=== PATIENT | female | born 1940 | race Caucasian/White ===

== ENCOUNTER → 2018-11-18 10:03 | Outpatient (CLI) | payer OTHER, SELFPAY ==
--- NOTE | 2018-11-15 | LES_PTH ---
PATIENT: JALEESA ZAYAS LOC: [facility] U#:[id number] AGE/SX: 84/F ROOM: RE11/18/[address]: Dr. Luis Enrique Meeks MD : 1940 BED: DIS: SPEC #: [id number] RECD: 11/18/18 09:57 STATUS: ANN DEEPAK #: [id number] CHRISTINA: 11/15/18 00:[address]: Luis Enrique Meeks DEPT: SURGICAL PATHOLOGY RECD BY: Clement Mccoy ENTERED: 11/18/18 12:27 SP TYPE: Lesion OTHR DR: No Primary Care Phys Tissues: Skin of eyelid, NOS Procedures: Surgery Specimen Level IV HEADER OPERATION: RLL lesion PRE-OP DIAGNOSIS: Likely inclusion cyst TISSUE SUBMITTED: Right lower eyelid lesion MICROSCOPIC DIAGNOSIS Lesion of right lower eyelid, biopsy: Consistent with eccrine hidrocystoma. AM:sharon 11/19/18 MICROSCOPIC DESCRIPTION Slides are reviewed. GROSS DESCRIPTION Received in fixative is one container labeled with the patient's name and designated right lateral canthus. The specimen consists of a discoid fragment of light muniz soft tissue measuring 0.4 x 0.3 x 0.1 cm. The specimen is totally submitted in one cassette. / AM:sharon 11/18/18 TC:5 CPT: 98917
== END ==
PROVIDERS: Referring Provider Ophthalmology; Visit Provider Ophthalmology
DX: H02.9 Unspecified disorder of eyelid (principal)
CPT/HCPCS: 88305

== ENCOUNTER → 2023-10-02 | Outpatient (CLI) | payer MEDICARE, SELFPAY ==
--- NOTE | 2023-10-02 12:20 | CT_ITS ---
STUDY: CT LUMBAR SPINE WITH INTRATHECAL CONTRAST (LUMBAR CT MYELOGRAM) REASON FOR EXAM: Female, 83 years old. COMPRESSION FX RADIATION DOSAGE (If Supplied By Facility): CTDIvol = ( 41.29 ) mGy, DLP = ( 1282.85 ) mGycm TECHNIQUE: Transaxial images were obtained from the L1 vertebra through the S1 vertebral level, following intrathecal administration of 15 ml of Isovue 200 contrast material, performed by Dr. Hoffmann. Please refer to this physicians technical notes for procedural details. Coronal and sagittal reconstructions were obtained. Individualized dose optimization techniques were used for this CT. COMPARISON: Comparison is made with prior mammogram done earlier today. FINDINGS: Normal lumbar lordosis. There is no substantial scoliosis. Normal vertebrae of the lumbar spine. There is dependent layering of contrast material in the distal thecal sac. The conus medullaris terminates in a normal position at the L1-L2 level.. There is no demonstrated cauda equina nerve root abnormality or intraspinal mass. L1-2: Marked degree of disc space narrowing. Spondylosis. Degeneration of the disc space. L2-3: Marked degree of disc space narrowing degeneration. Facet joint osteoarthritis and hypertrophy. Severe degree of bilateral neural foraminal stenosis worse on the right side. L3-4: Marked degree of disc space narrowing and degeneration and spondylosis. There is a complete block to the flow of contrast due to combination of the diffuse posterior disc bulge as well as the hypertrophy of the facet joints and the ligamenta flava. L4-5: Marked degree of disc space narrowing. Facet joint osteoarthritis and hypertrophy. Minimal mild radiographic contrast is seen. L5-S1: Normal endplates. Normal disc height and morphology. Normal bilateral facet joints. Normal central canal and bilateral lateral recesses. Normal bilateral intervertebral neural foramina. There are degenerative changes of the bilateral sacroiliac joints. Atherosclerotic calcification of the abdominal aorta. CT/Spine Lumbar WITH Contrast IMPRESSION: Marked degree of spinal stenosis at the L3-L4 level with complete block due to combination of facet joint osteoarthritis and hypertrophy as well as hypertrophy of the ligamenta flava and diffuse posterior disc bulge. Electronically Signed: Rolf Hoffmann MD at 14:11 EDT ,
--- NOTE | 2023-10-02 12:20 | RAD_ITS ---
PROCEDURE: LUMBAR MYELOGRAM DATE OF EXAMINATION: October 02, 2023. INDICATION: Female, 83 years old. Low back pain. Spinal stenosis. PHYSICIAN: Rolf Hoffmann M.D. CONSENT: The patient''s history and physical findings were reviewed. The lumbar myelogram procedure was discussed with the patient prior to signing a consent. SEDATION: Local anesthesia with 3 mL of 1% lidocaine was used. FLUOROSCOPY TIME (if supplied): (6:24) minutes/seconds. 238 mGy. Injection Information: 15 cc of Isovue-M 200 Number of images obtained: TECHNIQUE: Digital fluoroscopy was used to identify a safe approach for the lumbar myelogram. The back was prepped and draped in usual fashion. Local anesthesia was utilized. Under fluoroscopic guidance a 22-gauge spinal needle was inserted into the spinal canal at the L2-L3 level. 15 mL of Isovue 200 M was injected into the spinal canal. There is evidence of a spinal stenosis at the L3-L4 level. Marked degree of disc space narrowing can spondylosis. A CT scan will follow. RAD/Lumbar Myelogram IMPRESSION: Marked degree of spinal stenosis at the L3-L4 level. CT will follow. Electronically Signed: Rolf Hoffmann MD at 14:04 EDT ,
[2023-10-02 12:36] VITALS: BP 186/82; PULSE 79; RESP 18; TEMP 36.7; O2SAT 94; BMI 33.3
[2023-10-02] MEDS: Lidocaine 2% (5ml sdv) 5 ML VIAL.MPF INFILT ×2 (13:08→13:20)
[2023-10-02 13:50] VITALS: BP 215/85; PULSE 83; RESP 20; O2SAT 94
[2023-10-02 14:21] VITALS: BP 189/70; PULSE 73; RESP 18; O2SAT 93
== END | disposition home or self-care (01) ==
PROVIDERS: PCP Internal Medicine; Referring Provider Orthopaedic Surgery; Visit Provider Orthopaedic Surgery
DX: S32.010A Wedge compression fracture of first lumbar vertebra, initial encounter for closed fracture (principal); M54.16 Radiculopathy, lumbar region
CPT/HCPCS: 62304; 72132

== ENCOUNTER 2024-01-03 07:29 | Observation (INO) | payer MEDICARE, SELFPAY ==
--- NOTE | 2023-12-17 08:05 | EKG12_ITS ---
Test Reason : PRE OP Blood Pressure : / mmHG Vent. Rate : 089 BPM Atrial Rate : 090 BPM P-R Int : 210 ms QRS Dur : 082 ms QT Int : 356 ms P-R-T Axes : 044 -17 024 degrees QTc Int : 433 ms Atrial-paced rhythm with prolonged AV conduction Low voltage QRS Septal infarct , age undetermined Abnormal ECG Confirmed by ANNAMARIE WOOD, SHERRIE ([id number]), marketing editor ARAMIS JURADO ([id number]) on 12/17/2023 12:49:06 PM Referred By: Michael Paiz Confirmed By:SHERRIE DE LUNA MD
--- NOTE | 2023-12-17 08:15 | RAD_ITS ---
EXAM: XR CHEST, 2 VIEWS CLINICAL INDICATION: PROEP TECHNIQUE: Frontal and lateral views of the chest. COMPARISON: No relevant prior studies available. FINDINGS: LUNGS AND PLEURAL SPACES: Hyperinflated lungs with interstitial prominence likely secondary to COPD. No focal pneumonia. No pneumothorax. No effusion. HEART: No significant abnormality. Cardiac silhouette not enlarged. MEDIASTINUM: Central airways and mediastinal contour are unremarkable. BONES/JOINTS: Postsurgical changes in the cervical spine and degenerative changes elsewhere in the spine and at the bilateral shoulders. No acute fracture. SOFT TISSUES: No significant abnormality. TUBES, LINES AND DEVICES: Left-sided cardiac pacer. RAD/Chest PA and Lateral IMPRESSION: Hyperinflated lungs with interstitial prominence likely secondary to COPD. No focal pneumonia. Electronically Signed: Geraldo Whitt DO at 23:55 EDT ,
[2023-12-17 09:58] LABS: Absolute Lymphocyte Count 2.78 X10^3/uL (0.83-4.51); Basophil# 0.03 X10^3/uL; Basophil% 0.2 % (0-1); Eosinophil# 0.08 X10^3/uL; Eosinophils% 0.5 % (0-5); Hematocrit 43.4 % (37-47); Hemoglobin 14.2 g/dL (12.0-15.0); Lymphocyte # 2.78 X10^3/ul (0.83-4.51); Lymphocyte % 19.1 % (19-41); Mean Corp Hgb Conc 32.7 g/dL (32-36); Mean Corpuscular Hgb 29.1 pg (27.0-32.0); Mean Corpuscular Volume 88.9 fL (81-99); Mean Platelet Vol. 11.1 fl (6.2-12.0); Monocyte# 1.37 X10^3/uL; Monocyte% 9.4 % (0-10); NRBC Flagged by Analyzer 0 % (0-5); Neutrophil # 10.03 X10^3/uL (2.7-7.7); Neutrophil % 68.8 % (47-70); Platelet Count 251 K/mm3 (150-450); RBC Distribution Width SD 42.4 fl (35.1-43.9); Red Blood Count 4.88 M/mm3 (4.2-5.4); White Blood Count 14.6 K/mm3 (4.4-11.0)
[2023-12-17 10:08] LABS: International Normalized Ratio 1.1; Partial Thromboplast Time 24.3 Seconds (24.1-36.2); Prothrombin Time (Protime)PT. 14.2 SECONDS (11.7-14.9)
[2023-12-17 10:43] LABS: Anion Gap 7 (5-15); BUN 34 mg/dL (7-18); Calcium,Total 8.9 mg/dL (8.5-10.1); Chloride 108 mmol/L (98-107); Creatinine, Serum 1.26 mg/dL (0.55-1.02); EST Glomerular Filtration Rate 43 mL/min (>60); Est Glom Filt Rate - Afr Amer 52 mL/min (>60); Glucose 111 mg/dL (74-106); Potassium 4.4 mmol/L (3.5-5.1); Sodium Level 140 mmol/L (136-145)
--- NOTE | 2023-12-31 06:02 | HP.PCM_ITS ---
History and Physical History and Physical Patient Name: Rosario Tran Marcia : 1940From:? OG FERNANDO PA-C DATE OF PRE-OPERATIVE EXAM: 12/28/2023 DATE OF SURGERY:? 01/03/2024 SCHEDULED PROCEDURE:? Lumbar 3, lumbar 4 laminectomy and decompression HISTORY OF PRESENT ILLNESS: Dictating on an 83-year-old female who has had ongoing pain in her lumbar spine for years.? She has had chronic low back pain which does radiate into the left lower extremity.? Her pain has been episodic.? It has become worse since approximately March when she did have some falls around that time.? She does get pain in the lumbosacral region extending into the gluteal region and left posterior thigh.? She denies past history of any lumbar surgeries or injection s.? She denies any loss of bowel or bladder control.? She has been treated with day care home mother as well as daily home exercises with no relief.? She has tried [id number] medications including Tylenol and aspirin with no relief.? Patient reports that her activities of daily living have been significantly affected.? Patient has had a previous lumbar CT myelogram.? Patient has obtained surgical clearance from her primary care provider Dr. Hopkins.? Patient is also obtain clearance from soap tender.? Patient has medical history pertinent for hypertension, chronic kidney disease stage III, bradycardia.? She also has pacemaker.? Patient denies any recent fevers, chills or recent infections.? No recent chest pain or shortness of breath.? She denies past history of DVT or pulmonary embolism.? It was found on lab work patient to have leukocytosis which was addressed by the primary care provider.? Primary care provider is okay to proceed with surgery.? Urinalysis was done by the primary care provider. ? REVIEW OF SYSTEMS: Review Of Systems: Constitutional: Denies change in appetite, fever and weight change. Cardiovasular: Reports irregular heartbeat, but denies chest pain and heart murmur. Respiratory: Denies cough, pneumonia, shortness of breath, tuberculosis and wheezing. Gastrointestinal: Denies constipation, diarrhea, heartburn, nausea, rectal itching, bloody stools and vomiting. Genitourinary: Denies incontinence. Musculoskeletal: Reports gait disturbance, leg swelling, pain, trouble walking and weakness. Skin: Denies Raynaud's, history of shingles and tattoo. Neurological: Denies ambulatory dysfunction, dizziness, numbness/tingling and tremor. Psychiatric: Reports stress, but denies anxiety and insomnia. Hematologic/Lymphatic: Denies anemia, bleeding/bruising tendency and past transfusion. Reviewed and updated. PAST MEDICAL HISTORY: Advance Care Plan: No Advance Directives Effective Date: 10/30/2019 Past Medical History: Medical Problems: High Blood Pressure, Bradycardia, Stage 3 Chronic Kidney Disease Accidents: Other - (12/06/2020) FALL MISSED STEP Surgical Hx: Pacemaker Knee Arthroscopy LT - (1989) Anesthesia Complications: None Assistive Devices: Cane, Glasses Reviewed and updated. 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 Personal Habits:? Cigarette Use: Never Smoked Cigarettes.Smokeless Tobacco: Never Used Smokeless Tobacco.E-Cigarette Use: Never used.Alcohol: Occasionally.Drug Use: Denies Use.Enjoy Exercising: Exercises 1-3 x/month. Reviewed, no changes. VITALS: Ht: 64 Wt: 206lb Wt k.442 BMI: 35.4 BP: 154/92 Pulse: 85 Resp: 17 T: 97.4 T: 36.3C Pain Level: 8 O2SatR: 97 ALLERGIES: Latex Codeine - Soreness Tape Bandages - Soreness Tetanus - Soreness Aspirin - Soreness MEDICATIONS: Furosemide 20 mg 1 by mouth every day, Lisinopril 20 mg 1 by mouth every day PRE-OP EXAM: General appearance:NORMAL? Other: Eyes: Conjunctivae and lids: NORMAL? Pupils: ERR Ears, Nose, Mouth, and Throat: NORMAL? Other: Inspection of lips, teeth and gums: NORMAL?? Other: Neck: Examination of neck: no masses noted. Respiratory: Assessment of respiratory effort: NORMAL?? Other: ? Auscultation of lungs: clear to auscultation no wheezes, rhonchi or rales. Cardiovascular:? Auscultation of heart: regular rate and rhythm, no murmurs, gallops or rubs. PHYSICAL EXAMINATION: Patient currently ambulates with cane for ambulatory assistance.? She has tenderness to palpation throughout the lumbar paraspinals.? She does have left gluteal pain on palpation.? She gets radicular symptoms to the left posterior thigh.? Patient has increased pain with forward flexion and extension in the lumbar spine.? Sensation is grossly intact to bilateral lower extremities.? Diminished patellar reflex bilaterally.? Decreased strength with left hip flexion and great toe extension. IMAGING STUDIES: Previous x-rays a lumbar spines shows scoliotic deformity of about 20 apex left at L3.? There is straightening of lumbar lordosis in the sagittal plane.? Degenerative changes at multiple levels with loss of disc height, disc osteophyte complex formation and facet arthrosis.? Degenerative changes of bilateral sacroiliac joint.? Mild age-indeterminate compression of the superior endplate of L1.? Decreased bone mineral density throughout the axial skeletal. CT myelogram of the lumbar spine shows mild scoliotic deformity with straightening of the lumbar lordosis in the sagittal plane.? Degenerative changes at multiple levels with loss of disc height, disc osteophyte complex and facet arthrosis most severe at L3-L4 where there is severe central canal stenosis. IMPRESSION: 1.? Lumbar degenerative disc disease most severe L3-L4 with spinal stenosis 2.? Hypertension 3.? Chronic kidney disease stage III 4.? History of bradycardia 5.? Obesity with BMI 35.4 PLAN: Dr. Michael Paiz did discuss and review with the patient all treatment options including surgical versus nonsurgical options.? Patient does wish to proceed with the above-stated procedure.? Potential risks, benefits, and complications of the procedure were discussed in detail including but not limited to , infection, nerve and blood vessel damage, persistent pain, numbness, tingling, paresthesias, blood clot, pulmonary embolism, and requirement for possible further surgery.? The patient expressed full understanding and has no further questions for the doctor.? Patient does agree to proceed with the above-stated procedure and has signed the surgery consent form. POST-OP MEDICATION PLAN: Pain Medications: Postoperative pain regimen will be initiated by Dr. Michael Paiz in the hospital. This dictation was created using voice recognition software. Phonetic and/or grammatical errors may exist. ___? I have re-examined the patient.? There are no clinical changes since date of exam. ___? See progress notes for changes. ___? Dictated on admission Date: ? Time: Signature:
[2024-01-03] VITALS (16 sets, daily range): BP systolic 103–177; BP diastolic 56–94; PULSE 69–86; RESP 16–18; TEMP 36.1–36.8; O2SAT 95–100; BMI 34.5
[2024-01-03] MEDS: Lactated Ringers 1,000 ML 15 ML IV (06:06)
--- NOTE | 2024-01-03 07:18 | OP.PCM_ITS ---
Report of Operation Date of Procedure: 01/03/24 Description of Surgical Findings:: PREOPERATIVE DIAGNOSES: 1. Lumbar stenosis, L3-4, L4-5 with spondylosis. 2. Lumbar degenerative disc disease, L3-4, L4-5 POSTOPERATIVE DIAGNOSES: 1. Lumbar stenosis, L3-4, L4-5 with spondylosis. 2. Lumbar degenerative disc disease, L3-4, L4-5 PROCEDURE PERFORMED: 1. L3 bilateral laminectomies, foraminotomies, decompression of bilateral nerve roots. 2. L4 bilateral laminectomies, foraminotomies, decompression of bilateral nerve roots. STATEMENT OF MEDICAL NECESSITY: The patient is an 83-year-old female with intractable back and leg pain. Image studies confirm above diagnosis. She has opted for operative intervention, understanding the risks to include, but not limited to infection, bleeding, damage to nerves, arteries, and veins, possibility of spinal fluid leak, continued pain, need for further surgery, deep vein thrombosis, pulmonary embolism, heart attack, risk of stroke, or . DESCRIPTION OF PROCEDURE: The patient was seen and examined preoperatively. Patient identity and surgery site were confirmed with the patient. She received preoperative IV antibiotics and was then transferred to the operative suite. After the appropriate amount of anesthesia, the patient was transferred to the [place] operating table in the prone position. All bony prominences were padded accordingly. The lumbar spine was prepped and draped in standard surgical fashion. Jayson huggers were not turned on until drapes were placed and sealed with Ioban. A Midline incision was made and taken down to the lumbodorsal fascia. the fascia was divided and subperiosteal dissection taken down to the level of bilateral L3-4 and L4-5 facet joints. Deep retractors were placed. A bone scalpel was used to make cuts in the lamina of L3 and L4, then a series of rongeurs and Kerrisons removing the spinous process and lamina at L3, and L4. Then, foraminotomies were performed at bilateral L3-4 and L4-5 decompressing the nerve roots. The incision was then thoroughly irrigated. Tissel was placed over the dura as a hemostatic agent. Fascia was closed with #1 Vicryl, subcutaneous with 2-0 Vicryl, and skin with 2-0 nylon. Sterile dressing was applied with 4 x 4, ABD, and tape. Sponge, instrument, and needle counts were correct at the end of the case. The patient was extubated, taken to PACU without incident. Surgeon: Michael Paiz Type of Anesthesia: General Estimated Blood Loss (mL): 50 cc Fluids Replaced: 1000 cc Complications None Admit VTE Documentation VTE Present on Admission: No
--- NOTE | 2024-01-03 07:20 | PRE.ANES_ITS ---
ASA Classification* ASA Classification ASA Classification: 3 Assessment & Plan Anesthesia* Anesthesia Assessment Anesthesia Assessment: Discussed sedation and/or anesthesia options, risks, benefits, and alternatives with patient/parents/legal guardian/POA. Questions invited. The patient/parents/legal guardian/POA seems to understand and agrees to proceed with anesthesia plan. Reviewed the physical assessment, medical history, allergy history and patient home medications list prior to surgery/procedure/anesthetic and documented any changes. Performed airway and anesthesia risk assessments. Anesthesia Type Anesthesia Type: General (see written pre anesthesia record for full assessment) Anesthesia Focused Assessment* Temperature: 97.0 F Pulse Rate: 86 Blood Pressure: 144/66 Respiratory Rate: 18 Pulse Ox: 98 Airway Assessment Mouth opens: >3 cm Mallampati Score: II Focused Labs Anesthesia Preop lab: CBC WBC 14.6 K/mm3 (4.4-11.0) H 12/17/23 08:41 RBC 4.88 M/mm3 (4.2-5.4) 12/17/23 08:41 Hgb 14.2 g/dL (12.0-15.0) 12/17/23 08:41 Hct 43.4 % (37-47) 12/17/23 08:41 Plt Count 251 K/mm3 (150-450) 12/17/23 08:41 CHEMISTRY Potassium 4.4 mmol/L (3.5-5.1) 12/17/23 08:41 Sodium 140 mmol/L (136-145) 12/17/23 08:41 BUN 34 mg/dL (7-18) H 12/17/23 08:41 Creatinine 1.26 mg/dL (0.55-1.02) H 12/17/23 08:41 Glucose 111 mg/dL (74-106) H 12/17/23 08:41 COAG PT 14.2 SECONDS (11.7-14.9) 12/17/23 08:41 Pre-Assessment Diagnosis/Proposed Procedure Planned Operative Procedure(s): Laminectomy, Lumbar 3, Lumbar 4 Decompression Anesthesia History 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 When Was Last Pacemaker Check QUESTION #4 FULL TEXT: You/Your Family Experience fever (hyperthermia) with Anesthesia Last Oral Intake Last Oral intake: Last Oral Intake NPO since 19:00 01/03/24 05:56 Meds taken in AM with sips of No 01/03/24 05:56 water? Meds patient instructed to take am of surgery PONV PONV - reactor fueling supervisor: PONV - reactor fueling supervisor Female Yes 12/13/23 09:50 HX of Motion Sickness No 12/13/23 09:50 HX of N/V After Surgery No 12/13/23 09:50 Non-Smoker Yes 12/13/23 09:50 Duration of Surgery greater Yes 12/13/23 09:50 than 60 minutes Number of Risk Factors 3 12/13/23 09:50 PONV Score Moderate Risk 12/13/23 09:50 Height & Weight Height & Weight: Anesthesia: Height & Weight Height 5 ft 5 in 01/03/24 05:56 Weight: 94.166 kg 01/03/24 05:56 Body Mass Index (BMI) 34.5 01/03/24 05:56 Respiratory Assessment Respiratory Assessment - reactor fueling supervisor: Respiratory Tract Infection Hx - reactor fueling supervisor Hx Respiratory Tract Infection No 12/13/23 09:50 STOP Sleep Apnea STOP Sleep Apnea - reactor fueling supervisor: STOP Sleep Apnea - reactor fueling supervisor Hx Hypertension Yes: CONTROLLED WITH MED 12/13/23 09:50 Hx Sleep Apnea No 12/13/23 09:50 CPAP BIPAP Do you snore loudly (louder No 12/13/23 09:50 than talking or can be heard Do you often feel tired/ No 12/13/23 09:50 fatigued/ sleepy during daytime? Has anyone observed you stop No 12/13/23 09:50 breathing during sleep? STOP Results Negative 12/13/23 09:50 QUESTION #5 FULL TEXT : Do you snore loudly (louder than talking or can be heard through closed doors)? 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 Specify any problems Hx of Preganancy in last 3 N/A 12/13/23 09:50 Months Nurse Filling Out Transfusion NBUCHER 12/13/23 09:50 & Questions: Date: 12/13/23 12/13/23 09:50 Time: 09:54 12/13/23 09:50 Patient unable to answer at this time (ie. confused, unrespo /Reproduction History /Reproductive History - reactor fueling supervisor: /Reproductive Hx- reactor fueling supervisor Hx Now No 12/13/23 09:50 Gestational Age (in weeks): EDC: Hx Hx Para Hx Section SAB No 12/13/23 09:50 Active Medications Active Medications: Current Medications Generic Name Dose Route Start Last Admin Trade Name Freq PRN Reason Stop Dose Admin Lactated Ringer's 1,000 mls @ 15 mls/hr 01/03/24 05:30 01/03/24 06:06 IV 15 mls/hr .Q48H UTE Administration PFSH Medical History Wears glasses High cholesterol Ambulates with cane History of edema Non-smoker History of echocardiogram History of stress test Hypertension Cardiology follow-up encounter History of pacemaker Home Medications ?Medication ?Instructions ?Recorded ?Last Taken ?Type atorvastatin 20 mg tablet 20 mg PO QHS 12/13/23 01/02/24 History ergocalciferol (vitamin D2) 1,250 1,250 mcg PO QWEEK 12/13/23 12/30/23 History mcg (50,000 unit) capsule hydrochlorothiazide 12.5 mg capsule 12.5 mg PO DAILY 12/13/23 01/02/24 History losartan 50 mg tablet 50 mg PO DAILY 12/13/23 01/02/24 History Allergy/AdvReac Type Severity Reaction Status Date / Time codeine Allergy Severe unresponsiv Verified 01/03/24 05:51 e Surgical History Hx of fusion of cervical spine History of arthroplasty of left knee Social History Smoking Status: Never smoker Review of Systems (Anesthesia) ROS Narrative System reviewed and no additional complaints, except as documented.
--- NOTE | 2024-01-03 07:21 | PCM.PN.ORT ---
Subjective Subjective Seen and examined postop. Resting comfortably. Pain controlled. No complaints Objective Data Objective Data Vital Signs: Vital Signs Temp Pulse Resp BP Pulse Ox O2 Del Method 97.0 F L 86 18 144/66 H 98 Room Air 01/03/24 07:20 01/03/24 07:20 01/03/24 07:20 01/03/24 07:20 01/03/24 07:20 01/03/24 05:56 Oxygen Delivery Method Room Air Weight: 207 lb 9.6 oz Body Mass Index (BMI) 34.5 Lab / Micro Data 12/17/23 08:41 12/17/23 08:41 Micro: Microbiology 12/17/23 08:41 Swab (Method) Nasal Screen MRSA/MSSA - Final Physical Exam Const alert, oriented x3 and no apparent distress General Appearance: cooperative, comfortable and well kempt HEENT normocephalic and head/scalp atraumatic Eyes EOMs intact bilaterally and conjunctivae normal Neck full ROM General: normal visual inspection Chest inspection of chest normal and palpation of chest normal Resp normal respiratory effort and normal air movement Cardio regular rate, regular rhythm and peripheral pulses 2+ throughout GI soft to palpation, non-tender and non-distended Back/Spine Back/Spine Narrative: Dressing clean dry and intact Cervical Spine: cervical ROM normal Thoracic Spine / Upper Back: normal to inspection Lumbar Spine / Lower Back: normal to inspection Extremity normal to inspection, full ROM, normal capillary refill, no clubbing, cyanosis or edema and no calf tenderness Skin no rashes or lesions noted General Skin Exam: no breakdown Neuro oriented x3, CN's II-XII intact bilaterally, moves all extremities, no focal motor deficits, no sensory deficits noted and deep tendon reflexes 2+ bilaterally Motor Exam: muscle tone normal throughout Assessment & Plan Assessment/Plan (1) Lumbar stenosis: PLAN: Okay to admit See orders Discharge planning, likely home tomorrow
--- NOTE | 2024-01-03 07:23 | DS.PCM_ITS ---
Providers Date of Admission: 01/03/24 Primary Care Physician: Dr. Leodan Hopkins MD Reason For Visit: Laminectomy, Lumbar 3, Lumbar 4 Dec Diagnosis Discharge Diagnosis (1) Lumbar stenosis: Status: Acute Code(s): M48.061 - Spinal stenosis, lumbar region without neurogenic claudication Plan: Okay to admit See orders Discharge planning, likely home tomorrow Medications at Discharge Home Medications atorvastatin 20 mg tablet 20 mg PO QHS 12/13/23 ergocalciferol (vitamin D2) 1,250 mcg (50,000 unit) capsule 1,250 mcg PO QWEEK 12/13/23 hydrochlorothiazide 12.5 mg capsule 12.5 mg PO DAILY 12/13/23 losartan 50 mg tablet 50 mg PO DAILY 12/13/23 hydrocodone-acetaminophen 5-325mg 5mg-325mg 1 tab PO Q6H 7 days #28 tabs 01/03/24 Hospital Course Operations - (L3 and L4 laminectomy decompression) Summary of Care Provided Minutes Spent on Discharge: 15 Hospital Course: The patient is an 83-year-old female who underwent L3 and L4 laminectomy decompression on 01/03/2024. She was subsequently admitted. The hospitalist was consulted for medical management. The patient progressed well. Her pain was controlled and she was mobilizing well. No significant medical issues were reported. The patient was subsequently discharged home on 01/04/2024 to follow- up with Dr. Paiz in 3 weeks Physical Exam Const alert, oriented x3 and no apparent distress General Appearance: cooperative, comfortable and well kempt Neck full ROM General: normal visual inspection Resp normal respiratory effort and normal air movement Effort and Inspection: able to speak in complete sentences Cardio regular rate and peripheral pulses 2+ throughout GI soft to palpation, non-tender and non-distended Back/Spine Back/Spine Narrative: Dressing clean dry and intact. Incision well-approximated with interrupted sutures in place Cervical Spine: cervical ROM normal Thoracic Spine / Upper Back: normal to inspection Lumbar Spine / Lower Back: normal to inspection Extremity normal to inspection, full ROM, normal capillary refill, no clubbing, cyanosis or edema and no calf tenderness Skin no rashes or lesions noted General Skin Exam: no breakdown Neuro oriented x3, CN's II-XII intact bilaterally, moves all extremities, no focal motor deficits, no sensory deficits noted and deep tendon reflexes 2+ bilaterally Motor Exam: strength 5/5 throughout and muscle tone normal throughout Weight / BMI Weight Weight: 207 lb 9.6 oz Body Mass Index (BMI) 34.5 ABG / Lab / Microbiology Data 12/17/23 08:41 12/17/23 08:41 Microbiology: Microbiology 12/17/23 08:41 Swab (Method) Nasal Screen MRSA/MSSA - Final D/C Instructions Discharge Diet: No restrictions Additional Activity Instructions: No repetitive bending twisting or lifting more than 5 pounds Call your doctor if your incision/area has: Continuous Slow Oozing, Sudden Increased Bleeding, Increased Pain/ Swelling, Increased Redness, Foul Smelling Discharge and Swelling at the incision site Call your doctor if you observe: Fever of 101 or Higher, Coldness, Increased Pain, Numbness or Tingling, Change in Color, Inability to urinate, Inability to have a bowel movement, Using more than 1 pad per hour, Shortness of breath, Dizziness, Fainting spells, Swelling in the ankles, Chest pain, Prolonged hiccupping, Increased palpitations (irregular heartbeat), Calf discomfort and Uncontrolled pain Additional Dressing/Incision Instructions: Change dressing with daily with gauze and tape Additional Instructions: 1. During your procedure, you received sedation through your IV. Please follow these instructions for the next 24 hours: Do not drive a motor vehicle, do not drink any alcoholic beverages, and do not sign any legal documents or make personal or business decisions. A responsible adult should stay with you at least 6 hours after the procedure. 2. Keep your surgical site/incision clean and the dressing dry and intact. Change dressing daily with gauze and tape you may use an ice pack at the surgical site to reduce any swelling or discomfort. 3. Monitor the incision site for any signs or symptoms of infection. Watch for redness, excessive swelling or drainage, or continued pain at the incision site after 3 days. Contact your physician immediately for a fever, chills or a temperature of 101.5? F or greater. 4. Take your medication exactly as prescribed by your physician. Do not attempt to wean yourself off any of your medications even though your pain is improving. This process needs to be carefully monitored by your doctor. Take any antibiotics prescribed exactly as directed and until they are gone. 5. Avoid stretching, bending, pulling, twisting or any sudden movements. Do not bend or twist at the waist. 6. No lifting greater than 5 pounds. 7. Do not operate a motor vehicle, equipment or a power tool while taking pain medication 8. Do not have any manipulation done by a chiropractor or any other physician without first consulting with the surgeon 9. Please call us if you have any questions, problems or concerns. Please Follow Up With: Michael Paiz DO When: 3 weeks Meaningful Use Info Meaningful Use Meaningful Use Diagnoses (Choose all that apply): None applicable Ischemic Stroke Statin Dosing Therapy Reference: STATIN DOSE THERAPY REFERENCE: * Patients > 75 years receive moderate or high dose statin therapy. * Patients 75 years or YOUNGER should receive HIGH intensity statin dose unless contraindicated. You will be required to document reason for non-treatment if statin daily dose does not meet guidelines. HIGH DOSE STATIN THERAPY DAILY Atorvastatin > than or = to 40 mg Rosuvastatin > than or = to 20 mg Amlodipine + Atorvastatin > than or = to 2.5/40 mg Ezetimibe + Simvastatin 10/80 mg Simvastatin 80mg Discharge Plan Admission Admit Date/Time: 01/03/24 07:29 Attending Provider: Michael Paiz Primary Care Provider: Leodan Hopkins Consulting Providers: Artie Hernandez; Millie Grant Discharge Orders/Prescriptions Prescriptions: New hydrocodone-acetaminophen 5-325 mg tablet 1 tab PO Q6H 7 Days Qty: 28 0RF Continued losartan 50 mg tablet 50 mg PO DAILY hydrochlorothiazide 12.5 mg capsule 12.5 mg PO DAILY atorvastatin 20 mg tablet 20 mg PO QHS ergocalciferol (vitamin D2) 1,250 mcg (50,000 unit) capsule 1,250 mcg PO QWEEK Other Ambulatory Orders: 12 Lead EKG (Routine) Timeframe: 20231217 Location: None Selected Ordered By: Dr. Michael Paiz Referrals / Follow Up: Michael Paiz DO [Med Staff - Active Staff] - Leodan Hopkins MD [Primary Care Provider] - Disposition Disposition (needs filled in before D/C Order can be placed): Home, Self Care
[2024-01-03] MEDS: Cefazolin 2 GM in 0.9% Normal Saline (100mL Bag) 100 ML IV (07:37)
--- NOTE | 2024-01-03 07:55 | RAD_ITS ---
PROCEDURE: Intraoperative fluoroscopic services for L3-L4 laminectomy. DATE OF EXAMINATION: January 03, 2024. INDICATION: Female, 83 years old. L3-L4 laminectomy. FLUOROSCOPY TIME (if supplied): (14 seconds) minutes/seconds. 10.81 mGy. RAD/Lumbar Spine 2 or 3 Views IMPRESSION: Intraoperative fluoroscopic services provided for L3-L4 laminectomy and decompression. Electronically Signed: Rolf Hoffmann MD at 11:16 EDT ,
[2024-01-03] MEDS: THROMBIN (RECOMBINANT) 20,000 UNIT VIAL 20000 UNIT TOPICAL (08:16)
[2024-01-03] MEDS: Bupivacaine 0.25% 30 ML Vial (09:23)
--- NOTE | 2024-01-03 09:58 | PCM.POST.ANE ---
Anesthesia: Postop Eval I Current Vital Signs Temperature: 97.3 F Pulse Rate: 72 Blood Pressure: 160/94 Respiratory Rate: 16 Pulse Ox: 100 Oxygen Delivery Method: Simple Mask Oxygen Flow Rate (L/min): 6 Assessment Airway patent: Yes Spontaneous unlabored respirations: Yes Mental status: Awake and Calm nausea: No Vomiting: No Anesthesia Complication: No Fluid Hydration Crystalloid volume administer (ml): 1,000 Total IV fluid infused: 1,000 Progress Note Anesthesia document: Postop Eval 1 completed: Yes
--- NOTE | 2024-01-03 10:40 | POSTOPAN2_ITS ---
Anesthesia Postop Eval I Sum Postop Eval Completion status Anesthesia document: Postop Eval 1 completed: Yes Anesthesia Postop Eval I Summary Anesthesia Postop Eval I Summary: Anesthesia Postop Eval I: Assessment Summary Airway patent Yes 01/03/24 09:59 WATER PUMP INSTALLER.SCAROBNunu Spontaneous unlabored Yes 01/03/24 09:59 WATER PUMP INSTALLER.GUI respirations Mental status Awake,Calm 01/03/24 09:59 WATER PUMP INSTALLER.GUI nausea No 01/03/24 09:59 WATER PUMP INSTALLER.GUI Vomiting No 01/03/24 09:59 WATER PUMP INSTALLER.GUI Anesthesia Postop Eval I: Fluid Summary Crystalloid volume administer 1,000 01/03/24 09:59 WATER PUMP INSTALLER.GUI (ml) Colloids volume administered ( ml) Blood Product volume administered (ml) Total IV fluid infused 1,000 01/03/24 09:59 WATER PUMP INSTALLER.GUI Anesthesia Postop Eval I: Summary Notes Anesthesia Complication No 01/03/24 09:59 WATER PUMP INSTALLEREDU Anesthesia Complication Comment: Post-operative progress note Anesthesia: Postop Eval II Evaluation Mental status: Awake and Calm Pain Level: 2 nausea: No Vomiting: No Progress Note Post-operative progress note: Given Breathing treatment Complications Anesthesia Complication: No
--- NOTE | 2024-01-03 10:40 | PCM.POSTANE2 ---
Anesthesia Postop Eval I Sum Postop Eval Completion status Anesthesia document: Postop Eval 1 completed: Yes Anesthesia Postop Eval I Summary Anesthesia Postop Eval I Summary: Anesthesia Postop Eval I: Assessment Summary Airway patent Yes 01/03/24 09:59 SENIOR TECHNICAL SUPPORT ANALYST.SCAROBNunu Spontaneous unlabored Yes 01/03/24 09:59 SENIOR TECHNICAL SUPPORT ANALYST.GUI respirations Mental status Awake,Calm 01/03/24 09:59 SENIOR TECHNICAL SUPPORT ANALYST.GUI nausea No 01/03/24 09:59 SENIOR TECHNICAL SUPPORT ANALYST.GUI Vomiting No 01/03/24 09:59 SENIOR TECHNICAL SUPPORT ANALYST.GUI Anesthesia Postop Eval I: Fluid Summary Crystalloid volume administer 1,000 01/03/24 09:59 SENIOR TECHNICAL SUPPORT ANALYST.GUI (ml) Colloids volume administered ( ml) Blood Product volume administered (ml) Total IV fluid infused 1,000 01/03/24 09:59 SENIOR TECHNICAL SUPPORT ANALYST.GUI Anesthesia Postop Eval I: Summary Notes Anesthesia Complication No 01/03/24 09:59 SENIOR TECHNICAL SUPPORT ANALYSTEDU Anesthesia Complication Comment: Post-operative progress note Anesthesia: Postop Eval II Evaluation Mental status: Awake and Calm Pain Level: 2 nausea: No Vomiting: No Progress Note Post-operative progress note: Given Breathing treatment Complications Anesthesia Complication: No
[2024-01-03] MEDS: Ensure Surgery 237 ML LIQUID PO ×2 (11:49→15:56)
[2024-01-03] MEDS: Lactated Ringers 1,000 ML 100 ML IV (11:49)
[2024-01-03] MEDS: Acetaminophen 500 MG Tablet 1000 MG PO ×2 (12:15→21:14)
[2024-01-03] MEDS: hydroCHLOROthiazide 12.5mg 12.5 MG PO (12:15)
[2024-01-03] MEDS: Losartan Potassium 50 MG Tablet PO (12:15)
[2024-01-03] MEDS: Cefazolin 1 GM/50 ML BAG IV ×2 (15:56→23:27)
--- NOTE | 2024-01-03 16:50 | PCM.PN.HOSP ---
Reason for Visit Reason for Visit: Low back pain Subjective Subjective Patient states overall she is feeling pretty well. Had a little twinge when she got up to move to the chair but felt better when she got ambulating. She is concerned about going home tomorrow as she has 8 steps. We did discuss that that would be evaluated tomorrow prior to discharge and they would not push her out the door until she was ready. Objective Data Objective Data Vital Signs: Vital Signs Temp Pulse Resp BP Pulse Ox O2 Del Method O2 Flow Rate 98 F 71 18 163/66 H 98 Room Air 2 01/03/24 15:10 01/03/24 15:10 01/03/24 15:10 01/03/24 15:10 01/03/24 15:10 01/03/24 15:10 01/03/24 10:50 Oxygen Flow Rate (L/min) 2 Oxygen Delivery Method Room Air Weight: 94.166 kg Body Mass Index (BMI) 34.5 Intake & Output: Intake and Output for Last 24 Hours 01/01/24 01/02/24 01/03/24 23:59 23:59 23:59 Intake Total 657.42 / 657.42 Balance 657.42 / 657.42 Lab / Micro Data 12/17/23 08:41 12/17/23 08:41 Micro: Microbiology 12/17/23 08:41 Swab (Method) Nasal Screen MRSA/MSSA - Final Radiography Diagnostic Testing: Radiology Impression Lumbar Spine X-Ray 01/03/24 07:55 IMPRESSION: Intraoperative fluoroscopic services provided for L3-L4 laminectomy and decompression. Electronically Signed: Rolf Hoffmann MD at 11:16 EDT , Physical Exam Const alert, oriented x3, no apparent distress, healthy appearing and well nourished; Negative for average body habitus Constitutional Narrative: Obese, elderly, sitting up in a chair eating dinner, family at bedside, patient appears comfortable, toxic HEENT head/scalp atraumatic and moist oral mucous membranes Head and Scalp: normocephalic Resp normal respiratory effort, no retractions, no use of accessory muscles and No clear to auscultation bilaterally Resp Narrative: Crackles that are inspiratory and left base Auscultation: crackles; Negative for rhonchi or wheezes Cardio regular rate, regular rhythm, S1 normal heart sound, S2 normal heart sound, no murmurs, no rub, no gallops and no clicks GI normal to inspection, nondistended, normoactive bowel sounds, soft to palpation and non-tender Extremity no clubbing, cyanosis or edema Extremity Narrative: Pulses are 2+ Neuro oriented x3, moves all extremities and no focal motor deficits Speech: speech normal Psych affect normal Psych Narrative: Very pleasant, interacts Assessment & Plan Assessment/Plan (1) Lumbar stenosis: PLAN: Plan Lumbar spinal stenosis -Postop day 0 L3 and L4 bilateral laminectomies, foraminotomies, decompression of bilateral nerve roots -Pain management per primary service -Would recommend regular bowel regimen -PT/OT Essential hypertension -Continue home hydrochlorothiazide -Continue home losartan Hyperlipidemia -Continue home atorvastatin Vitamin D deficiency -Restart home ergocalciferol on discharge CKD stage IIIb -Baseline serum creatinine is 1.2-1.3 -Lab pending for a.m. -Monitor postoperatively DVT prophylaxis -Per primary Charges/Coding Visit Charges Inpatient E&M: 67030 Subs Hosp L2
[2024-01-03] MEDS: Atorvastatin Calcium 20 MG Tablet PO (21:14)
[2024-01-04 00:25] VITALS: PULSE 73
[2024-01-04 03:18] VITALS: PULSE 88
[2024-01-04] MEDS: Acetaminophen 500 MG Tablet 1000 MG PO ×2 (05:31→15:49)
[2024-01-04 05:35] VITALS: BP 177/60; PULSE 59; RESP 16; TEMP 36.7; O2SAT 95
--- NOTE | 2024-01-04 07:39 | PCM.PN.ORT ---
Subjective Subjective seen and examined. resting comfortably. pain controlled. out of bed with PT and mobilizing well. no complaints Objective Data Objective Data Vital Signs: Vital Signs Temp Pulse Resp BP Pulse Ox O2 Del Method O2 Flow Rate 98.1 F 59 L 16 177/60 H 95 Room Air 2 01/04/24 05:35 01/04/24 05:35 01/04/24 05:35 01/04/24 05:35 01/04/24 05:35 01/04/24 05:35 01/03/24 10:50 Oxygen Flow Rate (L/min) 2 Oxygen Delivery Method Room Air Weight: 207 lb 9.6 oz Body Mass Index (BMI) 34.5 Intake & Output: Intake and Output for Last 24 Hours 01/02/24 01/03/24 01/04/24 23:59 23:59 23:59 Intake Total 657.42 / 657.42 600 / 600 Balance 657.42 / 657.42 600 / 600 Lab / Micro Data 12/17/23 08:41 12/17/23 08:41 Micro: Microbiology 12/17/23 08:41 Swab (Method) Nasal Screen MRSA/MSSA - Final Radiography Diagnostic Testing: Radiology Impression Lumbar Spine X-Ray 01/03/24 07:55 IMPRESSION: Intraoperative fluoroscopic services provided for L3-L4 laminectomy and decompression. Electronically Signed: Rolf Hoffmann MD at 11:16 EDT , Physical Exam Const alert, oriented x3 and no apparent distress General Appearance: cooperative, comfortable and well kempt Neck full ROM General: normal visual inspection Resp normal respiratory effort and normal air movement Effort and Inspection: able to speak in complete sentences Cardio regular rate and peripheral pulses 2+ throughout GI soft to palpation, non-tender and non-distended Back/Spine Back/Spine Narrative: dressing CDI Cervical Spine: cervical ROM normal Thoracic Spine / Upper Back: normal to inspection Lumbar Spine / Lower Back: normal to inspection Extremity normal to inspection, full ROM, normal capillary refill, no clubbing, cyanosis or edema and no calf tenderness Skin no rashes or lesions noted General Skin Exam: no breakdown Neuro oriented x3, CN's II-XII intact bilaterally, moves all extremities, no focal motor deficits, no sensory deficits noted and deep tendon reflexes 2+ bilaterally Motor Exam: strength 5/5 throughout and muscle tone normal throughout Assessment & Plan Assessment/Plan (1) Lumbar stenosis: PLAN: Doing well s/p laminectomy. continue pain control and mobilization with PT. Requesting to stay another day to work on steps with PT. OK to DC home when cleared by PT
[2024-01-04 11:11] VITALS: BP 141/46; PULSE 72; RESP 18; TEMP 36.8; O2SAT 95
--- NOTE | 2024-01-04 11:11 | CASEMGMT ---
Met with patient to complete ARNOLD form. ARNOLD form explained to patient who voiced understanding and signed form. Original form placed in pt?s chart and copy provided to patient. Jeanine Izaguirre, Discharge Planning Asst
--- NOTE | 2024-01-04 11:15 | CASEMGMT ---
AGUSTIN MADSEN Assessment Face to Face with patient for initial transition planning/care coordination assessment. AGUSTIN MADSEN introduced self and role at [facility], pt voices understanding. Pt is A&Ox4 and is resting comfortably in bed and is calm. Care providers, pharmacy, and demographics verified. Admitting dx: Laminectomy LACE Strata: 1 PCP: Leodan Hopkins Specialists: Izabel (Ortho). Pt states that she sees a cadd drafter in [place] but cannot recall the name Preferred Pharmacy: [facility] Insurance: [facility] Prescription Benefit: Yes LNOK: [employer] ([place]) Living Arrangements: Pt lives alone in a split level home with about 7-8 steps between levels with handrails. Pt states that there is a flat entrance to enter the home ADLs/IADLs: Reports ind at baseline Transportation: Self, daughter DME: FWW, Cane, Grab bars, Extended tub bench, raised TS, Medical alert system HHC/SNF: Denies history or needs Pt?s goal: Home Plan: Home. The pt states that she recently finished working with therapy and that It went great and I did good with the steps! Pt states that she does not feel like she needs or wants HHC or OP Tx. Pt states that her daughter plans to stay with her for some time after DC. Pt also states that she has 5-6 Accounting workers that come work in her home M- and that she has plenty of support at home if needs. Pt denies further needs at this time. Report given to MS3 AGUSTIN MADSEN. Cassidy Gallardo RN, CM
[2024-01-04] MEDS: Losartan Potassium 50 MG Tablet PO (11:22)
[2024-01-04] MEDS: hydroCHLOROthiazide 12.5mg 12.5 MG PO (11:22)
[2024-01-04] MEDS: Ensure Surgery 237 ML LIQUID PO (13:40)
[2024-01-04 15:53] VITALS: BP 160/51; PULSE 78; RESP 18; TEMP 36.4; O2SAT 95
== END 2024-01-04 17:09 | disposition home or self-care (01) ==
LOC: SDC 10:33 → MS3 10:33
PROVIDERS: Admitting Provider Orthopaedic Surgery; PCP Internal Medicine; Referring Provider Orthopaedic Surgery; Visit Provider Orthopaedic Surgery
PROC: (CPT 63030; principal; 2024-01-03 07:00)
DX: M48.061 Spinal stenosis, lumbar region without neurogenic claudication (principal); N18.32 Chronic kidney disease, stage 3b; I12.9 Hypertensive chronic kidney disease with stage 1 through stage 4 chronic kidney disease, or unspecified chronic kidney disease; M47.26 Other spondylosis with radiculopathy, lumbar region; Z95.0 Presence of cardiac pacemaker; M51.16 Intervertebral disc disorders with radiculopathy, lumbar region; E66.9 Obesity, unspecified; Z68.35 Body mass index [BMI] 35.0-35.9, adult; R00.1 Bradycardia, unspecified; Z79.899 Other long term (current) drug therapy; E55.9 Vitamin D deficiency, unspecified; R94.31 Abnormal electrocardiogram [ECG] [EKG]; M79.89 Other specified soft tissue disorders
CPT/HCPCS: 63047; 63048; 00630; 36415; 71046; 72100; 76000; 80048; 85025; 85610; 85730; 87081; 93005; 94640; 94668; 96361; 96365; 96366; 97116; 97162; 97530; 99221; J7120; G0378; J2405

== ENCOUNTER 2024-09-26 09:09 | Inpatient (IN) | payer MEDICARE, SELFPAY ==
[2024-09-26] VITALS (10 sets, daily range): BP systolic 136–194; BP diastolic 51–151; PULSE 72–94; RESP 16–34; TEMP 36.6–36.8; O2SAT 94–99; BMI 34.3; BMI 34.6
--- NOTE | 2024-09-26 09:21 | EDS_ITS ---
HPI History of Present Illness Chief Complaint: Lower Extremity Injury Narrative Narrative: 83-year-old female past medical history of remote lumbar back surgery by Dr. Paiz in December of last year, presents with right sciatic pain and right upper hip pain that she has had for about a week. She denies any recent falls. Her daughter states that she was doing physical therapy since last year and on the third time, she started to have increasing pain on the right side. Patient states that she has been having pain for about a week. It was worse on Sunday of last week so she made an appointment with [facility]. She had an appointment at 1 AM, but went in early because she states whenever she tries to move, she has excruciating pain. She took 2 Tylenol this morning. She presents from [facility] with inability to move her right hip or ambulate. [facility] Medical History Wears glasses High cholesterol Ambulates with cane History of edema Non-smoker History of echocardiogram History of stress test Hypertension Cardiology follow-up encounter History of pacemaker Home Medications ?Medication ?Instructions ?Recorded ?Last Taken ?Type atorvastatin 20 mg tablet 20 mg PO QHS 12/13/23 History ergocalciferol (vitamin D2) 1,250 1,250 mcg PO QWEEK 0 12/13/23 12/30/23 History mcg (50,000 unit) capsule hydrochlorothiazide 12.5 mg capsule 12.5 mg PO DAILY 0 12/13/23 01/02/24 History losartan 50 mg tablet 50 mg PO DAILY 12/13/2312/09 History hydrocodone-acetaminophen 5-325mg 1 tab PO Q6H 7 days #28 tabs 01/03/24 Unknown Rx 5mg-325mg Allergy/AdvReac Type Severity Reaction Status Date / Time codeine Allergy Severe unresponsiv Verified 01/03/24 05:51 e latex Allergy Intermediate Swelling Verified 01/03/24 07:36 aspirin Allergy Unknown NEEDS Verified 09/26/24 09:11 FOLLOW-UP Surgical History Hx of fusion of cervical spine History of arthroplasty of left knee Social History Smoking Status: Never smoker ROS ROS ED ROS Narrative Review of systems positive for right hip pain, right buttocks pain. No fevers or chills, no loss of bowel or bladder. Pain worse with movement. Positive inability to move or ambulate. More pain in back when he tries to pick right leg off bed. EXAM Physical Exam Narrative Exam Narrative: Afebrile. Vital signs noted. Nontoxic-appearing. Cardiovascular examination reveals regular rate and rhythm. Lungs are clear to auscultation bilaterally. Abdomen is soft and nontender. Pelvis stable. No pain with logrolling of the right femur. Neurovascular tact distally with palpable dorsalis pedis pulse. EHL intact. Const Vital Signs: 09/26/24 09:11 Temperature 98 F Temperature Source Oral Pulse Rate 94 Respiratory Rate 34 H Blood Pressure 194/151 H Blood Pressure Mean 165 Pulse Ox 98 MDM MDM MDM Narrative
--- NOTE | 2024-09-26 09:21 | EX.ED.DYSGE1 ---
HPI History of Present Illness Chief Complaint: Lower Extremity Injury Narrative Narrative: 83-year-old female past medical history of remote lumbar back surgery by Dr. Paiz in December of last year, presents with right sciatic pain and right upper hip pain that she has had for about a week. She denies any recent falls. Her daughter states that she was doing physical therapy since last year and on the third time, she started to have increasing pain on the right side. Patient states that she has been having pain for about a week. It was worse on Sunday of last week so she made an appointment with [facility]. She had an appointment at 1 AM, but went in early because she states whenever she tries to move, she has excruciating pain. She took 2 Tylenol this morning. She presents from [facility] with inability to move her right hip or ambulate. [facility] Medical History Wears glasses High cholesterol Ambulates with cane History of edema Non-smoker History of echocardiogram History of stress test Hypertension Cardiology follow-up encounter History of pacemaker Home Medications ?Medication ?Instructions ?Recorded ?Last Taken ?Type acetaminophen 325 mg tablet 650 mg PO DAILY PRN pain 09/26/24 09/25/24 History (Aminofen) 650 mg hydrochlorothiazide 12.5 mg capsule 12.5 mg PO DAILY blood pressure 09/26/24 09/25/24 History 12.5 mg Allergy/AdvReac Type Severity Reaction Status Date / Time codeine Allergy Severe unresponsiv Verified 01/03/24 05:51 e latex Allergy Intermediate Swelling Verified 01/03/24 07:36 aspirin Allergy Unknown NEEDS Verified 09/26/24 09:11 FOLLOW-UP Surgical History Hx of fusion of cervical spine History of arthroplasty of left knee Social History Smoking Status: Never smoker ROS ROS ED ROS Narrative Review of systems positive for right hip pain, right buttocks pain. No fevers or chills, no loss of bowel or bladder. Pain worse with movement. Positive inability to move or ambulate. More pain in back when he tries to pick right leg off bed. EXAM Physical Exam Narrative Exam Narrative: Afebrile. Vital signs noted. Nontoxic-appearing. Cardiovascular examination reveals regular rate and rhythm. Lungs are clear to auscultation bilaterally. Abdomen is soft and nontender. Pelvis stable. No pain with logrolling of the right femur. Neurovascular tact distally with palpable dorsalis pedis pulse. EHL intact. Const Vital Signs: 09/26/24 09:11 Temperature 98 F Temperature Source Oral Pulse Rate 94 Respiratory Rate 34 H Blood Pressure 194/151 H Blood Pressure Mean 165 Pulse Ox 98 MDM MDM MDM Narrative Medical decision making narrative: Concern is for sciatica versus lumbar radiculopathy versus hip fracture versus hip strain. I have low suspicion for fracture as she has not had any recent falls. However, she may be more osteopenic. She has more tenderness in the sciatic notch. I have a low concern for cauda equina syndrome as there are no red flag signs. I reviewed her prior chart and on her medication list she has taken hydrocodone acetaminophen previously. She was given a [place] here for pain and x-rays obtained of the lumbar spine as well as the right hip. I will get baseline laboratories in the event that she requires admission for inability to ambulate and perform ADLs. Upon repeat examination, she has not improved after hydrocodone. I reviewed her prior education list and she received fentanyl and Dilaudid after surgery. She was given a dose of 1 mg of Dilaudid intravenously. I reviewed her laboratory work and she has slight elevation of her white count at 11.6 which I think is nonspecific, normal hemoglobin 13.8, platelet count 238. Electrolyte panel is significant for BUN of 23 and a normal creatinine of 1.08, glucose slightly elevated at 112 but anion gap normal at 15. On my individual interpretation of the right hip x-rays as well as the lumbar spine x-rays, there is no acute compression fracture, no dislocation of the hip. There is severe DJD of the bilateral hips right greater than left and DJD of the spine. I reviewed the radiology reports which confirmed my independent interpretation and comment on previous fusion. Given her inability to ambulate and she lives alone, I discussed the patient with Dr. Ohara for admission who requested that I speak with [facility]. I discussed patient with Dr. Joyner who states that he could be consulted for recommendations given her intractable back pain. I rediscussed the patient with Dr. Ohara for admission to the general medical floor. Patient is in stable condition. History & Record Review Discussion w/independent historian: Patient and Family Additional record(s) reviewed:: Prior inpatient record and Prior ED visit Lab Data Attestation: I reviewed the patient's lab results. Labs: Laboratory Results - last 24 hr 09/26/24 09:45 WBC 11.6 H RBC 4.95 Hgb 13.8 Hct 41.2 MCV 83.2 MCH 27.9 MCHC 33.5 RDW Std Deviation 42.0 RDW Coeff of Yo 13.8 Plt Count 238 MPV 10.3 Immature Gran % (Auto) 0.700 Neut % (Auto) 72.4 H Lymph % (Auto) 17.6 L [place] % (Auto) 8.4 Eos % (Auto) 0.5 Baso % (Auto) 0.4 Absolute Neuts (auto) 8.4 H Absolute Lymphs (auto) 2.04 Nucleated RBC % 0 Sodium 139 Potassium 4.2 Chloride 103 Carbon Dioxide 21.4 Anion Gap 15 BUN 23 H Creatinine 1.08 Estim Creat Clear Calc 44.66 L Est GFR (MDRD) Non-Af 51 L BUN/Creatinine Ratio 21.7 H Glucose 112 H Calcium 9.7 Magnesium 2.3 H Radiography Diagnostic Testing: Clinical Impression(s) from Imaging Studies Hip/Pelvis X-Ray 09/26/24 09:50 IMPRESSION: Mild arthritis of both hips with attention to the right hip. Reading Location: [facility] Lumbar Spine X-Ray 09/26/24 09:50 IMPRESSION: ADVANCED DEGENERATIVE CHANGES OF THE LUMBAR SPINE. Reading Location: [facility] Management Discussion w/another healthcare provider: Hospitalist and Gift Manager Discharge Plan Dx/Rx/DC Orders Clinical Impression: Lumbar stenosis, Intractable low back pain, Hip pain, right, Inability to ambulate due to hip, Debility Disposition Disposition: Acute Care Hospital [facility] Discharge Date/Time: 09/26/24 11:30
[2024-09-26] MEDS: HYDROcodone Bitartrate/Apap 5/325 Tablet PO (09:43)
--- NOTE | 2024-09-26 09:50 | RAD_ITS ---
PROCEDURE: LUMBAR SPINE 2 OR 3 VIEWS 09/26/2024 REASON FOR EXAM: PAIN TECHNIQUE: LUMBAR SPINE 2 OR 3 VIEWS COMPARISON: Prior study dated October 02, 2023. FINDINGS: Vertebrae: Multilevel spondylosis. Discs: Multilevel disc space narrowing. Fusion at the L4-L5 and L5-S1 levels. Alignment: No evidence of listhesis. Other: Fecal material seen throughout the colon. Aortic calcification. RAD/Lumbar Spine 2 or 3 Views IMPRESSION: ADVANCED DEGENERATIVE CHANGES OF THE LUMBAR SPINE. Reading Location: [place] [id number]
--- NOTE | 2024-09-26 09:50 | RAD_ITS ---
PROCEDURE: HIP, UNI W/ PELVIS 2-3 VIEWS 09/26/2024 REASON FOR EXAM: PAIN TECHNIQUE: HIP, UNI W/ PELVIS 2-3 VIEWS COMPARISON: None. FINDINGS: The bony pelvis is intact. The SI joints are unremarkable. There is degenerative disc disease L4-5 and L5-S1. There is mild arthritis of the left hip. The soft tissues of the pelvis are unremarkable. Two views of the right hip demonstrate no evidence of fracture or dislocation. There is mild joint space narrowing with small marginal osteophytes. The periarticular soft tissues are normal. RAD/HIP, UNI W/ Pelvis 2-3 Views IMPRESSION: Mild arthritis of both hips with attention to the right hip. Reading Location: [id number]
[2024-09-26 09:55] LABS: Absolute Lymphocyte Count 2.04 X10^3/uL (0.83-4.51); Absolute Neutrophil Count 8.4 X10^3/uL (2.0-7.7); Basophil# 0.05 X10^3/uL; Basophil% 0.4 % (0-1); Eosinophil# 0.06 X10^3/uL; Eosinophils% 0.5 % (0-5); Hematocrit 41.2 % (37-47); Hemoglobin 13.8 g/dL (12.0-15.0); Lymphocyte # 2.04 X10^3/ul (0.83-4.51); Lymphocyte % 17.6 % (19-41); Mean Corp Hgb Conc 33.5 g/dL (32-36); Mean Corpuscular Hgb 27.9 pg (27.0-32.0); Mean Corpuscular Volume 83.2 fL (81-99); Mean Platelet Vol. 10.3 fl (6.2-12.0); Monocyte# 0.98 X10^3/uL; Monocyte% 8.4 % (0-10); NRBC Flagged by Analyzer 0 % (0-5); Neutrophil # 8.39 X10^3/uL (2.7-7.7); Neutrophil % 72.4 % (47-70); Platelet Count 238 K/mm3 (150-450); RBC Distribution Width CV 13.8 % (11.6-14.6); Red Blood Count 4.95 M/mm3 (4.2-5.4); White Blood Count 11.6 K/mm3 (4.4-11.0)
[2024-09-26 10:19] LABS: Anion Gap 15 (5-15); BUN 23 mg/dL (4-19); BUN/Creat Ratio 21.7 RATIO (10-20); Calcium,Total 9.7 mg/dL (7.6-11.0); Carbon Dioxide 21.4 mmol/L (21.0-32.0); Chloride 103 mmol/L (98-108); Creatinine, Serum 1.08 mg/dL (0.70-1.20); EST Glomerular Filtration Rate 51 (>60); Estimated Creatinine Clearance 44.66 ml/min (50-250); Glucose 112 mg/dL (70-99); Potassium 4.2 mmol/L (3.3-5.1); Sodium Level 139 mmol/L (133-145)
--- NOTE | 2024-09-26 10:37 | PCM.HP.STD ---
HPI - General General Date of Admission: 09/26/24 Date of Service: 09/26/24 Chief Complaint: Right-sided lower back pain/posterior hip, chronic got exacerbated for last 3 days. Could not stand/ambulate even on walker HPI Narrative JALEESA LUJAN, is a 83 F came to ED/actually sent by [facility] for severe right-sided lower back pain/hip pain. She states he had lower back surgery by Dr. Paiz in December 2023. She injured her back during physical therapy a month later and since then she has chronic back pain but she was able to walk with a cane and she works from home. Her pain got worse for last 1 week and about 2 days ago last Sunday, she had severe right lower back pain and called orthopedics and made appointment for today but her pain was so bad, 10/10, inability to ambulate or stand therefore was sent to ED. At rest her pain is about 6/10 intensity but on movement becomes excruciating 10/10. No fever. In ED, her BP was high 190/151 therefore admitted in PCU [facility] Medical History Wears glasses High cholesterol Ambulates with cane History of edema Non-smoker History of echocardiogram History of stress test Hypertension Cardiology follow-up encounter History of pacemaker Home Medications ?Medication ?Instructions ?Recorded ?Last Taken ?Type acetaminophen 325 mg tablet 650 mg PO DAILY PRN pain 09/26/24 09/25/24 History (Aminofen) 650 mg hydrochlorothiazide 12.5 mg capsule 12.5 mg PO DAILY blood pressure 09/26/24 09/25/24 History 12.5 mg Allergy/AdvReac Type Severity Reaction Status Date / Time codeine Allergy Severe unresponsiv Verified 01/03/24 05:51 e latex Allergy Intermediate Swelling Verified 01/03/24 07:36 aspirin Allergy Unknown NEEDS Verified 09/26/24 09:11 FOLLOW-UP Surgical History Hx of fusion of cervical spine History of arthroplasty of left knee Social History Smoking Status: Never smoker ROS ROS Narrative Constitutional: Reports mild chronic fatigue and weakness. No fever. HEENT: Reports systems reviewed and no addt'l complaints, except as documented Respiratory/Chest: No acute shortness of breath or respiratory distress or wheezing. No smoking history. CVS: No chest pain or shortness of breath. Has pacemaker. Gastrointestinal: Denies coffee ground emesis, hematemesis or vomiting. Move bowel yesterday. Genitourinary: Denies burning urination or new urinary tract symptoms Musculoskeletal: As described in HPI. No acute injury Neurologic: Denies seizure-like symptoms. skin: No ulcer. No rash Endocrinology: Reports systems reviewed and no addt'l complaints, except as documented Hematologic/Lymphatic: Reports systems reviewed and no addt'l complaints, except as documented Rest 14 ROS are negative except as mentioned in HPI Vital Signs Vital Signs Vital Signs: 09/26/24 09:11 Temperature 98 F Temperature Source Oral Pulse Rate 94 Respiratory Rate 34 H Blood Pressure 194/151 H Blood Pressure Mean 165 Pulse Ox 98 Weight Weight: 206 lb 9.17 oz Body Mass Index (BMI) 34.3 Physical Exam Narrative General: Alert, Oriented x3, Cooperative. BMI 34.7 kg/m?, obesity grade 1 HEENT: Atraumatic, PERRLA, EOMI, Normocephalic. Oral: Deep oropharyngeal could not be visualized. Neck: Supple, No JVD, Negative Carotid Bruits Chest wall/Lungs: Air entry equal in bilateral lung bases. No crepitation/rhonchi Cardiovascular: Regular rate and rhythm, Normal S1,S2, No M/G/R Abdomen: Bowel Sounds Present, Soft, Non Tender, Non-Distended : No dysuria. No renal angle tenderness. No suprapubic tenderness. Extremities: No edema, Capillary Refill Less than 3 Seconds Skin: No rashes, No breakdown Musculoskeletal: No acute tenderness in anterior bilateral groin or greater trochanter. ROM of right hip severely limited with pain and spasm Spine: Right-sided paraspinal muscle tenderness present. Could not sit or roll to examine adequately. RLE, straight leg raise test positive Neurological: Cranial nerves II-XII grossly intact, DTR 2+/4. No acute focal neurological deficit. Psych/Mental Status: Flat affect Results Lab / Micro Data 09/26/24 09:45 09/26/24 09:45 Labs: Laboratory Results - last 24 hr 09/26/24 09:45: WBC 11.6 H, RBC 4.95, Hgb 13.8, Hct 41.2, MCV 83.2, MCH 27.9, MCHC 33.5, RDW Std Deviation 42.0, RDW Coeff of Yo 13.8, Plt Count 238, MPV 10.3, Immature Gran % (Auto) 0.700, Neut % (Auto) 72.4 H, Lymph % (Auto) 17.6 L, [place] % (Auto) 8.4, Eos % (Auto) 0.5, Baso % (Auto) 0.4, Absolute Neuts (auto) 8.4 H, Absolute Lymphs (auto) 2.04, Nucleated RBC % 0, Sodium 139, Potassium 4.2, Chloride 103, Carbon Dioxide 21.4, Anion Gap 15, BUN 23 H, Creatinine 1.08, Estim Creat Clear Calc 44.66 L, Est GFR (MDRD) Non-Af 51 L, BUN/Creatinine Ratio 21.7 H, Glucose 112 H, Calcium 9.7 Imaging Radiology Impression Hip/Pelvis X-Ray 09/26/24 09:50 IMPRESSION: Mild arthritis of both hips with attention to the right hip. Reading Location: [facility] Lumbar Spine X-Ray 09/26/24 09:50 IMPRESSION: ADVANCED DEGENERATIVE CHANGES OF THE LUMBAR SPINE. Reading Location: [facility] Assessment & Plan Assessment/Plan (1) Debility: (2) Intractable low back pain: PLAN: Plan This 83-year-old female is being admitted for acute intractable right-sided lower back pain/posterior hip 1. Intractable right-sided/posterior hip lower back pain consistent with sciatica pain: Lumbar spine x-ray shows multilevel spondylosis, multilevel disc space narrowing fusion at L4-5 and L5-S1. No evidence of listhesis. Fecal material throughout the colon. Hips/pelvis x-ray shows mild arthritis of both hips with mild arthritis of left hip. Pain medication, muscle relaxant baclofen. Posterior orthopedic lean consultant to consider for local injection. PT and OT ordered 2. Chronic constipation: X-ray shows fecal material therefore aggressive treatment with senna S, MiraLAX, psyllium Dulcolax. 3. Chronic lumbar spinal stenosis: She had L3 and L4 bilateral laminectomy, foraminotomies and decompression of bilateral nerve root in December 2023. She was following Dr. Paiz. 4. Hypertensive urgency with essential hypertension: Patient blood pressure in systolic 194. IV hydralazine and IV labetalol as needed ordered. Continue home medication HCTZ and losartan first dose now. 5. Dyslipidemia: On atorvastatin continue 6. CKD stage IIIb: Estimated creatinine clearance 44.66, BUN/creatinine 23/1.08 on baseline 7. DVT prophylaxis, high risk: Lovenox 40 Mg subcu daily ordered. Living will/advanced directive/end of life care: Patient does have living will or advanced directive. After discussion of benefits/risks procedures involved with full code, DNR CC arrest and DNR CC, the patient opted for full code. Patient does want artificial life support including intubation, tube feed, ventilator and/chest compression, central venous catheter, vasopressor and DC shock if needed Total time spent in [id number] encounter in discussion of advanced directive 17 minutes. Laboratory Results 09/26/24 09:45: WBC 11.6 H, RBC 4.95, Hgb 13.8, Hct 41.2, MCV 83.2, MCH 27.9, MCHC 33.5, RDW Std Deviation 42.0, RDW Coeff of Yo 13.8, Plt Count 238, MPV 10.3, Immature Gran % (Auto) 0.700, Neut % (Auto) 72.4 H, Lymph % (Auto) 17.6 L, [place] % (Auto) 8.4, Eos % (Auto) 0.5, Baso % (Auto) 0.4, Absolute Neuts (auto) 8.4 H, Absolute Lymphs (auto) 2.04, Nucleated RBC % 0, Sodium 139, Potassium 4.2, Chloride 103, Carbon Dioxide 21.4, Anion Gap 15, BUN 23 H, Creatinine 1.08, Estim Creat Clear Calc 44.66 L, Est GFR (MDRD) Non-Af 51 L, BUN/Creatinine Ratio 21.7 H, Glucose 112 H, Calcium 9.7, Magnesium 2.3 H Charges/Coding Visit Charges Inpatient E&M: 94782 Init Hosp L3 Procedures Hospitalists Procedures: 02922 Advncd Care Plan 30 Min
[2024-09-26] MEDS: HYDROmorphone 1 MG/ML Syringe IV (11:00)
[2024-09-26 12:33] LABS: Magnesium 2.3 mg/dL (1.5-2.2)
[2024-09-26] MEDS: Lactated Ringers 1,000 ML 75 ML IV (12:36)
[2024-09-26] MEDS: 0.9% Saline Lock 10 ML Syringe IV ×4 (12:36→16:48)
[2024-09-26] MEDS: Losartan Potassium 50 MG Tablet PO (12:52)
[2024-09-26] MEDS: Senna/Docusate Sodium 1 Tablet 2 TABLET PO (12:52)
[2024-09-26] MEDS: hydroCHLOROthiazide 12.5mg 12.5 MG PO (12:52)
[2024-09-26] MEDS: hydrALAZINE 20 MG/ML Vial 10 MG IV (13:50)
--- NOTE | 2024-09-26 15:41 | CON.PCM.OR_ITS ---
HPI Consult Data Date of Consult: 09/26/24 HPI Narrative Reason for Consultation: Intractable low back pain HPI Narrative: JALEESA LUJAN, is a 83 F who presented this morning to [facility] earlier than the scheduled appointment due to intractable low back pain. She states she has had some pain in her right lower back and tailbone region for about a week and made an appointment to be evaluated. She states this morning she went to reach for the phone and noted severe acute onset worsening of pain. She states this pain is worse than anything she has experienced. She rates her pain a 10 out of 10 throughout the morning. She states her pain is slightly improved after being admitted and given some analgesics. She denies any leg pain, numbness or tingling, bowel or bladder incontinence, leg weakness. 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 She had a laminectomy performed by Dr. Michael Paiz last year and reported good improvement after her surgery. She denies feeling any significant pop or crunching sensation in her lower back or sacrum. Denies any groin pain. EMS was called from [facility] as the patient was in tears attempting to get x-rays. She was evaluated the emergency department and admitted under the service of the hospitalist. [facility] Medical History Wears glasses High cholesterol Ambulates with cane History of edema Non-smoker History of echocardiogram History of stress test Hypertension Cardiology follow-up encounter History of pacemaker Home Medications ?Medication ?Instructions ?Recorded ?Last Taken ?Type acetaminophen 325 mg tablet 650 mg PO DAILY PRN pain 0 09/26/24 09/25/24 History (Aminofen) 650 mg hydrochlorothiazide 12.5 mg capsule 12.5 mg PO DAILY b lood pressure 09/26/24 09/25/24 History 12.5 mg Allergy/AdvReac Type Severity Reaction Status Date / Time codeine Allergy Severe unresponsiv Verified 01/03/24 05:51 e latex Allergy Intermediate Swelling Verified 01/03/24 07:36 aspirin Allergy Unknown NEEDS Verified 09/26/24 09:11 FOLLOW-UP Surgical History Hx of fusion of cervical spine History of arthroplasty of left knee Social History Smoking Status: Never smoker ROS ROS Narrative 12 point review of systems obtained, negative as otherwise noted in HPI. Vital Signs Vital Signs Vital Signs: 09/26/24 09:11 09/26/24 11:09 09/26/24 11:24 Temperature 98 F 97.8 F Temperature Source Oral Pulse Rate 94 76 87 Respiratory Rate 34 H 16 16 Blood Pressure 194/151 H 185/73 H 163/98 H Blood Pressure Mean 165 110 119 Blood Pressure Source Blood Pressure Position Blood Pressure Location Pulse Ox 98 97 99 Oxygen Delivery Method Room Air 09/26/24 12:06 09/26/24 13:47 09/26/24 13:50 Temperature 98 F 97.9 F Temperature Source Oral Oral Pulse Rate 81 85 85 Respiratory Rate 20 H 20 H Blood Pressure 193/88 H 186/65 H 186/65 H Blood Pressure Mean 123 105 Blood Pressure Source Monitor Monitor Blood Pressure Position Semi-Fowlers Semi-Fowlers Blood Pressure Location Right Arm Right Arm Pulse Ox 99 94 Oxygen Delivery Method Room Air Room Air 09/26/24 14:21 Temperature Temperature Source Pulse Rate Respiratory Rate Blood Pressure 156/51 H Blood Pressure Mean 86 Blood Pressure Source Monitor Blood Pressure Position Semi-Fowlers Blood Pressure Location Right Arm Pulse Ox Oxygen Delivery Method Weight Weight: 214 lb 11.684 oz Body Mass Index (BMI) 34.6 Physical Exam Narrative General -A&Ox3, appears in significant pain and anxious, appears stated age. Hypertensive, afebrile. Respiratory -normal work of breathing, no intercostal retractions. CV -pulses regular, brisk capillary refill ?4 limbs. Abdomen-soft, nontender, nondistended. No guarding, rigidity, rebound tenderness. Musculoskeletal/neurologic -cranial nerves II through XII intact. Bilateral lower extremity DF, PF, EHL 5/5. Downgoing Babinski. DP 2+ was capillary fill in the toes. No saddle anesthesia. Sensation intact to light touch L3-S1 dermatomes bilaterally. She has focal tenderness in the upper sacrum region as well as the right quadratus lumborum. No palpable step-offs or deformities of the lumbar spine. Negative logroll right lower extremity. Lab / Micro Data 09/26/24 09:45 09/26/24 09:45 Labs: Laboratory Results - last 24 hr 09/26/24 09:45: WBC 11.6 H, RBC 4.95, Hgb 13.8, Hct 41.2, MCV 83.2, MCH 27.9, MCHC 33.5, RDW Std Deviation 42.0, RDW Coeff of Yo 13.8, Plt Count 238, MPV 10.3, Immature Gran % (Auto) 0.700, Neut % (Auto) 72.4 H, Lymph % (Auto) 17.6 L, [place] % (Auto) 8.4, Eos % (Auto) 0.5, Baso % (Auto) 0.4, Absolute Neuts (auto) 8.4 H, Absolute Lymphs (auto) 2.04, Nucleated RBC % 0, Sodium 139, Potassium 4.2, Chloride 103, Carbon Dioxide 21.4, Anion Gap 15, BUN 23 H, Creatinine 1.08, Estim Creat Clear Calc 44.66 L, Est GFR (MDRD) Non-Af 51 L, BUN/Creatinine Ratio 21.7 H, Glucose 112 H, Calcium 9.7, Magnesium 2.3 H Imaging Radiology Impression Hip/Pelvis X-Ray 09/26/24 09:50 IMPRESSION: Mild arthritis of both hips with attention to the right hip. Reading Location: [facility] Lumbar Spine X-Ray 09/26/24 09:50 IMPRESSION: ADVANCED DEGENERATIVE CHANGES OF THE LUMBAR SPINE. Reading Location: [facility] Assessment & Plan Assessment/Plan (1) Intractable low back pain: PLAN: Patient seen and examined. X-rays demonstrated multilevel degenerative changes. No acute fractures identified on x-rays. Concern for occult fracture. She also appears to have muscle spasm as well. She does have a pacemaker that she reports is incompatible for MRI. I recommended a CT scan of the lumbar spine for further evaluation. Multimodal pain management has been ordered by primary service agree with using muscle relaxants, opioids, Tylenol as ordered.
[2024-09-26] MEDS: Morphine 2 MG/ML Syringe IV (15:57)
--- NOTE | 2024-09-26 16:25 | CT_ITS ---
EXAM: CT Lumbar Spine With Intravenous Contrast CLINICAL INDICATION: INTRACTABLE LUMBOSACRAL PAIN TECHNIQUE: Axial computed tomography images of the lumbar spine with intravenous contrast. This CT exam was performed using one or more of the following dose reduction techniques: automated exposure control, adjustment of the mA and/or kV according to patient size, and/or use of iterative reconstruction technique. COMPARISON: No relevant prior studies available. FINDINGS: VERTEBRAE: Severe endplate degenerative changes and disc disease L1-S1 with fusion of L1-2 and L4-5. No acute fracture. DISCS/SPINAL CANAL/NEURAL FORAMINA: See above. SOFT TISSUES: Unremarkable. CT/Spine Lumbar WITH Contrast IMPRESSION: 1. No acute fracture. 2. Degenerative changes as above. 3. If symptoms persist, further evaluation with MRI is recommended. Reading Location: [facility]
[2024-09-26] MEDS: Polyethylene Glycol 3350 17 GM PACKET PO (16:47)
[2024-09-26] MEDS: Enoxaparin 40 MG/0.4 ML Syringe SC (16:48)
--- OUTSIDE RECORDS SUMMARY | 2024-09-26 18:20 | XMS RPT_ITS | CCD ---
Author Organization [facility] Care Team Providers Care Professor Of Early Childhood Education Name Role Phone Kelly Maradiaga Unavailable Unavailable No Family Physician given Unavailable Ce Hopkins MD, Leodan Meade Primary Care Provider [phone] Shaista Arango DO Unavailable Simi Pepe CMA Unavailable Unavailable Sandeep WOOD, Leodan Meade Primary Care Provider [phone] ARSLAN SIDDIQUI Referring Unavailable LEODAN HOPKINS Primary Care Unavailable Sandeep WOOD, Leodan Meade Primary Care Provider [phone] Leodan Hopkins MD Primary Care Provider [phone] MICHAEL RICHMOND DO Attending Unavailable Michael Richmond Admitting Unavailable Millie Grant Attending Unavailable Michael Richmond Referring Unavailable Hopkins, Leodan Primary Care Unavailable Artie Hernandez Consulting Unavailable Millie Grant Consulting Unavailable Michael Richmond Consulting Unavailable Michael Richmond Attending Unavailable Michael Richmond Referring Unavailable Hopkins, Leodan Primary Care Unavailable Michael Richmond Admitting Unavailable Artie Hernandez Consulting Unavailable Millie Grant Consulting Unavailable Michael Richmond Attending Unavailable Michael Richmond Referring Unavailable Hopkins, Leodan Primary Care Unavailable AMBER LUCAS Consulting Unavailable Sukh De La Vega Attending Unavailable Michael Richmond Referring Unavailable Sandeep, Leodan Primary Care Unavailable LEODAN HOPKINS Referring Unavailable SANDEEP, LEODAN Meade Primary Care Unavailable LEODAN HOPKINS Attending Unavailable LEODAN HOPKINS Primary Care Unavailable SELF Referring Unavailable LEODAN HOPKINS Attending Unavailable LEODAN HOPKINS Primary Care Unavailable LEODAN HOPKINS Primary Care Unavailable LEODAN HOPKINS Referring Unavailable LEODAN HOPKINS Attending Unavailable LEODAN HOPKINS Primary Care Unavailable LEODAN HOPKINS Primary Care Unavailable JOSSIE WILSON Attending Unavailable LEODAN HOPKINS Primary Care Unavailable LEODAN HOPKINS Primary Care Unavailable Akin JOSE ALBERTO.MECHANICAL ENGINEERING PROFESSOR, Jaimee M Unavailable PHYSICIAN, NOT RECORDED Primary Care Physician U navailable PHYSICIAN, NOT RECORDED Primary Care UnavailMICHAEL Marshall DO Attending Unavailable Sandeep WOOD, Dr. Alcocer Primary Care Provider Edwin Juan MD Emergency Provider Allergies Allergy Classification Reported Allergen(s) Allergy Type Date of Onset Reaction(s) Facility (20 sources) Adhesive Tape; Translations: [ADHESIVE TAPE (ROSINS)] Allergy to substance 2 Rash [facility] Work Phone: (20 sources) Codeine; Translations: [CODEINE] Drug Allergy 5 Mental Status Change [facility] Work Phone: (20 sources) Streptococcus pneumoniae type 1 capsular polysaccharide antigen / Streptococcus pneumoniae type 10A capsular polysaccharide antigen / Streptococcus pneumoniae type 11A capsular polysaccharide antigen / Streptococcus pneumoniae type 12F capsular polysaccharide antigen / Streptococcus pneumoniae type 14 capsular polysaccharide antigen / Streptococcus pneumoniae type 15B capsular polysaccharide antigen / Streptococcus pneumoniae type 17F capsular polysaccharide antigen / Streptococcus pneumoniae type 18C capsular polysaccharide antigen / Streptococcus pneumoniae type 19A capsular polysaccharide antigen / Streptococcus pneumoniae type 19F capsular polysaccharide antigen / Streptococcus pneumoniae type 2 capsular polysaccharide antigen / Streptococcus pneumoniae type 20 capsular polysaccharide antigen / Streptococcus pneumoniae type 22F capsular polysaccharide antigen / Streptococcus pneumoniae type 23F capsular polysaccharide antigen / Streptococcus pneumoniae type 3 capsular polysaccharide antigen / Streptococcus pneumoniae type 33F capsular polysaccharide antigen / Streptococcus pneumoniae type 4 capsular polysaccharide antigen / Streptococcus pneumoniae type 5 capsular polysaccharide antigen / Streptococcus pneumoniae type 6B capsular polysaccharide antigen / Streptococcus pneumoniae type 7F capsular polysaccharide antigen / Streptococcus pneumoniae type 8 capsular polysaccharide antigen / Streptococcus pneumoniae type 9N capsular polysaccharide antigen / Streptococcus pneumoniae type 9V capsular polysaccharide antigen; Translations: [PNEUMOCOCCAL 23-ALIDA PS VACCINE] Drug Allergy 6 Rash, Swelling [facility] Work Phone: (20 sources) Tetanus And Diphtheria Toxoids; Translations: [TETANUS AND DIPHTHERIA TOXOIDS] Drug Allergy 6 Rash, Swelling [facility] Work Phone: (20 sources) Aspirin; Translations: [ASPIRIN] Drug Allergy 3 Other: See Comments [facility] Comment on above: PCP states not to ta ke (1 source) Codeine Drug Allergy 4 [facility] Repository (2 sources) Latex; Translations: [LATEX] Drug allergy (disorder) 4 [facility] Repository (4 sources) Latex Drug Allergy 4 Swelling [facility] Medications Current Medications Medication Drug Class(es) Dates Sig (Normalized) Sig (Original) acetaminophen 325 mg oral tablet (20 sources) Start: 09-26-2024 Acetaminophen (Aminofen) 325 mg tablet Active 650 mg PO DAILY as needed for pain September 26, 2024 12:00am acetaminophen (T YLENOL) 325 mg tablet Take 2 tablets by mouth as needed. Active Comment on above: Take 2 tablets by [facility] as needed. hydroCHLOROthiazide 12.5 mg oral capsule (15 sources) Thiazide Diuretic Start: 2024 take 1 capsule by mouth once daily Hydrochlorothiazide 12.5 mg capsule Active 12.5 mg PO DAILY September 26, 2024 12:00am Start: 03-15-2023 End: 09-26-2024 take 1 capsule by mouth once daily hydroCHLOROthiazide 12.5 mg capsule Indications: Essential hypertension Take 1 capsule by mouth once daily. 90 capsule 3 03/19/2024 Active Comment on above: Take 1 capsule by [facility] once daily. losartan potassium 100 mg oral tablet (20 sources) Angiotensin 2 Receptor Eddie Start: take 1 tablet by mouth once daily losartan (COZAAR) 100 mg tablet Indications: Essential hypertension Take 1 tablet by mouth once daily. 90 tablet 3 03/19/2024 Active Start: 12-27-2023 take 1 tablet by [facility] once daily losartan (COZAAR) 100 mg tablet Indications: Essential hypertension Take 1 tablet by mouth once daily. 90 tablet 1 12/27/2023 Active Start: 03-15-2023 End: 09-26-2024 take 1 tablet by mouth once daily Losartan 50 mg tablet Discontinued 50 mg PO DAILY December 13, 2023 12:00am September 26, 2024 11:23am Start: 01-23-2023 take 2 tablets by mo [facility] once daily in the morning losartan (COZAAR) 25 mg tablet Indications: Essential hypertension Take 2 tablets by mouth every morning. 0 01/23/2023 Active Start: 03-23-2022 take 1 tablet by diana th once daily losartan (COZAAR) 25 mg tablet Take 1 tablet by mouth once daily. 90 tablet 3 03/23/2022 Active Comment on above: Take 1 tablet by diana th once daily. Take 2 tablets by mo [facility] every morning. Take 1 tablet by diana every morning. ofloxacin 3 mg/ml ophthalmic solution (11 sources) Quinolone Antimicrobial Start: 01-25-2023 ofloxacin (OCUFLOX) 0.3 % ophthalmic solution 01/25/2023 Active Completed/Discontinued Medications Medication Drug Class(es) Dates Sig (Normalized) Sig (Original) acetaminophen 325 mg / HYDROcodone bitartrate 5 mg oral tablet (4 sources) Opioid Agonist Start: 01-03-2024 End: 09-26-2024 Hydrocodone-Acetami nophen 5-325 mg tablet Discontinued 1 {tbl} PO EVERY 6 HOURS 28 7 January 03, 2024 September 26, 2024 11:23am [id number] 200 actuat albuterol 0.09 mg/actuat metered dose inhaler (15 sources) beta2-Adrenergic Agonist Start: 01-12-2015 End: 01-23-2023 albuterol HFA (PROVENTIL HFA, VENTOLIN HFA) 90 mcg/actuation inhaler ProAir HFA 90 mcg/actuation HFA aerosol inhaler 01/12/2015 01/23/2023 Discontinued Start: 01-12-2015 albuterol HFA (PROVENTIL HFA, VENTOLIN HFA) 90 mcg/actuation inhaler ProAir HFA 90 mcg/actuation HFA aerosol inhaler 0 01/12/2015 Active albuterol HFA 90 mcg/actuation HFA Inhale as instructed. 0 Active Comment on above: ProAir HFA 90 mcg/ac tuation HFA aerosol inhaler Inhale as instructed . atorvastatin 20 mg oral tablet (20 sources) HMG-CoA Reductase Inhibitor Start: 03-23-20 End: 09-27-19 take 1 tablet by mouth at bedtime Atorvastatin 20 mg tablet Discontinued 20 mg PO AT BEDTIME December 13, 2023 12:00am September 26, 2024 11:23am Comment on above: Take 1 tablet by diana th daily at bedtime. betamethasone 3 mg/ml / betamethasone acetate 3 mg/ml injectable suspension (1 source) Corticosteroid Start: 04-17-19 End: 04-17-19 betamethasone acetate-betamethason e sodium phosphate 6 mg injection (CELESTONE) Start: 04-17-2022 End: 04-17-2022 betamethasone acetate-betame thasone sodium phosphate 6 mg injection (CELESTONE) calcium carbonate 1500 mg / cholecalciferol 200 unt oral tablet (1 source) Vitamin D Start: 10-23-2016 End: 12-22-2020 take 1 tablet by mouth twice daily calcium carbonate 600 mg-cholecalciferol 200 units (CALCIUM 600 + D,3,) 600 mg(1,500mg) -200 unit tab Indications: Osteopenia, senile Take 1 tablet by mouth twice daily. 0 10/23/2016 12/22/2020 Discontinued (Discontinued by Patient) cholecalciferol 0.025 mg oral capsule (1 source) Vitamin D Start: 10-23-2016 End: 12-22-2020 take 1 capsule by mouth once daily Cholecalciferol, Vitamin D3, 1,000 unit cap Indications: Vitamin D deficiency Take 1 capsule by mouth once daily. 0 10/23/2016 12/22/2020 Discontinued (Discontinued by Patient) Compression Knee Highs (9 sources) Start: 10-23-2016 End: 02-22-2022 Compression Knee Highs Indications: Edema of both legs KNEE HIGH COMPRESSION STOCKINGS 20-30 MM HG. DX: EDEMA 1 Each 3 10/23/2016 02/22/2022 Discontinued Start: 10-23-2016 Compression Kn ee Highs Indications: Edema of both legs KNEE HIGH COMPRESSION STOCKINGS 20-30 MM HG. DX: EDEMA 1 Each 3 10/23/2016 Active Comment on above: KNEE HIGH COMPRESSIO N STOCKINGS 20-30 MM HG. DX: EDEMA ergocalciferol 1.25 mg oral capsule (20 sources) Provitamin D2 Compound Start: 02-01-2023 End: 09-26-2024 Ergocalciferol (Vitamin D2) 1,250 mcg (50,000 unit) capsule Discontinued 1250 ug PO EVERY WEEK December 13, 2023 12:00am September 26, 2024 11:23am Start: 08-14-2022 take 1 capsule by [facility] two times weekly ergocalciferol 50,000 unit capsule (VITAMIN D2, DRISDOL) Take 1 capsule by mouth two times a week. 24 capsule 0 08/14/2022 Active Start: 12-22-2020 End: 08-14-2022 take 1 capsule by mouth every week ergocalciferol 50,000 unit capsule (VITAMIN D2, DRISDOL) Take 1 capsule by mouth one time a week. 12 capsule 12/22/2020 08/14/2022 Discontinued (Duplicate Entry) Comment on above: Take 1 capsule by [facility] one time a week. Take 1 capsule by [facility] two times a week. furosemide 20 mg oral tablet (20 sources) Loop Diuretic Start: 03-19-2024 End: 09-19-2025 take 1 tablet by mouth once daily Furosemide 20 mg tablet Discontinued 20 mg PO DAILY September 26, 2024 12:00am September 26, 2024 11:29am Start: 10-02-2023 End: 12-13-2023 take 1 tablet by mouth once daily Furosemide 20 mg tablet Discontinued 20 mg PO DAILY October 02, 2023 12:00am December 13, 2023 9:49am Start: 12-22-2020 End: 03-23-2022 take 1 tablet by mouth once daily furosemide (LASIX) 20 mg tablet Indications: Edema of both legs Take 1 tablet by mouth once daily. 90 tablet 1 10/19/2021 03/23/2022 Discontinued Start: 11-10-2019 End: 06-08-2020 take 1 tablet by mouth once daily furosemide (LASIX) 20 mg tablet Indications: Edema of both legs Take 1 tablet by mouth once daily. 90 tablet 1 11/10/2019 06/08/2020 Discontinued Comment on above: Take 1 tablet by [facility] once daily. 10 ml lidocaine hydrochloride 10 mg/ml injection (1 source) Antiarrhythmic, Amide Local Anesthetic Start: 04-17-2022 End: 04-17-2022 lidocaine (PF) 10 mg/mL (1 %) 4 mL injection (XYLOCAINE) Start: 04-17-2022 End: 04-17-2022 lidocaine (PF) 10 mg/mL (1 % ) 4 mL injection (XYLOCAINE) lisinopril 20 mg oral tablet (16 sources) Angiotensin Converting Enzyme Inhibitor Start: 10-02-2023 End: 12-13-2023 take 1 tablet by mouth once daily Lisinopril 20 mg tablet Discontinued 20 mg PO DAILY October 02, 2023 12:00am December 13, 2023 9:49am Start: 11-10-2019 End: 03-23-2022 take 1 tablet by mouth once daily lisinopril (ZESTRIL, PRINIVIL) 20 mg tablet Indications: Essential hypertension Take 1 tablet by mouth once daily. 90 tablet 3 07/18/2021 03/23/2022 Discontinued Comment on above: Take 1 tablet by diana th once daily. mometasone furoate 1 mg/ml topical cream (20 sources) Corticosteroid Start: 09-17-2017 End: 01-23-2023 mometasone (ELOCON) 0.1 % cream Indications: Chronic eczematous otitis externa, unspecified laterality Apply 1 application to affected area once daily as needed (left ear canal dermatitis). 15 g 09/17/2017 01/23/2023 Discontinued mometasone (ELOC ON) 0.1 % ointment Apply to affected area once daily. Active Comment on above: Apply 1 application to affected area once daily as needed (left ear canal dermatitis). Apply to affected ar ea once daily. naproxen 500 mg oral tablet (16 sources) Nonsteroidal Anti-inflammatory Drug Start: 2 End: 3 take 1 tablet by mouth twice daily at mealtime naproxen (NAPROSYN) 500 mg tablet Indications: DDD (degenerative disc disease), lumbar Take 1 tablet by mouth twice daily with meals. Take with food. 10 tablet 10/19/2021 01/23/2023 Discontinued Comment on above: Take 1 tablet by diana th twice daily with meals. Take with food. Take 500 mg by mouth two times a day with meals. predniSONE 20 mg oral tablet (1 source) Start: 0 End: 0 take 2 tablets by mouth once daily predniSONE (DELTASONE) 20 mg tablet Take 2 tablets by mouth once daily for 5 days. 10 tablet 03/03/2020 03/08/2020 Problems Active Problems Problem Classification Problem Date Documented Date Episodic/Chronic Cardiac dysrhythmias (18 sources) Sick sinus syndrome; Translations: [Sick sinus syndrome] Onset: 03-13-2023 Chronic Chronic kidney disease (20 sources) Chronic kidney disease stage 3; Translations: [Chronic renal impairment, stage 3 (moderate)] Onset: 04-13-2017 04-13-2017 Chronic Conduction disorders (20 sources) Cardiac pacemaker in situ; Translations: [Presence of cardiac pacemaker] Onset: 03-14-2016 04-05-2021 Chronic Congestive heart failure; nonhypertensive (2 sources) Unspecified diastolic (congestive) heart failure; Translations: [Heart failure with normal ejection fraction] Onset: 03-19-2024 09-19-2024 Chronic Coronary atherosclerosis and other heart disease (13 sources) Coronary atherosclerosis; Translations: [Atherosclerotic heart disease of [place] coronary artery without angina pectoris] Onset: 03-13-2023 03-13-2023 Chronic Diseases of white blood cells (1 source) Leukocytosis; Translations: [Elevated white blood cell count, unspecified] 12-27-2023 Chronic Disorders of lipid metabolism (20 sources) Hyperlipidemia; Translations: [Hyperlipidemia, unspecified] Onset: 01-23-2023 01-23-2023 Chronic Essential hypertension (20 sources) Essential hypertension; Translations: [Essential (primary) hypertension] Onset: 03-14-2016 Chronic Malaise and fatigue (1 source) Asthenia; Translations: [Other malaise] 09-26-2024 Episodic Nutritional deficiencies (20 sources) Vitamin D deficiency; Translations: [Vitamin D deficiency, unspecified] Onset: 03-14-2016 03-14-2016 Chronic Osteoarthritis (20 sources) Osteoarthritis of left knee joint; Translations: [Unilateral primary osteoarthritis, left knee] Onset: 10-30-2019 11-10-2019 Chronic Other connective tissue disease (2 sources) History of cervical spine fusion; Translations: [Arthrodesis status] Episodic Other connective tissue disease (1 source) Arthrodesis status; Translations: [History of fusion of cervical spine] Onset: 02-22-2022 Episodic Other connective tissue disease (2 sources) Impingement syndrome of right shoulder region; Translations: [Impingement syndrome of right shoulder] Episodic Other connective tissue disease (1 source) Musculoskeletal test abnormal; Translations: [Other symptoms and signs involving the musculoskeletal system] Episodic Other ear and sense organ disorders (20 sources) Chronic otitis externa; Translations: [Other otitis externa, unspecified ear] Onset: 09-17-2017 Resolved: 01-23-2023 09-17-2017 Chronic Other nervous system disorders (1 source) Other chronic pain; Translations: [Chronic low back pain with left-sided sciatica, unspecified back pain laterality] Onset: 02-22-2022 Chronic Other nervous system disorders (1 source) Walking disability; Translations: [Difficulty in walking, not elsewhere classified] Chronic Other nervous system disorders (1 source) Unable to walk; Translations: [Difficulty in walking, not elsewhere classified] 09-26-2024 Chronic Other nervous system disorders (1 source) Abnormal gait; Translations: [Other abnormalities of gait and mobility] Episodic Other non-traumatic joint disorders (5 sources) Pain in unspecified knee; Translations: [Knee pain] 09-01-2021 Episodic Other non-traumatic joint disorders (2 sources) Shoulder pain; Translations: [Pain in right shoulder] Episodic Other non-traumatic joint disorders (1 source) Pain in right shoulder; Translations: [Pain in joint, shoulder region] 02-01-2022 Episodic Other non-traumatic joint disorders (1 source) Pain of left shoulder joint; Translations: [Pain in left shoulder] Episodic Other non-traumatic joint disorders (1 source) Hip pain; Translations: [Pain in right hip] 09-26-2024 Episodic Other nutritional; endocrine; and metabolic disorders (20 sources) Obese class II; Translations: [Obesity, unspecified] Onset: 02-01-2019 Resolved: 08-05-2020 01-23-2023 Chronic Spondylosis; intervertebral disc disorders; other back problems (20 sources) Degeneration of cervical intervertebral disc; Translations: [Other cervical disc degeneration, unspecified cervical region] Onset: 01-18-2015 Resolved: 03-13-2023 01-18-2015 Chronic Spondylosis; intervertebral disc disorders; other back problems (13 sources) Chronic low back pain; Translations: [Lumbago with sciatica, left side] Onset: 02-22-2022 Episodic Unclassified (1 source) Unknown / UNK(Unknown) Onset: 01-03-2017 Past or Other Problems Problem Classification Problem Date Documented Da te Episodic/Chronic Diabetes mellitus without complication (18 sources) Impaired fasting glycemia; Translations: [Impaired fasting glucose] Onset: 01-23-2023 01-23-2023 Episodic Other bone disease and musculoskeletal deformities (20 sources) Senile osteopenia; Translations: [Other specified disorders of bone density and structure, unspecified site] Onset: 03-14-2016 10-23-2016 Episodic Other bone disease and musculoskeletal deformities (1 source) Other specified disorders of bone density and structure, unspecified site; Translations: [Osteopenia, senile] Onset: 10-23-2016 Episodic Other circulatory disease (13 sources) History of sick sinus syndrome; Translations: [Personal history of other diseases of the circulatory system] Onset: 03-13-2023 03-13-2023 Episodic Other fractures (1 source) Wedge compression fracture of first lumbar vertebra, initial encounter for closed fracture; Translations: [Wedge compression fracture of first lumbar vertebra, initial encounter for closed fracture] Onset: 10-08-2023 Episodic Other nutritional; endocrine; and metabolic disorders (20 sources) Obese class I; Translations: [Obesity, unspecified] Onset: 08-05-2020 Resolved: 01-23-2023 08-05-2020 Chronic Residual codes; unclassified (20 sources) Bilateral lower limb edema; Translations: [Localized edema] Onset: 03-14-2016 03-14-2016 Episodic Unclassified (1 source) ELECTIVE REPLACEMENT INTERVAL Onset: 01-03-2017 Results Test Name Value Interpretation Reference Range Facility Absolute lymphocyte countOrd ered By: Edwin Juan on 09-26-2024 Lymphocytes Auto (Unsp spec) [#/Vol] 2.04 10*3/uL 0.83-4.51 [facility] Absolute neutrophil countOrd ered By: Edwin Juan on 09-26-2024 Neutrophils (Bld) [#/Vol] 8.4 10*3/uL High 2.0-7.7 [facility] Anion gap in Serum or Plasma Ordered By: Edwin Juan on 09-26-2024 Anion gap [Moles/Vol] 15 mmol/L 5-15 [facility] Automated lymphocyte count a s percentage of total leukocytesOrdered By: Edwin Juan on 09-26-2024 Lymphocytes/100 WBC Auto (Unsp spec) 17.6 % Low 19-41 [facility] BUN/creatinine ratioOrdered By: Edwin Juan on 09-26-2024 Urea nitrogen/Creatinine [Mass ratio] 21.7 mg/mg High 10-20 [facility] Basophil percentageOrdered B y: Edwin Juan on 09-26-2024 Basophils/100 WBC (Bld) 0.4 % 0-1 [facility] Carbon dioxide, total [Moles /volume] in Central venous bloodOrdered By: Edwin Juan on 09-26-2024 CO2 [Moles/Vol] 21.4 mmol/L 21.0-32.0 [facility] Chloride assayOrdered By: Chad Juan on 09-26-2024 Chloride [Moles/Vol] 103 mmol/L 98-108 [facility] Eosinophil percentageOrdered By: Edwin Juan on 09-26-2024 Eosinophils/100 WBC (Bld) 0.5 % 0-5 [facility] Erythrocyte distribution wid th ratioOrdered By: Edwin Juan on 09-26-2024 Erythrocyte distribution width (RBC) [Ratio] 13.8 % 11.6-14.6 [facility] Erythrocyte distribution wid th standard deviationOrdered By: Edwin Juan on 09-26-2024 Erythrocyte distribution width (RBC) [Ratio] 42.0 fl 35.1-43.9 [facility] Glomerular filtration rate ( GFR) estimation/1.73 sq m using serum, plasma, or whole bOrdered By: Edwin Juan on 09-26-2024 GFR/1.73 sq M.predicted among non-blacks MDRD (S/P/Bld) [Vol rate/Area] 51 mL/min/{1.73_m2} Low >60 [facility] Comment on above: mL/min/1.73m2 CKD-EP I Creatinine Equation (2020) Hematocrit Auto (Bld) [Volum e fraction]Ordered By: Edwin Juan on 09-26-2024 Hematocrit (Bld) [Volume fraction] 41.2 % 37-47 [facility] Hemoglobin measurementOrdere d By: Edwin Juan on 09-26-2024 Hemoglobin (Bld) [Mass/Vol] 13.8 g/dL 12.0-15.0 [facility] Immature granulocytes/100 WB C Auto (Bld)Ordered By: Edwin Juan on 09-26-2024 Immature granulocytes/100 WBC (Bld) 0.700 % 0.0-0.9 [facility] Comment on above: IG% - Immature Granu locytes (promyelocytes, myelocytes and metamyelocytes) > 1% indicates that a LEFT SHIFT is Present. MCV (mean corpuscular volume ) determinationOrdered By: Edwin Juan on 09-26-2024 MCV (RBC) [Entitic vol] 83.2 fL 81-99 [facility] Mean corpuscular hemoglobin (MCH) determinationOrdered By: Edwin Juan on 09-26-2024 MCH (RBC) [Entitic mass] 27.9 pg 27.0-32.0 [facility] Mean corpuscular hemoglobin concentration (MCHC) determinationOrdered By: Edwin Juan on 09-26-2024 MCHC (RBC) [Mass/Vol] 33.5 g/dL 32-36 [facility] Mean platelet volume determi nationOrdered By: Edwin Juan on 09-26-2024 Platelet mean volume (Bld) [Entitic vol] 10.3 fL 6.2-12.0 [facility] Monocyte percentageOrdered B y: Edwin Juan on 09-26-2024 Monocytes/100 WBC (Bld) 8.4 % 0-10 [facility] Neutrophil percentageOrdered By: Edwin Juan on 09-26-2024 Neutrophils/100 WBC (Bld) 72.4 % High 47-70 [facility] Nucleated red blood cell per centageOrdered By: Edwin Juan on 09-26-2024 Nucleated RBC/100 WBC (Bld) [Ratio] 0 % 0-5 [facility] Platelet countOrdered By: Chad Juan on 09-26-2024 Platelets (Bld) [#/Vol] 238 10*3/uL 150-450 [facility] Potassium measurement (mass/ volume)Ordered By: Edwin Juan on 09-26-2024 Potassium (Unsp spec) [Mass/Vol] 4.2 mmol/L 3.3-5.1 [facility] Comment on above: Hemolysis present, R esults could be affected. RBC Auto (Bld) [#/Vol]Ordere d By: Edwin Juan on 09-26-2024 RBC (Bld) [#/Vol] 4.95 10*6/uL 4.2-5.4 [facility] Serum creatinine measurement (mass/volume)Ordered By: Edwin Juan on 09-26-2024 Creatinine [Mass/Vol] 1.08 mg/dL 0.70-1.20 [facility] Serum glucose measurement (m ass/volume)Ordered By: Edwin Juan on 09-26-2024 Glucose [Mass/Vol] 112 mg/dL High 70-99 [facility] Serum or plasma calcium orly urement (mass/volume)Ordered By: Edwin Juan on 09-26-2024 Calcium [Mass/Vol] 9.7 mg/dL 7.6-11.0 [facility] Serum or plasma urea nitroge n measurement (mass/volume)Ordered By: Edwin Juan on 09-26-2024 Urea nitrogen [Mass/Vol] 23 mg/dL High 4-19 [facility] Sodium levelOrdered By: Edwin Juan on 09-26-2024 Sodium [Moles/Vol] 139 mmol/L 133-145 [facility] White blood cell (WBC) count Ordered By: Edwin Juan on 09-26-2024 WBC (Bld) [#/Vol] 11.6 10*3/uL High 4.4-11.0 [facility] CNOVon 03-19-2024 CNOV Office Visit (CARMOB ) ----- ROSARIO BLANCO ([id number]) 1940 F Date Time Provider Department 03/19/24 9:00 AM [facility] During your visit today, we recorded the following information about you: Allergies As of Date: 03/19/2024 Noted Allergy Reaction CODEINE 01/13/2015 1 - Mental Status Change Comments: Pass out, comma x 3 days. LATEX 01/03/2024 7 - Swelling PNEUMOCOCCAL 23-ALIDA PS VACCINE 03/20/2016 2 - Rash 7 - Swelling TETANUS AND DIPHTHERIA TOXOIDS 03/14/2016 2 - Rash 7 - Swelling ADHESIVE TAPE (ROSINS) 02/07/2012 2 - Rash Comments: Skin irritation ASPIRIN 11/04/2012 14 - Other: See Comments Date Reviewed: 03/19/2024 Reviewed by: Jerrica Salomon OCCA - Fully Assessed Reason for Visit: Follow Up [171] Primary Visit Diagnosis:SSS (sick sinus syndrome) (HCC) [I49.5] Prescriptions as of 03/19/2024 - furosemide (LASIX) 20 mg tablet Take 1 tablet by mouth once daily as needed (If ankle swelling or new shortness of breath). - hydroCHLOROthiazide 12.5 mg capsule Take 1 capsule by mouth once daily. - losartan (COZAAR) 100 mg tablet Take 1 tablet by mouth once daily. - HYDROcodone-acetaminophen (NORCO) 5-325 mg per tablet take 1 tablet by mouth every 6 hours for 7 days - ergocalciferol 50,000 unit capsule (VITAMIN D2, DRISDOL) Take 1 capsule by mouth one time a week. - acetaminophen (TYLENOL) 325 mg tablet Take 2 tablets by mouth as needed. Problem List As Of Date 03/19/2024 Noted Resolved Disc disease, degenerative, cervical [M50.30] 01/18/2015 03/13/2023 Presence of cardiac pacemaker [Z95.0] 03/14/2016 Essential hypertension [I10] 03/14/2016 Edema of both legs [R60.0] 03/14/2016 Osteopenia, senile [M85.80] 03/14/2016 Vitamin D deficiency [E55.9] 03/14/2016 Chronic renal impairment, stage 3 (moderate) [N*04/13/2017 Chronic eczematous otitis externa [H60.8X9] 09/17/2017 01/23/2023 Obesity, Class II, BMI 35-39.9 [E66.812] 02/01/2019 08/05/2020 Primary osteoarthritis of left knee [M17.12] 11/10/2019 DDD (degenerative disc disease), lumbar [M51.36*03/12/2020 Obesity, Class I, BMI 30-34.9 [E66.811] 08/05/2020 01/23/2023 Hyperlipidemia [E78.5] 01/23/2023 Impaired fasting blood sugar [R73.01] 01/23/2023 Obesity, Class II, BMI 35-39.9 [E66.812] 01/23/2023 Atherosclerosis of coronary artery [I25.10] 03/13/2023 Diagnosed: 03/13/2023 Osteoarthritis [M19.90] 03/13/2023 Diagnosed: 03/13/2023 Sinus node dysfunction (HCC) [I49.5] 03/13/2023 History of sick sinus syndrome [Z86.79] 03/13/2023 Localized, primary osteoarthritis [M19.91] 10/30/2019 Lumbar stenosis [M48.061] 02/04/2024 Encounter Status:Closed by SHASHA JUAREZ on 03/19/24 [facility] CN Office Visit (CARMOB ) ----- ROSARIO BLANCO ([id number]) 1940 F Date Time Provider Department 03/19/24 9:00 AM JOSSIE WILSON During your visit today, we recorded the following information about you: Pulse Blood pressure Weight Height 73/minute 126/59 96.2 kg 1.676 m Jossie Wilson MD 03/19/2024 5:48 PM Signed [facility] [place] Nick Dietrich Department of Cardiovascular Medicine [facility] SECTION OF INTERVENTIONAL CARDIOLOGY OUTPATIENT VISIT DATE March 19, 2024 OUTPATIENT VISIT TYPE Established PRIMARY CARE PHYSICIAN: Leodan Hopkins MD [id number] [facility] [id number] CHIEF COMPLAINT: Yearly Exam (With DEVICE CHECK: Medtronic DC PPM) HISTORY OF PRESENT ILLNESS: Ms. Peggy Lujan is a 82 year old woman non-smoker with hypertension, sinus node dysfunction with dual-chamber pacemaker 03/28/1999 and generator change 01/03/2017, mild coronary disease by catheterization in 2012, 2014. Previously seen about a year ago by cardiology. As for interval medical updates, she received laminectomy for spinal stenosis in December 2023. Since then, she has persistent back discomfort. The sciatica in her legs have resolved. Despite physical therapy, she is still having difficulties with ambulation and is dependent on cane. From cardiovascular perspective, she does not report chest pain, dyspnea, palpitations, lightheadedness, or syncope. 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 Pacemaker interrogation today shows normally functioning Medtronic dual-chamber pacemaker, DDDR 70-130, battery life 7.5 years, atrially paced 93%, RV pacing 0.6%, no atrial fibrillation. PAST MEDICAL HISTORY Diagnosis Date Atherosclerosis of coronary artery 03/13/2023 Chronic renal impairment, stage 3 (moderate) (HCC) 04/13/2017 DDD (degenerative disc disease), lumbar 03/12/2020 spinal stenosis Edema of both legs 03/14/2016 Essential hypertension 03/14/2016 History of sick sinus syndrome Hyperlipidemia 01/23/2023 Osteoarthritis 03/13/2023 Osteopenia, senile 03/14/2016 Presence of cardiac pacemaker 03/14/2016 Medtronic DC PPM - Diagnosis: SSS - Implant Date: 03/21/1999 Primary osteoarthritis of left knee 11/10/2019 [facility]. Sinus node dysfunction (HCC) PAST SURGICAL HISTORY Procedure Laterality Date (NEW IMPLANT DUAL CHAMBER PPM) INSERTION OF A NEW PERMANENT PACEMAKER W/ INSERTION OF NEW TRANSVENOUS ELECTRODE(S) ATRIAL AND VENTRICULAR 2000 Medtronic DC PPM with Diagnosis of SSS ARTHROSCOPY KNEE DIAGNOSTIC W/WO SYNOVIAL BX SPX Left 2011 Arthroscopy, knee BREAST BIOPSY NEEDLE LEFT Bilateral ENDOMETRIAL BX W/WO ENDOCERVIX BX W/O DILAT SPX 2000 EYE SURGERY HX Bilateral 11/13/2018 [facility] LAMINECTOMY,LUMBAR 01/03/2024 L3, L4 LEFT HEART CATH,PERCUTANEOUS 2014 NECK SURGERY HX PAST SURGICAL HISTORY OF 01/2014 cervical laminectomy PAST SURGICAL HISTORY OF Left 1963 left breast, axillary reconstruction, trauma PAST SURGICAL HISTORY OF 01/03/2017 Replaced pacemaker SOCIAL HISTORY Social History Tobacco Use Smoking status: Never Smokeless tobacco: Never Vaping Use Vaping status: Never Used Substance Use Topics Alcohol use: Not Currently Comment: social, 1 per month Drug use: No FAMILY HISTORY Problem Relation Age of Onset Cancer Mother lung Cancer Father metastatic,intrabdominal other (Other) Sister MVA Hypertension Brother Coronary Artery Disease Brother Diabetes Brother Hypertension Brother Diabetes Brother None Sister None Sister ALLERGIES: ALLERGIES Allergen Reactions Codeine Mental Status Change Pass out, comma x 3 days. Latex Swelling Pneumococcal 23-Alida* Rash, Swelling Tetanus And Diphthe* Rash, Swelling Adhesive Tape (Jane* Rash Skin irritation Aspirin Other: See Comments MEDICATIONS: HYDROcodone-acetaminophen (NORCO) 5-325 mg per tablet take 1 tablet by mouth every 6 hours for 7 days ergocalciferol 50,000 unit capsule (VITAMIN D2, DRISDOL) Take 1 capsule by mouth one time a week. hydroCHLOROthiazide 12.5 mg capsule Take 1 capsule by mouth once daily. losartan (COZAAR) 100 mg tablet Take 1 tablet by mouth once daily. acetaminophen (TYLENOL) 325 mg tablet Take 2 tablets by mouth as needed. furosemide (LASIX) 20 mg tablet Take 1 tablet by mouth once daily as needed (If ankle swelling or new shortness of breath). PHYSICAL EXAMINATION: 03/19/24 0902 BP: 126/59 BP Site: Left Arm BP Position: Sitting BP Cuff Size: Large Adult Pulse: 73 SpO2: 93% Weight: 96.2 kg (212 lb 1.9 oz) Height: 167.6 cm (5' 6) General: Alert, oriented, no distress. Neurologic: Oriented to time, place and person, Mood AND Affect: appropriate Head/Eyes: EOM's intact, conjunctivae , and sclera clear Neck: no JVD, no carotid bruits, supple (more content not included)... [facility] Office [facility] (INTMWS ) ----- ROSARIO BLANCO ([id number]) 1940 F Date Time Provider Department 01/29/24 8:00 AM LEODAN HOPKINS INTMWS During your visit today, we recorded the following information about you: Temperature Pulse Respiration Blood pressure 97.5 degrees 71/minute 16/minute 148/74 Weight Height 95.3 kg 1.613 m Leodan Hopkins MD 01/29/2024 8:44 AM Signed Rosario Lujan is a 83 year old female here for a Medicare wellness visit. Medicare Health Risk Assessment General Health Good Exercise: Minutes/Day 0 min Exercise: Days/Week 0 days Alcohol: Daily Use Never Alcohol: Drinks/Day Patient does not drink Alcohol: 6 or more drinks Never Feel off balance No Concerns: Teeth/Dentures No Concerns: Sexual function No Troubled by feelings None of the above Frequency: Eating healthy diet Nearly every day ADLs requiring help Grocery shopping Safety precautions in home/vehicle Yes Smoke, vape, chews tobacco No Difficulty hearing No Difficulty seeing No Current Providers Specialists: I have reviewed specialist-related care of the patient in the medical record. Current care team: Patient Care Team: Leodan Hopkins MD as PCP - General (Internal Medicine) Outside specialists seen: Dr. Meeks, ophthalmology. Dr. Dalila Fox, [facility] Cardiology. Dr. Naga Richmond, Orthopedics/Spine. Medical/Family history review Reviewed and updated problem list, medical/surgical/family/s ocial history, medications, and allergies. Opioid use review Opioid Medications (last 90 days) No data to display Anxiety/Depression screening Recommendation: no further intervention at this time Cognitive screening Mini Cog Score: 4 Cognitive screening reviewed and No further action needed (score 3-5). Functional Observation Was the patient's Timed Up AND Go test unsteady or >= 12 seconds? No Advance Care Planning Patient did not wish or was not able to name a surrogate decision maker or provide an advance care plan Measurements BP 148/74 Pulse 71 Temp 36.4 ?C (97.5 ?F) Resp 16 Ht 161.3 cm (5' 3.5) Wt 95.3 kg (210 lb 1.6 oz) BMI 36.63 kg/m? Vision Screening: Follows with optometry/ophthalmology Right: 20/40 Left: 20/ 50 Both: 20/40 Assessment/Plan Medicare annual wellness visit, subsequent (Z00.00) - Counseled on healthy diet and regular exercise - Fall avoidance information provided - Personalized prevention plan provided - Discussed need for and benefit of weight loss. BMI 36.63 kg/(m2) - Vaccine recommendations reviewed. Leodan Hopkins MD 01/29/2024 8:35 AM Addendum VACCINES AT YOUR PHARMACY Shingrix Vaccine(2 of 3) due on 09/24/2006 RSV Vaccine(1 - 1-dose 75+ series) Never done DTaP,Tdap,Td Vaccine(2 - Td or Tdap) due on 02/03/2021 Advance Directive Forms Advanced Directives Forms (Mosotho) FORMS: https://author.portals.[facility].org/Portals/138/[facility]-power-of-attorn ey.p- df INFORMATIONAL BROCHURE: https://my.[facility].org/-/scassets/files/or g/patients-visitors/infor rosa- on/advance-directives.any x?la=en Advance Directives (non-Mosotho) FORMS: https://my.[facility].org/patients/informatio n/zvjxlen-zfeejdjqa-khcxg /adv- ance-directives#forms-tab Please bring completed forms to your next appointment or email them to [email or web address] . Patient Resources How to Get Started Talking with Loved Ones about your Wishes at the End of Life https://theconversationpr oject.org/wp-content/uplo ads//ConversationP milly- nk-KquztLvruapuNkz-Gkkvrp h.pdf How to Navigate Conversations with your Care Team around your Preferences [email or web address] e.org/welcome Screening schedule The following prevention plan is recommended: Shingrix Vaccine(2 of 3) due on 09/24/2006 RSV Vaccine(1 - 1-dose 75+ series) Never done DTaP,Tdap,Td Vaccine(2 - Td or Tdap) due on 02/03/2021 WHAT YOU CAN DO TO PREVENT FALLS Many falls can be prevented. By making some changes, you can lower your chances of falling. Four things YOU can do to prevent falls for you* and your caregiver 1. Begin a regular exercise program Exercise is one of the most important ways to lower your chances of falling. It makes you stronger and helps you feel better. Exercises that improve balance and coordination (like Isaias Chi) are the most helpful. Lack of exercise leads to weakness and increases your chances of falling. Ask your doctor or health care provider about the best type of exercise program for you. 2. Have your health care provider review your medicines Have your doctor or pharmacist review all the medicines you take, even qvtp-zkz-diowmto medicines. As you get older, the way medicines work in your body can change. Some medicines, or combinations of medicines, can make you sleepy or dizzy and can cause you to fall. 3. Have your vision checked (more content not included)... Normal [facility] Lumbar Spine 2 or 3 Viewson 01-03-2024 Lumbar Spine 2 or 3 Views [facility] Imaging Services [address] [place] [address] Lumbar Spine 2 or 3 Views MR#: [id number] Acct: [id number] Name: ROSARIO BLANCO Rep #: [id number] : 1940 F 83 From: Rolf mercedes MD PCP: Dr. Leodan Hopkins MD Status: ADM WILMAN Study: Lumbar Spine 2 or 3 Views Date of Exam: Exam# [id number] Ordering Dr: Michael Richmond DO [id number] PROCEDURE: Intraoperative fluoroscopic services for L3-L4 laminectomy. DATE OF EXAMINATION: January 03, 2024. INDICATION: Female, 83 years old. L3-L4 laminectomy. FLUOROSCOPY TIME (if supplied): (14 seconds) minutes/seconds. 10.81 mGy. RAD/Lumbar Spine 2 or 3 Views IMPRESSION: Intraoperative fluoroscopic services provided for L3-L4 laminectomy and decompression. Electronically Signed: Rolf Hoffmann MD at 11:16 EDT , CC: Dr. Michael Richmond DO; Dr. Leodan Hopkins MD Fuselage Framer: Signed Normal [facility] MR/POSTOP.ANEon 01-03-2024 MR/POSTOP.[facility] Medical Records Department [address] [place] [address] Anesthesia Postop Eval I 01/03/24 0958 MR#: [id number] Acct: [id number] Name: ROSARIO BLANCO Rep #: [id number] : 1940 83 From: Gemma Cormier CRNA PCP: Dr. Leodan Hopkins MD Status:REG SDC Y Race: C Location: [place] [address] Anesthesia: Postop Eval I Current Vital Signs Temperature: 97.3 F Pulse Rate: 72 Blood Pressure: 160/94 Respiratory Rate: 16 Pulse Ox: 100 Oxygen Delivery Method: Simple Mask Oxygen Flow Rate (L/min): 6 Assessment Airway patent: Yes Spontaneous unlabored respirations: Yes Mental status: Awake and Calm nausea: No Vomiting: No Anesthesia Complication: No Fluid Hydration Crystalloid volume administer (ml): 1,000 Total IV fluid infused: 1,000 Progress Note Anesthesia document: Postop Eval 1 completed: Yes 01/03/24 0959 Date Gemma Cormier CRNA Cosigner Signature: Date CC: Signed Normal [facility] [id number] 01-03-2024 MR/POSTOPAN2 [facility] Medical Records Department [address] [place] [address] Anesthesia Postop Eval II 01/03/24 1040 MR#: [id number] Acct: [id number] Name: ROSARIO BLANCO Rep #: [id number] : 1940 83 From: Jordan Amaya MD PCP: Dr. Leodan Hopkins MD Status:ADM WILMAN Y Race: C Location: [facility] [id number] Anesthesia Postop Eval I Sum Postop Eval Completion status Anesthesia document: Postop Eval 1 completed: Yes Anesthesia Postop Eval I Summary Anesthesia Postop Eval I Summary: Anesthesia Postop Eval I: Assessment Summary Airway patent Yes 01/03/24 09:59 REPORTING PROCESS CONSULTANT.SKOBY Spontaneous unlabored Yes 01/03/24 09:59 REPORTING PROCESS CONSULTANT.SKOBY respirations Mental status Awake,Calm 01/03/24 09:59 REPORTING PROCESS CONSULTANT.SKOBY nausea No 01/03/24 09:59 REPORTING PROCESS CONSULTANT.SKOBY Vomiting No 01/03/24 09:59 REPORTING PROCESS CONSULTANT.SKOBY Anesthesia Postop Eval I: Fluid Summary Crystalloid volume administer 1,000 01/03/24 09:59 REPORTING PROCESS CONSULTANT.SKOBY (ml) Colloids volume administered ( ml) Blood Product volume administered (ml) Total IV fluid infused 1,000 01/03/24 09:59 REPORTING PROCESS CONSULTANT.SCAROBNunu Anesthesia Postop Eval I: Summary Notes Anesthesia Complication No 01/03/24 09:59 REPORTING PROCESS CONSULTANT.SCAROBNunu Anesthesia Complication Comment: Post-operative progress note Anesthesia: Postop Eval II Evaluation Mental status: Awake and Calm Pain Level: 2 nausea: No Vomiting: No Progress Note Post-operative progress note: Given Breathing treatment Complications Anesthesia Complication: No 01/03/24 1041 Date Jordan Amaya MD Cosigner Signature: Date CC: Signed Normal [facility] Operative Reporton 4 Operative Report [facility] Medical Records Department [address] [place] [address] Operative Report 01/03/24717 MR#: [id number] Acct: [id number] Name: ROSARIO BLANCO Rep #: [id number] : 1940 83 From: Michael Richmond DO PCP: Dr. Leodan Hopkins MD Status:REG [facility] Location: [place] [address]- Report of Operation Date of Procedure: 01/03/24 Description of Surgical Findings:: PREOPERATIVE DIAGNOSES: 1. Lumbar stenosis, L3-4, L4-5 with spondylosis. 2. Lumbar degenerative disc disease, L3-4, L4-5 POSTOPERATIVE DIAGNOSES: 1. Lumbar stenosis, L3-4, L4-5 with spondylosis. 2. Lumbar degenerative disc disease, L3-4, L4-5 PROCEDURE PERFORMED: 1. L3 bilateral laminectomies, foraminotomies, decompression of bilateral nerve roots. 2. L4 bilateral laminectomies, foraminotomies, decompression of bilateral nerve roots. STATEMENT OF MEDICAL NECESSITY: The patient is an 83-year-old female with intractable back and leg pain. Image studies confirm above diagnosis. She has opted for operative intervention, understanding the risks to include, but not limited to infection, bleeding, damage to nerves, arteries, and veins, possibility of spinal fluid leak, continued pain, need for further surgery, deep vein thrombosis, pulmonary embolism, heart attack, risk of stroke, or . DESCRIPTION OF PROCEDURE: The patient was seen and examined preoperatively. Patient identity and surgery site were confirmed with the patient. She received preoperative IV antibiotics and was then transferred to the operative suite. After the appropriate amount of anesthesia, the patient was transferred to the [place] operating table in the prone position. All bony prominences were padded accordingly. The lumbar spine was prepped and draped in standard surgical fashion. Jayson huggers were not turned on until drapes were placed and sealed with Ioban. A Midline incision was made and taken down to the lumbodorsal fascia. the fascia was divided and subperiosteal dissection taken down to the level of bilateral L3-4 and L4-5 facet joints. Deep retractors were placed. A bone scalpel was used to make cuts in the lamina of L3 and L4, then a series of rongeurs and Kerrisons removing the spinous process and lamina at L3, and L4. Then, foraminotomies were performed at bilateral L3-4 and L4-5 decompressing the nerve roots. The incision was then thoroughly irrigated. Tissel was placed over the dura as a hemostatic agent. Fascia was closed with #1 Vicryl, subcutaneous with 2-0 Vicryl, and skin with 2-0 nylon. Sterile dressing was applied with 4 x 4, ABD, and tape. Sponge, instrument, and needle counts were correct at the end of the case. The patient was extubated, taken to PACU without incident. Surgeon: Michael Richmond Type of Anesthesia: General Estimated Blood Loss (mL): 50 cc Fluids Replaced: 1000 cc Complications None Admit VTE Documentation VTE Present on Admission: No 01/03/24 1009 Cosigner Signature (if applicable): CC: Dr. Michael Richmond DO; Dr. Leodan Hopkins MD Signed Normal [facility] CNOVon 12-27-2023 CNOV Office Visit (INTMWS ) ----- ROSARIO BLANCO ([id number]) 1940 F Date Time Provider Department 12/27/23 6:40 PM LEODAN HOPKINS INTMWS During your visit today, we recorded the following information about you: Temperature Pulse Respiration Blood pressure 97.9 degrees 83/minute 16/minute 187/82 Weight Height 93.9 kg 1.581 m Leodan Hopkins MD 12/27/2023 11:45 PM Signed This note was created using LawPalriter. Subjective Patient presents with: Pre-Op Exam: 01/03/24 Dr. Michael Richmond- Lumbar 3, Lumbar 4 Laminectomy Consultation requested by Dr. Richmond for an opinion regarding preoperative risk. My final recommendations will be communicated back to the requesting physician by way of shared Medical record. . Rosario Lujan is a 83 year old female here for preoperative evaluation. She had no history of.myocardial infarction, congestive heart failure, DVT, PE, CVA or coagulopathy. She had sinus node dysfunction with pacemaker in place. Cardiology has cleared her. Her hypertension had not been at goal but unusually high today on repeated measurements.. She was taking all her medications regularly. She had preoperative labs and EKG done 12/17/23 at [facility]. Review of Systems Constitutional: Negative for appetite change, chills, diaphoresis, fever and unexpected weight change. HENT: Negative for congestion, rhinorrhea and sore throat. Eyes: Negative for visual disturbance. Respiratory: Negative for cough, shortness of breath and wheezing. Cardiovascular: Negative for chest pain, palpitations and leg swelling. Gastrointestinal: Negative for abdominal pain, diarrhea, nausea and vomiting. Genitourinary: Negative for difficulty urinating and dysuria. Skin: Negative for rash and wound. Neurological: Negative for dizziness, numbness and headaches. Hematological: Does not bruise/bleed easily. ACTIVE PROBLEM LIST Presence of Cardiac Pacemaker Essential Hypertension Edema of Both Legs Osteopenia, Senile Vitamin D Deficiency Chronic Renal Impairment, Stage 3 (Moderate) ([facility]) Primary Osteoarthritis of Left Knee Ddd (Degenerative Disc Disease), Lumbar Hyperlipidemia Impaired Fasting Blood Sugar Obesity, Class II, Bmi 35-39.9 Atherosclerosis of Coronary Artery Osteoarthritis Sinus Node Dysfunction (Hcc) History of Sick Sinus Syndrome PAST SURGICAL HISTORY Procedure Laterality Date (NEW IMPLANT DUAL CHAMBER PPM) INSERTION OF A NEW PERMANENT PACEMAKER W/ INSERTION OF NEW TRANSVENOUS ELECTRODE(S) ATRIAL AND VENTRICULAR 2000 Medtronic DC PPM with Diagnosis of SSS ARTHROSCOPY KNEE DIAGNOSTIC W/WO SYNOVIAL BX SPX Left 2012 Arthroscopy, knee BREAST BIOPSY NEEDLE LEFT Bilateral ENDOMETRIAL BX W/WO ENDOCERVIX BX W/O DILAT SPX 2000 EYE SURGERY HX Bilateral 11/13/2018 [facility] LEFT HEART CATH,PERCUTANEOUS 2014 NECK SURGERY HX PAST SURGICAL HISTORY OF 01/2014 cervical laminectomy PAST SURGICAL HISTORY OF Left 1963 left breast, axillary reconstruction, trauma PAST SURGICAL HISTORY OF 01/03/2017 Replaced pacemaker Social History Tobacco Use Smoking status: Never Smokeless tobacco: Never Vaping Use Vaping status: Never Used Substance Use Topics Alcohol use: Yes Comment: social, 1 per month Drug use: No ALLERGIES Allergen Reactions Codeine Mental Status Change Pass out, comma x 3 days. Pneumococcal 23-Alida* Rash, Swelling Tetanus And Diphthe* Rash, Swelling Adhesive Tape (Jane* Rash Skin irritation Aspirin Other: See Comments Current Outpatient Medications Medication Sig hydroCHLOROthiazide 12.5 mg capsule Take 1 capsule by mouth once daily. ofloxacin (OCUFLOX) 0.3 % ophthalmic solution mometasone (ELOCON) 0.1 % ointment Apply to affected area once daily. ergocalciferol 50,000 unit capsule (VITAMIN D2, DRISDOL) Take 1 capsule by mouth one time a week. atorvastatin (LIPITOR) 20 mg tablet Take 1 tablet by mouth daily at bedtime. acetaminophen (TYLENOL) 325 mg tablet Take 2 tablets by mouth as needed. losartan (COZAAR) 100 mg tablet Take 1 tablet by mouth once daily. No current facility-administered medications for this visit. Objective BP 187/82 Pulse 83 Resp 16 Wt 93.9 kg (207 lb 0.2 oz) SpO2 97% BMI 37.86 kg/m? Physical Exam Constitutional: Appearance: She is diaphoretic. She is not ill-appearing. HENT: Head: Normocephalic. Nose: No rhinorrhea. Mouth/Throat: Mouth: Mucous membranes are moist. Pharynx: Oropharynx is clear. Eyes: Extraocular Movements: Extraocular movements intact. Conjunctiva/sclera: Conjunctivae normal. Cardiovascular: Rate and Rhythm: Normal rate and regular rhythm. Pulses: Normal pulses. Heart sounds: No murmur heard. No gallop. Pulmonary: Effort: No respiratory distress. Breath sounds: No wheezing or rales. Abdominal: Palpations: Abdomen is soft. Tenderness: There is no (more content not included)... Normal [facility] UA DIP, URINE (POC)on 2023 BILIRUBIN UA (POCT) Negative Negative [facility] CLARITY UA (POCT) Clear [facility] COLOR UA (POCT) Yellow [facility] GLUCOSE UA (POCT) Negative Negative mg/dL [facility] Hemoglobin Ql (U) Negative Negative [facility] Interpretation and review of laboratory results Abnormal [facility] KETONE UA (POCT) Negative Negative mg/dL [facility] LEUKOCYTES UA (POCT) Small Abnormal Negative [facility] NITRITE UA (POCT) Negative Negative [facility] PH UA (POCT) 6.5 4.5 - 8.0 [facility] Protein Ql (U) Negative Negative mg/dL [facility] SPECIFIC GRAVITY UA (POCT) 1.015 1.005 - 1.030 [facility] UROBILINOGEN UA (POCT) 0.2 Normal E.U./dL [facility] Location:[facility], [address] [place] [address], [place], [address] [facility] POINT OF CARE [facility] CNPN Telephone (INTMWS) ----- PEGGY ROSARIO LUJAN ([id number]) 1940 F Date Time Provider Department 12/24/23 LEODAN OHPKINS During your visit today, we recorded the following information about you: Danyell Pablo, AGUSTIN 12/24/2023 9:23 AM Signed Pt called in and reports she is having surgery on 01/03/24, lumbar [address] Richmond. She had a pre-op clearance appointment in 12/17/23 with Jaimee Gerardo PROJECT DEVELOPMENT DIRECTOR that she no showed. Pt states she had all her appointments at the hospital that day and couldn't be here. Jaimee is out this week and Dr Pérez is out until Sunday. Dr Hopkins has a 620 or 640 slot on 09/26/23 that could be opened if the provider approves it. Will ask Socorro Ferraro RN nurse forest logistics manager if this would be ok. Please call Pt back. Veronica Rocha LPN 12/24/2023 11:28 AM Signed pt has been scheduled with pcp 12/27/23 at 640 pm. She has been notified. Laxmi Estrada MA 12/28/2023 8:27 AM Signed Completed forms and paperwork have been faxed to [employer] at [phone]. Laxmi Estarda MA Allergies As of Date: 12/24/2023 Noted Allergy Reaction CODEINE 01/13/2015 1 - Mental Status Change Comments: Pass out, comma x 3 days. PNEUMOCOCCAL 23-ALIDA PS VACCINE 03/20/2016 2 - Rash 7 - Swelling TETANUS AND DIPHTHERIA TOXOIDS 03/14/2016 2 - Rash 7 - Swelling ADHESIVE TAPE (ROSINS) 02/07/2012 2 - Rash Comments: Skin irritation ASPIRIN 11/04/2012 14 - Other: See Comments Date Reviewed: 07/25/2023 Reviewed by: Jerrica Disla LPN - Fully Assessed Reason for Visit: Pre-Op Exam [87] Prescriptions as of 12/28/2023 - losartan (COZAAR) 100 mg tablet Take 1 tablet by mouth once daily. - hydroCHLOROthiazide 12.5 mg capsule Take 1 capsule by mouth once daily. - ofloxacin (OCUFLOX) 0.3 % ophthalmic solution - mometasone (ELOCON) 0.1 % ointment Apply to affected area once daily. - ergocalciferol 50,000 unit capsule (VITAMIN D2, DRISDOL) Take 1 capsule by mouth one time a week. - atorvastatin (LIPITOR) 20 mg tablet Take 1 tablet by mouth daily at bedtime. - acetaminophen (TYLENOL) 325 mg tablet Take 2 tablets by mouth as needed. Problem List As Of Date 12/24/2023 Noted Resolved Disc disease, degenerative, cervical [M50.30] 01/18/2015 03/13/2023 Presence of cardiac pacemaker [Z95.0] 03/14/2016 Essential hypertension [I10] 03/14/2016 Edema of both legs [R60.0] 03/14/2016 Osteopenia, senile [M85.80] 03/14/2016 Vitamin D deficiency [E55.9] 03/14/2016 Chronic renal impairment, stage 3 (moderate) [N*04/13/2017 Chronic eczematous otitis externa [H60.8X9] 09/17/2017 01/23/2023 Obesity, Class II, BMI 35-39.9 [E66.9] 02/01/2019 08/05/2020 Primary osteoarthritis of left knee [M17.12] 11/10/2019 DDD (degenerative disc disease), lumbar [M51.36]03/12/2020 Obesity, Class I, BMI 30-34.9 [E66.9] 08/05/2020 01/23/2023 Hyperlipidemia [E78.5] 01/23/2023 Impaired fasting blood sugar [R73.01] 01/23/2023 Obesity, Class II, BMI 35-39.9 [E66.9] 01/23/2023 Atherosclerosis of coronary artery [I25.10] 03/13/2023 Diagnosed: 03/13/2023 Osteoarthritis [M19.90] 03/13/2023 Diagnosed: 03/13/2023 Sinus node dysfunction (HCC) [I49.5] 03/13/2023 History of sick sinus syndrome [Z86.79] 03/13/2023 Encounter Status:Closed by NEDADAVINVERONICA on 12/24/23 Normal [facility] MRSA/SAID NASAL SCREENon MRSA+SAID SCRN Reason for Exam: PRE OP MRSA MRSA Negative S. AUREUS S. aureus Negative Normal [facility] Comment on above: Performed By: #### M 100.651, L100.0100, L300.4310, L500.2500, L300.3900 ####[facility] [address] [place], [address] 12 Lead EKGon 12-17-2023 12 Lead EKG [facility] Cardiovascular Services [address] [place] [address] 12 Lead EKG 12/17/23 0808 MR#: [id number] Acct: [id number] Name: ROSARIO BLANCO Rep #: [id number] : 1940 83 From: Sukh De La Vega MD Attending Dr: Dr. Michael Richmond DO Status: PRE SDC Ordering Dr: Michael Richmond DO Date: 12/17/23 Location: [facility] Sex: F C Admitted: Test Reason : PRE OP Blood Pressure : / mmHG Vent. Rate : 089 BPM Atrial Rate : 090 BPM P-R Int : 210 ms QRS Dur : 082 ms QT Int : 356 ms P-R-T Axes : 044 -17 024 degrees QTc Int : 433 ms Atrial-paced rhythm with prolonged AV conduction Low voltage QRS Septal infarct , age undetermined Abnormal ECG Confirmed by SUKH DE LA VEGA MD ([id number]), design editor ARAMIS JURADO ([id number]) on 12/17/2023 12:49:06 PM Referred By: Michael Richmond Confirmed By:SUKH DE LA VEGA MD 12/17/23 1249 Date Sukh De La Vega MD CC: Dr. Michael Richmond DO; Dr. Leodan Hopkins MD Signed Normal [facility] Basic Metabolic Profile (BMP )on 12-17-2023 BUN/CRE 27.0 RATIO High 10-20 [facility] Comment on above: Performed By: #### M 100.651, L100.0100, L300.4310, L500.2500, L300.3900 ####[facility] [address] [place], [address] CA,Total 8.9 mg/dL Normal 8.5-10.1 [facility] Comment on above: Performed By: #### M 100.651, L100.0100, L300.4310, L500.2500, L300.3900 ####[facility] [address] [place], [address] Chloride [Moles/Vol] 108 mmol/L High 98-107 [facility] Comment on above: Performed By: #### M 100.651, L100.0100, L300.4310, L500.2500, L300.3900 ####[facility] [address] [place], [address] CO2 [Moles/Vol] 25.0 mmol/L Normal 21.0-32.0 [facility] Comment on above: Performed By: #### M 100.651, L100.0100, L300.4310, L500.2500, L300.3900 ####[facility] [address] [place], [address] Creatinine [Mass/Vol] 1.26 mg/dL High 0.55-1.02 [facility] Comment on above: Result Comment: The validity of the calculated GFR GFRAA in patients over 70 years has not been determined. Clinical correlation is essential. Performed By: #### M 100.651, L100.0100, L300.4310, L500.2500, L300.3900 ####[facility] [address] [place], [address] EST GFR - AA 52 mL/min Low >60 [facility] Comment on above: Result Comment: Afri can Citizen [place] GFR Calc Performed By: #### M 100.651, L100.0100, L300.4310, L500.2500, L300.3900 ####[facility] [address] [place], [address] GAP 7 Normal 5-15 [facility] Comment on above: Performed By: #### M 100.651, L100.0100, L300.4310, L500.2500, L300.3900 ####[facility] [address] [place], [address] GFR/1.73 sq M.predicted among non-blacks MDRD (S/P/Bld) [Vol rate/Area] 43 mL/min/{1.73_m2} Low >60 [facility] Comment on above: Result Comment: Non- GFR Calc Performed By: #### M 100.651, L100.0100, L300.4310, L500.2500, L300.3900 ####[facility] [address] [place], [address] Glucose [Mass/Vol] 111 mg/dL High 74-106 [facility] Comment on above: Result Comment: Fast ing Glucose result from 100 to 125 mg/dL suggests IMPAIRED HOMEOSTASIS per A.D.A. criteria. Performed By: #### M 100.651, L100.0100, L300.4310, L500.2500, L300.3900 ####[facility] [address] [place], [address] Potassium [Moles/Vol] 4.4 mmol/L Normal 3.5-5.1 [facility] Comment on above: Performed By: #### M 100.651, L100.0100, L300.4310, L500.2500, L300.3900 ####[facility] [address] [place], [address] Sodium [Moles/Vol] 140 mmol/L Normal 136-145 [facility] Comment on above: Performed By: #### M 100.651, L100.0100, L300.4310, L500.2500, L300.3900 ####[facility] [address] [place], [address] Urea nitrogen [Mass/Vol] 34 mg/dL High 7-18 [facility] Comment on above: Performed By: #### M 100.651, L100.0100, L300.4310, L500.2500, L300.3900 ####[facility] [address] [place], [address] CBC W/Diff, Automatedon 09-0 9-2023 Absolute Lymph 2.78 X10 3/uL Normal 0.83-4.51 [facility] Comment on above: Performed By: #### M 100.651, L100.0100, L300.4310, L500.2500, L300.3900 #### [facility] Laboratory [address] [place], [address] Absolute Neut 10.0 X10 3/uL High 2.0-7.7 [facility] Comment on above: Performed By: #### M 100.651, L100.0100, L300.4310, L500.2500, L300.3900 #### [facility] [address] [place], [address] Basophils/100 WBC (Bld) 0.2 % Normal 0-1 [facility] Comment on above: Performed By: #### M 100.651, L100.0100, L300.4310, L500.2500, L300.3900 #### [facility] [address] [place], [address] Eosinophils/100 WBC (Bld) 0.5 % Normal 0-5 [facility] Comment on above: Performed By: #### M 100.651, L100.0100, L300.4310, L500.2500, L300.3900 #### [facility] [address] [place], [address] Erythrocyte distribution width (RBC) [Ratio] 13.0 % Normal 11.6-14.6 [facility] Comment on above: Performed By: #### M 100.651, L100.0100, L300.4310, L500.2500, L300.3900 #### [facility] [address] [place], [address] Hematocrit (Bld) [Volume fraction] 43.4 % Normal 37-47 [facility] Comment on above: Performed By: #### M 100.651, L100.0100, L300.4310, L500.2500, L300.3900 #### [facility] [address] [place], [address] Hemoglobin (Bld) [Mass/Vol] 14.2 g/dL Normal 12.0-15.0 [facility] Comment on above: Performed By: #### M 100.651, L100.0100, L300.4310, L500.2500, L300.3900 #### [facility] [address] [place], [address] IG% 2.000 High 0.0-0.9 [facility] Comment on above: Result Comment: IG% - Immature Granulocytes (promyelocytes, myelocytes and metamyelocytes) > 1% indicates that a LEFT SHIFT is Present. Performed By: #### M 100.651, L100.0100, L300.4310, L500.2500, L300.3900 #### [facility] [address] [place], [address] Lymphocytes/100 WBC (Bld) 19.1 % Normal 19-41 [facility] Comment on above: Performed By: #### M 100.651, L100.0100, L300.4310, L500.2500, L300.3900 #### [facility] [address] [place], [address] MCH (RBC) [Entitic mass] 29.1 pg Normal 27.0-32.0 [facility] Comment on above: Performed By: #### M 100.651, L100.0100, L300.4310, L500.2500, L300.3900 #### [facility] [address] [place], [address] MCHC (RBC) [Mass/Vol] 32.7 g/dL Normal 32-36 [facility] Comment on above: Performed By: #### M 100.651, L100.0100, L300.4310, L500.2500, L300.3900 #### [facility] [address] [place], [address] MCV (RBC) [Entitic vol] 88.9 fL Normal 81-99 [facility] Comment on above: Performed By: #### M 100.651, L100.0100, L300.4310, L500.2500, L300.3900 #### [facility] [address] [place], [address] Monocytes/100 WBC (Bld) 9.4 % Normal 0-10 [facility] Comment on above: Performed By: #### M 100.651, L100.0100, L300.4310, L500.2500, L300.3900 #### [facility] [address] [place], [address] Neutrophils/100 WBC (Bld) 68.8 % Normal 47-70 [facility] Comment on above: Performed By: #### M 100.651, L100.0100, L300.4310, L500.2500, L300.3900 #### [facility] [address] [place], [address] Nucleated RBC (Bld) [#/Vol] 0 10*3/uL Normal 0-5 [facility] Comment on above: Performed By: #### M 100.651, L100.0100, L300.4310, L500.2500, L300.3900 #### [facility] [address] [place], [address] Platelet mean volume (Bld) [Entitic vol] 11.1 fL Normal 6.2-12.0 [facility] Comment on above: Performed By: #### M 100.651, L100.0100, L300.4310, L500.2500, L300.3900 #### [facility] [address] [place], [address] Platelets (Bld) [#/Vol] 251 10*3/uL Normal 150-450 [facility] Comment on above: Performed By: #### M 100.651, L100.0100, L300.4310, L500.2500, L300.3900 #### [facility] [address] [place], [address] RBC (Bld) [#/Vol] 4.88 10*6/uL Normal 4.2-5.4 [facility] Comment on above: Performed By: #### M 100.651, L100.0100, L300.4310, L500.2500, L300.3900 #### [facility] [address] [place], [address] RDW SD 42.4 fl Normal 35.1-43.9 [facility] Comment on above: Performed By: #### M 100.651, L100.0100, L300.4310, L500.2500, L300.3900 #### [facility] [address] [place], [address] WBC (Bld) [#/Vol] 14.6 10*3/uL High 4.4-11.0 [facility] Comment on above: Performed By: #### M 100.651, L100.0100, L300.4310, L500.2500, L300.3900 #### [facility] [address] [place], [address] Chest PA and Lateralon 12-16 Chest PA and Lateral [facility] Imaging Services [address] [place] [address] Chest PA and Lateral MR#: [id number] Acct: [id number] Name: ROSARIO BLANCO Rep #: [id number] : 1940 F 83 From: Geraldo marei DO PCP: Dr. Leodan Hopkins MD Status: PRE [facility] Study: Chest PA and Lateral Date of Exam: 12/17/23 Exam# [id number] Ordering Dr: Michael Richmond DO [id number] EXAM: XR CHEST, 2 VIEWS CLINICAL INDICATION: PROEP TECHNIQUE: Frontal and lateral views of the chest. COMPARISON: No relevant prior studies available. FINDINGS: LUNGS AND PLEURAL SPACES: Hyperinflated lungs with interstitial prominence likely secondary to COPD. No focal pneumonia. No pneumothorax. No effusion. HEART: No significant abnormality. Cardiac silhouette not enlarged. MEDIASTINUM: Central airways and mediastinal contour are unremarkable. BONES/JOINTS: Postsurgical changes in the cervical spine and degenerative changes elsewhere in the spine and at the bilateral shoulders. No acute fracture. SOFT TISSUES: No significant abnormality. TUBES, LINES AND DEVICES: Left-sided cardiac pacer. RAD/Chest PA and Lateral IMPRESSION: Hyperinflated lungs with interstitial prominence likely secondary to COPD. No focal pneumonia. Electronically Signed: Geraldo Whitt DO at 23:55 EDT , CC: Dr. Michael Richmond DO; Dr. Leodan Hopkins MD Fuselage Framer: Signed Normal [facility] Partial Thromboplast Timeon 12-17-2023 aPTT Coag (Bld) [Time] 24.3 s Normal 24.1-36.2 [facility] Comment on above: Performed By: #### M 100.651, L100.0100, L300.4310, L500.2500, L300.3900 #### [facility] [address] [place], [place], [address] Prothrombin Time w/INRon INR Coag (PPP) [Relative time] 1.1 {INR} Normal [facility] Comment on above: Performed By: #### M 100.651, L100.0100, L300.4310, L500.2500, L300.3900 #### [facility] [address] [place], [place], [address] PT Coag (PPP) [Time] 14.2 s Normal 11.7-14.9 [facility] Comment on above: Performed By: #### M 100.651, L100.0100, L300.4310, L500.2500, L300.3900 #### [facility] [address] [place], [place], [address] [facility] 11-27-2023 JOHN Telephone (TRACEE) ----- ROSARIO BLANCO ([id number]) 1940 F Date Time Provider Department 11/27/23 SHEN FOX During your visit today, we recorded the following information about you: Yumiko Reynoso 11/27/2023 4:06 PM Signed Received a clearance form from [facility]. Patient is scheduled for surgery on 01/03/[address] Richmond. Will scan clearance into chart and place in bin. aNdege Engle LPN 11/30/2023 10:54 AM Signed Placed clearance on Dr Leung desk to review and sign. Manju Joshi 12/13/2023 10:12 AM Signed Noel GAMEZ is calling asking most recent ECHO,EKG,Stress test and office note fax [phone] Yumiko Reynoso 12/13/2023 3:43 PM Signed Faxed records to [facility] at [phone]. Manju Joshi 12/14/2023 3:25 PM Signed Maribel anderson is calling pt pre op apt is 12/24 they need clearance form back before this apt Nadege Engle LPN 12/24/2023 9:50 AM Signed Faxed signed clearance by Dr Gudino in Dr Fox's absence and received confirmation. Brianda Alva 12/24/2023 12:54 PM Signed Received and scanned signed clearance into chart. Allergies As of Date: 11/27/2023 Noted Allergy Reaction CODEINE 01/13/2015 1 - Mental Status Change Comments: Pass out, comma x 3 days. PNEUMOCOCCAL 23-ALIDA PS VACCINE 03/20/2016 2 - Rash 7 - Swelling TETANUS AND DIPHTHERIA TOXOIDS 03/14/2016 2 - Rash 7 - Swelling ADHESIVE TAPE (ROSINS) 02/07/2012 2 - Rash Comments: Skin irritation ASPIRIN 11/04/2012 14 - Other: See Comments Date Reviewed: 07/25/2023 Reviewed by: Jerrica Disla LPN - Fully Assessed Reason for Visit: Cardiac Clearance [4105] Prescriptions as of 12/24/2023 - losartan (COZAAR) 50 mg tablet Take 1 tablet by mouth every morning. - hydroCHLOROthiazide 12.5 mg capsule Take 1 capsule by mouth once daily. - ofloxacin (OCUFLOX) 0.3 % ophthalmic solution - mometasone (ELOCON) 0.1 % ointment Apply to affected area once daily. - ergocalciferol 50,000 unit capsule (VITAMIN D2, RHETTOL) Take 1 capsule by mouth one time a week. - atorvastatin (LIPITOR) 20 mg tablet Take 1 tablet by mouth daily at bedtime. - acetaminophen (TYLENOL) 325 mg tablet Take 2 tablets by mouth as needed. Problem List As Of Date 11/27/2023 Noted Resolved Disc disease, degenerative, cervical [M50.30] 01/18/2015 03/13/2023 Presence of cardiac pacemaker [Z95.0] 03/14/2016 Essential hypertension [I10] 03/14/2016 Edema of both legs [R60.0] 03/14/2016 Osteopenia, senile [M85.80] 03/14/2016 Vitamin D deficiency [E55.9] 03/14/2016 Chronic renal impairment, stage 3 (moderate) [N*04/13/2017 Chronic eczematous otitis externa [H60.8X9] 09/17/2017 01/23/2023 Obesity, Class II, BMI 35-39.9 [E66.9] 02/01/2019 08/05/2020 Primary osteoarthritis of left knee [M17.12] 11/10/2019 DDD (degenerative disc disease), lumbar [M51.36]03/12/2020 Obesity, Class I, BMI 30-34.9 [E66.9] 08/05/2020 01/23/2023 Hyperlipidemia [E78.5] 01/23/2023 Impaired fasting blood sugar [R73.01] 01/23/2023 Obesity, Class II, BMI 35-39.9 [E66.9] 01/23/2023 Atherosclerosis of coronary artery [I25.10] 03/13/2023 Diagnosed: 03/13/2023 Osteoarthritis [M19.90] 03/13/2023 Diagnosed: 03/13/2023 Sinus node dysfunction (HCC) [I49.5] 03/13/2023 History of sick sinus syndrome [Z86.79] 03/13/2023 Encounter Status:Closed by NADEGE ENGLE on 11/30/23 [facility] Lumbar Myelogramon Lumbar Myelogram [facility] Imaging Services [address] [place], [place] [address], [place] [address] Lumbar Myelogram MR#: [id number] Acct: [id number] Name: ROSARIO BLANCO Rep #: [id number] : 1940 F 83 From: Rolf mercedes MD PCP: Dr. Leodan Hopkins MD Status: REG [facility] Study: Lumbar Myelogram Date of Exam: 10/02/23 Exam# [id number] Ordering Dr: Michael Richmond DO [id number] PROCEDURE: LUMBAR MYELOGRAM DATE OF EXAMINATION: October 02, 2023. INDICATION: Female, 83 years old. Low back pain. Spinal stenosis. PHYSICIAN: Rolf Hoffmann M.D. CONSENT: The patient''s history and physical findings were reviewed. The lumbar myelogram procedure was discussed with the patient prior to signing a consent. SEDATION: Local anesthesia with 3 mL of 1% lidocaine was used. FLUOROSCOPY TIME (if supplied): (6:24) minutes/seconds. 238 mGy. Injection Information: 15 cc of Isovue-M 200 Number of images obtained: TECHNIQUE: Digital fluoroscopy was used to identify a safe approach for the lumbar myelogram. The back was prepped and draped in usual fashion. Local anesthesia was utilized. Under fluoroscopic guidance a 22-gauge spinal needle was inserted into the spinal canal at the L2-L3 level. 15 mL of Isovue 200 M was injected into the spinal canal. There is evidence of a spinal stenosis at the L3-L4 level. Marked degree of disc space narrowing can spondylosis. A CT scan will follow. RAD/Lumbar Myelogram IMPRESSION: Marked degree of spinal stenosis at the L3-L4 level. CT will follow. Electronically Signed: Rolf Hoffmann MD at 14:04 EDT , CC: Dr. Michael Richmond DO; Dr. Leodan Hopkins MD Fuselage Framer: Signed Normal [facility] Spine Lumbar WITH Contraston 10-02-2023 Spine Lumbar WITH Contrast [facility] Imaging Services [address] [place] [address] Spine Lumbar WITH Contrast MR#: [id number] Acct: [id number] Name: ROSARIO BLANCO Rep #: [id number] : 1940 F 83 From: Rlof mercedes MD PCP: Dr. Leodan Hopkins MD Status: REG CLI Study: Spine Lumbar WITH Contrast Date of Exam: 10/01 Exam# [id number] Ordering Dr: Michael Richmond DO [id number] STUDY: CT LUMBAR SPINE WITH INTRATHECAL CONTRAST (LUMBAR CT MYELOGRAM) REASON FOR EXAM: Female, 83 years old. COMPRESSION FX RADIATION DOSAGE (If Supplied By Facility): CTDIvol = ( 41.29 ) mGy, DLP = ( 1282.85 ) mGycm TECHNIQUE: Transaxial images were obtained from the L1 vertebra through the S1 vertebral level, following intrathecal administration of 15 ml of Isovue 200 contrast material, performed by Dr. Hoffmann. Please refer to this physicians technical notes for procedural details. Coronal and sagittal reconstructions were obtained. Individualized dose optimization techniques were used for this CT. COMPARISON: Comparison is made with prior mammogram done earlier today. FINDINGS: Normal lumbar lordosis. There is no substantial scoliosis. Normal vertebrae of the lumbar spine. There is dependent layering of contrast material in the distal thecal sac. The conus medullaris terminates in a normal position at the L1-L2 level.. There is no demonstrated cauda equina nerve root abnormality or intraspinal mass. L1-2: Marked degree of disc space narrowing. Spondylosis. Degeneration of the disc space. L2-3: Marked degree of disc space narrowing degeneration. Facet joint osteoarthritis and hypertrophy. Severe degree of bilateral neural foraminal stenosis worse on the right side. L3-4: Marked degree of disc space narrowing and degeneration and spondylosis. There is a complete block to the flow of contrast due to combination of the diffuse posterior disc bulge as well as the hypertrophy of the facet joints and the ligamenta flava. L4-5: Marked degree of disc space narrowing. Facet joint osteoarthritis and hypertrophy. Minimal mild radiographic contrast is seen. L5-S1: Normal endplates. Normal disc height and morphology. Normal bilateral facet joints. Normal central canal and bilateral lateral recesses. Normal bilateral intervertebral neural foramina. There are degenerative changes of the bilateral sacroiliac joints. Atherosclerotic calcification of the abdominal aorta. CT/Spine Lumbar WITH Contrast IMPRESSION: Marked degree of spinal stenosis at the L3-L4 level with complete block due to combination of facet joint osteoarthritis and hypertrophy as well as hypertrophy of the ligamenta flava and diffuse posterior disc bulge. Electronically Signed: Rolf Hoffmann MD at 14:11 EDT , CC: Dr. Michael Richmond DO; Dr. Leodan Hopkins MD Fuselage Framer: Signed [facility] 09-18-2023 [facility] Office Visit (CARMOB ) ----- ROSARIO BLANCO ([id number]) 1940 F Date Time Provider Department 09/18/23 9:00 AM [facility] [place] During your visit today, we recorded the following information about you: Allergies As of Date: 09/18/2023 Noted Allergy Reaction CODEINE 01/13/2015 1 - Mental Status Change Comments: Pass out, comma x 3 days. PNEUMOCOCCAL 23-ALIDA PS VACCINE 03/20/2016 2 - Rash 7 - Swelling TETANUS AND DIPHTHERIA TOXOIDS 03/14/2016 2 - Rash 7 - Swelling ADHESIVE TAPE (ROSINS) 02/07/2012 2 - Rash Comments: Skin irritation ASPIRIN 11/04/2012 14 - Other: See Comments Date Reviewed: 07/25/2023 Reviewed by: Jerrica Disla LPN - Fully Assessed Reason for Visit: Follow Up [171] Primary Visit Diagnosis:SSS (sick sinus syndrome) ([facility]) [I49.5] Prescriptions as of 09/18/2023 - losartan (COZAAR) 50 mg tablet Take 1 tablet by mouth every morning. - hydroCHLOROthiazide 12.5 mg capsule Take 1 capsule by mouth once daily. - ofloxacin (OCUFLOX) 0.3 % ophthalmic solution - mometasone (ELOCON) 0.1 % ointment Apply to affected area once daily. - ergocalciferol 50,000 unit capsule (VITAMIN D2, DRISDOL) Take 1 capsule by mouth one time a week. - atorvastatin (LIPITOR) 20 mg tablet Take 1 tablet by mouth daily at bedtime. - acetaminophen (TYLENOL) 325 mg tablet Take 2 tablets by mouth as needed. Problem List As Of Date 09/18/2023 Noted Resolved Disc disease, degenerative, cervical [M50.30] 01/18/2015 03/13/2023 Presence of cardiac pacemaker [Z95.0] 03/14/2016 Essential hypertension [I10] 03/14/2016 Edema of both legs [R60.0] 03/14/2016 Osteopenia, senile [M85.80] 03/14/2016 Vitamin D deficiency [E55.9] 03/14/2016 Chronic renal impairment, stage 3 (moderate) [N*04/13/2017 Chronic eczematous otitis externa [H60.8X9] 09/17/2017 01/23/2023 Obesity, Class II, BMI 35-39.9 [E66.9] 02/01/2019 08/05/2020 Primary osteoarthritis of left knee [M17.12] 11/10/2019 DDD (degenerative disc disease), lumbar [M51.36]03/12/2020 Obesity, Class I, BMI 30-34.9 [E66.9] 08/05/2020 01/23/2023 Hyperlipidemia [E78.5] 01/23/2023 Impaired fasting blood sugar [R73.01] 01/23/2023 Obesity, Class II, BMI 35-39.9 [E66.9] 01/23/2023 Atherosclerosis of coronary artery [I25.10] 03/13/2023 Osteoarthritis [M19.90] 03/13/2023 Sinus node dysfunction (HCC) [I49.5] 03/13/2023 History of sick sinus syndrome [Z86.79] 03/13/2023 Encounter Status:Closed by KATIA RIVAS on 09/18/23 [facility] Kalyani 09-18-2023 CNPN Telephone (CARMOB) ----- ROSARIO BLANCO ([id number]) 1940 F Date Time Provider Department 09/18/23 SHEN FOX During your visit today, we recorded the following information about you: Shasha Juarez 09/18/2023 9:18 AM Signed Patient was here for a device check and complained of being tired for the last couple of months. Device check today showed 1 HVR episode, lasting 4 seconds on 05/06/2023. Please advise. She can be reached at [phone]. Nadege Engle LPN 09/24/2023 4:[address] Fox-no additional recommendations at this time, follow up as planned Notified pt of above. Allergies As of Date: 09/18/2023 Noted Allergy Reaction CODEINE 01/13/2015 1 - Mental Status Change Comments: Pass out, comma x 3 days. PNEUMOCOCCAL 23-ALIDA PS VACCINE 03/20/2016 2 - Rash 7 - Swelling TETANUS AND DIPHTHERIA TOXOIDS 03/14/2016 2 - Rash 7 - Swelling ADHESIVE TAPE (ROSINS) 02/07/2012 2 - Rash Comments: Skin irritation ASPIRIN 11/04/2012 14 - Other: See Comments Date Reviewed: 07/25/2023 Reviewed by: Jerrica Disla LPN - Fully Assessed Prescriptions as of 09/24/2023 - losartan (COZAAR) 50 mg tablet Take 1 tablet by mouth every morning. - hydroCHLOROthiazide 12.5 mg capsule Take 1 capsule by mouth once daily. - ofloxacin (OCUFLOX) 0.3 % ophthalmic solution - mometasone (ELOCON) 0.1 % ointment Apply to affected area once daily. - ergocalciferol 50,000 unit capsule (VITAMIN D2, DRISDOL) Take 1 capsule by mouth one time a week. - atorvastatin (LIPITOR) 20 mg tablet Take 1 tablet by mouth daily at bedtime. - acetaminophen (TYLENOL) 325 mg tablet Take 2 tablets by mouth as needed. Problem List As Of Date 09/18/2023 Noted Resolved Disc disease, degenerative, cervical [M50.30] 01/18/2015 03/13/2023 Presence of cardiac pacemaker [Z95.0] 03/14/2016 Essential hypertension [I10] 03/14/2016 Edema of both legs [R60.0] 03/14/2016 Osteopenia, senile [M85.80] 03/14/2016 Vitamin D deficiency [E55.9] 03/14/2016 Chronic renal impairment, stage 3 (moderate) [N*04/13/2017 Chronic eczematous otitis externa [H60.8X9] 09/17/2017 01/23/2023 Obesity, Class II, BMI 35-39.9 [E66.9] 02/01/2019 08/05/2020 Primary osteoarthritis of left knee [M17.12] 11/10/2019 DDD (degenerative disc disease), lumbar [M51.36]03/12/2020 Obesity, Class I, BMI 30-34.9 [E66.9] 08/05/2020 01/23/2023 Hyperlipidemia [E78.5] 01/23/2023 Impaired fasting blood sugar [R73.01] 01/23/2023 Obesity, Class II, BMI 35-39.9 [E66.9] 01/23/2023 Atherosclerosis of coronary artery [I25.10] 03/13/2023 Osteoarthritis [M19.90] 03/13/2023 Sinus node dysfunction (HCC) [I49.5] 03/13/2023 History of sick sinus syndrome [Z86.79] 03/13/2023 Encounter Status:Closed by NADEGE ENGLE on 09/24/23 [facility] CNOVon 07-25-2023 CNOV Office Visit (INTMWS ) ----- ROSARIO BLANCO ([id number]) 1940 F Date Time Provider Department 07/25/23 9:20 AM LEODAN HOPKINS INTMWS During your visit today, we recorded the following information about you: Temperature Pulse Blood pressure Weight 98.5 degrees 73/minute 135/76 91.6 kg Leodan Hopkins MD 07/25/2023 9:53 AM Signed This note was created using Wizdee. Subjective Rosario Lujan is a 82 year old female. She was using a cane to prevent falling, due to degenerative joint disease of her left knee. She was seeing orthopedics ([facility]), and there was discussion about knee replacement. Her hypertension was improving. Labs needed updating. We reviewed her health maintenance and gave her VIS for RSV, shingles vaccine. Review of Systems Constitutional: Negative for fatigue and unexpected weight change. Respiratory: Negative for cough and shortness of breath. Cardiovascular: Negative for chest pain, palpitations and leg swelling. Musculoskeletal: Positive for arthralgias and gait problem. ACTIVE PROBLEM LIST Presence of Cardiac Pacemaker Essential Hypertension Edema of Both Legs Osteopenia, Senile Vitamin D Deficiency Chronic Renal Impairment, Stage 3 (Moderate) (Hcc) Primary Osteoarthritis of Left Knee Ddd (Degenerative Disc Disease), Lumbar Hyperlipidemia Impaired Fasting Blood Sugar Obesity, Class II, Bmi 35-39.9 Atherosclerosis of Coronary Artery Osteoarthritis Sinus Node Dysfunction (Hcc) History of Sick Sinus Syndrome Social History Tobacco Use Smoking status: Never Smokeless tobacco: Never Vaping Use Vaping Use: Never used Substance Use Topics Alcohol use: Yes Comment: social, 1 per month Drug use: No Current Outpatient Medications Medication Sig losartan (COZAAR) 50 mg tablet Take 1 tablet by mouth every morning. hydroCHLOROthiazide 12.5 mg capsule Take 1 capsule by mouth once daily. ofloxacin (OCUFLOX) 0.3 % ophthalmic solution mometasone (ELOCON) 0.1 % ointment Apply to affected area once daily. ergocalciferol 50,000 unit capsule (VITAMIN D2, DRISDOL) Take 1 capsule by mouth one time a week. atorvastatin (LIPITOR) 20 mg tablet Take 1 tablet by mouth daily at bedtime. acetaminophen (TYLENOL) 325 mg tablet Take 2 tablets by mouth as needed. No current facility-administered medications for this visit. Objective Blood Pressure 135/76 (BP Site: Left Arm, BP Position: Sitting, BP Cuff Size: Large Adult) Pulse 73 Temperature 36.9 ?C (98.5 ?F) (Temporal) Weight 91.6 kg (202 lb) Body Mass Index 36.95 kg/m? Physical Exam Constitutional: General: She is not in acute distress. Cardiovascular: Rate and Rhythm: Normal rate and regular rhythm. Heart sounds: No murmur heard. No gallop. Pulmonary: Effort: No respiratory distress. Breath sounds: No wheezing or rales. Musculoskeletal: Right lower leg: No edema. Left lower leg: No edema. Neurological: Mental Status: She is alert. Gait: Gait abnormal. Comments: Using a cane. Assessment and Plan 1. Chronic renal impairment, stage 3a (HCC) - ICD9: 585.3, ICD10: N18.31 (primary diagnosis) Recheck. 2. Sinus node dysfunction (HCC) - ICD9: 427.81, ICD10: I49.5 Stable, asymptomatic. 3. Primary osteoarthritis of left knee - ICD9: 715.16, ICD10: M17.12 See orthopedics. She will likely be sent back here for preoperative physical. 4. Essential hypertension - ICD9: 401.9, ICD10: I10 - Improving control - Continue current medications 5. Hyperlipidemia, unspecified hyperlipidemia type - ICD9: 272.4, ICD10: E78.5 - Control undetermined, due for labs - Hold off on medication refill, pending labs. 6. Impaired fasting blood sugar - ICD9: 790.21, ICD10: R73.01 - Recheck. Continue diet. MD Sandeep Flores Victor H, MD 07/25/2023 9:42 AM Signed FASTING BLOOD WORK TODAY. Referring Provider: SELF [200] Allergies As of Date: 07/25/2023 Noted Allergy Reaction CODEINE 01/13/2015 1 - Mental Status Change Comments: Pass out, comma x 3 days. PNEUMOCOCCAL 23-ALIDA PS VACCINE 03/20/2016 2 - Rash 7 - Swelling TETANUS AND DIPHTHERIA TOXOIDS 03/14/2016 2 - Rash 7 - Swelling ADHESIVE TAPE (ROSINS) 02/07/2012 2 - Rash Comments: Skin irritation ASPIRIN 11/04/2012 14 - Other: See Comments Date Reviewed: 07/25/2023 Reviewed by: Jerrica Disla LPN - Fully Assessed Reason for Visit: F/U 6 months [1177] Primary Visit Diagnosis:Chronic renal impairment, stage 3a (HCC) [N18.31] Other Visit Diagnoses:Sinus node dysfunction (HCC) [I49.5] Primary osteoarthritis of left knee [M17.12] Essential hypertension [I10] Hyperlipidemia, unspecified hyperlipidemia type [E78.5] Impaired fasting blood sugar [R73.01] Order(s):BEHAVIORAL HEALTH SCREENING [[id number]] Order #: [id number]: 1 Prescriptions as of 07/25/2023 - losartan (COZAAR) 50 mg tablet (more content not included)... Normal [facility] Comprehensive metabolic 2000 panelon 07-25-2023 Albumin [Mass/Vol] 4.4 g/dL Normal 3.9-4.9 [facility] Comment on above: Order Comment: Shanda salazar Type: BLOOD SPECIMEN Ordering Facility: [facility] Address: [address] [place] [address] Performed By: #### 2 4331-1, 06068-5 #### [facility] CLIA [id number] [address] [place] [address] [place] [address] [place] ALP [Catalytic activity/Vol] 87 U/L Normal 34-[address] [facility] Comment on above: Order Comment: Speci men Type: BLOOD SPECIMEN Ordering Facility: [facility] Address: [address] [id number] Performed By: #### 2 4331-1, 78494-1 #### [facility] CLIA [id number] [address] [place] [address] [place] ALT [Catalytic activity/Vol] 19 U/L Normal 7-[address] [facility] Comment on above: Order Comment: Speci men Type: BLOOD SPECIMEN Ordering Facility: [facility] Address: [address] [place] [address] Performed By: #### 2 4331-1, 38844-1 #### [facility] CLIA [id number] [address] [place] [address] [place] Anion gap [Moles/Vol] 13 mmol/L Normal 9-18 [facility] Comment on above: Order Comment: Speci men Type: BLOOD SPECIMEN Ordering Facility: [facility] Address: [address] [place] [address] Performed By: #### 2 4331-1, 95111-0 #### [facility] CLIA [id number] [address] [place] [address] [place] AST [Catalytic activity/Vol] 23 U/L Normal 13-[address] [facility] Comment on above: Order Comment: Speci men Type: BLOOD SPECIMEN Ordering Facility: [facility] Address: [address] [place], [place] [address] Performed By: #### 2 4331-1, 29534-0 #### [facility] CLIA [id number] [address] [place] [address] [place] Bilirubin [Mass/Vol] 0.4 mg/dL Normal 0.2-1.3 [facility] Comment on above: Order Comment: Speci men Type: BLOOD SPECIMEN Ordering Facility: [facility] Address: [address] [place], [place] [address] Performed By: #### 2 4331-1, 19961-0 #### [facility] CLIA [id number] [address] [place] [address] [place] Calcium [Mass/Vol] 10.0 mg/dL Normal 8.5-10.2 [facility] Comment on above: Order Comment: Speci men Type: BLOOD SPECIMEN Ordering Facility: [facility] Address: [address] [place] [address] Performed By: #### 2 4331-1, #### [facility] CLIA [id number] [address] [place], [place] [address] [place] Chloride [Moles/Vol] 105 mmol/L Normal 97-105 [facility] Comment on above: Order Comment: Speci men Type: BLOOD SPECIMEN Ordering Facility: [facility] Address: [address] [place] [address] Performed By: #### 2 4331-, #### [facility] CLIA [id number] [address] [place] [address] [place] CO2 [Moles/Vol] 23 mmol/L Normal 22-[address] [facility] Comment on above: Order Comment: Speci men Type: BLOOD SPECIMEN Ordering Facility: [facility] Address: [address] [place] [address] Performed By: #### 2 4331-1, #### [facility] CLIA [id number] [address] [place], [place] [address] [place] Creatinine [Mass/Vol] 1.30 mg/dL High 0.58-0.96 [facility] Comment on above: Order Comment: Speci men Type: BLOOD SPECIMEN Ordering Facility: [facility] Address: [address] [place] [address] Performed By: #### 2 4331-1, 42406-7 #### [facility] CLIA [id number] [address] [place], [place] [address] [place] Creatinine and Glomerular filtration rate.predicted panel (S/P/Bld) 41 mL/min/1.73m??? Low >=[address] [facility] Comment on above: Order Comment: Shanda salazar Type: BLOOD SPECIMEN Ordering Facility: [facility] Address: [address] [place] [address] Result Comment: Jessie mated Glomerular Filtration Rate (eGFR) is calculated using the 2020 CKD-EPI creatinine equation. This equation utilizes serum creatinine, sex, and age as parameters. The creatinine assay has traceable calibration to isotope dilution-mass spectrometry. Refer to KDIGO guidelines for clinical interpretation. In patients with unstable renal function, e.g. those with acute kidney injury, the eGFR may not accurately reflect actual GFR. Performed By: #### 2 4331-1, 84071-2 #### [facility] CLIA [id number] [address] [place] [address] [place] Glucose [Mass/Vol] 90 mg/dL Normal 74-99 [facility] Comment on above: Order Comment: Shanda salazar Type: BLOOD SPECIMEN Ordering Facility: [facility] Address: [address] [place] [address] Result Comment: The [place] Diabetes Association (ADA) provides guidance for cutoff values for fasting glucose and random glucose. The ADA defines fasting as no caloric intake for at least 8 hours. Fasting plasma glucose results between 100 to 125 mg/dL indicate increased risk for diabetes (prediabetes). Fasting plasma glucose results greater than or equal to 126 mg/dL meet the criteria for diagnosis of diabetes. In the absence of unequivocal hyperglycemia, results should be confirmed by repeat testing. In a patient with classic symptoms of hyperglycemia or hyperglycemic crisis, random plasma glucose results greater than or equal to 200 mg/dL meet the criteria for diagnosis of diabetes. Reference: Standards of Medical Care in Diabetes 2016, [place] Diabetes Association. Diabetes Care. 2016.39(Suppl 1). Performed By: #### 2 4331-1, 60549-1 #### [facility] CLIA [id number] [address] [place] [address] [place] Potassium [Moles/Vol] 4.5 mmol/L Normal 3.7-5.1 [facility] Comment on above: Order Comment: Speci men Type: BLOOD SPECIMEN Ordering Facility: [facility] Address: [address] [place] [address] Performed By: #### 2 4331-1, #### [facility] CLIA [id number] [address] [place] [address] [place] Protein [Mass/Vol] 7.0 g/dL Normal 6.3-8.0 [facility] Comment on above: Order Comment: Speci men Type: BLOOD SPECIMEN Ordering Facility: [facility] Address: [address] [place] [address] Performed By: #### 2 4331-1, 64455-6 #### [facility] CLIA [id number] [address] [place] [address] [place] Sodium [Moles/Vol] 141 mmol/L Normal 136-144 [facility] Comment on above: Order Comment: Speci men Type: BLOOD SPECIMEN Ordering Facility: [facility] Address: [address] [place] [address] Performed By: #### 2 4331-1, 30888-3 #### [facility] CLIA [id number] [address] [place] [address] [place] Urea nitrogen [Mass/Vol] 34 mg/dL High 7-[address] [facility] Comment on above: Order Comment: Speci men Type: BLOOD SPECIMEN Ordering Facility: [facility] Address: [address] [place] [address] Performed By: #### 2 4331-1, 28161-7 #### [facility] CLIA [id number] [address] [place] [address] [place] Lipid 1996 panelon 4 Cholesterol [Mass/Vol] 157 mg/dL Normal <[address] [facility] Comment on above: Order Comment: Speci men Type: BLOOD SPECIMEN Ordering Facility: [facility] Address: [address] [place] [address] Result Comment: <200 mg/dL, Desirable 200-239 mg/dL, Borderline high >239 mg/dL, High Performed By: #### 2 4331-1, 14905-0 #### [facility] CLIA [id number] [address] [place] [address] [place] Cholesterol in HDL [Mass/Vol] 42 mg/dL Normal >[address] [facility] Comment on above: Order Comment: Shanda men Type: BLOOD SPECIMEN Ordering Facility: [facility] Address: [address] [place] [address] Result Comment: 40-5 9 mg/dL, Acceptable >59 mg/dL, High: Negative risk factor for coronary heart disease <40 mg/dL, Low: Positive risk factor for coronary heart disease Performed By: #### 2 4331-1, 55101-3 #### [facility] CLIA [id number] [address] [place] [address] [place] Cholesterol in LDL [Mass/Vol] 73 mg/dL Normal <[address] [facility] Comment on above: Order Comment: Shanda salazar Type: BLOOD SPECIMEN Ordering Facility: [facility] Address: [address] [place] [address] Result Comment: <100 mg/dL, Optimal 100-129 mg/dL, Near optimal/above optimal 130-159 mg/dL, Borderline high 160-189 mg/dL, High >189 mg/dL, Very high Secondary prevention optimal LDL Cholesterol levels are recommended to be < 70 mg/dL Performed By: #### 2 4331-1, 98128-9 #### [facility] CLIA [id number] [address] [place] [address] [place] Cholesterol in LDL/Cholesterol in HDL [Mass ratio] 1.74 {ratio} Normal <2.[address] [facility] Comment on above: Order Comment: Shanda salazar Type: BLOOD SPECIMEN Ordering Facility: [facility] Address: [address] [place] [address] Result Comment: Refwin kwong: 1. National Cholesterol Education Program ATP III Guideline At-A-Glance Quick Desk Reference: National Heart, Lung, and Blood [place]. National Institutes of Health. 2001: NIH Publication No. 01-3305. 2. An International Atherosclerosis Society position paper: global recommendations for the management of dyslipidemia: executive summary, Atherosclerosis. 2014: 232(2):410-413. Performed By: #### 2 4331-1, #### [facility] CLIA [id number] [address] [place], [place] [address] [address] [place] Cholesterol in VLDL [Mass/Vol] 42 mg/dL High <[address] [facility] Comment on above: Order Comment: Shanda salazar Type: BLOOD SPECIMEN Ordering Facility: [facility] Address: [address] [place] [address] Performed By: #### 2 433-, #### [facility] CLIA [id number] [address] [place] [address] [place] Cholesterol non HDL [Mass/Vol] 115 mg/dL Normal <[address] [facility] Comment on above: Order Comment: Shanda salazar Type: BLOOD SPECIMEN Ordering Facility: [facility] Address: [address] [place] [address] Result Comment: <130 mg/dL, Optimal 130-159 mg/dL, Near optimal/above optimal 160-189 mg/dL, Borderline high 190-219 mg/dL, High >219 mg/dL, Very high Secondary prevention optimal non HDL Cholesterol levels are recommended to be <100 mg/dL Performed By: #### 2 433-, #### [facility] CLIA [id number] [address] [place] [address] [place] Cholesterol.total/Cho lesterol in HDL [Mass ratio] 3.74 {ratio} Normal <5.[address] [facility] Comment on above: Order Comment: Shanda salazar Type: BLOOD SPECIMEN Ordering Facility: [facility] Address: [address] [place] [address] Performed By: #### 2 433-, #### [facility] CLIA [id number] [address] [place] [address] [place] FASTING TIME [address] [facility] Comment on above: Order Comment: Shanda men Type: BLOOD SPECIMEN Ordering Facility: [facility] Address: [address] [place] [address] Performed By: #### 2 4331-1, 97679-5 #### [facility] CLIA [id number] [address] [place] [address] [place] Triglyceride [Mass/Vol] 208 mg/dL High <[address] [facility] Comment on above: Order Comment: Leigh Anni men Type: BLOOD SPECIMEN Ordering Facility: [facility] Address: [address] [place] [address] Result Comment: <150 mg/dL, Normal 150-199 mg/dL, Borderline high 200-499 mg/dL, High >499 mg/dL, Very high Performed By: #### 2 4331-1, 06096-7 #### [facility] CLIA [id number] [address] [place] [address] [place] Kalyani [facility] ----- ROSARIO BLANCO ([id number]) 1940 F Date Time Provider Department 02/01/23 LEODAN HOPKINS INTWS During your visit today, we recorded the following information about you: Reina Irving RN 02/01/2023 4:12 PM Signed Pt asking PCP to advise on 01/30/23 DXA Bone Density result when able. Thank you. Leodan Hopkins MD 02/01/2023 5:51 PM Signed Osteopenia femoral necks. Overall stable values. Plan: If she has no recent history of fracture, continue Calcium 600 mg BID. Continue vitamin D prescription. Light weight bearing exercises to strengthen bone. Recheck in 2-3 years. Manju Angel MA 02/01/2023 6:43 PM Addendum Patient notified of results, verbalizes understanding of instructions. Patient states at her office visit on 01/23 she updated PCP on a fall she had had 2 months prior. At the time of OV her lower back wasn't giving her much trouble/causing pain however since office visit her lower back is now starting to increase with pain. Patient requesting an XR to r/o any fracture AND is willing to come in for an office visit if necessary but since she was just seen wanted to double check before scheduling. Please advise. FER Coleman Victor H, MD 02/02/2023 12:08 PM Signed Bone density x rays include her lumbar spine. Continue self management. Appointment if worse. Any Maciel OCCA 02/02/2023 12:39 PM Signed TC to patient with no answer. Left VM to return call to office. DUSTIN Trejo Beth LPN 02/02/2023 1:08 PM Signed Patient returned call and went over notes below from Dr Hopkins with understanding. Allergies As of Date: 02/01/2023 Noted Allergy Reaction CODEINE 01/13/2015 1 - Mental Status Change Comments: Pass out, comma x 3 days. TETANUS AND DIPHTHERIA TOXOIDS 03/14/2016 2 - Rash 7 - Swelling ADHESIVE TAPE (ROSINS) 02/07/2012 2 - Rash Comments: Skin irritation ASPIRIN 11/04/2012 14 - Other: See Comments PNEUMOCOCCAL 23-ALIDA PS VACCINE 03/20/2016 2 - Rash Date Reviewed: 01/23/2023 Reviewed by: Any Maciel OCCA - Fully Assessed Reason for Visit: Results [95] Prescriptions as of 02/02/2023 - ergocalciferol 50,000 unit capsule (VITAMIN D2, DRISDOL) Take 1 capsule by mouth one time a week. - losartan (COZAAR) 25 mg tablet Take 2 tablets by mouth every morning. - atorvastatin (LIPITOR) 20 mg tablet Take 1 tablet by mouth daily at bedtime. - acetaminophen (TYLENOL) 325 mg tablet Take 2 tablets by mouth as needed. Problem List As Of Date 02/01/2023 Noted Resolved Disc disease, degenerative, cervical [M50.30] 01/18/2015 Presence of cardiac pacemaker [Z95.0] 03/14/2016 Essential hypertension [I10] 03/14/2016 Edema of both legs [R60.0] 03/14/2016 Osteopenia, senile [M85.80] 03/14/2016 Vitamin D deficiency [E55.9] 03/14/2016 Chronic renal impairment, stage 3 (moderate) [N*04/13/2017 Chronic eczematous otitis externa [H60.8X9] 09/17/2017 01/23/2023 Obesity, Class II, BMI 35-39.9 [E66.9] 02/01/2019 08/05/2020 Primary osteoarthritis of left knee [M17.12] 11/10/2019 DDD (degenerative disc disease), lumbar [M51.36]03/12/2020 Obesity, Class I, BMI 30-34.9 [E66.9] 08/05/2020 01/23/2023 Hyperlipidemia [E78.5] 01/23/2023 Impaired fasting blood sugar [R73.01] 01/23/2023 Obesity, Class II, BMI 35-39.9 [E66.9] 01/23/2023 Encounter Status:Closed by CARROL GOODWIN LPN on 02/02/[address] [facility] Telephone (INTMWS) ----- ROSARIO BLANCO ([id number]) 1940 F Date Time Provider Department 02/01/23 LEODAN HOPKINS INTKarlaWS During your visit today, we recorded the following information about you: Jerrica Disla LPN 02/01/2023 2:57 PM Signed ----- Message from Leodan Hopkins MD sent at 02/01/2023 2:28 PM EDT ----- Test results are okay in general. 1) BUN elevated so stress adequate hydration. 2) Glucose elevation mild. Reduce carbohydrates in diet by 1/2 daily. 3) Vitamin d better but still low. Restart vitamin D2, 50,000 international unit(s) once a week. Jerrica Disla LPN 02/01/2023 2:59 PM Signed Left message to call AND speak to nurse re: results. Reina Domingo LPN, RN 02/01/2023 3:08 PM Signed Patient returned call and given provider's message below and patient verbalized understanding. Caleb Irving RN Allergies As of Date: 02/01/2023 Noted Allergy Reaction CODEINE 01/13/2015 1 - Mental Status Change Comments: Pass out, comma x 3 days. TETANUS AND DIPHTHERIA TOXOIDS 03/14/2016 2 - Rash 7 - Swelling ADHESIVE TAPE (ROSINS) 02/07/2012 2 - Rash Comments: Skin irritation ASPIRIN 11/04/2012 14 - Other: See Comments PNEUMOCOCCAL 23-ALIDA PS VACCINE 03/20/2016 2 - Rash Date Reviewed: 01/23/2023 Reviewed by: Any Maciel OCCA - Fully Assessed Reason for Visit: Results [95] Prescriptions as of 02/01/2023 - ergocalciferol 50,000 unit capsule (VITAMIN D2, DRISDOL) Take 1 capsule by mouth one time a week. - losartan (COZAAR) 25 mg tablet Take 2 tablets by mouth every morning. - atorvastatin (LIPITOR) 20 mg tablet Take 1 tablet by mouth daily at bedtime. - acetaminophen (TYLENOL) 325 mg tablet Take 2 tablets by mouth as needed. Problem List As Of Date 02/01/2023 Noted Resolved Disc disease, degenerative, cervical [M50.30] 01/18/2015 Presence of cardiac pacemaker [Z95.0] 03/14/2016 Essential hypertension [I10] 03/14/2016 Edema of both legs [R60.0] 03/14/2016 Osteopenia, senile [M85.80] 03/14/2016 Vitamin D deficiency [E55.9] 03/14/2016 Chronic renal impairment, stage 3 (moderate) [N*04/13/2017 Chronic eczematous otitis externa [H60.8X9] 09/17/2017 01/23/2023 Obesity, Class II, BMI 35-39.9 [E66.9] 02/01/2019 08/05/2020 Primary osteoarthritis of left knee [M17.12] 11/10/2019 DDD (degenerative disc disease), lumbar [M51.36]03/12/2020 Obesity, Class I, BMI 30-34.9 [E66.9] 08/05/2020 01/23/2023 Hyperlipidemia [E78.5] 01/23/2023 Impaired fasting blood sugar [R73.01] 01/23/2023 Obesity, Class II, BMI 35-39.9 [E66.9] 01/23/2023 Encounter Status:Closed by REINA IRVING on 02/01/23 [facility] BD DXA - AXIAL SKELETONon BD DXA - AXIAL SKELETON * * *Final Report* * * DATE OF EXAM: Jan 30 2023 10:27AM [facility] 0804 - BD DXA - AXIAL SKELETON / PROCEDURE REASON: Osteopenia, senile * * * * Physician Interpretation * * * * PROCEDURE: BD DXA - AXIAL SKELETON INDICATION: Osteopenia, senile TECHNIQUE: Low dose AP spine and hip images COMPARISON: 03/27/2016 LUMBAR SPINE: The bone mineral density from L1 through L4 is 1.437 grams per square centimeter which yields a T-score of 3.5. There has been a 23.9% statistically significant interval increase in bone mineral density. LEFT HIP: The bone mineral density of the total region of the hip is 0.856 grams per square centimeter which yields a T-score of -0.7. There has been an 8.1% statistically significant interval decrease in bone mineral density. LEFT FEMORAL NECK: The bone mineral density of the femoral neck is 0.687 grams per square centimeter which yields a T-score of -1.5. There has been a 0.2% interval decrease in bone mineral density. RIGHT HIP: The bone mineral density of the total region of the hip is 0.887 grams per square centimeter which yields a T-score of -0.4. There has been a 2.3% interval decrease in bone mineral density. RIGHT FEMORAL NECK: The bone mineral density of the femoral neck is 0.697 grams per square centimeter which yields a T-score of -1.4. There has been a 5.1% statistically significant interval increase in bone mineral density. 10-year Fracture Risk (FRAX): Major osteoporotic fracture risk is 12% Hip fracture risk is 2.8% IMPRESSION: Osteopenia in the bilateral femoral necks. [facility]. CLASSIFICATION OF BONE MASS CLASSIFICATION T-SCORE Normal Greater than -1 Low Bone Mass Between -1 and -2.5 (Osteopenia) Osteoporosis Less than or equal to -2.5 Fuselage Framer: ISMAEL Transcribe Date/Time: Jan 30 2023 12:35P Dictated by : GWENDOLYN RAYMOND MD This examination was interpreted and the report reviewed and electronically signed by: GWENDOLYN RAYMOND MD on Jan 30 2023 12:37PM EST [id number] Normal [facility] DXA-AXIAL SKELETONon 023 [facility] CBC panel Auto (Bld)on 08-09 Erythrocyte distribution width (RBC) [Ratio] 12.8 % 11.5 - 15.0 % [facility] Hematocrit (Bld) [Volume fraction] 43.5 % 36.0 - 46.0 % [facility] Hemoglobin (Bld) [Mass/Vol] 14.2 g/dL 11.5 - 15.5 g/dL [facility] MCH (RBC) [Entitic mass] 29.5 pg 26.0 - 34.0 pg [facility] MCHC (RBC) [Mass/Vol] 32.6 g/dL 30.5 - 36.0 g/dL [facility] MCV (RBC) [Entitic vol] 90.4 fL 80.0 - 100.0 fL [facility] Nucleated RBC (Bld) [#/Vol] <0.01 k/uL [facility] Platelet mean volume (Bld) [Entitic vol] 11.4 fL 9.0 - 12.7 fL [facility] Platelets (Bld) [#/Vol] 245 10*3/uL 150 - 400 k/uL [facility] RBC (Bld) [#/Vol] 4.81 10*6/uL 3.90 - 5.20 m/uL [facility] WBC (Bld) [#/Vol] 8.62 10*3/uL 3.70 - 11.00 k/uL [facility] No Panel Informationon 02-22 Radiology Study observation (narrative) [facility] XR CERVICAL 2V AP/LATon 11- XR CERVICAL 2V AP/LAT * * *Final Report* * * DATE OF EXAM: Feb 22 2022 9:53AM [facility] 5308 - XR CERVICAL 2V AP/LAT / PROCEDURE REASON: Z98.1-History of fusion of cervical spine * * * * Physician Interpretation * * * * Cervical spine: HISTORY: Indication: History of fusion of cervical spine NECK PAIN-HISTORY OF CERVICAL SPINE FUSION NECK PAIN-HISTORY OF CERVICAL SPINE FUSION TECHNIQUE: Views obtained: XR CERVICAL 2V AP/LAT Comparison: Cervical spine 01/18/2015. RESULT: Findings: Anterior fusion with metallic plates and screws C5-C7 levels. Disc spacer C5-6 level noted also probably C6-7 but not as well-visualized. Extensive degenerative changes in the facet joints throughout the spine Disk spaces: FINDINGS: Marked disc space narrowing at C7-T1. Spine alignment: The vertebra are in good alignment. No fractures or dislocations are seen. IMPRESSION: Postsurgical and degenerative changes as discussed Fuselage Framer: ISMAEL Transcribe Date/Time: Feb 22 2022 10:28A Dictated by : AMARI FAM DO This examination was interpreted and the report reviewed and electronically signed by: AMARI FAM DO on Feb 22 2022 10:30AM EST [id number] [facility] XR Cervical spine AP and Lat eralon 02-22-2022 IMPRESSION: Postsurgical and degenerative changes as discussed Fuselage Framer: ISMAEL Transcribe Date/Time: Feb 22 2022 10:28A Dictated by : AMARI FAM DO This examination was interpreted and the report reviewed and electronically signed by: AMARI FAM DO on Feb 22 2022 10:30AM EST [facility] * * *Final Report* * * DATE OF EXAM: Feb 22 2022 9:53AM [facility] 5308 - XR CERVICAL 2V AP/LAT / PROCEDURE REASON: Z98.1-History of fusion of cervical spine * * * * Physician Interpretation * * * * Cervical spine: HISTORY: Indication: History of fusion of cervical spine NECK PAIN-HISTORY OF CERVICAL SPINE FUSION NECK PAIN-HISTORY OF CERVICAL SPINE FUSION TECHNIQUE: Views obtained: XR CERVICAL 2V AP/LAT Comparison: Cervical spine 01/18/2015. RESULT: Findings: Anterior fusion with metallic plates and screws C5-C7 levels. Disc spacer C5-6 level noted also probably C6-7 but not as well-visualized. Extensive degenerative changes in the facet joints throughout the spine Disk spaces: FINDINGS: Marked disc space narrowing at C7-T1. Spine alignment: The vertebra are in good alignment. No fractures or dislocations are seen. [facility] Provider, Brian [facility] - 02/22/2022 * * *Final Report* * * DATE OF EXAM: Feb 22 2022 9:53AM [facility] 5308 - XR CERVICAL 2V AP/LAT / PROCEDURE REASON: Z98.1-History of fusion of cervical spine * * * * Physician Interpretation * * * * Cervical spine: HISTORY: Indication: History of fusion of cervical spine NECK PAIN-HISTORY OF CERVICAL SPINE FUSION NECK PAIN-HISTORY OF CERVICAL SPINE FUSION TECHNIQUE: Views obtained: XR CERVICAL 2V AP/LAT Comparison: Cervical spine 01/18/2015. RESULT: Findings: Anterior fusion with metallic plates and screws C5-C7 levels. Disc spacer C5-6 level noted also probably C6-7 but not as well-visualized. Extensive degenerative changes in the facet joints throughout the spine Disk spaces: FINDINGS: Marked disc space narrowing at C7-T1. Spine alignment: The vertebra are in good alignment. No fractures or dislocations are seen. IMPRESSION IMPRESSION: Postsurgical and degenerative changes as discussed Fuselage Framer: ISMAEL Transcribe Date/Time: Feb 22 2022 10:28A Dictated by : AMARI FAM DO This examination was interpreted and the report reviewed and electronically signed by: AMARI FAM DO on Feb 22 2022 10:30AM EST [facility] XR Cervical spine AP and Lat eralOrdered By: [facility] Provider on 02-22-2022 [facility] XR LUMBAR 3V AP/LAT/L5-S1on 02-22-2022 XR LUMBAR 3V AP/LAT/L5-S1 * * *Final Report* * * DATE OF EXAM: Feb 22 2022 9:53AM [facility] 5228 - XR LUMBAR 3V AP/LAT/L5-S1 / PROCEDURE REASON: multiple diagnoses * * * * Physician Interpretation * * * * LUMBAR SPINE: EXAM DATE/TIME: 02/22/2022 9:53 AM HISTORY: 81 years old Indication: Chronic low back pain with left-sided sciatica, unspecified back pain laterality Chronic low back pain with left-sided sciatica, unspecified back pain laterality LOW BACK PAIN TECHNIQUE: Views obtained: XR LUMBAR 3V AP/LAT/L5-S1 Comparison: Lumbosacral spine 11/03/2013. RESULT: Findings: Severe disc space narrowing L3-4 L4-5 and L5-S1 levels. Also severe narrowing at the L1-2 level which is a new finding. Moderate degenerative changes in the posterior elements throughout the lumbar spine The vertebra are in good alignment. No fractures or dislocations are seen. IMPRESSION: Extensive degenerative changes. New disc space narrowing noted at the L1-2 level. See discussion Fuselage Framer: ISMAEL Transcribe Date/Time: Feb 22 2022 10:31A Dictated by : AMARI FAM DO This examination was interpreted and the report reviewed and electronically signed by: AMARI FAM DO on Feb 22 2022 10:32AM EST [id number] [facility] XR Lumbar spine 3 Viewson IMPRESSION: Extensive degenerative changes. New disc space narrowing noted at the L1-2 level. See discussion Fuselage Framer: ISMAEL Transcribe Date/Time: Feb 22 2022 10:31A Dictated by : AMARI FAM DO This examination was interpreted and the report reviewed and electronically signed by: AMARI FAM DO on Feb 22 2022 10:32AM EST [facility] * * *Final Report* * * DATE OF EXAM: Feb 22 2022 9:53AM [facility] 5228 - XR LUMBAR 3V AP/LAT/L5-S1 / PROCEDURE REASON: multiple diagnoses * * * * Physician Interpretation * * * * LUMBAR SPINE: EXAM DATE/TIME: 02/22/2022 9:53 AM HISTORY: 81 years old Indication: Chronic low back pain with left-sided sciatica, unspecified back pain laterality Chronic low back pain with left-sided sciatica, unspecified back pain laterality LOW BACK PAIN TECHNIQUE: Views obtained: XR LUMBAR 3V AP/LAT/L5-S1 Comparison: Lumbosacral spine 11/03/2013. RESULT: Findings: Severe disc space narrowing L3-4 L4-5 and L5-S1 levels. Also severe narrowing at the L1-2 level which is a new finding. Moderate degenerative changes in the posterior elements throughout the lumbar spine The vertebra are in good alignment. No fractures or dislocations are seen. [facility] Provider, Brian [facility] - 02/22/2022 * * *Final Report* * * DATE OF EXAM: Feb 22 2022 9:53AM [facility] 5228 - XR LUMBAR 3V AP/LAT/L5-S1 / PROCEDURE REASON: multiple diagnoses * * * * Physician Interpretation * * * * LUMBAR SPINE: EXAM DATE/TIME: 02/22/2022 9:53 AM HISTORY: 81 years old Indication: Chronic low back pain with left-sided sciatica, unspecified back pain laterality Chronic low back pain with left-sided sciatica, unspecified back pain laterality LOW BACK PAIN TECHNIQUE: Views obtained: XR LUMBAR 3V AP/LAT/L5-S1 Comparison: Lumbosacral spine 11/03/2013. RESULT: Findings: Severe disc space narrowing L3-4 L4-5 and L5-S1 levels. Also severe narrowing at the L1-2 level which is a new finding. Moderate degenerative changes in the posterior elements throughout the lumbar spine The vertebra are in good alignment. No fractures or dislocations are seen. IMPRESSION IMPRESSION: Extensive degenerative changes. New disc space narrowing noted at the L1-2 level. See discussion Fuselage Framer: ISMAEL Transcribe Date/Time: Feb 22 2022 10:31A Dictated by : AMARI FAM DO This examination was interpreted and the report reviewed and electronically signed by: AMARI FAM DO on Feb 22 2022 10:32AM EST [facility] XR SHOULDER GENERAL 3V OR MO RE AP/TRUE AP/OTHER RIGHTon 02-01-2022 [facility] XR Shoulder - right 3 Viewso n 02-01-2022 IMPRESSION: No acute abnormality Fuselage Framer: ISMAEL Transcribe Date/Time: Feb 01 2022 6:53P Dictated by : FLEX CARLTON MD This examination was interpreted and the report reviewed and electronically signed by: FLEX CARLTON MD on Feb 01 2022 6:54PM [facility] * * *Final Report* * * DATE OF EXAM: Feb 01 2022 6:48PM [facility] 5253 - XR SHLDR >/=3V AP/MAYTE AP/OTHR RT / PROCEDURE REASON: Acute pain of right shoulder * * * * Physician Interpretation * * * * PROCEDURE: Right shoulder INDICATION: Acute pain of right shoulder .right shoulder pain TECHNIQUE: XR SHLDR >/=3V AP/MAYTE AP/OTHR RT COMPARISON: None FINDINGS: Mild glenohumeral and acromioclavicular joint osteoarthrosis. Acromiohumeral interval is within normal limits. No acute fracture or dislocation. Postoperative change in the cervical spine. [facility] Provider, [facility] - 02/01/2022 * * *Final Report* * * DATE OF EXAM: Feb 01 2022 6:48PM [facility] 5253 - XR SHLDR >/=3V AP/MAYTE AP/OTHR RT / PROCEDURE REASON: Acute pain of right shoulder * * * * Physician Interpretation * * * * PROCEDURE: Right shoulder INDICATION: Acute pain of right shoulder .right shoulder pain TECHNIQUE: XR SHLDR >/=3V AP/MAYTE AP/OTHR RT COMPARISON: None FINDINGS: Mild glenohumeral and acromioclavicular joint osteoarthrosis. Acromiohumeral interval is within normal limits. No acute fracture or dislocation. Postoperative change in the cervical spine. IMPRESSION IMPRESSION: No acute abnormality Fuselage Framer: PSCB Transcribe Date/Time: Feb 01 2022 6:53P Dictated by : FLEX CARLTON MD This examination was interpreted and the report reviewed and electronically signed by: FLEX CARLTON MD on Feb 01 2022 6:54PM EST [facility] Radiology Study observation (narrative) [facility] XR Shoulder - right 3 ViewsO rdered By: [facility] Provider on 02-01-2022 [facility] CBC, PLATELETS & AUT DIFF ([id number])Ordered By: Veneer Jointer Operator on 09-02-2021 Basophils (Bld) [#/Vol] 0.1 10*3/uL Normal 0.0-0.2 [facility]; [facility] Work Phone: Comment on above: PATIENT NOT FASTINGP ERFORMED BY: ROGELIO [facility] [id number] RoadDublin [place] [id number] Basophils/100 WBC (Bld) 1 % Normal [facility]; [facility] Work Phone: Comment on above: PATIENT NOT FASTINGP ERFORMED BY: CB [facility] [id number] RoadDublin [place] [id number] Eosinophils (Bld) [#/Vol] 0.1 10*3/uL Normal 0.0-0.4 [facility]; [facility] Work Phone: Comment on above: PATIENT NOT FASTINGP ERFORMED BY: ROGELIO [facility] [id number] [address] RoadDublin [place] [id number] Eosinophils/100 WBC (Bld) 1 % Normal [facility]; [facility] Work Phone: Comment on above: PATIENT NOT FASTINGP ERFORMED BY: ROGELIO [facility] [id number] RoadDublin [place] [id number] Erythrocyte distribution width (RBC) [Ratio] 13.3 % Normal 11.7-15.4 [facility]; [facility] Work Phone: Comment on above: PATIENT NOT FASTINGP ERFORMED BY: ROGELIO [facility] [id number] RoadDublin [place] [id number] Hematocrit (Bld) [Volume fraction] 41.5 % Normal 34.0-46.6 [facility]; [facility] Work Phone: Comment on above: PATIENT NOT FASTINGP ERFORMED BY: CB [facility] [id number] RoadDublin [place] [id number] Hemoglobin (Bld) [Mass/Vol] 13.9 g/dL Normal 11.1-15.9 [facility]; [facility] Work Phone: Comment on above: PATIENT NOT FASTINGP ERFORMED BY: CB [facility] [id number] RoadDublin [place] [id number] Immature granulocytes (Bld) [#/Vol] 0.0 10*3/uL Normal 0.0-0.1 [facility]; [facility] Work Phone: Comment on above: PATIENT NOT FASTINGP ERFORMED BY: ROGELIO [facility] [id number] RoadD[address] [place] [id number] Immature granulocytes/100 WBC (Bld) 0 % Normal [facility]; [facility] Work Phone: Comment on above: PATIENT NOT FASTINGP ERFORMED BY: CB [facility] [id number] RoadAffinity Health Partnersin [place] [id number] Lymphocytes (Bld) [#/Vol] 2.8 10*3/uL Normal 0.7-3.1 [facility]; [facility] Work Phone: Comment on above: PATIENT NOT FASTINGP ERFORMED BY: ROGELIO [facility] [id number] RoadUNC Health Johnston [id number] Lymphocytes/100 WBC (Bld) 31 % Normal [facility]; [facility] Work Phone: Comment on above: PATIENT NOT FASTINGP ERFORMED BY: ROGELIO [facility] DamonDidedk[address] [facility] [id number] MCH (RBC) [Entitic mass] 28.9 pg Normal 26.6-33.0 [facility]; [facility] Work Phone: Comment on above: PATIENT NOT FASTINGP ERFORMED BY: ROGELIO [facility] [id number] [facility] [id number] MCHC (RBC) [Mass/Vol] 33.5 g/dL Normal 31.5-35.7 [facility] prehensive Internal Medicine; [facility] Work Phone: Comment on above: PATIENT NOT FASTINGP ERFORMED BY: CB [facility] [id number] [facility] [place] [id number] MCV (RBC) [Entitic vol] 86 fL Normal 79-97 [facility]; [facility] Work Phone: Comment on above: PATIENT NOT FASTINGP ERFORMED BY: CB [facility] [id number] [facility] [place] [id number] Monocytes (Bld) [#/Vol] 0.7 10*3/uL Normal 0.1-0.9 [facility]; [facility] Work Phone: Comment on above: PATIENT NOT FASTINGP ERFORMED BY: ROGELIO Mclain[address] RoadDublin [place] [id number] Monocytes/100 WBC (Bld) 7 % Normal [facility]; [facility] Work Phone: Comment on above: PATIENT NOT FASTINGP ERFORMED BY: CB [facility] [id number] RoadDublin [place] [id number] Neutrophils (Bld) [#/Vol] 5.5 10*3/uL Normal 1.4-7.0 [facility]; [facility] Work Phone: Comment on above: PATIENT NOT FASTINGP ERFORMED BY: ROGELIO [facility] MclainSxdusg8[address] RoadDublin [place] [id number] Neutrophils/100 WBC (Bld) 60 % Normal [facility]; [facility] Work Phone: Comment on above: PATIENT NOT FASTINGP ERFORMED BY: CB [facility] [id number]Dublin [place] [id number] Platelets (Bld) [#/Vol] 248 10*3/uL Normal 150-450 [facility]; [facility] Work Phone: Comment on above: PATIENT NOT FASTINGP ERFORMED BY: CB [facility] Roinsx[address] RoadD[address] [place] [id number] RBC (Bld) [#/Vol] 4.81 10*6/uL Normal 3.77-5.28 Compr e[facility]; [facility] Work Phone: Comment on above: PATIENT NOT FASTINGP ERFORMED BY: CB [facility] [id number] RoadD[address] [place] [id number] WBC (Bld) [#/Vol] 9.1 10*3/uL Normal 3.4-10.8 Compre hensive [facility]; [facility] Work Phone: Comment on above: PATIENT NOT FASTINGP ERFORMED BY: CB [facility] [id number] [facility] [id number] No Panel Informationon 03-03 Radiology Study observation (narrative) [facility] XR Lumbar spine 3 Viewson IMPRESSION: Advanced lumbar spine degenerative changes with multilevel disc space narrowing. Fuselage Framer: [email or web address] Transcribe Date/Time: Mar 03 2020 11:29A Dictated by : CASTILLO FAUSTIN MD This examination was interpreted and the report reviewed and electronically signed by: CASTILLO FAUSTIN MD on Mar 03 2020 11:31AM [facility] * * *Final Report* * * DATE OF EXAM: Mar 03 2020 11:27AM [facility] 5228 - XR LUMBAR 3V AP/LAT/L5-S1 / PROCEDURE REASON: Sciatica, right side * * * * Physician Interpretation * * * * EXAM TITLE: XR LUMBAR 3V AP/LAT/L5-S1 EXAM DATE/TIME: 03/03/2020 11:27 AM COMPARISON: None. CLINICAL INDICATION/HISTORY: Sciatica. TECHNIQUE: AP, lateral and cone down lateral views of the lumbar spine are presented. FINDINGS: There are five epi-uus-hpbkpsq lumbar vertebrae. No acute fracture or subluxations are noted. There appears to be mild left-sided curvature. Disc space narrowing involving all levels. There is significant osteophyte formation, with facet arthrosis in the lower lumbar spine. Kissing spine visualized. Others: There are vascular calcifications. DIVISION OF RADIOLOGY Provider, [facility] 03/03/2020 * * *Final Report* * * DATE OF EXAM: Mar 03 2020 11:27AM [facility]OX 5228 - XR LUMBAR 3V AP/LAT/L5-S1 / PROCEDURE REASON: Sciatica, right side * * * * Physician Interpretation * * * * EXAM TITLE: XR LUMBAR 3V AP/LAT/L5-S1 EXAM DATE/TIME: 03/03/2020 11:27 AM COMPARISON: None. CLINICAL INDICATION/HISTORY: Sciatica. TECHNIQUE: AP, lateral and cone down lateral views of the lumbar spine are presented. FINDINGS: There are five lhd-vhh-jdlkfut lumbar vertebrae. No acute fracture or subluxations are noted. There appears to be mild left-sided curvature. Disc space narrowing involving all levels. There is significant osteophyte formation, with facet arthrosis in the lower lumbar spine. Kissing spine visualized. Others: There are vascular calcifications. IMPRESSION IMPRESSION: Advanced lumbar spine degenerative changes with multilevel disc space narrowing. Fuselage Framer: PSCB Transcribe Date/Time: Mar 03 2020 11:29A Dictated by : CASTILLO FAUSTIN MD This examination was interpreted and the report reviewed and electronically signed by: CASTILLO FAUSTIN MD on Mar 03 2020 11:31AM EST [facility] XR Lumbar spine 3 ViewsOrder ed By: Ccf Provider on 03-03-2020 [facility] XR Pelvis and Hip - right AP and Lateral frogon 03-03-2020 IMPRESSION: Mild arthrosis, both hips. Lumbar spondylosis. Fuselage Framer: PSCB Transcribe Date/Time: Mar 03 2020 11:31A Dictated by : Cecille HYATT MD This examination was interpreted and the report reviewed and electronically signed by: Cecille HYATT MD on Mar 03 2020 11:34AM EST DIVISION OF RADIOLOGY * * *Final Report* * * DATE OF EXAM: Mar 03 2020 11:27AM WOX 5352 - XR HIP 3V PELV+ AP/LAT RT / PROCEDURE REASON: Sciatica, right side * * * * Physician Interpretation * * * * EXAM: XR HIP 3V PELV+ AP/LAT RT HISTORY: Sciatica, right side. VIEWS: AP and lateral right hip with AP pelvis. COMPARISON: No relevant comparison. FINDINGS: No dislocation or acute fracture. Mild joint space narrowing with subtle marginal spurring at both hips. Lumbar spondylosis with multilevel interspace narrowing. General bone demineralization. DIVISION OF RADIOLOGY Provider, [facility] - 03/03/2020 * * *Final Report* * * DATE OF EXAM: Mar 03 2020 11:27AM WOX 5352 - XR HIP 3V PELV+ AP/LAT RT / PROCEDURE REASON: Sciatica, right side * * * * Physician Interpretation * * * * EXAM: XR HIP 3V PELV+ AP/LAT RT HISTORY: Sciatica, right side. VIEWS: AP and lateral right hip with AP pelvis. COMPARISON: No relevant comparison. FINDINGS: No dislocation or acute fracture. Mild joint space narrowing with subtle marginal spurring at both hips. Lumbar spondylosis with multilevel interspace narrowing. General bone demineralization. IMPRESSION IMPRESSION: Mild arthrosis, both hips. Lumbar spondylosis. Fuselage Framer: PSCCassidy Transcribe Date/Time: Mar 03 2020 11:31A Dictated by : Cecille HYATT MD This examination was interpreted and the report reviewed and electronically signed by: Cecille HYATT MD on Mar 03 2020 11:34AM EST [facility] BMPon 01-03-2017 Anion gap 10 mmol/L Normal 5-16 [facility] [place] Comment on above: Order Comment: Campu s: M Performed By: #### L 500.46158, L500.35937 ####[facility] [id number] [place], [place] [address]Yh# [phone] BUN/Creatinine Ratio 22 mg/mg Normal 15-24 [facility] Comment on above: Order Comment: Campu s: M Performed By: #### L 500.35065, L500.10781 ####[facility] [id number] [place], [place] [address]Ez# [phone] Calcium 8.8 mg/dL Normal 8.5-10.1 [facility] [place] Comment on above: Order Comment: Campu s: M Performed By: #### L 500.62698, L500.32064 ####[facility] [id number] [place], [place] [address]Mx# [phone] Chloride 111 mmol/L High 98-107 [facility] [place] Comment on above: Order Comment: Campu s: M Performed By: #### L 500.27267, L500.57336 ####[facility] QNMGUDNUAN4884 [place], [place] [address]Oj# [phone] CO2 23 mmol/L Normal 21-32 [facility] [place] Comment on above: Order Comment: Campu s: M Performed By: #### L 500.24109, L500.23105 ####[facility] [id number] [place], [place] [address]Er# [phone] Creatinine 1.250 mg/dL High 0.510-0.95 0 [facility] Comment on above: Order Comment: Campu s: M Result Comment: Mila ents receiving either N-Acetylcysteine (NAC) orMetamizole prior to venipuncture, may have falsely depressedresults. Performed By: #### L 500.61439, L500.23800 ####[facility] [id number] [place], [place] [address]Yc# [phone] Glucose mass conc 114 mg/dL High 70-100 [facility] [place] Comment on above: Order Comment: Campu s: M Result Comment: 70-1 00-Normal Fasting; 347-126-Eocthjgt Fasting; greaterthan 126 on more than one result-Diabetes. ADA guidelines Performed By: #### L 500.70733, L500.03186 ####[facility] [id number] [place], [place] [address]Bc# [phone] Potassium molar conc 4.4 mmol/L Normal 3.5-5.1 [facility] [place] Comment on above: Order Comment: Campu s: M Performed By: #### L 500.42753, L500.07317 ####[facility] [id number] [place], [place] [address]Nr# [phone] Sodium 144 mmol/L Normal 136-145 [facility] [place] Comment on above: Order Comment: Campu s: M Performed By: #### L 500.18405, L500.01667 ####[facility] HTHMNKTCRZ[address] [place], [place] [address]Ky# [phone] Urea nitrogen 27 mg/dL High 7-26 [facility] [place] Comment on above: Order Comment: Campu s: M Performed By: #### L 500.97252, L500.09112 ####[facility] [id number] [place], [place] [address]Gt# [phone] CBCon 01-03-2017 Erythrocyte distribution width Auto Ratio (RBC) 13.7 % Normal 11-14.5 [facility] [place] Comment on above: Order Comment: Campu s: M Performed By: #### L 200.87726 ####[facility] YDBWYQEQOE6577 [place], [place] [address]Gx# [phone] Erythrocytes (RBC) 0.0 % Normal Less than 1 [facility] Comment on above: Order Comment: Campu s: M Performed By: #### L 200.56294 ####[facility] [id number] [place], [place] [address]Cq# [phone] Erythrocytes (RBC) 4.91 M/CU MM Normal 3.90-5.30 [facility] Comment on above: Order Comment: Campu s: M Performed By: #### L 200.27521 ####[address] [address]Oj# [phone] Hematocrit (HCT) 41.9 % Normal 35.0-47.0 [facility] Comment on above: Order Comment: Campu s: M Performed By: #### L 200.07048 ####[address] [address]Hw# [phone] Hemoglobin mass conc (Bld) 13.8 g/dL Normal 11.5-15.5 [facility] Comment on above: Order Comment: Campu s: M Performed By: #### L 200.22742 ####[facility] [id number] [place] [address]Uk# [phone] MCHC mass conc (RBC) 32.9 g/dL Normal 32.0-36.0 [facility] Comment on above: Order Comment: Campu s: M Performed By: #### L 200.21457 ####[facility] [id number] [place] [address]Er# [phone] MCV 85.3 fL Normal 80.0-99.0 [facility] Comment on above: Order Comment: Campu s: M Performed By: #### L 200.37293 ####[facility] [id number] [place] [address]Oe# [phone] Platelet mean volume (PMV) 11.9 fL Normal 9.4-12.4 [facility] Comment on above: Order Comment: Campu s: M Performed By: #### L 200.69393 ####[facility] [id number] [place], [place] [address]Ei# [phone] Platelets 216 K/CU MM Normal 150-450 [facility] Comment on above: Order Comment: Campu s: M Result Comment: Conf irmed by slide estimate. Performed By: #### L 200.20966 ####[facility] [id number] [place], [place] [address]Ci# [phone] WBC (Leukocytes) 9.7 K/CU MM Normal 4.5-11.0 [facility] Comment on above: Order Comment: Campu s: M Performed By: #### L 200.75533 ####[address] [address]Dy# [phone] GFR ESTon 01-03-2017 IF AMER 50 ML/MIN Normal [facility] Comment on above: Order Comment: Campu s: M Performed By: #### L 500.47691, L500.49840 ####[facility] [id number] [place] [address]Bp# [phone] IF non-AFR AMER 42 ML/MIN Normal [facility] Comment on above: Order Comment: Campu s: M Performed By: #### L 500.64829, L500.87537 ####[facility] [id number] [place] [address]Vg# [phone] HP.IMS.ADMon 01-03-2017 Admission-H&P Normal [facility] HP.IMS.ADM [facility] Patient Name: ROSARIO BASHIR [id number] [facility] [place] Date of : [address] [address] Unit Number: [id number] Number: [id number] Patient Status: REG SDCAttending Doctor: Kelly Maradiagaervjuan j Date: 01/03/17 0702History of Present IllnessChief Complaint/Present Illness:Needs pacemaker generator change.History of Present Yleavdy37 yo female with PMH of chronic DHF, Mild CAD, sinus node dysfunction s/p PPM,HTN, DUB presents today for a generator change. Pt has been experiencing SOB and BLEedema x 2 weeks. Pt denies CP, palpitations, dizziness, lightheadedness, or epigastricpain.Past Medical/Surgical HxPast Medical Historychronic DHF, Mild CAD, sinus node dysfunction s/p PPM, HTN, DUBPast Surgical HistoryRight knee surgerycervical fusionFamily/Social HistorySubstancesDenies use of: Alcohol, Tobacco, Recreational Drugs.Allergies/Home MedicationsAllergiesCoded Allergies:CODEINE (SEMICOMA 01/03/17)TETANUS VACCINES AND TOXOID (TETANUS) (01/03/17)Home MedicationsFurosemide* (Lasix 20MG Tab*) 20 MG TABLET 20 MG PO QDAY, Ref 0 (Reported)Entered as Reported by ELISA CIFUENTES on 12/07/14 1205Last Action: Reviewed on 01/03/17712 by RENITA ARANGOisinopril* (Prinivil 10MG Tab*) 10 MG TABLET 10 MG PO QDAY, Ref 0 (Reported)Entered as Reported by ELISA CIFUENTES on 12/07/14 1204Last Action: Reviewed on 01/03/17712 by RENITA ARANGOetoprolol SUCCINATE* (Toprol XL 50MG Tab SA*) 50 MG TAB.ER.24H 50 MG PO QDAY, Ref 0 (Reported)Entered as Reported by ELISA CIFUENTES on 12/07/14 1205Last Taken: 50MG on 01/02/17 0700 Last Action: Reviewed on 01/03/17712 byRENITA ARANGO of SystemsROS: OtherAs stated in HPI, otherwise negative.Physical ExamPhysical Exam SummaryGen: Obese, NADHEENT: Neck supple. OP moist. No JVDCV: Regular rate. No murmurPulm: Normal effort. CTABAbd: soft, nontenderVasc: Normal carotid and radial pulses. No carotid bruitNeuro: Alert. Appropriate. Face symmetric. Moves extremities symmetrically. 1+ bicepsreflexMSK: BLE +1 edema. No joint swellingSkin: Warm. No concerning lesionsPysch: Calm. Normal AffectConclusion / PlanConclusion1. Sinus node dysfunctionPlanPlan for generator change today. Risks, benefits and alernatives to procedure discussedwith pt. Pt has opted to proceed with procedure.DisclaimerThis dictation was created using voice recognition software.Phonetic and/or minor grammatical errors may exist.eSign Date and TimeJogregoryjuan danielDanyell Karla MECHANICAL ENGINEERING PROFESSOR Verified/Reviewed by 01/18/17 Gucci9Kelly Maradiaga MD [facility] 01-03-2017 OPERATIVE REPORT This is a preliminar y report only, as the practitioner review and authentication has not occurred. [facility] OR DATE OF SERVICE: 01/03/2017PREOPERATIVE DIAGNOSIS: Patient with previously implanted dual-chamber pacemakerthat had reached elective replacement index.POSTOPERATIVE DIAGNOSIS: Patient with previously implanted dual-chamber pacemakerthat had reached elective replacement index.OPERATION: Dual-chamber pacemaker generator change.SURGEON: Kelly Maradiaga MDESTIMATED BLOOD LOSS: Less than 30 mL.COMPLICATIONS: None.PROCEDURE DETAILS: The patient presented to the EP Lab in a fasting state. Aftershe was prepped and draped in a standard sterile fashion, local anesthetic wasadministered to the prepectoral region. After this was done, an incision yieldedaccess to the previously implanted device. Device was removed from the pocket andplaced and inspected closely. The leads were inspected. There were no breaches ininsulation. They were removed and tested extensively and found to be within normallimits. Leads were then plugged into a new device. The tightened. Devicewas placed in the pocket, secured in place with a stitch. The wound was then closedwith 3 layers of absorbable suture, covered with a Steri-Strips and antibioticdressing. The patient tolerated procedure well. No complications were experienced.SUMMARY: Successful [employer] pacemaker generator change. Kelly Maradigaa MDJC/[id number]: 01/03/2017 11:27DT: 01/03/2017 11:52SSI File#: [id number] #: [id number] [facility] PATIENT NAME: ROSARIO BASHIR [id number] [facility] [address] [place] MEDICAL REC #: [id number] [address] DATE:DISCHARGE DATE:OPERATIVE REPORT ATTENDING PHY: Kelly Maradiaga MD [facility] [place] Large Joint Arthro/Inj: R dumont bacromial bursa [facility] Vital Signs Date Time Vital Sign Value Performing Clinician Facility 09-26-2024 11:24-0400 Body temperature 97.8 [degF] Dr. Leodan Hopkins MD Work Phone: 3(051)763-858698 [place] [address] 09-26-2024 11:24-0400 Diastolic blood pressure 98 mm[Hg] Dr. Leodan Hopkins MD Work Phone: 9(650)835-995398 [place] [address] 09-26-2024 11:24-0400 Heart rate 87 /min Dr. Leodan Hopkins MD Work Phone: 1(179)455-337198 [place] [address] 09-26-2024 11:24-0400 Respiratory rate 16 /min Dr. Leodan Hopkins MD Work Phone: 2(432)804-486698 [place] [address] 09-26-2024 11:24-0400 SaO2% (BldA) [Mass fraction] 99 % Dr. Leodan Hopkins MD Work Phone: 6(968)415-991298 [place] [address] 09-26-2024 11:24-0400 Systolic blood pressure 163 mm[Hg] Dr. Leodan Hopkins MD Work Phone: 0(952)105-918398 [place] [address] 09-26-2024 09:11-0400 Body height 165.[address] Leodan Hopkins MD Work Phone: 4(707)389-658098 [place] [address] 09-26-2024 09:11-0400 Body mass index (BMI) [Ratio] 34.3 kg/m2 Dr. Leodan Hopkins MD Work Phone: [facility] 09-26-2024 09:11-0400 Body weight 93.[address] Leodan Hopkins MD Work Phone: [facility] 01-29-2024 07:53-0400 Diastolic blood pressure 74 mm[Hg] Leodan Hopkins MD Work Phone: [facility] 01-29-2024 07:53-0400 Heart rate 71 /min Leodan Hopkins MD Work Phone: [facility] 01-29-2024 07:53-0400 Systolic blood pressure 148 mm[Hg] Leodan Hopkins MD Work Phone: [facility] 01-29-2024 07:51-0400 Body height 161.3 cm Leodan Hopkins MD Work Phone: [facility] 01-29-2024 07:51-0400 Body mass index (BMI) [Ratio] 36.63 kg/m2 Leodan Hopkins MD Work Phone: [facility] 01-29-2024 07:51-0400 Body temperature 97.5 [degF] Leodan Hopkins MD Work Phone: [facility] 01-29-2024 07:51-0400 Body weight 95.3 kg Leodan Hopkins MD Work Phone: [facility] 01-29-2024 07:51-0400 Respiratory rate 16 /min Leodan Hopkins MD Work Phone: [facility] 12-27-2023 18:57-0400 Body height 158.1 cm Leodan Hopkins MD Work Phone: [facility] 12-27-2023 18:57-0400 Body mass index (BMI) [Ratio] 37.56 kg/m2 Leodan Hopkins MD Work Phone: [facility] 12-27-2023 18:57-0400 Body temperature 97.9 [degF] Leodan Hopkins MD Work Phone: [facility] 12-27-2023 18:57-0400 Body weight 93.9 kg Leodan Hopkins MD Work Phone: [facility] 12-27-2023 18:57-0400 Diastolic blood pressure 82 mm[Hg] Leodan Hopkins MD Work Phone: [facility] 12-27-2023 18:57-0400 Heart rate 83 /min Leodan Hopkins MD Work Phone: [facility] 12-27-2023 18:57-0400 Respiratory rate 16 /min Leodan Hopkins MD Work Phone: [facility] 12-27-2023 18:57-0400 SaO2% (BldA) [Mass fraction] 97 % Leodan Hopkins MD Work Phone: [facility] 12-27-2023 18:57-0400 Systolic blood pressure 187 mm[Hg] Leodan Hopkins MD Work Phone: [facility] 07-25-2023 09:22-0400 Diastolic blood pressure 76 mm[Hg] Leodan Hopkins MD Work Phone: [facility] 07-25-2023 09:22-0400 Heart rate 73 /min Leodan Hopkins MD Work Phone: [facility] 07-25-2023 09:22-0400 Systolic blood pressure 135 mm[Hg] Leodan Hopkins MD Work Phone: [facility] 07-25-2023 09:14-0400 Body temperature 98.49 [degF] Leodan Hopkins MD Work Phone: [facility] 07-25-2023 09:14-0400 Body weight 91.63 kg Leodan Hopkins MD Work Phone: [facility] 08-09-2022 08:36-0400 Diastolic blood pressure 82 mm[Hg] Jaimee Harmon APRN.MECHANICAL ENGINEERING PROFESSOR Work Phone: [facility] 08-09-2022 08:36-0400 Systolic blood pressure 140 mm[Hg] Jaimee Older NEWS VIDEOTAPE EDITOR.MECHANICAL ENGINEERING PROFESSOR Work Phone: [facility] 08-09-2022 08:07-0400 Body weight 90.27 kg Jaimee Older NEWS VIDEOTAPE EDITOR.MECHANICAL ENGINEERING PROFESSOR Work Phone: [facility] 08-09-2022 08:07-0400 Heart rate 91 /min Jaimee Older NEWS VIDEOTAPE EDITOR.MECHANICAL ENGINEERING PROFESSOR Work Phone: [facility] 08-09-2022 08:07-0400 Respiratory rate 16 /min Jaimee Older NEWS VIDEOTAPE EDITOR.MECHANICAL ENGINEERING PROFESSOR Work Phone: [facility] 03-23-2022 13:30-0500 Body height 165.1 cm Tarik Kwan MD Work Phone: [facility] 03-23-2022 13:30-0500 Body weight 85.28 kg Tarik Kwan MD Work Phone: [facility] 03-23-2022 13:30-0500 Diastolic blood pressure 64 mm[Hg] Tarik Kwan MD Work Phone: [facility] 03-23-2022 13:30-0500 Systolic blood pressure 155 mm[Hg] Tarik Kwan MD Work Phone: [facility] 02-22-2022 08:27-0500 Body height 165.1 cm Arslan Siddiqui MD Work Phone: [facility] 02-22-2022 08:27-0500 Body weight 92.9 kg Arslan Siddiqui MD Work Phone: [facility] 02-22-2022 08:27-0500 Heart rate 68 /min Arslan Siddiqui MD Work Phone: [facility] 02-22-2022 08:27-0500 SaO2% (BldA) [Mass fraction] 95 % Arslan Siddiqui MD Work Phone: [facility] 02-01-2022 18:15-0400 Diastolic blood pressure 80 mm[Hg] Jaimee Older NEWS VIDEOTAPE EDITOR.MECHANICAL ENGINEERING PROFESSOR Work Phone: [facility] 02-01-2022 18:15-0400 Systolic blood pressure 142 mm[Hg] Jaimee Older NEWS VIDEOTAPE EDITOR.MECHANICAL ENGINEERING PROFESSOR Work Phone: [facility] 02-01-2022 17:54-0400 Body height 161 cm Jaimee Older NEWS VIDEOTAPE EDITOR.MECHANICAL ENGINEERING PROFESSOR Work Phone: [facility] 02-01-2022 17:54-0400 Body weight 90.72 kg Jaimee Older NEWS VIDEOTAPE EDITOR.MECHANICAL ENGINEERING PROFESSOR Work Phone: [facility] 02-01-2022 17:54-0400 Heart rate 92 /min Jaimee Older NEWS VIDEOTAPE EDITOR.MECHANICAL ENGINEERING PROFESSOR Work Phone: [facility] 02-01-2022 17:54-0400 Respiratory rate 16 /min Jaimee Older NEWS VIDEOTAPE EDITOR.MECHANICAL ENGINEERING PROFESSOR Work Phone: [facility] 10-19-2021 16:22-0400 Diastolic blood pressure 74 mm[Hg] Leodan Hopkins MD Work Phone: [facility] 10-19-2021 16:22-0400 Heart rate 77 /min Leodan Hopkins MD Work Phone: [facility] 10-19-2021 16:22-0400 Systolic blood pressure 139 mm[Hg] Leodan Hopkins MD Work Phone: [facility] 10-19-2021 16:11-0400 Body temperature 97.5 [degF] Leodan Hopkins MD Work Phone: [facility] 10-19-2021 16:11-0400 Body weight 88.36 kg Leodan Hopkins MD Work Phone: [facility] 10-19-2021 16:11-0400 Respiratory rate 16 /min Leodan Hopkins MD Work Phone: [facility] 03-24-2021 01:43-0500 Body height 167.6 cm Tarik Kwan MD Work Phone: [facility] 03-24-2021 01:43-0500 Body weight 94.35 kg Tarik Kwan MD Work Phone: [facility] 03-24-2021 01:43-0500 Diastolic blood pressure 74 mm[Hg] Tarik Kwan MD Work Phone: [facility] 03-24-2021 01:43-0500 Heart rate 92 /min Tarik Kwan MD Work Phone: [facility] 03-24-2021 01:43-0500 SaO2% (BldA) [Mass fraction] 96 % Tarik Kwan MD Work Phone: [facility] 03-24-2021 01:43-0500 Systolic blood pressure 172 mm[Hg] Tarik Kwan MD Work Phone: [facility] Encounters Encounter Date Encounter Type Care Provider Facility Start: 09-26-2024 End: 09-26-2024 Emergency department patient visit Dr. Leodan Hopkins MD Work Phone: -Emergency Department Work Phone: Start: 09-19-2024 End: 09-19-2024 Refill Jossie Wilson MD Work Phone: [facility] Comment on above: Refill Request Start: 03-19-2024 End: 03-19-2024 Patient encounter procedure Device [facility] Main Work Phone: [facility] Comment on above: SSS (sick sinus synd bertha) (HCC) (Primary Dx) Start: 03-19-2024 End: 03-19-2024 ambulatory JOSSIE WILSON Facility:[id number] Start: 02-18-2024 End: 03-26-2024 ambulatory NOT RECORDED PHYSICIAN Facility:[facility] Start: 02-18-2024 End: 03-26-2024 Physical therapy management MICHAEL RICHMOND DO [facility] Start: 02-04-2024 End: 02-04-2024 Chart abstracting Jerrica CHAN [facility] Start: 01-29-2024 End: 01-29-2024 ambulatory LEODAN HOPKINS Facility:[facility] Start: 01-29-2024 End: 01-29-2024 Patient encounter procedure Leodan Hopkins MD Work Phone: [facility] [place] Comment on above: Medicare annual well ness visit, subsequent (Primary Dx); Essential hypertension; Degeneration of intervertebral disc of lumbar region, unspecified whether pain present; Chronic renal impairment, stage 3a (HCC); Hyperlipidemia, unspecified hyperlipidemia type Start: 01-04-2024 Encounter for other preprocedural examination Millie Grant [facility] Start: 01-03-2024 End: 01-04-2024 ambulatory Michael Richmond Facility:[facility] Start: 01-01-2024 End: 01-01-2024 Refill Leodan Hopkins MD Work Phone: [facility] Comment on above: Refill Request Start: 12-27-2023 End: 12-27-2023 ambulatory LEODAN HOPKINS Facility:[facility] Start: 12-27-2023 End: 12-27-2023 Office outpatient visit 25 minutes Leodan Hopkins MD Work Phone: [facility] Comment on above: Preoperative examina tion (Primary Dx); Leukocytosis, unspecified type; Essential hypertension; Chronic renal impairment, stage 3a (HCC) Start: 12-27-2023 End: 12-27-2023 Preprocedural examination done Leodan Hopkins MD Work Phone: [facility] Work Phone: Start: 12-24-2023 End: 12-24-2023 Telephone encounter Leodan Hopkins MD Work Phone: [facility] [place] Comment on above: Pre-Op Exam Start: 12-17-2023 End: 12-17-2023 ambulatory Artemus Ceferino Facility:[facility] Start: 11-27-2023 End: 11-30-2023 Telephone encounter Shen Fox MD Work Phone: [facility] Comment on above: Cardiac Clearance Start: 10-01-2023 End: 10-02-2023 ambulatory MICHAEL RICHMOND DO Facility:A Start: 09-18-2023 Telephone encounter Shen Fox MD Work Phone: [facility] Start: 09-18-2023 End: 09-18-2023 Patient encounter procedure Device Clinic [facility] Main Work Phone: [facility] Comment on above: SSS (sick sinus synd bertha) (HCC) (Primary Dx) Start: 09-18-2023 End: 09-18-2023 ambulatory LEODAN HOPKINS Facility:[id number] Start: 07-28-2023 Orders Only Leodan addison MD Work Phone: [facility] Comment on above: Chronic renal impair ment, stage 3a (HCC) (Primary Dx) Start: 07-25-2023 End: 07-25-2023 ambulatory LEODAN HOPKINS Facility:[facility] Start: 07-25-2023 End: 07-25-2023 Patient encounter procedure Leodan Hopkins MD Work Phone: [facility] [place] Comment on above: Chronic renal impair ment, stage 3a (HCC) (Primary Dx); Sinus node dysfunction (HCC); Primary osteoarthritis of left knee; Essential hypertension; Hyperlipidemia, unspecified hyperlipidemia type; Impaired fasting blood sugar Start: 03-13-2023 Chart abstracting Grace Monzon MA [facility] Comment on above: Abstract Start: 02-01-2023 Orders Only Leodan addison MD Work Phone: [facility] [place] Comment on above: Vitamin D deficiency (Primary Dx); Osteopenia, senile Results Start: 01-30-2023 End: 01-30-2023 ambulatory LEODAN HOPKINS Facility:[facility] Start: 01-30-2023 End: 01-30-2023 Subsequent hospital visit by physician Bone Density [facility] Work Phone: Radiology Comment on above: Osteopenia, senile [ M85.80] Start: 08-14-2022 Telephone encounter Jaimee Harmon APRN.MECHANICAL ENGINEERING PROFESSOR Work Phone: [facility] [place] Comment on above: Results Start: 08-09-2022 End: 08-09-2022 Patient encounter procedure Jaimee Older NEWS VIDEOTAPE EDITOR.MECHANICAL ENGINEERING PROFESSOR Work Phone: [facility] [place] Comment on above: Essential hypertensi on (Primary Dx); Vitamin D deficiency; Obesity, Class I, BMI 30-34.9; Chronic renal impairment, stage 3a (HCC) Start: 05-18-2022 Telephone encounter Tarik Kwan MD Work Phone: [facility] Comment on above: Patient Question (De vice) Start: 04-17-2022 End: 04-17-2022 Patient encounter procedure Kenneth Owens MD Work Phone: Orthopaedics Comment on above: Impingement syndrome of right shoulder (Primary Dx) Start: 03-23-2022 End: 03-23-2022 Office outpatient visit 15 minutes Tarik Kwan MD Work Phone: [facility] Comment on above: Pacemaker (Primary D x); Hypertension, essential Start: 03-23-2022 End: 03-23-2022 Patient encounter procedure [facility] Main Work Phone: [facility] Comment on above: SSS (sick sinus synd bertha) ([facility]) (Primary Dx) Start: 03-22-2022 Telephone encounter Tarik Kwan MD Work Phone: [facility] Comment on above: Results Start: 02-23-2022 Telephone encounter Arslan mayo MD Work Phone: Pain Management Comment on above: Results Start: 02-22-2022 ambulatory ARSLAN SIDDIQUI [facility] Start: 02-22-2022 End: 02-22-2022 Patient encounter procedure Arslan Siddiqui MD Work Phone: Pain Management Comment on above: History of fusion of cervical spine (Primary Dx); Acute pain of right shoulder; Chronic low back pain with left-sided sciatica, unspecified back pain laterality Start: 02-22-2022 End: 02-22-2022 Subsequent hospital visit by physician Radio General Marilynn Clarke Work Phone: Radiology Comment on above: History of fusion of cervical spine [Z98.1] Start: 02-21-2022 Telephone encounter Arslan mayo MD Work Phone: Pain Management Comment on above: Future Appointment Start: 02-01-2022 End: 02-01-2022 Subsequent hospital visit by physician Kody [facility] [place] Work Phone: Radiology Comment on above: Acute pain of right shoulder [M25.511] Start: 02-01-2022 End: 02-01-2022 Patient encounter procedure Jaimee Harmon APRN.MECHANICAL ENGINEERING PROFESSOR Work Phone: [facility] [place] Comment on above: Medicare annual well ness visit, subsequent (Primary Dx); Acute pain of right shoulder; Essential hypertension; Obesity, Class I, BMI 30-34.9; Osteopenia, senile; Vitamin D deficiency; Edema of both legs Start: 10-27-2021 End: 10-27-2021 Patient encounter procedure Device [facility] Main Work Phone: [facility] Comment on above: SSS (sick sinus synd bertha) ([facility]) Start: 10-26-2021 Chart abstracting Tarik Kwan MD Work Phone: [facility] Start: 10-19-2021 End: 10-19-2021 Patient encounter procedure Leodan Hopkins MD Work Phone: [facility] [place] Comment on above: DDD (degenerative di sc disease), lumbar (Primary Dx); Edema of both legs; Essential hypertension; Chronic renal impairment, stage 3a ([facility]) Start: 09-30-2021 Telephone encounter Kelly Maradiaga MD Work Phone: [facility] Comment on above: Appointment Start: 09-13-2021 End: 09-13-2021 Office outpatient visit 5 minutes Shaista Arango DO Work Phone: [facility] Start: 09-01-2021 End: 09-01-2021 Phone Encounter Shaista Arango DO Work Phone: [facility] Start: 07-18-2021 Telephone encounter Leodan bernal MD Work Phone: [facility] [place] Comment on above: Prescription Refills ; Appointment Start: 03-03-2020 End: 03-03-2020 Subsequent hospital visit by physician Kody [facility] [place] Work Phone: Radiology Comment on above: Sciatica, right side [M54.31] Start: 01-03-2017 Evaluation and manag ement of inpatient Kelly Maradiaga Facility:[facility] Procedures Date Procedure Procedure Detail Performing Clinician Start: 09-26-2024 Plain x-ray of pelvi s and lower extremity Dr. Leodan Hopkins MD Work Phone: Start: 09-26-2024 X-ray of lumbar spin e, two or three views Dr. Leodan Hopkins MD Work Phone: Start: 09-26-[address] Leodan Hopkins MD Work Phone: Start: 12-27-2023 Urnls dip stick/tabl et rgnt auto w/o microscopy Leodan Hopkins MD Work Phone: Start: 07-25-2023 Adult depression scr eening assessment Shen Fox MD Work Phone: Start: 01-30-2023 Dxa bone density vu dy 1/> sites axial skel Leodan Hopkins MD Work Phone: Start: 04-17-2022 Arthrocentesis aspir &/inj major jt/bursa w/o us Kenneth Owens MD Work Phone: Start: 02-22-2022 Radex spine cervical 2 or 3 views Arslan Siddiqui MD Work Phone: Start: 02-01-2022 Radex shoulder compl ete minimum 2 views Jaimee Gerardo APRN.CNP Work Phone: Start: 08-05-2020 Adult depression scr eening assessment Leodan Hopkins MD Work Phone: Start: 03-03-2020 Radex hip unilateral with pelvis 2-3 views Deena Schmitz PA-C Work Phone: Plan of Treatment Date Care Activity Detail Author Start: 07-24-2026 Diabetes Screening Diabetes Screenin g [facility] Start: 01-23-2026 Diabetes Screening Diabetes Screenin g [facility] Start: 08-09-2025 DIABETES SCREEN DIABETES SCREEN [facility] Start: 03-25-2025 End: 03-25-2025 Patient encounter procedure [facility] Comment on above: 1 Yr F/u and Device Start: 11-05-2024 End: 11-05-2024 Patient encounter procedure [facility] Comment on above: 6 month with device Start: 09-26-2024 Admission procedure [facility] Start: 09-26-2024 Hospital admission, emergency, from emergency room, medical nature [facility] Start: 09-26-2024 Consultation [facility] Start: 07-24-2024 Anxiety Screening Anxiety Screening [facility] Start: 07-24-2024 Depression Screening Depression Scre ening [facility] Start: 07-24-2024 Hepatitis B surface antibody level LDL Cholesterol [facility] Start: 04-30-2024 End: 07-30-2024 Comprehensive metabolic 2000 panel - Serum or Plasma COMPREHENSIVE METABOLIC PANEL Lab Routine Chronic renal impairment, stage 3a (HCC) Expected: 04/30/2024, Expires: 07/30/2024 [facility] Work Phone: Comment on above: Expected: 04/30/2024 , Expires: 07/30/2024 Start: 04-30-2024 End: 07-30-2024 Lipid 1996 panel - Serum or Plasma LIPID PANEL BASIC Lab Routine Hyperlipidemia, unspecified hyperlipidemia type Expected: 04/30/2024, Expires: 07/30/2024 [facility] Comment on above: Expected: 04/30/2024 , Expires: 07/30/2024 Start: 04-11-2024 End: 04-11-2024 Patient encounter procedure 04/11/2024 8:40 AM EST Office Visit [facility] [address] [place] [address] Leodan Hopkins MD [address] [place] [address] 2 month f/u [facility] Comment on above: 2 month f/u Start: 04-09-2024 Advance Directive Discussion Advance Directive Discussion [facility] Start: 04-09-2024 Medicare Advantage Annual Wellness Visit Medicare Advantage Annual Wellness Visit [facility] Start: 03-19-2024 End: 03-19-2024 Patient encounter procedure [facility] Comment on above: 1 year follow up wit h device Start: 01-29-2024 End: 01-29-2024 Patient encounter procedure 01/29/2024 8:00 AM EDT Office Visit [facility] [address] [place] [address] Leodan Hopkins MD [address] [facility] [place] [address] Medicare Wellness - 6 month follow up [facility] Comment on above: Medicare Wellness - 6 month follow up Start: 01-24-2024 Covid-19 Vaccine () Covid-19 Vaccine () [facility] Comment on above: Postponed from 12/08 (Declined at this time) Start: 12-27-2023 End: 12-27-2023 Patient encounter procedure [facility] Comment on above: 3mon remote medtroni c surgery clearance, l umbar [address] Richmond Start: 12-17-2023 End: 12-17-2023 Patient encounter procedure 12/17/2023 8:00 AM EDT Office Visit [facility] [place] [address] [place] [address] Jaimee Gerardo, NEWS VIDEOTAPE EDITOR.MECHANICAL ENGINEERING PROFESSOR [address] [place] [address] surgery clearance, lumbar 3 and [address] [place] [facility] Comment on above: surgery clearance, l umbar [address] [place] Start: 12-16-2023 DIABETES SCREEN DIABETES SCREEN [facility] Start: 12-09-2023 Covid-19 Vaccine () Covid-19 Vaccine () [facility] Start: 12-09-2023 Covid-19 Vaccine () Covid-19 Vaccine () [facility] Start: 08-18-2023 End: 11-17-2023 Basic metabolic 2000 panel - Serum or Plasma BASIC METABOLIC PANEL Lab Routine Chronic renal impairment, stage 3a (HCC) Expected: 08/18/2023, Expires: 11/17/2023 [facility] Work Phone: Comment on above: Expected: 08/18/2023 , Expires: 11/17/2023 Start: 08-10-2023 Hepatitis B surface antibody level LDL Cholesterol [facility] Start: 04-09-2023 Advance Directive Discussion Advance Directive Discussion [facility] Start: 02-03-2023 Pneumococcal Vaccine : 65+ (3 - PPSV23 or PCV20) Pneumococcal Vaccine: 65+ (3 - PPSV23 or PCV20) [facility] Comment on above: Postponed from 03/14 (Declined at this time) Start: 02-03-2023 PNEUMOCOCCAL: 65+ (#3) PNEUMOCOCCAL: 65+ (#3) [facility] Comment on above: Postponed from 03/14 (Declined at this time) Start: 02-01-2023 COVID-19 VACCINE (3 - Booster for Pfizer series) COVID-19 VACCINE (3 - Booster for Pfizer series) [facility] Comment on above: Postponed from 10/26 (Declined at this time) Start: 02-01-2023 SHINGRIX VACCINE (2 of 3) SHINGRIX VACCINE (2 of 3) [facility] Comment on above: Postponed from 09/24 (Declined at this time) Start: 02-01-2023 Urine microalbumin profile [facility] Comment on above: Postponed from 02/03 (Declined at this time) Start: 12-08-2022 Influenza vaccination INFLUENZ A (Season Ended) [facility] Start: 11-14-2022 End: 01-14-2023 25-hydroxyvitamin D3 [Mass/volume] in Serum or Plasma VITAMIN D 25 HYDROXY Lab Routine Vitamin D deficiency Expected: 11/14/2022 (Approximate), Expires: 01/14/2023 [facility] Work Phone: Comment on above: Expected: 11/14/2022 (Approximate), Expires: 01/14/2023 Start: 10-06-2022 Influenza vaccination INFLUENZA (#1) [facility] Comment on above: Postponed from 12/08 (Declined at this time) Start: 08-09-2022 End: 10-09-2022 25-hydroxyvitamin D3 [Mass/volume] in Serum or Plasma [facility] Work Phone: Comment on above: Expected: 08/09/2022 , Expires: 10/09/2022 Start: 08-09-2022 End: 10-09-2022 Comprehensive metabolic 2000 panel - Serum or Plasma [facility] Work Phone: Comment on above: Expected: 08/09/2022 , Expires: 10/09/2022 Start: 08-09-2022 End: 10-09-2022 Lipid 1996 panel - Serum or Plasma [facility] Work Phone: Comment on above: Expected: 08/09/2022 , Expires: 10/09/2022 Start: 04-09-2022 ADVANCE DIRECTIVE DISCUSSION ADVANCE DIRECTIVE DISCUSSION [facility] Start: 04-09-2022 DEPRESSION ASSESSMENT DEPRESSION ASS ESSMENT [facility] Start: 03-23-2022 End: 05-23-2022 CBC panel - Blood by Automated count CBC Lab Routine Hypertension, essential Expected: 03/23/2022, Expires: 05/23/2022 [facility] Work Phone: Comment on above: Expected: 03/23/2022 , Expires: 05/23/2022 Start: 03-23-2022 End: 05-23-2022 Comprehensive metabolic 2000 panel - Serum or Plasma COMP METABOLIC PANEL Lab Routine Hypertension, essential Expected: 03/23/2022, Expires: 05/23/2022 [facility] Work Phone: Comment on above: Expected: 03/23/2022 , Expires: 05/23/2022 Start: 03-23-2022 End: 05-23-2022 Magnesium [Mass/volume] in Serum or Plasma MAGNESIUM BLD Lab Routine Hypertension, essential Expected: 03/23/2022, Expires: 05/23/2022 [facility] Work Phone: Comment on above: Expected: 03/23/2022 , Expires: 05/23/2022 Start: 03-23-2022 End: 05-23-2022 Thyrotropin [Units/volume] in Serum or Plasma TSH BLD Lab Routine Hypertension, essential Expected: 03/23/2022, Expires: 05/23/2022 [facility] Work Phone: Comment on above: Expected: 03/23/2022 , Expires: 05/23/2022 Start: 12-22-2021 ANNUAL PCP TEAM LIGHT BULB TESTER JESÚS DISEASE VISIT ANNUAL PCP TEAM CHRONIC DISEASE VISIT [facility] Start: 12-20-2021 End: 02-19-2022 25-hydroxyvitamin D3 [Mass/volume] in Serum or Plasma VITAMIN D 25 HYDROXY Lab Routine Chronic renal impairment, stage 3a (HCC) Expected: 12/20/2021, Expires: 02/19/2022 [facility] Work Phone: Comment on above: Expected: 12/20/2021 , Expires: 02/19/2022 Start: 12-20-2021 End: 02-19-2022 Basic metabolic 2000 panel - Serum or Plasma BASIC METABOLIC PNL Lab Routine Chronic renal impairment, stage 3a (HCC) Expected: 12/20/2021, Expires: 02/19/2022 [facility] Work Phone: Comment on above: Expected: 12/20/2021 , Expires: 02/19/2022 Start: 12-20-2021 End: 02-19-2022 CBC panel - Blood by Automated count CBC Lab Routine Chronic renal impairment, stage 3a (HCC) Expected: 12/20/2021, Expires: 02/19/2022 [facility] Work Phone: Comment on above: Expected: 12/20/2021 , Expires: 02/19/2022 Start: 12-15-2021 SERUM CREATININE SERUM CREATININE Cl [facility] Start: 12-08-2021 Influenza vaccination C [facility] Start: 09-01-2021 Blood count complete auto&auto difrntl wbc CBC, PLATELETS & AUT DIFF (11041) [facility]; [facility] Work Phone: Start: 08-05-2021 Adult depression screening assessment DEPRESSION SCREENING [facility] Start: 04-09-2021 ADVANCE DIRECTIVE DISCUSSION ADVANCE DIRECTIVE DISCUSSION [facility] Start: 03-14-2021 Pneumococcal Vaccine : 65+ (3 - PPSV23 or PCV20) Pneumococcal Vaccine: 65+ (3 - PPSV23 or PCV20) [facility] Start: 02-03-2021 Urine microalbumin profile [facility] Start: 01-31-2021 COVID-19 VACCINE (3 - Booster for Pfizer series) COVID-19 VACCINE (3 - Booster for Pfizer series) [facility] Start: 12-21-2020 BP CONTROLLED (<130/80) BP CONTROLLE D (<130/80) [facility] Start: 11-12-2020 HEMOGLOBIN/HEMATOCRIT HEMOGLOBIN/HEM ATOCRIT [facility] Start: 03-14-2017 PNEUMOCOCCAL: 65+ (2 - PPSV23 or PCV20) PNEUMOCOCCAL: 65+ (2 - PPSV23 or PCV20) [facility] Start: 09-28-2015 RSV Vaccine (1 - 1-d ose 75+ series) RSV Vaccine (1 - 1-dose 75+ series) [facility] Start: 09-24-2006 SHINGRIX VACCINE (2 of 3) SHINGRIX VACCINE (2 of 3) [facility] Start: 2000 RSV Vaccine (1 - 1-d ose 60+ series) RSV Vaccine (1 - 1-dose 60+ series) [facility] Magnesium measurement [facility] Patient referral [facility] Work Phone: [facility]; [facility] Work Phone: [facility] Immunizations Immunization Date Immunization Notes Care Provider Deejay christopher 03-14-2016 pneumococcal conjuga te vaccine, 13 valent Leodan Hopkins MD Work Phone: [facility] 02-03-2011 tetanus toxoid, redu azael diphtheria toxoid, and acellular pertussis vaccine, adsorbed Leodan Hopkins MD Work Phone: [facility] 07-30-2006 zoster vaccine, live Leodan Hopkins MD Work Phone: [facility] 01-20-2005 influenza, seasonal, injectable Leodan Hopkins MD Work Phone: [facility] Work Phone: 08-31-2003 TD(adult) unspecifie d formulation Leodan Hopkins MD Work Phone: [facility] Work Phone: 02-02-2003 influenza, seasonal, injectable Leodan Hopkins MD Work Phone: [facility] Work Phone: 02-02-2003 pneumococcal polysaccharide vaccine, 23 valent Leodan Hopkins MD Work Phone: [facility] 01-10-1999 influenza, seasonal, injectable Leodan Hopkins MD Work Phone: [facility] Work Phone: 02-18-1997 influenza, seasonal, injectable Leodan Hopkins MD Work Phone: [facility] Work Phone: 02-07-1995 influenza, seasonal, injectable Leodan Hopkins MD Work Phone: [facility] Work Phone: Payers Date Payer Category Payer Unknown 2023 Self-pay 2015 Medicare MMO MEDICARE MMO MEDADVANTAGE O [id number] 2015-Present [phone] [address] [place] [address] [facility] [employer] [id number] 2015 Medicare MMO MEDICARE MMO MEDADVANTAGE O [id number] 2015-Present [phone] [address] [place] [address] [facility] [id number] 2015 Medicare (Managed Care) MMO JANI DVANTAGE HMO [id number] 2015 Unknown [id number] 1940 Unknown [id number] Unknown [id number] Unknown [id number] Unknown [id number] Unknown [id number] Social History Date Type Detail Facility Start: 01-18-2015 End: 09-26-2024 Tobacco smoking status LAIS Never smoked tobacco [facility] Start: 01-18-2015 End: 02-01-2022 Tobacco use and exposure Smokeless tobacco non-user [facility] Start: 03-03-2020 End: 12-22-2020 Alcohol intake Current drinker of alcohol (finding) [facility] Start: 03-11-2020 History SDOH Alcohol Frequency 2 [facility] Start: 03-11-2020 History SDOH Alcohol Std Drinks 1 [facility] Start: 03-14-2016 History SDOH Alcohol Comment social, 1 per month [facility] Start: 1940 Sex Assigned At Not on file [facility] Start: 09-23-2021 End: 10-03-2021 Exposure to SARS-CoV-2 (event) Unable to assess [facility] Start: 02-02-2020 End: 02-22-2022 Exposure to SARS-CoV-2 (event) Not sure [facility] Work Phone: Start: 03-10-2020 End: 08-09-2022 [facility] Start: 03-10-2020 End: 08-09-2022 Alcohol Use Disorder Identification Test - Consumption [AUDIT-C] [facility] How often to you hav e a drink containing alcohol? Monthly or less [facility] How many standard dr inks containing alcohol do you have on a typical day? 1 or 2 [facility] How often do you hav e 6 or more drinks on 1 occasion? Never [facility] Adult Depression Scr eening Assessment 0 [facility] Work Phone: Start: 01-29-2024 End: 03-19-2024 Alcoholic beverage intake [facility] ([facility] Start: 1940 Sex Assigned At Female [facility] Medical Equipment Procedure Code Equipment Code Equipment Origin al Text Equipment Identifier Dates Surgical procedure on lumbar spine including any or all of laminectomy, discectomy, a [id number] FDA Start: 01-03-2024 Surgical procedure on lumbar spine including any or all of laminectomy, discectomy, a Plant polysaccharide haemostatic agent, bioabsorbable [id number] FDA Start: 01-03-2024 Surgical procedure on lumbar spine including any or all of laminectomy, discectomy, a Gelatin haemostatic agent [id number] FDA Start: 01-03-2024 Goals Date Patient Goal Desired Activity /State Personal health goal Clinical Notes 02-01-2019 to 09-26-2024 Telephone Encounter - Maribel Reyes MA - 09/19/2024 3:46 PM EDTTelephone Encounter - Maribel Reyes MA - 09/19/2024 3:46 PM Ledoan Baig MD - 01/29/2024 8:24 AM EDTRadiology Note Date & Type Note Facility 09-26-2024 Radiology Diagnostic study note [facility] Imaging Services [address] [place], [place] [id number] Lumbar Spine 2 or 3 Views MR#: [id number] Acct: [id number] Name: ROSARIO BLANCO Rep #: [id number] : 1940 F 83 From: Dustin Hoffmann MD PCP: Dr. Leodan Hopkins MD Status: R EG ER Study:Lumbar Spine 2 or 3 Views Date of Exam: 09/26/24 Exam# [id number] Ordering Dr: Edwin Juan MD PROCEDURE: LUMBAR SPINE 2 OR 3 VIEWS 09/26/2024 REASON FOR EXAM: PAIN TECHNIQUE: LUMBAR SPINE 2 OR 3 VIEWS COMPARISON: Prior study dated October 02, 2023. FINDINGS: Vertebrae: Multilevel spondylosis. Discs: Multilevel disc space narrowing. Fusion at the L4-L5 and L5-S1 levels. Alignment: No evidence of listhesis. Other: Fecal material seen throughout the colon. Aortic calcification. RAD/Lumbar Spine 2 or 3 Views IMPRESSION: ADVANCED DEGENERATIVE CHANGES OF THE LUMBAR SPINE. Reading Location: [facility]- CC: Dr. Edwin Juan MD; Dr. Leodan Hopkins MD ~ Fuselage Framer: Signed [facility] 09-26-2024 Radiology Diagnostic study note [facility] Imaging Services [address] [place], [place] [id number] HIP, UNI W/ Pelvis 2-3 Views MR#: [id number] Acct: [id number] Name: ROSARIO BLANCO Rep #: [id number] : 1940 F 83 From: Antonio Tanner MD PCP: Dr. Leodan Hopkins MD Status: R EG ER Study:HIP, UNI W/ Pelvis 2-3 Views Date of Ex am: 09/26/24 Exam# [id number] Ordering Dr: Edwin Juan MD PROCEDURE: HIP, UNI W/ PELVIS 2-3 VIEWS 09/26/2024 REASON FOR EXAM: PAIN TECHNIQUE: HIP, UNI W/ PELVIS 2-3 VIEWS COMPARISON: None. FINDINGS: The bony pelvis is intact. The SI joints are unremarkable. There is degenerative disc disease L4-5 and L5-S1. There is mild arthritis of the left hip. The soft tissues of the pelvis are unremarkable. Two views of the right hip demonstrate no evidence of fracture or dislocation. There is mild joint space narrowing with small marginal osteophytes. The periarticular soft tissues are normal. RAD/HIP, UNI W/ Pelvis 2-3 Views IMPRESSION: Mild arthritis of both hips with attention to the right hip. Reading Location: [id number] CC: Dr. Edwin Juan MD; Dr. Leodan Hopkins MD ~ Fuselage Framer: Signed [facility] Work Phone: 09-19-2024 Telephone encounter Note Summary: Furosemide Refill Request Received request for refill of the following medications: Requested Prescriptions Pending Prescriptions Disp Refills furosemide (LASIX) 20 mg tablet [Pharmacy Med Name: FUROSEMIDE 20 MG TABLET] 90 tablet 3 Sig: Take 1 tablet by mouth once daily. Patient requested a 90 day refill. Pharmacy verified and updated accordingly. Patient was last seen in cardiology office: 03/19/2024. Upcoming appointment scheduled: 03/25/2025. Labs: Hemoglobin (g/dL) Date Value 08/09/2022 14.2 11/13/2019 14.5 Hematocrit (%) Date Value 08/09/2022 43.5 11/13/2019 45.7 WBC (k/uL) Date Value 08/09/2022 8.62 11/13/2019 9.62 Platelet Count (k/uL) Date Value 08/09/2022 245 11/13/2019 223 Creatinine Date Value Ref Range Status 07/25/2023 1.30 (H) 0.58 - 0.96 mg/dL Final 01/23/2023 0.91 0.58 - 0.96 mg/dL Final [facility] 09-19-2024 Miscellaneous Notes Summary: Furosemide Refill Request Received request for refill of the following medications: Requested Prescriptions Pending Prescriptions Disp Refills furosemide (LASIX) 20 mg tablet [Pharmacy Med Name: FUROSEMIDE 20 MG TABLET] 90 tablet 3 Sig: Take 1 tablet by mouth once daily. Patient requested a 90 day refill. Pharmacy verified and updated accordingly. Patient was last seen in cardiology office: 03/19/2024. Upcoming appointment scheduled: 03/25/2025. Labs: Hemoglobin (g/dL) Date Value 08/09/2022 14.2 11/13/2019 14.5 Hematocrit (%) Date Value 08/09/2022 43.5 11/13/2019 45.7 WBC (k/uL) Date Value 08/09/2022 8.62 11/13/2019 9.62 Platelet Count (k/uL) Date Value 08/09/2022 245 11/13/2019 223 Creatinine Date Value Ref Range Status 07/25/2023 1.30 (H) 0.58 - 0.96 mg/dL Final 01/23/2023 0.91 0.58 - 0.96 mg/dL Final documented in this encounter [facility] 03-19-2024 Note HNO ID: [id number] Author: JOSSIE WILSON MD Service: ? Author Type: Physician Type: Progress Notes Filed: 03/19/2024 17:48 Note Text: Heart, Vascular and Thoracic [place] Nick Dietrich Department of Cardiovascular Medicine [facility] SECTION OF INTERVENTIONAL CARDIOLOGY OUTPATIENT VISIT DATE March 19, 2024 OUTPATIENT VISIT TYPE Established PRIMARY CARE PHYSICIAN: Leodan Hopkins MD [address] [facility] [address] CHIEF COMPLAINT: Yearly Exam (With DEVICE CHECK: Medtronic DC PPM) HISTORY OF PRESENT ILLNESS: Ms. Peggy Lujan is a 82 year old woman non-smoker with hypertension, sinus node dysfunction with dual-chamber pacemaker 03/28/1999 and generator change 01/03/2017, mild coronary disease by catheterization in 2012, 2014. Previously seen about a year ago by cardiology. As for interval medical updates, she received laminectomy for spinal stenosis in December 2023. Since then, she has persistent back discomfort. The sciatica in her legs have resolved. Despite physical therapy, she is still having difficulties with ambulation and is dependent on cane. From cardiovascular perspective, she does not report chest pain, dyspnea, palpitations, lightheadedness, or syncope. 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 Pacemaker interrogation today shows normally functioning Medtronic dual-chamber pacemaker, DDDR 70-130, battery life 7.5 years, atrially paced 93%, RV pacing 0.6%, no atrial fibrillation. PAST MEDICAL HISTORY Diagnosis Date Atherosclerosis of coronary artery 03/13/2023 Chronic renal impairment, stage 3 (moderate) (HCC) 04/13/2017 DDD (degenerative disc disease), lumbar 03/12/2020 spinal stenosis Edema of both legs 03/14/2016 Essential hypertension 03/14/2016 History of sick sinus syndrome Hyperlipidemia 01/23/2023 Osteoarthritis 03/13/2023 Osteopenia, senile 03/14/2016 Presence of cardiac pacemaker 03/14/2016 Medtronic DC PPM - Diagnosis: SSS - Implant Date: 03/21/1999 Primary osteoarthritis of left knee 11/10/2019 [facility]. Sinus node dysfunction (HCC) PAST SURGICAL HISTORY Procedure Laterality Date (NEW IMPLANT DUAL CHAMBER PPM) INSERTION OF A NEW PERMANENT PACEMAKER W/ INSERTION OF NEW TRANSVENOUS ELECTRODE(S) ATRIAL AND VENTRICULAR 2000 Medtronic DC PPM with Diagnosis of SSS ARTHROSCOPY KNEE DIAGNOSTIC W/WO SYNOVIAL BX SPX Left 2012 Arthroscopy, knee BREAST BIOPSY NEEDLE LEFT Bilateral ENDOMETRIAL BX W/WO ENDOCERVIX BX W/O DILAT SPX 2000 EYE SURGERY HX Bilateral 11/13/2018 [facility] LAMINECTOMY,LUMBAR 01/03/2024 L3, L4 LEFT HEART CATH,PERCUTANEOUS 2014 NECK SURGERY HX PAST SURGICAL HISTORY OF 01/2014 cervical laminectomy PAST SURGICAL HISTORY OF Left 1963 left breast, axillary reconstruction, trauma PAST SURGICAL HISTORY OF 01/03/2017 Replaced pacemaker SOCIAL HISTORY Social History Tobacco Use Smoking status: Never Smokeless tobacco: Never Vaping Use Vaping status: Never Used Substance Use Topics Alcohol use: Not Currently Comment: social, 1 per month Drug use: No FAMILY HISTORY Problem Relation Age of Onset Cancer Mother lung Cancer Father metastatic,intrabdominal other (Other) Sister MVA Hypertension Brother Coronary Artery Disease Brother Diabetes Brother Hypertension Brother Diabetes Brother None Sister None Sister ALLERGIES: ALLERGIES Allergen Reactions Codeine Mental Status Change Pass out, comma x 3 days. Latex Swelling Pneumococcal 23-Alida* Rash, Swelling Tetanus And Diphthe* Rash, Swelling Adhesive Tape (Jane* Rash Skin irritation Aspirin Other: See Comments MEDICATIONS: HYDROcodone-acetaminophen (NORCO) 5-325 mg per tablet take 1 tablet by mouth every 6 hours for 7 days ergocalciferol 50,000 unit capsule (VITAMIN D2, DRISDOL) Take 1 capsule by mouth one time a week. hydroCHLOROthiazide 12.5 mg capsule Take 1 capsule by mouth once daily. losartan (COZAAR) 100 mg tablet Take 1 tablet by mouth once daily. acetaminophen (TYLENOL) 325 mg tablet Take 2 tablets by mouth as needed. furosemide (LASIX) 20 mg tablet Take 1 tablet by mouth once daily as needed (If ankle swelling or new shortness of breath). PHYSICAL EXAMINATION: 03/19/24 0902 BP: 126/59 BP Site: Left Arm BP Position: Sitting BP Cuff Size: Large Adult Pulse: 73 SpO2: 93% Weight: 96.2 kg (212 lb 1.9 oz) Height: 167.6 cm (5' 6) General: Alert, oriented, no distress. Neurologic: Oriented to time, place and person, Mood AND Affect: appropriate Head/Eyes: EOM's intact, conjunctivae , and sclera clear Neck: no JVD, no carotid bruits, supple Heart:regular rhythm, S1, S2 normal, no S3, no S4, and no murmur. Lungs: clear to auscultation Abdomen:soft, nondistended, non-tender Extremities: no edema INVESTIGATIONS: LHC - 12/22: EF 50%, EDP 14, mild CAD - 12/20: EF 50%, EDP 16, plaque CAD Ech (more content not included)... [facility] 01-29-2024 Note HNO ID: [id number] Author: LEODAN HOPKINS MD Service: ? Author Type: Physician Type: Progress Notes Filed: 01/29/2024 08:44 Note Text: This note was created using LawPalriter. Jennifer Lujan is a 83 year old female. Her hypertension was improving. She was sedentary s/p lumbar laminectomy 01/03/24 but will start rehab shortly. Low back pain was much better. She requested handicap parking. Review of Systems Constitutional: Negative for fatigue and fever. Respiratory: Negative for apnea and cough. Cardiovascular: Negative for chest pain, palpitations and leg swelling. Gastrointestinal: Negative. Musculoskeletal: Positive for gait problem. ACTIVE PROBLEM LIST Presence of Cardiac Pacemaker Essential Hypertension Edema of Both Legs Osteopenia, Senile Vitamin D Deficiency Chronic Renal Impairment, Stage 3 (Moderate) (Hcc) Primary Osteoarthritis of Left Knee Ddd (Degenerative Disc Disease), Lumbar Hyperlipidemia Impaired Fasting Blood Sugar Obesity, Class II, Bmi 35-39.9 Atherosclerosis of Coronary Artery Osteoarthritis Sinus Node Dysfunction (Hcc) History of Sick Sinus Syndrome Social History Tobacco Use Smoking status: Never Smokeless tobacco: Never Vaping Use Vaping status: Never Used Substance Use Topics Alcohol use: Not Currently Comment: social, 1 per month Drug use: No Current Outpatient Medications Medication Sig ergocalciferol 50,000 unit capsule (VITAMIN D2, DRISDOL) Take 1 capsule by mouth one time a week. hydroCHLOROthiazide 12.5 mg capsule Take 1 capsule by mouth once daily. losartan (COZAAR) 100 mg tablet Take 1 tablet by mouth once daily. ofloxacin (OCUFLOX) 0.3 % ophthalmic solution mometasone (ELOCON) 0.1 % ointment Apply to affected area once daily. atorvastatin (LIPITOR) 20 mg tablet Take 1 tablet by mouth daily at bedtime. acetaminophen (TYLENOL) 325 mg tablet Take 2 tablets by mouth as needed. No current facility-administered medications for this visit. Objective BP 148/74 Pulse 71 Temp 36.4 ?C (97.5 ?F) Resp 16 Ht 161.3 cm (5' 3.5) Wt 95.3 kg (210 lb 1.6 oz) BMI 36.63 kg/m? Physical Exam Constitutional: General: She is not in acute distress. Appearance: She is not ill-appearing. Cardiovascular: Rate and Rhythm: Normal rate and regular rhythm. Heart sounds: No murmur heard. No gallop. Pulmonary: Breath sounds: Normal breath sounds. Musculoskeletal: Right lower leg: No edema. Left lower leg: No edema. Comments: Healed lumbar laminectomy site. Neurological: General: No focal deficit present. Mental Status: She is alert. Comments: Using a cane. Assessment and Plan 1. Medicare annual wellness visit, subsequent - ICD9: V70.0, ICD10: Z00.00 (primary diagnosis) - See wellness note. 2. Essential hypertension - ICD9: 401.9, ICD10: I10 - Improving control - Continue current medications - Encouraged sodium restriction, DASH or Mediterranean diet - Recommend regular aerobic exercise - Discussed need for and benefit of weight loss. BMI 36.63 kg/(m2) 3. Degeneration of intervertebral disc of lumbar region, unspecified whether pain present - ICD9: 722.52, ICD10: M51.369 - Doing well s/p laminectomy. 4. Chronic renal impairment, stage 3a (HCC) - ICD9: 585.3, ICD10: N18.31 - eGFR: 41 Stable - Counseled on avoiding NSAIDs, adequate hydration - COMPREHENSIVE METABOLIC PANEL 5. Hyperlipidemia, unspecified hyperlipidemia type - ICD9: 272.4, ICD10: E78.5 - Controlled - Continue current medications - Counseled on healthy diet and regular exercise - LIPID PANEL BASIC Leodan Hopkins MD [facility] 01-29-2024 History of Present illness Narrative This note was created using LawPalriter. Subjective Rosario Lujan is a 83 year old female. Her hypertension was improving. She was sedentary s/p lumbar laminectomy 01/03/24 but will start rehab shortly. Low back pain was much better. She requested handicap parking. Review of Systems Constitutional: Negative for fatigue and fever. Respiratory: Negative for apnea and cough. Cardiovascular: Negative for chest pain, palpitations and leg swelling. Gastrointestinal: Negative. Musculoskeletal: Positive for gait problem. ACTIVE PROBLEM LIST Presence of Cardiac Pacemaker Essential Hypertension Edema of Both Legs Osteopenia, Senile Vitamin D Deficiency Chronic Renal Impairment, Stage 3 (Moderate) (Hcc) Primary Osteoarthritis of Left Knee Ddd (Degenerative Disc Disease), Lumbar Hyperlipidemia Impaired Fasting Blood Sugar Obesity, Class II, Bmi 35-39.9 Atherosclerosis of Coronary Artery Osteoarthritis Sinus Node Dysfunction (Hcc) History of Sick Sinus Syndrome Social History Tobacco Use Smoking status: Never Smokeless tobacco: Never Vaping Use Vaping status: Never Used Substance Use Topics Alcohol use: Not Currently Comment: social, 1 per month Drug use: No Current Outpatient Medications Medication Sig ergocalciferol 50,000 unit capsule (VITAMIN D2, DRISDOL) Take 1 capsule by mouth one time a week. hydroCHLOROthiazide 12.5 mg capsule Take 1 capsule by mouth once daily. losartan (COZAAR) 100 mg tablet Take 1 tablet by mouth once daily. ofloxacin (OCUFLOX) 0.3 % ophthalmic solution [facility] (ELOCON) 0.1 % ointment Apply to affected area once daily. atorvastatin (LIPITOR) 20 mg tablet Take 1 tablet by mouth daily at bedtime. acetaminophen (TYLENOL) 325 mg tablet Take 2 tablets by mouth as needed. No current facility-administered medications for this visit. Objective BP 148/74 Pulse 71 Temp 36.4 C (97.5 F) Resp 16 Ht 161.3 cm (5' 3.5) Wt 95.3 kg (210 lb 1.6 oz) BMI 36.63 kg/m Physical Exam Constitutional: General: She is not in acute distress. Appearance: She is not ill-appearing. Cardiovascular: Rate and Rhythm: Normal rate and regular rhythm. Heart sounds: No murmur heard. No gallop. Pulmonary: Breath sounds: Normal breath sounds. Musculoskeletal: Right lower leg: No edema. Left lower leg: No edema. Comments: Healed lumbar laminectomy site. Neurological: General: No focal deficit present. Mental Status: She is alert. Comments: Using a cane. Assessment and Plan 1. Medicare annual wellness visit, subsequent - ICD9: V70.0, ICD10: Z00.00 (primary diagnosis) - See wellness note. 2. Essential hypertension - ICD9: 401.9, ICD10: I10 - Improving control - Continue current medications - Encouraged sodium restriction, DASH or Mediterranean diet - Recommend regular aerobic exercise - Discussed need for and benefit of weight loss. BMI 36.63 kg/(m^2) 3. Degeneration of intervertebral disc of lumbar region, unspecified whether pain present - ICD9: 722.52, ICD10: M51.369 - Doing well s/p laminectomy. 4. Chronic renal impairment, stage 3a (HCC) - ICD9: 585.3, ICD10: N18.31 - eGFR: 41 Stable - Counseled on avoiding NSAIDs, adequate hydration - COMPREHENSIVE METABOLIC PANEL 5. Hyperlipidemia, unspecified hyperlipidemia type - ICD9: 272.4, ICD10: E78.5 - Controlled - Continue current medications - Counseled on healthy diet and regular exercise - LIPID PANEL BASIC Leodan Hopkins MD Images from the original note were not included. Rosario Lujan is a 83 year old female here for a Medicare wellness visit. Medicare Health Risk Assessment General Health Good Exercise: Minutes/Day 0 min Exercise: Days/Week 0 days Alcohol: Daily Use Never Alcohol: Drinks/Day Patient does not drink Alcohol: 6 or more drinks Never Feel off balance No Concerns: Teeth/Dentures No Concerns: Sexual function No Troubled by feelings None of the above Frequency: Eating healthy diet Nearly every day ADLs requiring help Grocery shopping Safety precautions in home/vehicle Yes Smoke, vape, chews tobacco No Difficulty hearing No Difficulty seeing No Current Providers Specialists: I have reviewed specialist-related care of the patient in the medical record. Current care team: Patient Care Team: Leodan Hopkins MD as PCP - General (Internal Medicine) Outside specialists seen: Dr. Meeks, ophthalmology. Dr. Dalila Fox, [facility] Cardiology. Dr. Naga Richmond, Orthopedics/Spine. Medical/Family history review Reviewed and updated problem list, medical/surgical/family/social history, medications, and allergies. Opioid use review Opioid Medications (last 90 days) No data to display Anxiety/Depression screening Recommendation: no further intervention at this time Cognitive screening Mini Cog Score: 4 Cognitive screening reviewed and No further action needed (score 3-5). Functional Observation Was the patient's Timed Up & Go test unsteady or >= 12 seconds? No Advance Care Planning Patient did not wish or was not able to name a surrogate decision maker or provide an advance care plan Measurements BP 148/74 Pulse 71 Temp 36.4 C (97.5 F) Resp 16 Ht 161.3 cm (5' 3.5) Wt 95.3 kg (210 lb 1.6 oz) BMI 36.63 kg/m Vision Screening: Follows with optometry/ophthalmology Right: 20/40 Left: 20/ 50 Both: 20/40 Assessment/Plan Medicare annual wellness visit, subsequent (Z00.00) - Counseled on healthy diet and regular exercise - Fall avoidance information provided - Personalized prevention plan provided - Discussed need for and benefit of weight loss. BMI 36.63 kg/(m^2) - Vaccine recommendations reviewed. documented in this encounter [facility] 01-29-2024 Instructions Leodan Hopkins MD - 01/29/2024 8:21 AM EDT VACCINES AT YOUR PHARMACY Shingrix Vaccine(2 of 3) due on 09/24/2006 RSV Vaccine(1 - 1-dose 75+ series) Never done DTaP,Tdap,Td Vaccine(2 - Td or Tdap) due on 02/03/2021 Advance Directive Forms Advanced Directives Forms (Mosotho) FORMS: https://author.[email or web address]/Por tals/138/faux-uxtifh-ukae-power-of -prosecuting attorney.pdf INFORMATIONAL BROCHURE: https://my.[facility].org/-/s cassets/files/org/patients-visitor s/information/advance-directives.a shx?la=en Advance Directives (non-Mosotho) FORMS: https://my.[facility].org/pat ients/information/medical-decision s-guide/advance-directives#forms-t ab Please bring completed forms to your next appointment or email them to [email or web address]. Patient Resources How to Get Started Talking with Loved Ones about your Wishes at the End of Life https://theconversationproject.org /wp-content/uploads//Conver wkqtfmUlhtrqo-ObkpiCtofaibXen-Tjht chaitanya.pdf How to Navigate Conversations with your Care Team around your Preferences [email or web address] come Screening schedule The following prevention plan is recommended: Shingrix Vaccine(2 of 3) due on 09/24/2006 RSV Vaccine(1 - 1-dose 75+ series) Never done DTaP,Tdap,Td Vaccine(2 - Td or Tdap) due on 02/03/2021 WHAT YOU CAN DO TO PREVENT FALLS Many falls can be prevented. By making some changes, you can lower your chances of falling. Four things YOU can do to prevent falls for you* and your caregiver 1. Begin a regular exercise program Exercise is one of the most important ways to lower your chances of falling. It makes you stronger and helps you feel better. Exercises that improve balance and coordination (like Isaias Chi) are the most helpful. Lack of exercise leads to weakness and increases your chances of falling. Ask your doctor or health care provider about the best type of exercise program for you. 2. Have your health care provider review your medicines Have your doctor or pharmacist review all the medicines you take, even pquv-ivb-[id number] medicines. As you get older, the way medicines work in your body can change. Some medicines, or combinations of medicines, can make you sleepy or dizzy and can cause you to fall. 3. Have your vision checked Have your eyes checked by an eye doctor at least once a year. You may be wearing the wrong glasses or have a condition like glaucoma or cataracts that limits your vision. Poor vision can increase your chances of falling. 4. Make your home safer About half of all falls happen at home. To make your home safer: Remove things you can trip over (like papers, books, clothes, and shoes) from stairs and places where you walk. Remove small throw rugs or use double-sided tape to keep the rugs from slipping. Keep items you use often in cabinets you can reach easily without using a step stool. Have grab bars put in next to your toilet and in the tub or shower. Use non-slip mats in the bathtub and on shower floors. Improve the lighting in your home. As you get older, you need brighter lights to see well. Hang light-weight curtains or shades to reduce glare. Have handrails and lights put in on all staircases. Wear shoes both inside and outside the house. Avoid going barefoot or wearing slippers. For more information, contact: Centers for Disease Control and Prevention www.cdc.gov/injury * This information may not apply if you have certain medical conditions. documented in this encounter [facility] 01-29-2024 Note HNO ID: [id number] Author: LEODAN HOPKINS MD Service: ? Author Type: Physician Type: Progress Notes Filed: 01/29/2024 08:44 Note Text: Rosario Lujan is a 83 year old female here for a Medicare wellness visit. Medicare Health Risk Assessment General Health Good Exercise: Minutes/Day 0 min Exercise: Days/Week 0 days Alcohol: Daily Use Never Alcohol: Drinks/Day Patient does not drink Alcohol: 6 or more drinks Never Feel off balance No Concerns: Teeth/Dentures No Concerns: Sexual function No Troubled by feelings None of the above Frequency: Eating healthy diet Nearly every day ADLs requiring help Grocery shopping Safety precautions in home/vehicle Yes Smoke, vape, chews tobacco No Difficulty hearing No Difficulty seeing No Current Providers Specialists: I have reviewed specialist-related care of the patient in the medical record. Current care team: Patient Care Team: Leodan Hopkins MD as PCP - General (Internal Medicine) Outside specialists seen: Dr. Meeks, ophthalmology. Dr. Dalila Fox, [facility] Cardiology. Dr. Naga Richmond, Orthopedics/Spine. Medical/Family history review Reviewed and updated problem list, medical/surgical/family/social history, medications, and allergies. Opioid use review Opioid Medications (last 90 days) No data to display Anxiety/Depression screening Recommendation: no further intervention at this time Cognitive screening Mini Cog Score: 4 Cognitive screening reviewed and No further action needed (score 3-5). Functional Observation Was the patient's Timed Up AND Go test unsteady or >= 12 seconds? No Advance Care Planning Patient did not wish or was not able to name a surrogate decision maker or provide an advance care plan Measurements BP 148/74 Pulse 71 Temp 36.4 ?C (97.5 ?F) Resp 16 Ht 161.3 cm (5' 3.5) Wt 95.3 kg (210 lb 1.6 oz) BMI 36.63 kg/m? Vision Screening: Follows with optometry/ophthalmology Right: 20/40 Left: 20/ 50 Both: 20/40 Assessment/Plan Medicare annual wellness visit, subsequent (Z00.00) - Counseled on healthy diet and regular exercise - Fall avoidance information provided - Personalized prevention plan provided - Discussed need for and benefit of weight loss. BMI 36.63 kg/(m2) - Vaccine recommendations reviewed. [facility] 01-03-2024 Note [facility] Medical Records Department [address] [place] [address] Discharge Summary 01/03/24 0723 MR#: [id number] Acct: [id number] Name: ROSARIO BLANCO Rep #: [id number] : 1940 83 From: Michael Richmond DO PCP: Dr. Leodan Hopkins MD Status:DIS WILMAN Location: MS3 [id number] Providers Date of Admission: 01/03/24 Primary Care Physician: Dr. Leodan Hopkins MD Reason For Visit: Laminectomy, Lumbar 3, Lumbar 4 Dec Diagnosis Discharge Diagnosis (1) Lumbar stenosis: Status: Acute Code(s): M48.061 - Spinal stenosis, lumbar region without neurogenic claudication Plan: Okay to admit See orders Discharge planning, likely home tomorrow Medications at Discharge Home Medications atorvastatin 20 mg tablet 20 mg PO QHS 12/13/23 ergocalciferol (vitamin D2) 1,250 mcg (50,000 unit) capsule 1,250 mcg PO QWEEK 12/13/23 hydrochlorothiazide 12.5 mg capsule 12.5 mg PO DAILY 12/13/23 losartan 50 mg tablet 50 mg PO DAILY 12/13/23 hydrocodone-acetaminophen 5-325mg 5mg-325mg 1 tab PO Q6H 7 days #28 tabs 01/03/24 Hospital Course Operations - (L3 and L4 laminectomy decompression) Summary of Care Provided Minutes Spent on Discharge: 15 Hospital Course: The patient is an 83-year-old female who underwent L3 and L4 laminectomy decompression on 01/03/2024. She was subsequently admitted. The hospitalist was consulted for medical management. The patient progressed well. Her pain was controlled and she was mobilizing well. No significant medical issues were reported. The patient was subsequently discharged home on 01/04/2024 to follow-up with Dr. Richmond in 3 weeks Physical Exam Const alert, oriented x3 and no apparent distress General Appearance: cooperative, comfortable and well kempt Neck full ROM General: normal visual inspection Resp normal respiratory effort and normal air movement Effort and Inspection: able to speak in complete sentences Cardio regular rate and peripheral pulses 2+ throughout GI soft to palpation, non-tender and non-distended Back/Spine Back/Spine Narrative: Dressing clean dry and intact. Incision well-approximated with interrupted sutures in place Cervical Spine: cervical ROM normal Thoracic Spine / Upper Back: normal to inspection Lumbar Spine / Lower Back: normal to inspection Extremity normal to inspection, full ROM, normal capillary refill, no clubbing, cyanosis or edema and no calf tenderness Skin no rashes or lesions noted General Skin Exam: no breakdown Neuro oriented x3, CN's II-XII intact bilaterally, moves all extremities, no focal motor deficits, no sensory deficits noted and deep tendon reflexes 2+ bilaterally Motor Exam: strength 5/5 throughout and muscle tone normal throughout Weight / BMI Weight Weight: 207 lb 9.6 oz Body Mass Index (BMI) 34.5 ABG / Lab / Microbiology Data 12/17/23 08:41 12/17/23 08:41 Microbiology: Microbiology 12/17/23 08:41 Swab (Method) Nasal Screen MRSA/MSSA - Final D/C Instructions Discharge Diet: No restrictions Additional Activity Instructions: No repetitive bending twisting or lifting more than 5 pounds Call your doctor if your incision/area has: Continuous Slow Oozing, Sudden Increased Bleeding, Increased Pain/ Swelling, Increased Redness, Foul Smelling Discharge and Swelling at the incision site Call your doctor if you observe: Fever of 101 or Higher, Coldness, Increased Pain, Numbness or Tingling, Change in Color, Inability to urinate, Inability to have a bowel movement, Using more than 1 pad per hour, Shortness of breath, Dizziness, Fainting spells, Swelling in the ankles, Chest pain, Prolonged hiccupping, Increased palpitations (irregular heartbeat), Calf discomfort and Uncontrolled pain Additional Dressing/Incision Instructions: Change dressing with daily with gauze and tape Additional Instructions: 1. During your procedure, you received sedation through your IV. Please follow these instructions for the next 24 hours: Do not drive a motor vehicle, do not drink any alcoholic beverages, and do not sign any legal documents or make personal or business decisions. A responsible adult should stay with you at least 6 hours after the procedure. 2. Keep your surgical site/incision clean and the dressing dry and intact. Change dressing daily with gauze and tape you may use an ice pack at the surgical site to reduce any swelling or discomfort. 3. Monitor the incision site for any signs or symptoms of infection. Watch for redness, excessive swelling or drainage, or continued pain at the incision site after 3 days. Contact your physician immediately for a fever, chills or a temperature of 101.5??? F or greater. 4. Take your medication exactly as prescribed by your physician. Do not attempt to wean yourself off any of your medications even though your pain is imp (more content not included)... [facility] 01-01-2024 Telephone encounter Note Prescription Refill Information The patient has been identified by name and date of : Yes Caregiver verified no other encounters exist for this prescription request: Yes Caregiver confirmed with patient/requestor that no other refills are due, in the near future, with this provider at this time: Yes The last office visit in the department: 12/27/2023 Does the patient have a future office visit with this provider/department: Yes Requested Prescriptions Pending Prescriptions Disp Refills ergocalciferol 50,000 unit capsule (VITAMIN D2, DRISDOL) 12 capsule 3 Sig: Take 1 capsule by mouth one time a week. hydroCHLOROthiazide 12.5 mg capsule 90 capsule 3 Sig: Take 1 capsule by mouth once daily. Jamila Bishop January 01, 2024 11:41 AM [facility] 01-01-2024 Miscellaneous Notes Prescription Refill Information The patient has been identified by name and date of : Yes Caregiver verified no other encounters exist for this prescription request: Yes Caregiver confirmed with patient/requestor that no other refills are due, in the near future, with this provider at this time: Yes The last office visit in the department: 12/27/2023 Does the patient have a future office visit with this provider/department: Yes Requested Prescriptions Pending Prescriptions Disp Refills ergocalciferol 50,000 unit capsule (VITAMIN D2, DRISDOL) 12 capsule 3 Sig: Take 1 capsule by mouth one time a week. hydroCHLOROthiazide 12.5 mg capsule 90 capsule 3 Sig: Take 1 capsule by mouth once daily. Jamila Bishop January 01, 2024 11:41 AM documented in this encounter [facility] 12-31-2023 Note [facility] Medical Records Department [address] [place] [address] History Physical Exam 12/31/23 0602 MR#: [id number] Acct: [id number] Name: ROSARIO BLANCO Rep #: [id number] : 1940 83 From: Luis Fernando GARCIA PA-C PCP: Dr. Leodan Hopkins MD Status:PRE [facility] [place] Location: [facility] [place] History and Physical History and Physical Patient Name: Rosario Lujan : 1940From:??? LUIS FERNANDO FERNANDO PA-C DATE OF PRE-OPERATIVE EXAM: 12/28/2023 DATE OF SURGERY:??? 01/03/2024 SCHEDULED PROCEDURE:??? Lumbar 3, lumbar 4 laminectomy and decompression HISTORY OF PRESENT ILLNESS: Dictating on an 83-year-old female who has had ongoing pain in her lumbar spine for years.??? She has had chronic low back pain which does radiate into the left lower extremity.??? Her pain has been episodic.??? It has become worse since approximately March when she did have some falls around that time.??? She does get pain in the lumbosacral region extending into the gluteal region and left posterior thigh.??? She denies past history of any lumbar surgeries or injections.??? She denies any loss of bowel or bladder control.??? She has been treated with healthcare administrative assistant as well as daily home exercises with no relief.??? She has tried [id number] medications including Tylenol and aspirin with no relief.??? Patient reports that her activities of daily living have been significantly affected.??? Patient has had a previous lumbar CT myelogram.??? Patient has obtained surgical clearance from her primary care provider Dr. Hopkins.??? Patient is also obtain clearance from para educator.??? Patient has medical history pertinent for hypertension, chronic kidney disease stage III, bradycardia.??? She also has pacemaker.??? Patient denies any recent fevers, chills or recent infections.??? No recent chest pain or shortness of breath.??? She denies past history of DVT or pulmonary embolism.??? It was found on lab work patient to have leukocytosis which was addressed by the primary care provider.??? Primary care provider is okay to proceed with surgery.??? Urinalysis was done by the primary care provider. ??? REVIEW OF SYSTEMS: Review Of Systems: Constitutional: Denies change in appetite, fever and weight change. Cardiovasular: Reports irregular heartbeat, but denies chest pain and heart murmur. Respiratory: Denies cough, pneumonia, shortness of breath, tuberculosis and wheezing. Gastrointestinal: Denies constipation, diarrhea, heartburn, nausea, rectal itching, bloody stools and vomiting. Genitourinary: Denies incontinence. Musculoskeletal: Reports gait disturbance, leg swelling, pain, trouble walking and weakness. Skin: Denies Raynaud's, history of shingles and tattoo. Neurological: Denies ambulatory dysfunction, dizziness, numbness/tingling and tremor. Psychiatric: Reports stress, but denies anxiety and insomnia. Hematologic/Lymphatic: Denies anemia, bleeding/bruising tendency and past transfusion. Reviewed and updated. PAST MEDICAL HISTORY: Advance Care Plan: No Advance Directives Effective Date: 10/30/2019 Past Medical History: Medical Problems: High Blood Pressure, Bradycardia, Stage 3 Chronic Kidney Disease Accidents: Other - (12/06/2020) FALL MISSED STEP Surgical Hx: Pacemaker Knee Arthroscopy LT - (1989) Anesthesia Complications: None Assistive Devices: Cane, Glasses Reviewed and updated. 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 Personal Habits:??? Cigarette Use: Never Smoked Cigarettes.Smokeless Tobacco: Never Used Smokeless Tobacco.E-Cigarette Use: Never used.Alcohol: Occasionally.Drug Use: Denies Use.Enjoy Exercising: Exercises 1-3 x/month. Reviewed, no changes. VITALS: Ht: 64 Wt: 206lb Wt k.442 BMI: 35.4 BP: 154/92 Pulse: 85 Resp: 17 T: 97.4 T: 36.3C Pain Level: 8 O2SatR: 97 ALLERGIES: Latex Codeine - Soreness Tape Bandages - Soreness Tetanus - Soreness Aspirin - Soreness MEDICATIONS: Furosemide 20 mg 1 by mouth every day, Lisinopril 20 mg 1 by mouth every day PRE-OP EXAM: General appearance:NORMAL? Other: Eyes: Conjunctivae and lids: NORMAL??? Pupils: ERR Ears, Nose, Mouth, and Throat: NORMAL??? Other: Inspection of lips, teeth and gums: NORMAL? Other: Neck: Examination of neck: no masses noted. Respiratory: Assessment of respiratory effort: NORMAL? Other: ? Auscultation of lungs: clear to auscultation no wheezes, rhonchi or rales. Cardiovascular:??? Auscultation of heart: regular rate and rhythm, no murmurs, gallops or rubs. PHYSICAL EXAMINATION: Patient currently ambulates with cane for ambulatory assistance.??? She has tenderness to palpation throughout the lumbar paraspinals.??? (more content not included)... [facility] 12-27-2023 Instructions Leodan Hopkins MD - 12/27/2023 7:46 PM EDT On the morning or surgery, take only LOSARTAN 100 mg daily for blood pressure. Do not take hydrochlorothiazide on the day of surgery. documented in this encounter [facility] 12-27-2023 Note HNO ID: [id number] Author: LEODAN HOPKINS MD Service: ? Author Type: Physician Type: Progress Notes Filed: 12/27/2023 23:45 Note Text: This note was created using LawPalriter. Subjective Patient presents with: Pre-Op Exam: 01/03/24 Dr. Michael Richmond- Lumbar 3, Lumbar 4 Laminectomy Consultation requested by Dr. Richmond for an opinion regarding preoperative risk. My final recommendations will be communicated back to the requesting physician by way of shared Medical record. . Rosario Lujan is a 83 year old female here for preoperative evaluation. She had no history of.myocardial infarction, congestive heart failure, DVT, PE, CVA or coagulopathy. She had sinus node dysfunction with pacemaker in place. Cardiology has cleared her. Her hypertension had not been at goal but unusually high today on repeated measurements.. She was taking all her medications regularly. She had preoperative labs and EKG done 12/17/23 at [facility]. Review of Systems Constitutional: Negative for appetite change, chills, diaphoresis, fever and unexpected weight change. HENT: Negative for congestion, rhinorrhea and sore throat. Eyes: Negative for visual disturbance. Respiratory: Negative for cough, shortness of breath and wheezing. Cardiovascular: Negative for chest pain, palpitations and leg swelling. Gastrointestinal: Negative for abdominal pain, diarrhea, nausea and vomiting. Genitourinary: Negative for difficulty urinating and dysuria. Skin: Negative for rash and wound. Neurological: Negative for dizziness, numbness and headaches. Hematological: Does not bruise/bleed easily. ACTIVE PROBLEM LIST Presence of Cardiac Pacemaker Essential Hypertension Edema of Both Legs Osteopenia, Senile Vitamin D Deficiency Chronic Renal Impairment, Stage 3 (Moderate) ([facility]) Primary Osteoarthritis of Left Knee Ddd (Degenerative Disc Disease), Lumbar Hyperlipidemia Impaired Fasting Blood Sugar Obesity, Class II, Bmi 35-39.9 Atherosclerosis of Coronary Artery Osteoarthritis Sinus Node Dysfunction (Hcc) History of Sick Sinus Syndrome PAST SURGICAL HISTORY Procedure Laterality Date (NEW IMPLANT DUAL CHAMBER PPM) INSERTION OF A NEW PERMANENT PACEMAKER W/ INSERTION OF NEW TRANSVENOUS ELECTRODE(S) ATRIAL AND VENTRICULAR 2000 Medtronic DC PPM with Diagnosis of SSS ARTHROSCOPY KNEE DIAGNOSTIC W/WO SYNOVIAL BX SPX Left 2011 Arthroscopy, knee BREAST BIOPSY NEEDLE LEFT Bilateral ENDOMETRIAL BX W/WO ENDOCERVIX BX W/O DILAT SPX 2000 EYE SURGERY HX Bilateral 11/13/2018 [facility] LEFT HEART CATH,PERCUTANEOUS 2014 NECK SURGERY HX PAST SURGICAL HISTORY OF 01/2014 cervical laminectomy PAST SURGICAL HISTORY OF Left 1963 left breast, axillary reconstruction, trauma PAST SURGICAL HISTORY OF 01/03/2017 Replaced pacemaker Social History Tobacco Use Smoking status: Never Smokeless tobacco: Never Vaping Use Vaping status: Never Used Substance Use Topics Alcohol use: Yes Comment: social, 1 per month Drug use: No ALLERGIES Allergen Reactions Codeine Mental Status Change Pass out, comma x 3 days. Pneumococcal 23-Alida* Rash, Swelling Tetanus And Diphthe* Rash, Swelling Adhesive Tape (Jane* Rash Skin irritation Aspirin Other: See Comments Current Outpatient Medications Medication Sig hydroCHLOROthiazide 12.5 mg capsule Take 1 capsule by mouth once daily. ofloxacin (OCUFLOX) 0.3 % ophthalmic solution mometasone (ELOCON) 0.1 % ointment Apply to affected area once daily. ergocalciferol 50,000 unit capsule (VITAMIN D2, DRISDOL) Take 1 capsule by mouth one time a week. atorvastatin (LIPITOR) 20 mg tablet Take 1 tablet by mouth daily at bedtime. acetaminophen (TYLENOL) 325 mg tablet Take 2 tablets by mouth as needed. losartan (COZAAR) 100 mg tablet Take 1 tablet by mouth once daily. No current facility-administered medications for this visit. Objective BP 187/82 Pulse 83 Resp 16 Wt 93.9 kg (207 lb 0.2 oz) SpO2 97% BMI 37.86 kg/m? Physical Exam Constitutional: Appearance: She is diaphoretic. She is not ill-appearing. HENT: Head: Normocephalic. Nose: No rhinorrhea. Mouth/Throat: Mouth: Mucous membranes are moist. Pharynx: Oropharynx is clear. Eyes: Extraocular Movements: Extraocular movements intact. Conjunctiva/sclera: Conjunctivae normal. Cardiovascular: Rate and Rhythm: Normal rate and regular rhythm. Pulses: Normal pulses. Heart sounds: No murmur heard. No gallop. Pulmonary: Effort: No respiratory distress. Breath sounds: No wheezing or rales. Abdominal: Palpations: Abdomen is soft. Tenderness: There is no abdominal tenderness. There is no right CVA tenderness or left CVA tenderness. Musculoskeletal: Right lower leg: No edema. Left lower leg: No edema. Lymphadenopathy: Cervical: No cervical adenopathy. Neurological: General: No focal deficit present. Mental Status: She is alert and oriented to person, place, an (more content not included)... [facility] 12-27-2023 History of Present illness Narrative This note was created using LawPalriter. Subjective Patient presents with: Pre-Op Exam: 01/03/24 Dr. Michael Richmond- Lumbar 3, Lumbar 4 Laminectomy Consultation requested by Dr. Richmond for an opinion regarding preoperative risk. My final recommendations will be communicated back to the requesting physician by way of shared Medical record. . Rosario Lujan is a 83 year old female here for preoperative evaluation. She had no history of.myocardial infarction, congestive heart failure, DVT, PE, CVA or coagulopathy. She had sinus node dysfunction with pacemaker in place. Cardiology has cleared her. Her hypertension had not been at goal but unusually high today on repeated measurements.. She was taking all her medications regularly. She had preoperative labs and EKG done 12/17/23 at [facility]. Review of Systems Constitutional: Negative for appetite change, chills, diaphoresis, fever and unexpected weight change. HENT: Negative for congestion, rhinorrhea and sore throat. Eyes: Negative for visual disturbance. Respiratory: Negative for cough, shortness of breath and wheezing. Cardiovascular: Negative for chest pain, palpitations and leg swelling. Gastrointestinal: Negative for abdominal pain, diarrhea, nausea and vomiting. Genitourinary: Negative for difficulty urinating and dysuria. Skin: Negative for rash and wound. Neurological: Negative for dizziness, numbness and headaches. Hematological: Does not bruise/bleed easily. ACTIVE PROBLEM LIST Presence of Cardiac Pacemaker Essential Hypertension Edema of Both Legs Osteopenia, Senile Vitamin D Deficiency Chronic Renal Impairment, Stage 3 (Moderate) ([facility]) Primary Osteoarthritis of Left Knee Ddd (Degenerative Disc Disease), Lumbar Hyperlipidemia Impaired Fasting Blood Sugar Obesity, Class II, Bmi 35-39.9 Atherosclerosis of Coronary Artery Osteoarthritis Sinus Node Dysfunction (Hcc) History of Sick Sinus Syndrome PAST SURGICAL HISTORY Procedure Laterality Date (NEW IMPLANT DUAL CHAMBER PPM) INSERTION OF A NEW PERMANENT PACEMAKER W/ INSERTION OF NEW TRANSVENOUS ELECTRODE(S) ATRIAL & VENTRICULAR 2000 Medtronic DC PPM with Diagnosis of SSS ARTHROSCOPY KNEE DIAGNOSTIC W/WO SYNOVIAL BX SPX Left 2011 Arthroscopy, knee BREAST BIOPSY NEEDLE LEFT Bilateral ENDOMETRIAL BX W/WO ENDOCERVIX BX W/O DILAT SPX 2000 EYE SURGERY HX Bilateral 11/13/2018 [facility] LEFT HEART CATH,PERCUTANEOUS 2014 NECK SURGERY HX PAST SURGICAL HISTORY OF 01/2014 cervical laminectomy PAST SURGICAL HISTORY OF Left 1963 left breast, axillary reconstruction, trauma PAST SURGICAL HISTORY OF 01/03/2017 Replaced pacemaker Social History Tobacco Use Smoking status: Never Smokeless tobacco: Never Vaping Use Vaping status: Never Used Substance Use Topics Alcohol use: Yes Comment: social, 1 per month Drug use: No ALLERGIES Allergen Reactions Codeine Mental Status Change Pass out, comma x 3 days. Pneumococcal 23-Alida* Rash, Swelling Tetanus And Diphthe* Rash, Swelling Adhesive Tape (Jane* Rash Skin irritation Aspirin Other: See Comments Current Outpatient Medications Medication Sig hydroCHLOROthiazide 12.5 mg capsule Take 1 capsule by mouth once daily. ofloxacin (OCUFLOX) 0.3 % ophthalmic solution mometasone (ELOCON) 0.1 % ointment Apply to affected area once daily. ergocalciferol 50,000 unit capsule (VITAMIN D2, DRISDOL) Take 1 capsule by mouth one time a week. atorvastatin (LIPITOR) 20 mg tablet Take 1 tablet by mouth daily at bedtime. acetaminophen (TYLENOL) 325 mg tablet Take 2 tablets by mouth as needed. losartan (COZAAR) 100 mg tablet Take 1 tablet by mouth once daily. No current facility-administered medications for this visit. Objective BP 187/82 Pulse 83 Resp 16 Wt 93.9 kg (207 lb 0.2 oz) SpO2 97% BMI 37.86 kg/m Physical Exam Constitutional: Appearance: She is diaphoretic. She is not ill-appearing. HENT: Head: Normocephalic. Nose: No rhinorrhea. Mouth/Throat: Mouth: Mucous membranes are moist. Pharynx: Oropharynx is clear. Eyes: Extraocular Movements: Extraocular movements intact. Conjunctiva/sclera: Conjunctivae normal. Cardiovascular: Rate and Rhythm: Normal rate and regular rhythm. Pulses: Normal pulses. Heart sounds: No murmur heard. No gallop. Pulmonary: Effort: No respiratory distress. Breath sounds: No wheezing or rales. Abdominal: Palpations: Abdomen is soft. Tenderness: There is no abdominal tenderness. There is no right CVA tenderness or left CVA tenderness. Musculoskeletal: Right lower leg: No edema. Left lower leg: No edema. Lymphadenopathy: Cervical: No cervical adenopathy. Neurological: General: No focal deficit present. Mental Status: She is alert and oriented to person, place, and time. Sensory: No sensory deficit. Motor: No weakness. Comments: Using a cane. Latest Ref Rng 12/27/2023 GLUCOSE UA (POCT) Negative mg/dL Negative BILIRUBIN UA (POCT) Negative Negative KETONE UA (POCT) Negative mg/dL Negative SPECIFIC GRAVITY UA (POCT) 1.005 - 1.030 1.015 HEMOGLOBIN/BLOOD UA (POCT) Negative Negative PH UA (POCT) 4.5 - 8.0 6.5 PROTEIN UA (POCT) Negative mg/dL Negative UROBILINOGEN UA (POCT) Normal E.U./dL 0.2 NITRITE UA (POCT) Negative Negative LEUKOCYTES UA (POCT) Negative Small ! COLOR UA (POCT) Yellow CLARITY UA (POCT) Clear Legend: ! Abnormal 12/17/23 chest X-ray with no acute disease; EKG placed rhythm, septal infarct pattern, similar to prior EKG; WBC 14.6; BUN 34, Crea 1.25, eGFR 43. Assessment and Plan 1. Preoperative examination - ICD9: V72.84, ICD10: Z01.818 (primary diagnosis) - Devries Activity Status Index 18.95. - RCRI Class 1 0.4% risk of MACE. - ACS NSQIP surgical risk calculator: above average risk for all outcomes, especially discharge to nursing or rehab facility, serious or any complication, pneumonia, readmission. - Proceed with surgery. Patient is optimized. 2. Leukocytosis, unspecified type - ICD9: 288.60, ICD10: D72.829 - No s/s of infection. - UA DIP, URINE (POC) 3. Essential hypertension - ICD9: 401.9, ICD10: I10 - Uncontrolled - Encouraged sodium restriction, DASH or Mediterranean diet - Reviewed risks of hypertension and principles of treatment - LOSARTAN 100 MG TABLET. Increase dose. - Hold hydrochlorothiazide for surgery. 4. Chronic renal impairment, stage 3a (HCC) - ICD9: 585.3, ICD10: N18.31 - eGFR: 41 Stable - avoid hypotension, dehydration, NSAIDs. Patient indicated understanding and willingness to follow recommendations. Leodan Hopkins MD documented in this encounter [facility] 12-24-2023 Telephone encounter Note pt has been scheduled with pcp 12/27/23 at 640 pm. She has been notified. [facility] 12-24-2023 Miscellaneous Notes pt has been scheduled with pcp 12/27/23 at 640 pm. She has been notified. Pt called in and reports she is having surgery on 01/03/24, lumbar [address] Richmond. She had a pre-op clearance appointment in 12/17/23 with Jaimee Gerardo PROJECT DEVELOPMENT DIRECTOR that she no showed. Pt states she had all her appointments at the hospital that day and couldn't be here. Jaimee is out this week and Dr Pérez is out until Sunday. Dr Hopkins has a 620 or 640 slot on 09/26/23 that could be opened if the provider approves it. Will ask Socorro Ferraro RN nurse forest logistics manager if this would be ok. Please call Pt back. documented in this encounter [facility] 12-24-2023 Telephone encounter Note Pt called in and reports she is having surgery on 01/03/24, lumbar [address] Richmond. She had a pre-op clearance appointment in 12/17/23 with Jaimee Gerardo PROJECT DEVELOPMENT DIRECTOR that she no showed. Pt states she had all her appointments at the hospital that day and couldn't be here. Jaimee is out this week and Dr Pérez is out until Sunday. Dr Hopkins has a 620 or 640 slot on 09/26/23 that could be opened if the provider approves it. Will ask Socorro Ferraro RN nurse forest logistics manager if this would be ok. Please call Pt back. [facility] 11-30-2023 Telephone encounter Note Placed clearance on Dr Madhu caro to review and sign. [facility] 11-30-2023 Miscellaneous Notes Placed clearance on Dr Madhu caro to review and sign. Received a clearance form from [facility]. Patient is scheduled for surgery on 01/03/[address] Richmond. Will scan clearance into chart and place in bin. documented in this encounter [facility] 11-27-2023 Telephone encounter Note Received a clearance form from [facility]. Patient is scheduled for surgery on 01/03/[address] Richmond. Will scan clearance into chart and place in bin. [facility] 10-02-2023 Evaluation + Plan note Future Scheduled TestsMRI Spine Lumbar w/o Contrast 10/02/23 [facility] 09-24-2023 Telephone encounter Note Per Dr Fox-no additional recommendations at this time, follow up as planned Notified pt of above. [facility] 09-24-[address] Fox-no additional recommendations at this time, follow up as planned Notified pt of above. Summary: Tired Patient was here for a device check and complained of being tired for the last couple of months. Device check today showed 1 HVR episode, lasting 4 seconds on 05/06/2023. Please advise. She can be reached at [phone]. documented in this encounter [facility] 09-18-2023 Telephone encounter Note Summary: Tired Patient was here for a device check and complained of being tired for the last couple of months. Device check today showed 1 HVR episode, lasting 4 seconds on 05/06/2023. Please advise. She can be reached at [phone]. [facility] 07-25-2023 Instructions Leodan Hopkins MD - 07/25/2023 9:42 AM EDT FASTING BLOOD WORK TODAY. documented in this encounter [facility] 07-25-2023 Note HNO ID: [id number] Author: LEODAN HOPKINS MD Service: ? Author Type: Physician Type: Progress Notes Filed: 07/25/2023 09:53 Note Text: This note was created using Wizdee. Jennifer Lujan is a 82 year old female. She was using a cane to prevent falling, due to degenerative joint disease of her left knee. She was seeing orthopedics ([facility]), and there was discussion about knee replacement. Her hypertension was improving. Labs needed updating. We reviewed her health maintenance and gave her VIS for RSV, shingles vaccine. Review of Systems Constitutional: Negative for fatigue and unexpected weight change. Respiratory: Negative for cough and shortness of breath. Cardiovascular: Negative for chest pain, palpitations and leg swelling. Musculoskeletal: Positive for arthralgias and gait problem. ACTIVE PROBLEM LIST Presence of Cardiac Pacemaker Essential Hypertension Edema of Both Legs Osteopenia, Senile Vitamin D Deficiency Chronic Renal Impairment, Stage 3 (Moderate) (Hcc) Primary Osteoarthritis of Left Knee Ddd (Degenerative Disc Disease), Lumbar Hyperlipidemia Impaired Fasting Blood Sugar Obesity, Class II, Bmi 35-39.9 Atherosclerosis of Coronary Artery Osteoarthritis Sinus Node Dysfunction (Hcc) History of Sick Sinus Syndrome Social History Tobacco Use Smoking status: Never Smokeless tobacco: Never Vaping Use Vaping Use: Never used Substance Use Topics Alcohol use: Yes Comment: social, 1 per month Drug use: No Current Outpatient Medications Medication Sig losartan (COZAAR) 50 mg tablet Take 1 tablet by mouth every morning. hydroCHLOROthiazide 12.5 mg capsule Take 1 capsule by mouth once daily. ofloxacin (OCUFLOX) 0.3 % ophthalmic solution mometasone (ELOCON) 0.1 % ointment Apply to affected area once daily. ergocalciferol 50,000 unit capsule (VITAMIN D2, DRISDOL) Take 1 capsule by mouth one time a week. atorvastatin (LIPITOR) 20 mg tablet Take 1 tablet by mouth daily at bedtime. acetaminophen (TYLENOL) 325 mg tablet Take 2 tablets by mouth as needed. No current facility-administered medications for this visit. Objective Blood Pressure 135/76 (BP Site: Left Arm, BP Position: Sitting, BP Cuff Size: Large Adult) Pulse 73 Temperature 36.9 ?C (98.5 ?F) (Temporal) Weight 91.6 kg (202 lb) Body Mass Index 36.95 kg/m? Physical Exam Constitutional: General: She is not in acute distress. Cardiovascular: Rate and Rhythm: Normal rate and regular rhythm. Heart sounds: No murmur heard. No gallop. Pulmonary: Effort: No respiratory distress. Breath sounds: No wheezing or rales. Musculoskeletal: Right lower leg: No edema. Left lower leg: No edema. Neurological: Mental Status: She is alert. Gait: Gait abnormal. Comments: Using a cane. Assessment and Plan 1. Chronic renal impairment, stage 3a (HCC) - ICD9: 585.3, ICD10: N18.31 (primary diagnosis) Recheck. 2. Sinus node dysfunction (HCC) - ICD9: 427.81, ICD10: I49.5 Stable, asymptomatic. 3. Primary osteoarthritis of left knee - ICD9: 715.16, ICD10: M17.12 See orthopedics. She will likely be sent back here for preoperative physical. 4. Essential hypertension - ICD9: 401.9, ICD10: I10 - Improving control - Continue current medications 5. Hyperlipidemia, unspecified hyperlipidemia type - ICD9: 272.4, ICD10: E78.5 - Control undetermined, due for labs - Hold off on medication refill, pending labs. 6. Impaired fasting blood sugar - ICD9: 790.21, ICD10: R73.01 - Recheck. Continue diet. Leodan Hopkins MD [facility] 07-25-2023 History of Present illness Narrative This note was created using NoteWriter. Jennifer Lujan is a 82 year old female. She was using a cane to prevent falling, due to degenerative joint disease of her left knee. She was seeing orthopedics ([facility]), and there was discussion about knee replacement. Her hypertension was improving. Labs needed updating. We reviewed her health maintenance and gave her VIS for RSV, shingles vaccine. Review of Systems Constitutional: Negative for fatigue and unexpected weight change. Respiratory: Negative for cough and shortness of breath. Cardiovascular: Negative for chest pain, palpitations and leg swelling. Musculoskeletal: Positive for arthralgias and gait problem. ACTIVE PROBLEM LIST Presence of Cardiac Pacemaker Essential Hypertension Edema of Both Legs Osteopenia, Senile Vitamin D Deficiency Chronic Renal Impairment, Stage 3 (Moderate) ([facility]) Primary Osteoarthritis of Left Knee Ddd (Degenerative Disc Disease), Lumbar Hyperlipidemia Impaired Fasting Blood Sugar Obesity, Class II, Bmi 35-39.9 Atherosclerosis of Coronary Artery Osteoarthritis Sinus Node Dysfunction (Hcc) History of Sick Sinus Syndrome Social History Tobacco Use Smoking status: Never Smokeless tobacco: Never Vaping Use Vaping Use: Never used Substance Use Topics Alcohol use: Yes Comment: social, 1 per month Drug use: No Current Outpatient Medications Medication Sig losartan (COZAAR) 50 mg tablet Take 1 tablet by mouth every morning. hydroCHLOROthiazide 12.5 mg capsule Take 1 capsule by mouth once daily. ofloxacin (OCUFLOX) 0.3 % ophthalmic solution mometasone (ELOCON) 0.1 % ointment Apply to affected area once daily. ergocalciferol 50,000 unit capsule (VITAMIN D2, DRISDOL) Take 1 capsule by mouth one time a week. atorvastatin (LIPITOR) 20 mg tablet Take 1 tablet by mouth daily at bedtime. acetaminophen (TYLENOL) 325 mg tablet Take 2 tablets by mouth as needed. No current facility-administered medications for this visit. Objective Blood Pressure 135/76 (BP Site: Left Arm, BP Position: Sitting, BP Cuff Size: Large Adult) Pulse 73 Temperature 36.9 C (98.5 F) (Temporal) Weight 91.6 kg (202 lb) Body Mass Index 36.95 kg/m Physical Exam Constitutional: General: She is not in acute distress. Cardiovascular: Rate and Rhythm: Normal rate and regular rhythm. Heart sounds: No murmur heard. No gallop. Pulmonary: Effort: No respiratory distress. Breath sounds: No wheezing or rales. Musculoskeletal: Right lower leg: No edema. Left lower leg: No edema. Neurological: Mental Status: She is alert. Gait: Gait abnormal. Comments: Using a cane. Assessment and Plan 1. Chronic renal impairment, stage 3a (HCC) - ICD9: 585.3, ICD10: N18.31 (primary diagnosis) Recheck. 2. Sinus node dysfunction (HCC) - ICD9: 427.81, ICD10: I49.5 Stable, asymptomatic. 3. Primary osteoarthritis of left knee - ICD9: 715.16, ICD10: M17.12 See orthopedics. She will likely be sent back here for preoperative physical. 4. Essential hypertension - ICD9: 401.9, ICD10: I10 - Improving control - Continue current medications 5. Hyperlipidemia, unspecified hyperlipidemia type - ICD9: 272.4, ICD10: E78.5 - Control undetermined, due for labs - Hold off on medication refill, pending labs. 6. Impaired fasting blood sugar - ICD9: 790.21, ICD10: R73.01 - Recheck. Continue diet. Leodan Hopkins MD documented in this encounter [facility] 07-25-2023 Evaluation note Diagnosis Chronic renal impairment, stage 3a (HCC)- Primary Sinus node dysfunction (HCC) Sinoatrial node dysfunction Primary osteoarthritis of left knee Primary localized osteoarthrosis, lower leg Essential hypertension Unspecified essential hypertension Hyperlipidemia, unspecified hyperlipidemia type Impaired fasting blood sugar Impaired fasting glucose documented in this encounter [facility]10-27-2023 Miscellaneous Notes* Telephone Encounter - Carrol Goodwin LPN - 02/02/2023 1:08 PM EDT Patient returned call and went over notes below from Dr Hopkins with understanding. * Telephone Encounter - Any Maciel OCCA - 02/02/2023 12:38 PM EDT TC to patient with no answer. Left VM to return call to office. DUSTIN Trejo * Telephone Encounter - Leodan Hopkins MD - 02/02/2023 12:07 PM EDT Bone density x rays include her lumbar spine. Continue self management. Appointment if worse. * Telephone Encounter - Manju Angel MA - 02/01/2023 6:39 PM EDT Patient notified of results, verbalizes understanding of instructions. Patient states at her office visit on 01/23 she updated PCP on a fall she had had 2 months prior. At the time of OV her lower back wasn't giving her much trouble/causing pain however since office visit her lower back is now starting to increase with pain. Patient requesting an XR to r/o any fracture & is willing to come in for an office visit if necessary but since she was just seen wanted todouble check before scheduling. Please advise. Manju Angel MA * Telephone Encounter - Loedan Hopkins MD - 02/01/2023 5:48 PM EDT Osteopenia femoral necks. Overall stable values. Plan: If she has no recent history of fracture, continue Calcium 600 mg BID. Continue vitamin D prescription. Light weight bearing exercises to strengthen bone. Recheck in 2-3 years. * Telephone Encounter - Reina Irving RN - 02/01/2023 3:09 PM EDT Pt asking PCP to advise on 01/30/23 DXA Bone Density result when able. Thank you. [facility] Miscellaneous Notes* Telephone Encounter - Reina Irving RN - 02/01/2023 3:08 PM EDT Patient returned call and given provider's message below and patient verbalized understanding. Caleb Irving RN * Telephone Encounter - Jerrica Disla LPN - 02/01/2023 2:58 PM EDT Left message to call & speak to nurse re: results. Jerrica Disla LPN * Telephone Encounter - Jerrica Disla LPN - 02/01/2023 2:57 PM EDT ----- Message from Leodan Hopkins MD sent at 02/01/2023 2:28 PM EDT ----- Test results are okay in general. 1) BUN elevated so stress adequate hydration. 2) Glucose elevation mild. Reduce carbohydrates in diet by 1/2 daily. 3) Vitamin d better but still low. Restart vitamin D2, 50,000 international unit(s) once a week. [facility] History of Present illness Narrative* Guerrero Mead RT(R) - 01/30/2023 10:00 AM EDT Radiology Service Progress Note PATIENT NAME: Rosario Lujan DATE OF SERVICE: January 30, 2023 TIME: 10:04 AM PATIENT IDENTITY VERIFICATION COMPLETED USING TWO (2) IDENTIFIERS: Name and Date of confirmedby patient verbally. FALL SCREENING: Has the patient had 2 falls in the last year or 1 fall with injury or currently using an Ambulatory Assistive Device (Walker, Cane, Wheelchair, Crutches, etc.)? No PATIENT GENDER DATA: Female. status: : No status: NO. PATIENT RELEVANT IMPLANT DATA REVIEWED: Not Applicable RADIOLOGY DEPARTMENT: Bone Density PERIPHERAL IV DATA: Not applicable SIGNED BY: RT Ita(R) January 30, 2023 10:04 AM documented in [facility]10-[facility]23 NoteHNO ID: [id number] Author: Guerrero Mead RT(R) Service: ? Author Type: Technologist Type: Progress Notes Filed: 01/30/2023 10:15 AM Note Text: Radiology Service Progress Note PATIENT NAME: Rosario Lujan DATE OF SERVICE: January 30, 2023 TIME: 10:04 AM PATIENT IDENTITY VERIFICATION COMPLETED USING TWO (2) IDENTIFIERS: Name and Date of confirmed by patient verbally. FALL SCREENING: Has the patient had 2 falls in the last year or 1 fall with injury or currently using an Ambulatory Assistive Device (Walker, Cane, Wheelchair, Crutches, etc.)? No PATIENT GENDER DATA: Female. status: : No status: NO. PATIENT RELEVANT IMPLANT DATA REVIEWED: Not Applicable RADIOLOGY DEPARTMENT: Bone Density PERIPHERAL IV DATA: Not applicable SIGNED BY: RT Ita(R) January 30, 2023 10:04 [facility]05-08-2023 Miscellaneous Notes* Telephone Encounter - Albino Rothman Ma - 08/14/2022 8:58 AM EDT Patient notified, verbalized understanding. * Telephone Encounter - Jaimee Harmon APRN.CNP - 08/14/2022 8:01 AM EDT Please let the patient know her labs were normal except Vitamin D was extremely low. Start treatment with Vitamin D 50,000 units twice a week for 3 months and then recheck. Jaimee Harmon APRN.CNP documented in [facility]05-[facility]23 Instructions* Patient Instructions* Jaimee Harmon APRN.CNP - 08/09/2022 8:34 AM EDT Start blood pressure medication prescribed by cardiology: Losartan documented in [facility] encounter[facility]05-[facility] History of Present illness Narrative* Jaimee Harmon APRN.CNP - 08/09/2022 8:24 AM EDT CC: Patient presents with: 9 month follow up HPI Rosario Lujan is a 81 year old female who presents today for above. She slipped in her bathtub a couple weeks ago, striking her left shoulder and head on the side of the tub. Left shoulder still bruised and a little sore but improving. She had a small knot on the left side of her head that has resolved. Denies LOC, headaches, dizziness, lightheadedness, visual disturbance, or problems with balance since falling. Her BP is elevated today. She does not check at home. She saw cardiology last month, Lasix was discontinued and she was started on Lipitor and Losartan. Patient has only been taking Lipitor, did not realize she was supposed to take Losartan as well. REVIEW OF SYSTEMS GENERAL: Negative for malaise, significant weight loss and fever RESPIRATORY: Negative for cough, wheezing and shortness of breath CARDIOVASCULAR: Negative for chest pain, leg swelling and palpitations PAST MEDICAL HISTORY Diagnosis Date Cyst of breast Disc disease, degenerative, cervical 01/18/2015 spinal stenosis DUB (dysfunctional uterine bleeding) 1999 Edema of both legs 03/14/2016 Essential hypertension 03/14/2016 Osteopenia, senile 03/14/2016 Presence of cardiac pacemaker 03/14/[address] Yumiko Kwan. [facility] Primary osteoarthritis of left knee 11/10/2019 [facility]. Sinus node dysfunction (HCC) PAST SURGICAL HISTORY Procedure Laterality Date ANES PERMANENT TRANSVENOUS PACEMAKER INSERTION 2000 Permanent Pacemaker ARTHROSCOPY KNEE DIAGNOSTIC W/WO SYNOVIAL BX SPX Left 2011 Arthroscopy, knee BREAST BIOPSY NEEDLE LEFT Bilateral ENDOMETRIAL BX W/WO ENDOCERVIX BX W/O DILAT SPX 2000 EYE SURGERY HX Bilateral 11/13/2018 [facility] NECK SURGERY HX PAST SURGICAL HISTORY OF cervical laminectomy PAST SURGICAL HISTORY OF Left 1963 left breast, axillary reconstruction, trauma PAST SURGICAL HISTORY OF 01/03/2017 Replaced pacemaker ALLERGIES Codeine, Tetanus And Diphtheria Toxoids, Adhesive Tape (Rosins), Aspirin, and Pneumococcal 23-Alida Ps Vaccine MEDICATIONS atorvastatin (LIPITOR) 20 mg tablet Take 1 tablet by mouth daily at bedtime. losartan (COZAAR) 25 mg tablet Take 1 tablet by mouth once daily. acetaminophen (TYLENOL) 325 mg tablet Take 2 tablets by mouth as needed. albuterol HFA (PROVENTIL HFA, VENTOLIN HFA) 90 mcg/actuation inhaler ProAir HFA 90 mcg/actuation HFA aerosol inhaler naproxen (NAPROSYN) 500 mg tablet Take 1 tablet by mouth twice daily with meals. Take with food. ergocalciferol 50,000 unit capsule (VITAMIN D2, DRISDOL) Take 1 capsule by mouth one time a week. mometasone (ELOCON) 0.1 % cream Apply 1 application to affected area once daily as needed (left earcanal dermatitis). FAMILY HISTORY Problem Relation Age of Onset Cancer Mother lung Cancer Father metastatic,intrabdominal other (Other) Sister MVA Hypertension Brother Coronary Artery Disease Brother Diabetes Brother Hypertension Brother Diabetes Brother None Sister None Sister Social History Tobacco Use Smoking status: Never Smokeless tobacco: Never Vaping Use Vaping Use: Never used Substance Use Topics Alcohol use: Yes Comment: social, 1 per month Drug use: No PHYSICAL EXAM BP 140/82 Pulse 91 Resp 16 Wt 90.3 kg (199 lb) BMI 33.12 kg/m General Appearance: well appearing, in no acute distress, alert Lungs: Lungs clear to auscultation. No wheezing, rhonchi, rales. Heart: RRR without murmur, gallop, or rubs. No ectopy Health maintenance reviewed with patient: ADVANCE DIRECTIVE DISCUSSION due on 04/09/2022 DEPRESSION ASSESSMENT due on 04/09/2022 DTAP,TDAP,TD(2 - Td or Tdap) due on 02/01/2023 SHINGRIX VACCINE(2 of 3) due on 02/01/2023 COVID-19 VACCINE(3 - Booster for Pfizer series) due on 02/01/2023 PNEUMOCOCCAL: 65+(3) due on 02/03/2023 INFLUENZA(Season Ended) due on 12/08/2022 DIABETES SCREEN due on 12/16/2023 BONE DENSITY Completed DATA REVIEWED: Most recent labs ASSESSMENT/PLAN: 1. Essential hypertension - ICD9: 401.9, ICD10: I10 (primary diagnosis) - suboptimal control - Begin losartan as prescribed by cardiology - Recommended regular aerobic exercise. - Recommend home blood pressure monitoring, to bring results in on next visit - Goal of BP <130/80 - LIPID PANEL BASIC - COMP METABOLIC PANEL - CBC 2. Vitamin D deficiency - ICD9: 268.9, ICD10: E55.9 Recheck - VITAMIN D 25 HYDROXY 3. Obesity, Class I, BMI 30-34.9 - ICD9: 278.00, ICD10: E66.9 Stable 4. Chronic renal impairment, stage 3a (HCC) - ICD9: 585.3, ICD10: N18.31 Recheck Prescription instructions reviewed with patient as applicable. Potential red flag symptoms discussed with the patient. Reviewed appropriate action plan to take if red flag symptoms occur. Patient agreeable to treatment plan. Jaimee Harmon APRN.CNP documented in this encounterOhio [facility]02-13-2023 Miscellaneous Notes* Telephone Encounter - Tenisha York - 05/22/2022 2:03 PM EST Patient informed per Dr Aquiles York * Telephone Encounter - Stuart Albarado - 05/19/2022 11:26 AM EST Spoke to patient and informed her I spoke to [employer]. She is to unplug remote box, wait 20 minutes and plug back in. If she continues to get the error code she is to call the company and they will ship her a new box out. FYI-Patient states that she is shaky when she stands up--weak at the knees. I instructed her to contact her PCP. * Telephone Encounter - Galina Beaver - 05/18/2022 3:08 PM EST Patient called in stating that she hasn't been feeling very well the past couple days. She feels dizzy and faintish. She is showing an Error Code on her monitor - 2300 Error. Please call patient [phone]. documented in this encounter[facility]01-09-2023 History of Present illness Narrative* Kenneth Owens MD - 04/17/2022 7:53 AM ESTAssociated Order(s): Large Joint Arthro/Inj: R subacromial bursa Post-Procedure Diagnose(s): Impingement syndrome of right shoulder Kenneth Owens MD Department of Orthopaedics [facility] [address] [address] Dept: [phone] Dept April 17, 2022 CHIEF COMPLAINT: Follow Up of the Right Shoulder and 4 weeks post visit impingement syndrome right shoulder (with injection given) HPI Patient states injection helped her pain. She still has some pain but feels it is better. On Sunday she picked up something heavy and aggravated her shoulder. 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 ASSESSMENT: M75.41 Impingement syndrome of right shoulder (primary encounter diagnosis) PLAN: Repeat cortisone injection. OBJECTIVE: Ms. Rosario Lujan is a pleasant 81 year old in no apparent distress. Gen:There were no vitals taken for this visit. nl development, non obese, no deformities ENT: Normocephalic, normal hearing, moist mucosa CV: Pulses:Radial= 2+ and symmetric, capillary refill < 2 secs, no peripheral edema/varicosities Skin: no rash, bruising or lesions. Good turgor. Psych: cooperative and appropriate, alert and oriented x 3, good mood and affect. Musculoskeletal: Stable exam. Large Joint Arthro/Inj: R subacromial bursa Informed Consent Consent Obtained: Verbal [place] Protocol A moment to CARE was completed. SIGN IN Sign in communication not applicable due to emergent procedure. Personnel directly involved with the procedure wore the appropriate PPE. Special Equipment: N/A Patient/Surrogate Stated/Verified: Patient name, Date of , Relevant allergies and Intended procedure TIME OUT Intended patient and procedure match the source document(s). Consent documented and matches the intended procedure. Relevant labs, photos, and/or imaging studies have been reviewed. Correct side/site marked and visible. Medications required for procedure verified. No fire risk assessment and interventions applicable. No implant(s) inserted. 04/17/2022 8:30 AM The procedure site was prepped in the usual sterile fashion. Site: R subacromial bursa Medications: 6 mg betamethasone acetate-betamethasone sodium phosphate 6 mg/mL Anesthetics: 4 mL lidocaine (PF) 10 mg/mL (1 %) Outcome: Tolerated well, no immediate complications Post-injection instructions were reviewed with the patient and the patient voiced understanding of these instructions. SIGN OUT No specimen collected. All instruments, equipment, possible retained foreign bodies accounted for. Post-procedure follow-up management communicated and Plan of Care Visit completed when applicable Supporting Subjective Information Below: Past Surgical History: PAST SURGICAL HISTORY Procedure Laterality Date ANES PERMANENT TRANSVENOUS PACEMAKER INSERTION 2000 Permanent Pacemaker ARTHROSCOPY KNEE DIAGNOSTIC W/WO SYNOVIAL BX SPX Left 2011 Arthroscopy, knee BREAST BIOPSY NEEDLE LEFT Bilateral ENDOMETRIAL BX W/WO ENDOCERVIX BX W/O DILAT SPX 2000 EYE SURGERY HX Bilateral 11/13/2018 [facility] NECK SURGERY HX PAST SURGICAL HISTORY OF cervical laminectomy PAST SURGICAL HISTORY OF Left 1963 left breast, axillary reconstruction, trauma PAST SURGICAL HISTORY OF 01/03/2017 Replaced pacemaker Medications: Current Outpatient Medications Medication Sig atorvastatin (LIPITOR) 20 mg tablet Take 1 tablet by mouth daily at bedtime. losartan (COZAAR) 25 mg tablet Take 1 tablet by mouth once daily. acetaminophen (TYLENOL) 325 mg tablet Take 2 tablets by mouth as needed. albuterol HFA (PROVENTIL HFA, VENTOLIN HFA) 90 mcg/actuation inhaler ProAir HFA 90 mcg/actuation HFA aerosol inhaler naproxen (NAPROSYN) 500 mg tablet Take 1 tablet by mouth twice daily with meals. Take with food. ergocalciferol 50,000 unit capsule (VITAMIN D2, DRISDOL) Take 1 capsule by mouth one time a week. mometasone (ELOCON) 0.1 % cream Apply 1 application to affected area once daily as needed (left earcanal dermatitis). No current facility-administered medications for this visit. Allergies: Codeine, Tetanus And Diphtheria Toxoids, Adhesive Tape (Rosins), Aspirin, and Pneumococcal 23-Alida Ps Vaccine ROS: General (negative for fatigue, malaise, weight loss/gain) HEENT (negative for headache, earache, recent vision changes, sinus pain, sore throat) Respiratory (no recent shortness of breath, hemoptysis) CV (negative for chest tightness, palpitations) Musculoskeletal (see HPI) Psych (no depression, anxiety) Kenneth Owens MD documented in this encounter[facility]12-15-2022 Instructions* Patient Instructions* Tarik Kwan MD - 03/23/2022 1:44 PM EST Stop furosemide Start losartan 25 mg daily Labs 3 weeks documented in this encounterOhio [facility]12-15-2022 History of Present illness Narrative* Tarik Kwan MD - 03/23/2022 1:40 PM EST Images from the original note were not included. [facility] [place] OUTPATIENT VISIT DATE March 23, 2022 CHIEF COMPLAINT: (Z95.0) Pacemaker (primary encounter diagnosis) HISTORY OF PRESENT ILLNESS: Ms. Peggy Lujan is a 81 year old female who presents today for No changes last visit No CP. Unchanged SOB; SOB better with albuterol.Rest after walk 2 block or ascend 2 flights due to SOB. Uses albuterol 2/mo ROS (-) heart racing, dizzy, BRBPR, melena ROS (+) fall c/b R rotator cuff tear better with injection Past Medical History: Sinus node dysfunction s/p PM HTN LHC - 12/22: EF 50%, EDP 14, mild CAD - 12/20: EF 50%, EDP 16, plaque CAD Echo - 12/20: Global HK.EF 40%,( e' 3.6, E/e 13.3, KURTIS 17), RVSP 30 - 10/15: Mild LVH. EF 55%. RVSP 28 Stress: - Ex/[place] 11/21: 3.6 mets, 75% MPHR, EF 70%, EDV 73 ml, normal perfusion, [address] depression - Ex ECG 01/19: 7 mets, peak HR 114 - Stephanie 01/18: EF 71%, breast, diaphragm, and gut artifact - Stephanie 10/15: EF 70%. Normal perfusion Past Surgical History: Knee Neck 01/20 SOCIAL HISTORY: Social History Tobacco Use Smoking status: Never Smokeless tobacco: Never Vaping Use Vaping Use: Never used Substance Use Topics Alcohol use: Yes Comment: social, 1 per month Drug use: No FAMILY HISTORY Problem Relation Age of Onset Cancer Mother lung Cancer Father metastatic,intrabdominal other (Other) Sister MVA Hypertension Brother Coronary Artery Disease Brother Diabetes Brother Hypertension Brother Diabetes Brother None Sister None Sister ALLERGIES Allergen Reactions Codeine Mental Status Change Pass out, comma x 3 days. Tetanus And Diphthe* Rash, Swelling Adhesive Tape (Jane* Rash Skin irritation Aspirin Other: See Comments Pneumococcal 23-Alida* Rash MEDICATIONS: acetaminophen (TYLENOL) 325 mg tablet Take 2 tablets by mouth as needed. albuterol HFA (PROVENTIL HFA, VENTOLIN HFA) 90 mcg/actuation inhaler ProAir HFA 90 mcg/actuation HFA aerosol inhaler furosemide (LASIX) 20 mg tablet Take 1 tablet by mouth once daily. lisinopril (ZESTRIL, PRINIVIL) 20 mg tablet Take 1 tablet by mouth once daily. ergocalciferol 50,000 unit capsule (VITAMIN D2, DRISDOL) Take 1 capsule by mouth one time a week. mometasone (ELOCON) 0.1 % cream Apply 1 application to affected area once daily as needed (left earcanal dermatitis). naproxen (NAPROSYN) 500 mg tablet Take 1 tablet by mouth twice daily with meals. Take with food. (Patient not taking: Reported on 03/23/2022) PHYSICAL EXAMINATION: Patient Vitals for the past 24 hrs: BP Height Weight 03/23/22 1330 155/64 165.1 cm (5' 5) 85.3 kg (188 lb) Body mass index is 31.28 kg/m . Gen: Apppears well. NAD CV: Regular rate. No murmur or carotid bruit. Pulm: Normal resp effort. CTAB Abd: Soft nontender Ext: No leg edema Skin: Warm. No rash. Neuro: Alert. Appropriate. No focal deficit. Pysch: Calm. Normal affect Recent Labs 12/15/20 0728 11/13/19 0841 08/16/18 1610 04/12/17 1433 10/19/16 0820 NA 142 138 142 142 143 K 4.4 4.6 4.4 4.2 4.4 BUN 28* 27* 18 22* 21 CREAT 1.03* 0.95 0.91 1.01* 1.07* CO2 23 23 27 23 23 CA 9.1 9.4 9.2 9.5 9.3 No results for input(s): MG in the last 83639 hours. Recent Labs 11/13/19 0841 04/12/17 1433 02/06/14 0045 HB 14.5 14.5 12.8 PLT 223 241 213 Recent Labs 02/05/141999 PBNP 158 No results for input(s): PBNPT in the last 86680 hours. Recent Labs 12/15/20 0728 11/13/19 0841 ALT 14 14 TBILI 0.5 0.4 No results for input(s): TSH in the last 61562 hours. Recent Labs 12/15/20 0728 11/13/19 0841 10/19/16 0820 03/05/15 1546 LDL 84 96 97 99 HDL 43 54 44* 39 TG 152* 91 131 -- No results for input(s): HBA1C in the last 69855 hours. No results for input(s): B12 in the last 10887 hours. No results for input(s): DIGOXI in the last 22066 hours. No results for input(s): ANAPC3 in the last 04002 hours. ECG 03/23/22 atrial paced, poor R, qtc 421 IMPRESSION 81 year old female SSS s/p PM, 1) SSS s/p PM: 91 (90-98%) AP 10/22 -03/28 2) HTN: stop lasix. Start ARB. Labs 3 weeks 3) NSVT: rare and brief 4) CV risk: start statin f/u one year Tarik Kwan documented in this encounterOhio [facility] Hospital12-14-2022 Miscellaneous Notes* Telephone Encounter - Tenisha York - 03/22/2022 3:03 PM EST Please obtain labs from PCP if not in Epic. Tenisha York documented in this encounterOhio Valley Hospital11-22-2022 Miscellaneous Notes* Telephone Encounter - Hien Muniz RN - 02/28/2022 2:20 PM EST Patient contacted at this time Patient made aware of Dr. Siddiqui's review and recommendations Patient made aware ortho consult Patient would like [facility] since it is closer to home Patient verbalizes understanding No additional questions or concerns Patient transferred to [facility] line at this time * Telephone Encounter - Hien Muniz RN - 02/23/2022 10:[address] Siddiqui reviewed patient's XR Cervical and XR Lumbar Spine XR Cervical Post surgical changes noted Facet joint degenerative changes throughout spine Marked disc space narrowing at C7-T1 Nothing acute XR Lumbar Extensive degenerative changes Disc space narrowing at multiple levels Nothing acute Dr. Siddiqui states both X-Rays show chronic degenerative changes Dr. Siddiqui would recommend patient to proceed with ortho evaluation as discussed during office visit for shoulder pain documented in this encounterOhio Valley Hospital11-16-2022 NoteHNO ID: [id number] Author: BRUCE Tyson Service: Radiology Author Type: Technologist Type: Progress Notes Filed: 02/22/2022 9:54 AM Note Text: Radiology Service Progress Note PATIENT NAME: Rosario Lujan DATE OF SERVICE: February 22, 2022 TIME: 9:54 AM PATIENT IDENTITY VERIFICATION COMPLETED USING TWO (2) IDENTIFIERS: Name and Date of confirmed by patient verbally. FALL SCREENING: Has the patient had 2 falls in the last year or 1 fall with injury or currently using an Ambulatory Assistive Device (Walker, Cane, Wheelchair, Crutches, etc.)? Yes, Patient High Risk for Falls What interventions were put in place to prevent falls during this visit? Offered Assistance with Transfers/Clothing and Increased Observations by Caregivers PATIENT GENDER DATA: Female. status: : No status: NO. PATIENT RELEVANT IMPLANT DATA REVIEWED: Not Applicable RADIOLOGY DEPARTMENT: General X-ray: Exam(s) Completed: Spine X-Ray(s): Cervical AP / LAT and Lumbar AP / LAT / L5-S1 PERIPHERAL IV DATA: Not applicable SIGNED BY: BRUCE Tyson February 22, 2022 9:54 [id number] History of Present illness Narrative* Roselia Bain CT - 02/22/2022 8:20 AM EST Radiology Service Progress Note PATIENT NAME: Rosario Lujan DATE OF SERVICE: February 22, 2022 TIME: 9:54 AM PATIENT IDENTITY VERIFICATION COMPLETED USING TWO (2) IDENTIFIERS: Name and Date of confirmedby patient verbally. FALL SCREENING: Has the patient had 2 falls in the last year or 1 fall with injury or currently using an Ambulatory Assistive Device (Walker, Cane, Wheelchair, Crutches, etc.)? Yes, Patient High Riskfor Falls What interventions were put in place to prevent falls during this visit? Offered Assistance with Transfers/Clothing and Increased Observations by Caregivers PATIENT GENDER DATA: Female. status: : No status: NO. PATIENT RELEVANT IMPLANT DATA REVIEWED: Not Applicable RADIOLOGY DEPARTMENT: General X-ray: Exam(s) Completed: Spine X-Ray(s): Cervical AP / LAT and Lumbar AP / LAT / L5-S1 PERIPHERAL IV DATA: Not applicable SIGNED BY: BRUCE Tyson February 22, 2022 9:54 AM documented in this encounterOhio Valley Hospital11-16-2022 History of Present illness Narrative* Arslan Siddiqui MD - 02/22/2022 8:06 AM EST [facility] Date: February 22, 2022 - 8:07 AM Rosario Lujan is seen in consultation requested by Jaimee Harmon for an opinion regarding rightshoulder pain. My final recommendations will be communicated back to the requesting physician by way of shared medical record or via US mail. Chief Complaint: right shoulder pain SUBJECTIVE: Rosario Lujan, is a 81 year old female who presents with right shoulder pain. The pain started 2 months ago, after she reached out to stop her brother from falling down. Ultimately, both fellto the floor separately and she landed on her right side. The pain onset was sudden. The patient states that the current pain is persistent and worsening. Her pain is located in the right shoulder and does not radiate.. // The pain is described as sharp. The pain intensity is rated 8. The pain is exacerbated by twisting,reaching, lifting, picking up something, and reaching in any direction and relieved by ice and biofreeze. Currently, the symptoms do not interfere with activities of daily living (ADLs). 0% pain in spine vs 100% (radiating) pain in the extremity. Litigation: No. Worker's Compensation: No. Prior pain treatment has included no specific interventions. ALLERGIES Allergen Reactions Codeine Mental Status Change Pass out, comma x 3 days. Tetanus And Diphthe* Rash, Swelling Adhesive Tape (Jane* Rash Skin irritation Aspirin Other: See Comments Pneumococcal 23-Alida* Rash Current Medications: Pain medications reviewed and reconciled in the medication list: Yes. Current Outpatient Medications Medication Sig acetaminophen (TYLENOL) 325 mg tablet Take 2 tablets by mouth as needed. albuterol HFA (PROVENTIL HFA, VENTOLIN HFA) 90 mcg/actuation inhaler ProAir HFA 90 mcg/actuation HFA aerosol inhaler furosemide (LASIX) 20 mg tablet Take 1 tablet by mouth once daily. naproxen (NAPROSYN) 500 mg tablet Take 1 tablet by mouth twice daily with meals. Take with food. lisinopril (ZESTRIL, PRINIVIL) 20 mg tablet Take 1 tablet by mouth once daily. ergocalciferol 50,000 unit capsule (VITAMIN D2, DRISDOL) Take 1 capsule by mouth one time a week. mometasone (ELOCON) 0.1 % cream Apply 1 application to affected area once daily as needed (left earcanal dermatitis). No current facility-administered medications for this visit. PAST MEDICAL HISTORY Diagnosis Date Cyst of breast Disc disease, degenerative, cervical 01/18/2015 spinal stenosis DUB (dysfunctional uterine bleeding) 1999 Edema of both legs 03/14/2016 Essential hypertension 03/14/2016 Osteopenia, senile 03/14/2016 Presence of cardiac pacemaker 03/14/[address] Yumiko Kwan. [facility] Primary osteoarthritis of left knee 11/10/2019 [facility]. Sinus node dysfunction (HCC) PAST SURGICAL HISTORY Procedure Laterality Date ANES PERMANENT TRANSVENOUS PACEMAKER INSERTION 2000 Permanent Pacemaker ARTHROSCOPY KNEE DIAGNOSTIC W/WO SYNOVIAL BX SPX Left 2012 Arthroscopy, knee BREAST BIOPSY NEEDLE LEFT Bilateral ENDOMETRIAL BX W/WO ENDOCERVIX BX W/O DILAT SPX 2000 EYE SURGERY HX Bilateral 11/13/2018 [facility] NECK SURGERY HX PAST SURGICAL HISTORY OF cervical laminectomy PAST SURGICAL HISTORY OF Left 1963 left breast, axillary reconstruction, trauma PAST SURGICAL HISTORY OF 01/03/2017 Replaced pacemaker FAMILY HISTORY Problem Relation Age of Onset Cancer Mother lung Cancer Father metastatic,intrabdominal other (Other) Sister MVA Hypertension Brother Coronary Artery Disease Brother Diabetes Brother Hypertension Brother Diabetes Brother None Sister None Sister Social History: Alcohol Use: Yes (social, 1 per month) Tobacco Use: Never Drug Use: No 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) Years Of Education Completed: Not specified Marital Status: with 2 children REVIEW OF SYSTEMS: Constitutional: (-) Fever (-) Night Sweats (-) Weight Gain (-) Weight Loss (-) Fatigue Cardiovascular: (-) Chest Pain (-) Palpitations (-) Lightheadedness (-) Swelling of Ankles (-) Hx Heart Surgery (+) Pacemaker Respiratory: (-) Shortness of Breath (-) Cough (-) Wheezing (-) Snoring Gastrointestinal: (-) Incontinence (-) Abdominal Pain (-) Diarrhea (-) Constipation (-) Nausea/Vomiting (-) Heart Burn Endocrine: (-) Thyroid Disorder (-) Diabetes Hematologic: (-) Prolonged Bleeding (-) Easy Bruising Genitourinary: (-) Incontinence (-) Frequency (-) Urinary Urgency Skin: (-) Rashes (-) Itching (-) Other Lesions Neurologic: (-) Headache (-) Double Vision (-) Confusion (-) Paralysis (-) Vertigo (-) Syncope Psychiatric: (-) Depression (-) Anxiety (-) Delusions (-) Hallucinations (-) Suicidal Thoughts OARRS Report reviewed: Yes Narcotic Agreement reviewed and signed?: N/A Baseline Urine Toxicology obtained: N/A Urine Panel: No results found for: UQCANN, UQBNZL, FDR4TMJ, UQAMPH, UQMAMP, UQBUPRE, UQNORBUP, UQMTHD, UQEDDP, UQTRAM, UQDTRM, UQFNTL, UQNFTL, UQCODE, UQMORP, UQDCDN, UQHCOD, UQOXYC, UQHMOR, UQOXYM, UQCREA, UQPH,UQSPGR, UQOXID, UQSPQ The pain panel was N/A OBJECTIVE: Performed in conjunction with observation. The patient was alert and oriented x3. The patient was in no acute distress. Lungs: Clear, negative for dyspnea or distress. CVR: Negative for SOB or peripheral edema. Neck: Supple. The range of motion was intact. Negative tenderness on the cervical area. Cervical facet loading: negative Spurling's: negative Back: Range of motion of the trunk was limited. Diffuse lumbosacral tenderness. SLR: Negative Facet Loading: Equivocal with axial loading and extension. Extremities: no reported edema or erythema. ROM of right shoulder decreased. Positive tenderness with reproduction of concordant pain with palpation in the posterior right shoulder in the area of glenohumeral joint. Tenderness over the right AC joint. Motor: negative focal deficits. Sensory: Intact to light touch and sharp throughout the upper extremities bilaterally. Gait: Slow to stand with slight flexed posture. Ambulates with a cane. Medical record and diagnostic tests reviewed for today's visit: The [facility] EMR was reviewed during thevisit IMAGING STUDIES: No new imaging studies were reviewed during this office visit. ASSESSMENT: (Z98.1) History of fusion of cervical spine (primary encounter diagnosis) (M25.511) Acute pain of right shoulder (M54.42, G89.29) Chronic low back pain with left-sided sciatica, unspecified back pain laterality PLAN: 1. X-ray of the cervical spine and lumbar spine. 2. No interventional procedures indicated. Based on clinical examination, her right shoulder pain does not appear to be related to the cervical spine issues. We will obtain the x-ray of the cervical spine since patient had prior history of cervical fusion at multiple levels. Recommend orthopedic referral. 3. No new medication was prescribed. 4. Counseled patient regarding the importance of activity modification and exercise. 5. Follow up: We will contact with results of imaging studies and will provide further recommendation at that time. The above plan and management options were discussed with patient. The patient is in agreement withthe above and verbalized understanding. I have discussed and confirmed the above treatment plan with the patient and I have reviewed the nurses notes and I am aware of the family/social history. I have confirmed ROS findings. Arslan Siddiqui MD February 22, 2022 cc: Jaimee [facility] [address] [facility] [id number] Results of consultation to be transmitted via electronic medical record for those providers who practice within [facility] or with access to [employer] via MD Connect, or via letter. documented in this encounterOhio Valley Hospital11-15-2022 Miscellaneous Notes* Telephone Encounter - Cheryl Leon Ma - 02/21/2022 3:25 PM EST Attempted to contact patient via telephone regarding upcoming NEW patient appointment with Dr. Bartholomew 02/22/22. [facility] relaying the message below: This is the [facility] calling regarding your upcoming appointment with Dr. Siddiqui. Have you been evaluated and treated by a [facility] provider within the past 3 years? - In order to have an appointment with Dr. Siddiqui, a release of care from your previous pain management is required. - Please contact your previous pain management office to have this noted into your chart or the office may fax a letter stating the release of your care . - You will not be able to proceed with an appointment with Dr. Siddiqui if you are currently being treated by a [facility] provider and have not been released from their care. To avoid a delay in your care, please bring any imaging (such as MRI, CT, XR, etc.) that have been done outside of the [facility] on a disk to be viewed at your appointment. Please be advised that this appointment is a consult only and narcotics will NOT be prescribed. is primarily an interventional pain management provider. He treats with physical therapy, injections of the spine or joints, and non- narcotic medications. Dr. Siddiqui will not take over and manage any medications that are already being prescribed by another provider. If you have any questions or need to cancel or reschedule your appointment, please contact the [facility] at [phone]. documented in this encounterOhio Valley Hospital10-26-2022 History of Present illness Narrative* Jaimee Older, NEWS VIDEOTAPE EDITOR.MECHANICAL ENGINEERING PROFESSOR - 02/01/2022 6:06 PM EDT Medicare Yearly Visit Medical B eligibilty date 2005 Date of last exam 12/22/20 PAST MEDICAL HISTORY Diagnosis Date Cyst of breast Disc disease, degenerative, cervical 01/18/2015 spinal stenosis DUB (dysfunctional uterine bleeding) 1999 Edema of both legs 03/14/2016 Essential hypertension 03/14/2016 Osteopenia, senile 03/14/2016 Presence of cardiac pacemaker 03/14/[address] Yumiko Kwan. [facility] Primary osteoarthritis of left knee 11/10/2019 [facility]. Sinus node dysfunction (HCC) PAST SURGICAL HISTORY Procedure Laterality Date ANES PERMANENT TRANSVENOUS PACEMAKER INSERTION 2000 Permanent Pacemaker ARTHROSCOPY KNEE DIAGNOSTIC W/WO SYNOVIAL BX SPX Left 2012 Arthroscopy, knee BREAST BIOPSY NEEDLE LEFT Bilateral ENDOMETRIAL BX W/WO ENDOCERVIX BX W/O DILAT SPX 2000 EYE SURGERY HX Bilateral 11/13/2018 [facility] NECK SURGERY HX PAST SURGICAL HISTORY OF cervical laminectomy PAST SURGICAL HISTORY OF Left 1963 left breast, axillary reconstruction, trauma PAST SURGICAL HISTORY OF 01/03/2017 Replaced pacemaker ALLERGIES: Codeine, Tetanus And Diphtheria Toxoids, Adhesive Tape (Rosins), Aspirin, and Pneumococcal 23-Alida Ps Vaccine Medications reviewed: Yes FAMILY HISTORY Problem Relation Age of Onset Cancer Mother lung Cancer Father metastatic,intrabdominal other (Other) Sister MVA Hypertension Brother Coronary Artery Disease Brother Diabetes Brother Hypertension Brother Diabetes Brother None Sister None Sister SOCIAL HISTORY: Social History Tobacco Use Smoking status: Never Smokeless tobacco: Never Vaping Use Vaping Use: Never used Substance Use Topics Alcohol use: Yes Comment: social, 1 per month Drug use: No Rosario has limited mobility and can not participate in aerobic exercise. She watches her diet for sodium, low fat and low cholesterol most of the time. List of current specialists seen: Cardiology- [place] Dr. Yumiko Kwan Cloud Systems Administrator- [facility] End of Live Planning discussed including patients advanced directive wishes: Yes I am willing to follow Rosario's advanced directives. Evidence of Cognitive Impairment: No What tool was used to assess the patients cognitive status? MiniCog 5/5. PHQ-2 / Depression screen She in the past two weeks denies having felt down, depressed, hopeless, or with little interest or pleasure in doing things. Functional Ability/Safety Screen 1. Was the patient's timed Up and Go test unsteady or longer than 30 seconds? No 2. Does the patient need help with the phone, transportation, shopping,preparing meals, housework, laundry, medications or managing money? No 3. Does your home have rugs in the hallway, lack of grab bars in the bathroom, lack of handrails onthe stairs or have poor lighting? No Hearing Evaluation: normal PHYSICAL EXAM BP 158/78 Pulse 92 Resp 16 Ht 161 cm (5' 3.39) Wt 90.7 kg (200 lb) BMI 35.00 kg/m Alert and oriented X 3: YES Body mass index is 35 kg/m . ASSESSMENT/PLAN: 1. Medicare annual wellness visit, subsequent - ICD9: V70.0, ICD10: Z00.00 (primary diagnosis) The following prevention plan was discussed during the office visit and provided to the patient: - fall risk reduction - Counseled on healthy diet and regular exercise - Calcium intake with supplements or by diet of 1000 mg/day for under 50, 1200- 1500 mg/day for 50+ - Discussed need and benefit for weight loss. BMI 35.00 kg/(m^2) - Depression screening tool completed and reviewed with patient. Based on score and interview, patient is not at risk for depression and recommended no further intervention at this time. - Patient was counseled [id number] by myself (the billing provider) for the following immunizations and vaccine components, including side effects: Pneumococcal . Patient declined at this time - follow-up for medicare annual exam in one year Jaimee Harmon APRN.CNP * Jaimee Older, JOSE ALBERTO.MECHANICAL ENGINEERING PROFESSOR - 02/01/2022 6:05 PM EDT CC: Patient presents with: Medicare Wellness Exam HPI Rosario Lujan is a 81 year old female who presents today for above. Patient reports right shoulder pain x 6 weeks. She was trying to keep her brother from falling and when she was trying to hold onto him he feel, pulling forcefully on her right arm. Since then her right shoulder has been very painful. There was no swelling or bruising. Pain has improved slightly since injury. Localized to the biceps area. Described as constant and sharp Clicking, locking, popping, feeling like the shoulder is not stable, feeling like the shoulder is giving out: Yes shoulder feels weak Associated symptoms: She notes no neck pain, no radiation of shoulder pain, and no numbness or tingling noted of the upper extremity exhibits aggravating factors of Overhead activities and Reaching out in front of the body. exhibits alleviating factors of Rest and avoidance of aggravating activities. Her BP is elevated today. She reports white coat hypertension and is also in a lot of pain today. Denies headache, chest pain, palpitations, edema, SOB, fatigue. REVIEW OF SYSTEMS See HPI PAST MEDICAL HISTORY Diagnosis Date Cyst of breast Disc disease, degenerative, cervical 01/18/2015 spinal stenosis DUB (dysfunctional uterine bleeding) 1999 Edema of both legs 03/14/2016 Essential hypertension 03/14/2016 Osteopenia, senile 03/14/2016 Presence of cardiac pacemaker 03/14/[address] Yumiko Kwan. [facility] Primary osteoarthritis of left knee 11/10/2019 [facility]. Sinus node dysfunction (HCC) PAST SURGICAL HISTORY Procedure Laterality Date ANES PERMANENT TRANSVENOUS PACEMAKER INSERTION 2000 Permanent Pacemaker ARTHROSCOPY KNEE DIAGNOSTIC W/WO SYNOVIAL BX SPX Left 2011 Arthroscopy, knee BREAST BIOPSY NEEDLE LEFT Bilateral ENDOMETRIAL BX W/WO ENDOCERVIX BX W/O DILAT SPX 2000 EYE SURGERY HX Bilateral 11/13/2018 [facility] NECK SURGERY HX PAST SURGICAL HISTORY OF cervical laminectomy PAST SURGICAL HISTORY OF Left 1963 left breast, axillary reconstruction, trauma PAST SURGICAL HISTORY OF 01/03/2017 Replaced pacemaker ALLERGIES Codeine, Tetanus And Diphtheria Toxoids, Adhesive Tape (Rosins), Aspirin, and Pneumococcal 23-Alida Ps Vaccine MEDICATIONS albuterol HFA (PROVENTIL HFA, VENTOLIN HFA) 90 mcg/actuation inhaler ProAir HFA 90 mcg/actuation HFA aerosol inhaler furosemide (LASIX) 20 mg tablet Take 1 tablet by mouth once daily. naproxen (NAPROSYN) 500 mg tablet Take 1 tablet by mouth twice daily with meals. Take with food. lisinopril (ZESTRIL, PRINIVIL) 20 mg tablet Take 1 tablet by mouth once daily. ergocalciferol 50,000 unit capsule (VITAMIN D2, DRISDOL) Take 1 capsule by mouth one time a week. mometasone (ELOCON) 0.1 % cream Apply 1 application to affected area once daily as needed (left earcanal dermatitis). Compression Knee Highs KNEE HIGH COMPRESSION STOCKINGS 20-30 MM HG. DX: EDEMA FAMILY HISTORY Problem Relation Age of Onset Cancer Mother lung Cancer Father metastatic,intrabdominal other (Other) Sister MVA Hypertension Brother Coronary Artery Disease Brother Diabetes Brother Hypertension Brother Diabetes Brother None Sister None Sister Social History Tobacco Use Smoking status: Never Smokeless tobacco: Never Vaping Use Vaping Use: Never used Substance Use Topics Alcohol use: Yes Comment: social, 1 per month Drug use: No PHYSICAL EXAM BP 158/78 Pulse 92 Resp 16 Ht 161 cm (5' 3.39) Wt 90.7 kg (200 lb) BMI 35.00 kg/m General Appearance: well appearing, in no acute distress, alert Lungs: Lungs clear to auscultation. No wheezing, rhonchi, rales. Heart: RRR without murmur, gallop, or rubs. No ectopy Musculoskeletal: Right shoulder: no deformities. Moderate tenderness with palpation of biceps tendon. ROM: full but painful. Special tests: Drop arm: -, Empty Can: -, Infraspinatus: -, Claros:+, Neer + Upper extremities: reflexes: +2 to bilateral U/L extremities.. Muscle strength: 5/5 bilaterally Health maintenance reviewed with patient: PNEUMOCOCCAL: 65+(3) due on 03/14/2017 ADVANCE DIRECTIVE DISCUSSION Never done DEPRESSION ASSESSMENT Never done INFLUENZA(1) due on 10/06/2022 DTAP,TDAP,TD(2 - Td or Tdap) due on 02/01/2023 SHINGRIX VACCINE(2 of 3) due on 02/01/2023 COVID-19 VACCINE(3 - Booster for Pfizer series) due on 02/01/2023 DIABETES SCREEN due on 12/16/2023 BONE DENSITY Completed DATA REVIEWED: Most recent labs ASSESSMENT/PLAN: 1. Medicare annual wellness visit, subsequent - ICD9: V70.0, ICD10: Z00.00 (primary diagnosis) See Medicare wellness note 2. Acute pain of right shoulder - ICD9: 719.41, ICD10: M25.511 Pain continues 6 weeks after injury - XR SHOULDER GENERAL 3V OR MORE AP/TRUE AP/OTHER RIGHT - may need orthopedics referral depending on results 3. Essential hypertension - ICD9: 401.9, ICD10: I10 - good control - Continue current medication(s) - Recommended regular aerobic exercise. - Recommend home blood pressure monitoring, to bring results in on next visit - Goal of BP <130/80 4. Obesity, Class I, BMI 30-34.9 - ICD9: 278.00, ICD10: E66.9 Stable 5. Osteopenia, senile - ICD9: 733.90, ICD10: M85.80 - Reviewed the need for Calcium and Vitamin D supplements and weight bearing exercise as tolerated 6. Vitamin D deficiency - ICD9: 268.9, ICD10: E55.9 Recheck as ordered 7. Edema of both legs - ICD9: 782.3, ICD10: R60.0 Stable Prescription instructions reviewed with patient as applicable. Potential red flag symptoms discussed with the patient. Reviewed appropriate action plan to take if red flag symptoms occur. Patient agreeable to treatment plan. Jaimee Harmon APRN.CNP documented in this encounterOhio Valley Hospital10-26-2022 Instructions* Patient Instructions* Jaimee Harmon APRN.CNP - 02/01/2022 6:05 PM EDT Recombinant shingles vaccine (Shingrix) is recommended; 2 doses 2-6 months apart. Please read information, check with your insurance, and schedule vaccination at your local pharmacy. A prescription is not required. If you are certain you have coverage to receive this vaccine in the office, we can schedule this for you. WHAT YOU CAN DO TO PREVENT FALLS Many falls can be prevented. By making some changes, you can lower your chances of falling. Four things YOU can do to prevent falls for you* and your caregiver 1. Begin a regular exercise program Exercise is one of the most important ways to lower your chances of falling. It makes you stronger and helps you feel better. Exercises that improve balance and coordination (like Isaias Chi) are the most helpful. Lack of exercise leads to weakness and increases your chances of falling. Ask your doctor or health care provider about the best type of exercise program for you. 2. Have your health care provider review your medicines Have your doctor or pharmacist review all the medicines you take, even pwlp-rsl-nvalcld medicines. As you get older, the way medicines work in your body can change. Some medicines, or combinations of medicines, can make you sleepy or dizzy andcan cause you to fall. 3. Have your vision checked Have your eyes checked by an eye doctor at least once a year. You may be wearing the wrong glasses or have a condition like glaucoma or cataracts that limits your vision. Poor vision can increase your chances of falling. 4. Make your home safer About half of all falls happen at home. To make your home safer: Remove things you can trip over (like papers, books, clothes, and shoes) from stairs and places where you walk. Remove small throw rugs or use double-sided tape to keep the rugs from slipping. Keep items you use often in cabinets you can reach easily without using a step stool. Have grab bars put in next to your toilet and in the tub or shower. Use non-slip mats in the bathtub and on shower floors. Improve the lighting in your home. As you get older, you need brighter lights to see well. Hang light-weight curtains or shades to reduce glare. Have handrails and lights put in on all staircases. Wear shoes both inside and outside the house. Avoid going barefoot or wearing slippers. For more information, contact: Centers for Disease Control and Prevention www.cdc.gov/injury * This information may not apply if you have certain medical conditions. [facility] Instructions* Patient Instructions* Leodan Hopkins MD - 10/19/2021 5:06 PM EDT BRING BLOOD PRESSURE MACHINE. BLOOD WORK IN 2 MONTHS. documented in this encounterOhio [facility]07-13-[facility]22 History of Present illness Narrative* Leodan Hopkins MD - 10/19/2021 4:52 PM EDT This note was created using Wizdee. Subjective Rosario Lujan is a 81 year old female. She was getting up from bed Sunday and pulled her lower back causing moderate pain, and weakness ofthe left leg. Tylenol was helping, and she also started seeing her chiropractor. She wondered if she had a stroke. She was using a cane for ambulation. Pain was worsened by laying down and getting up. Her hypertension was controlled on her home monitor. She also followed with cardiology. Labs neededupdating. Review of Systems Constitutional: Negative for fatigue, fever and unexpected weight change. HENT: Negative. Respiratory: Negative. Cardiovascular: Negative. Gastrointestinal: Negative for abdominal pain, blood in stool, constipation, diarrhea, nausea and vomiting. Genitourinary: Negative for difficulty urinating. Musculoskeletal: Positive for gait problem. Neurological: Negative for speech difficulty and numbness. 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 furosemide (LASIX) 20 mg tablet Take 1 tablet by mouth once daily. ergocalciferol 50,000 unit capsule (VITAMIN D2, DRISDOL) Take 1 capsule by mouth one time a week. mometasone (ELOCON) 0.1 % cream Apply 1 application to affected area once daily as needed (left earcanal dermatitis). Compression Knee Highs KNEE HIGH COMPRESSION STOCKINGS 20-30 MM HG. DX: EDEMA No current facility-administered medications for this visit. Objective BP 139/74 (BP Site: Left Arm, BP Position: Sitting, BP Cuff Size: Large Adult) Pulse 77 Temp 36.4 C (97.5 F) (Temporal Artery) Resp 16 Wt 88.4 kg (194 lb 12.8 oz) BMI 32.42 kg/m Physical Exam Constitutional: General: She is not in acute distress. Appearance: She is not ill-appearing. HENT: Head: Atraumatic. Eyes: Extraocular Movements: Extraocular movements intact. Cardiovascular: Rate and Rhythm: Normal rate and regular rhythm. Heart sounds: No murmur heard. No gallop. Pulmonary: Effort: Pulmonary effort is normal. Breath sounds: Normal breath sounds. Musculoskeletal: Lumbar back: No deformity, spasms or tenderness. Decreased range of motion. Negative right straightleg raise test and negative left straight leg raise test. Right lower leg: No edema. Left lower leg: No edema. Neurological: General: No focal deficit present. Mental Status: She is alert. Cranial Nerves: No cranial nerve deficit. Sensory: No sensory deficit. Motor: No weakness. Gait: Gait abnormal. Deep Tendon Reflexes: Reflexes normal. Assessment and Plan 1. DDD (degenerative disc disease), lumbar - ICD9: 722.52, ICD10: M51.36 (primary diagnosis) - NSAIDS- see orders - NAPROXEN 500 MG TABLET 2. Edema of both legs - ICD9: 782.3, ICD10: R60.0 Controlled. - FUROSEMIDE 20 MG TABLET 3. Essential hypertension - ICD9: 401.9, ICD10: I10 - suboptimal control - factors affecting control of BP include acute pain. 4. Chronic renal impairment, stage 3a (HCC) - ICD9: 585.3, ICD10: N18.31 Monitor. - CBC - BASIC METABOLIC PNL - VITAMIN D 25 HYDROXY Leodan Hopkins MD documented in this encounterOhio [facility] Hospital06-27-2022 Miscellaneous Notes* Telephone Encounter - Mayi Barrios - 10/03/2021 10:21 AM EDTSummary: Device check appointment I called and LVM letting PT know that I rescheduled her missed Device check appointment for 7-14 at3pm and have also sent out an Appointment Summary with date and time on it. * Telephone Encounter - Yumiko Reynoso - 09/30/2021 9:56 AM EDT Patient called in to schedule a device check. Patient missed one on 09/20. Please call patient at [phone] documented in this encounterOhio [facility] Hospital04-11-2022 Miscellaneous Notes* Telephone Encounter - BRUCE Trejo - 07/18/2021 3:52 PM EDT Called patient to schedule follow up appointment. No answer. Left message to call back and ask to speak with a nurse. BRUCE Trejo * Telephone Encounter - Jaimee Harmon APRN.CNP - 07/18/2021 3:04 PM EDT Patient is due for routine follow-up this month Jaimee Harmon APRN.CNP * Telephone Encounter - Margaret Navarro Ma - 07/18/2021 2:28 PM EDT Last OV 12/12/2020 No upcoming appointments documented in this encounterOhio [facility]04-29-2021 History of Past illness Narrative* Problem Noted Date Diagnosed Date Resolved Date Obesity, Class I, BMI 30-34.9 08/05/2020 01/23/2023 Obesity, Class II, BMI 35-39.9 02/01/2019 08/05/2020 Chronic eczematous otitis externa 09/17/2017 01/23/2023 documented as of this encounter (statuses as of 02/01/2023) [address]29-2021 History of Past illness Narrative* Problem Noted Date Diagnosed Date Resolved Date Obesity, Class I, BMI 30-34.9 08/05/2020 01/23/2023 Obesity, Class II, BMI 35-39.9 02/01/2019 08/05/2020 Chronic eczematous otitis externa 09/17/2017 01/23/2023 documented as of this encounter (statuses as of 02/02/2023) [address]29-2021 History of Past illness Narrative* Problem Noted Date Diagnosed Date Resolved Date Obesity, Class I, BMI 30-34.9 08/05/2020 01/23/2023 Obesity, Class II, BMI 35-39.9 02/01/2019 08/05/2020 Chronic eczematous otitis externa 09/17/2017 01/23/2023 documented as of this encounter (statuses as of 02/10/2023) [address]29-2021 History of Past illness Narrative* Problem Noted Date Diagnosed Date Resolved Date Obesity, Class I, BMI 30-34.9 08/05/2020 01/23/2023 Obesity, Class II, BMI 35-39.9 02/01/2019 08/05/2020 Chronic eczematous otitis externa 09/17/2017 01/23/2023 Disc disease, degenerative, cervical 01/18/2015 03/13/2023 documented as of this encounter (statuses as of 03/14/2023) [address]29-2021 History of Past illness Narrative* Problem Noted Date Diagnosed Date Resolved Date Obesity, Class I, BMI 30-34.9 08/05/2020 01/23/2023 Obesity, Class II, BMI 35-39.9 02/01/2019 08/05/2020 Chronic eczematous otitis externa 09/17/2017 01/23/2023 Disc disease, degenerative, cervical 01/18/2015 03/13/2023 documented as of this encounter (statuses as of 07/25/2023) [address]29-2021 History of Past illness Narrative* Problem Noted Date Diagnosed Date Resolved Date Obesity, Class I, BMI 30-34.9 08/05/2020 01/23/2023 Obesity, Class II, BMI 35-39.9 02/01/2019 08/05/2020 Chronic eczematous otitis externa 09/17/2017 01/23/2023 Disc disease, degenerative, cervical 01/18/2015 03/13/2023 documented as of this encounter (statuses as of 07/29/2023) [facility] History of Present illness Narrative* Frannie Kendrick (Rt), Tech - 03/03/2020 11:10 AM EST Radiology Service Progress Note PATIENT NAME: Rosario Lujan DATE OF SERVICE: March 03, 2020 TIME: 11:27 AM PATIENT IDENTITY VERIFICATION COMPLETED USING TWO (2) IDENTIFIERS: Name and Date of confirmedby patient verbally. FALL SCREENING: Has the patient had 2 falls in the last year or 1 fall with injury or currently using an Ambulatory Assistive Device (Walker, Cane, Wheelchair, Crutches, etc.)? No PATIENT GENDER DATA: Female. status: : No status: NO. PATIENT RELEVANT IMPLANT DATA REVIEWED: Not Applicable RADIOLOGY DEPARTMENT: General X-ray: Exam(s) Completed: Spine X-Ray(s): Lumbar AP / LAT / L5-S1 Pelvis X-Ray: Pelvis with Hip Right PERIPHERAL IV DATA: Not applicable SIGNED BY: RT Chiquis March 03, 2020 11:27 AM documented in this encounterOhio Valley Hospital10-26-2019 History of Past illness Narrative* Problem Noted Date Resolved Date Obesity, Class II, BMI 35-39.9 02/01/2019 0 08/05/2020 documented as of this encounter (statuses as of 07/18/2021) [facility] of [facility] illness Narrative* Problem Noted Date Resolved Date Obesity, Class II, BMI 35-39.9 02/01/2019 0 08/05/2020 documented as of this encounter (statuses as of 10/03/2021) [facility] Narrative* Problem Noted Date Resolved Date Obesity, Class II, BMI 35-39.9 02/01/2019 0 08/05/2020 documented as of this encounter (statuses as of 10/20/2021) [facility] Narrative* Problem Noted Date Resolved Date Obesity, Class II, BMI 35-39.9 02/01/2019 0 08/05/2020 documented as of this encounter (statuses as of 10/26/2021) [facility] Narrative* Problem Noted Date Resolved Date Obesity, Class II, BMI 35-39.9 02/01/2019 0 08/05/2020 documented as of this encounter (statuses as of 11/11/2021) [facility] Narrative* Problem Noted Date Resolved Date Obesity, Class II, BMI 35-39.9 02/01/2019 0 08/05/2020 documented as of this encounter (statuses as of 02/03/2022) [facility] Narrative* Problem Noted Date Resolved Date Obesity, Class II, BMI 35-39.9 02/01/2019 0 08/05/2020 documented as of this encounter (statuses as of 02/21/2022) [facility] Narrative* Problem Noted Date Resolved Date Obesity, Class II, BMI 35-39.9 02/01/2019 0 08/05/2020 documented as of this encounter (statuses as of 02/22/2022) [facility] Narrative* Problem Noted Date Resolved Date Obesity, Class II, BMI 35-39.9 02/01/2019 0 08/05/2020 documented as of this encounter (statuses as of 02/28/2022) [facility] Narrative* Problem Noted Date Resolved Date Obesity, Class II, BMI 35-39.9 02/01/2019 0 08/05/2020 documented as of this encounter (statuses as of 03/23/2022) [facility] Narrative* Problem Noted Date Resolved Date Obesity, Class II, BMI 35-39.9 02/01/2019 0 08/05/2020 documented as of this encounter (statuses as of 03/23/2022) [facility] Narrative* Problem Noted Date Resolved Date Obesity, Class II, BMI 35-39.9 02/01/2019 0 08/05/2020 documented as of this encounter (statuses as of 04/17/2022) [facility] Narrative* Problem Noted Date Resolved Date Obesity, Class II, BMI 35-39.9 02/01/2019 0 08/05/2020 documented as of this encounter (statuses as of 05/22/2022) [facility] Narrative* Problem Noted Date Resolved Date Obesity, Class II, BMI 35-39.9 02/01/2019 0 08/05/2020 documented as of this encounter (statuses as of 08/09/2022) [facility] Narrative* Problem Noted Date Resolved Date Obesity, Class II, BMI 35-39.9 02/01/2019 0 08/05/2020 documented as of this encounter (statuses as of 08/14/2022) [facility]* Diagnosis Essential hypertension Unspecified essential hypertension [facility]* Diagnosis DDD (degenerative disc disease), lumbar- Primary Degeneration of lumbar or lumbosacral intervertebral disc Edema of both legs Edema Essential hypertension Unspecified essential hypertension Chronic renal impairment, stage 3a (HCC) [facility] this encounter [facility]* Diagnosis SSS (sick sinus syndrome) (HCC) Sinoatrial node dysfunction [facility] Diagnosis Medicare annual wellness visit, subsequent- Primary Routine general medical examination at a health care facility Acute pain of right shoulder Essential hypertension Unspecified essential hypertension Obesity, Class I, BMI 30-34.9 Obesity, unspecified Osteopenia, senile Disorder of bone and cartilage, unspecified Vitamin D deficiency Unspecified vitamin D deficiency Edema of both legs Edema [facility] this encounter [facility]* Diagnosis History of fusion of cervical spine- Primary Arthrodesis status Acute pain of right shoulder Chronic low back pain with left-sided sciatica, unspecified back pain laterality [facility]* Diagnosis SSS (sick sinus syndrome) (HCC)- Primary Sinoatrial node dysfunction [facility]* Diagnosis Pacemaker- Primary Cardiac pacemaker in situ Hypertension, essential Unspecified essential hypertension [facility]* Diagnosis Impingement syndrome of right shoulder- Primary Other affections of shoulder region, not elsewhere classified [facility]* Diagnosis Essential hypertension- Primary Unspecified essential hypertension Vitamin D deficiency Unspecified vitamin D deficiency Obesity, Class I, BMI 30-34.9 Obesity, unspecified Chronic renal impairment, stage 3a (HCC) [facility]* Diagnosis Vitamin D deficiency- Primary Unspecified vitamin D deficiency [facility]* Diagnosis Vitamin D deficiency- Primary Unspecified vitamin D deficiency Osteopenia, senile Disorder of bone and cartilage, unspecified [facility]* Diagnosis Osteopenia, senile Disorder of bone and cartilage, unspecified [facility]* Diagnosis Chronic renal impairment, stage 3a (HCC)- Primary [facility]* Diagnosis SSS (sick sinus syndrome) (HCC)- Primary Sinoatrial node dysfunction [facility]* Diagnosis Preoperative examination- Primary Preoperative examination, unspecified Leukocytosis, unspecified type Essential hypertension Unspecified essential hypertension Chronic renal impairment, stage 3a (HCC) [facility]* Diagnosis Vitamin D deficiency Unspecified vitamin D deficiency Osteopenia, senile Disorder of bone and cartilage, unspecified [facility]* Diagnosis 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, unspecified back pain laterality [facility]* Diagnosis Acute pain of right shoulder [facility]* Diagnosis Sciatica, right side [facility]* Diagnosis Medicare annual wellness visit, subsequent- Primary Routine general medical examination at a health care facility Essential hypertension Unspecified essential hypertension Degeneration of intervertebral disc of lumbar region, unspecified whether pain present Chronic renal impairment, stage 3a (HCC) Hyperlipidemia, unspecified hyperlipidemia type [facility]* Diagnosis SSS (sick sinus syndrome) (HCC)- Primary Sinoatrial node dysfunction [facility]* Diagnosis Heart failure with preserved ejection fraction, unspecified HF chronicity (HCC) Pacemaker reprogramming/check Fitting and adjustment of cardiac pacemaker Pacemaker reprogramming/check Fitting and adjustment of cardiac pacemaker documented in this encounter [facility]Evaluation noteNo assessment information availableWSheltering Arms [facility] Work Phone: Hospital course Narrative No data available for this section [facility] Hospital Discharge instructions No data available for this section [facility] Progress note No data available for this section [facility] Reason for referral (narrative)* Diagnostic Procedure Only (Urgent) - Closed Specialty Diagnoses / Procedures Referred By Contac t Referred To Contact XR IMAGING Diagnoses Acute pain of right shoulder Procedures XR SHOULDER GENERAL 3V OR MORE AP/TRUE AP/OTHER RIGHT RADEX SHOULDER COMPLETE MINIMUM 2 VIEWS Jaimee Harmon APRN.CNP [address] [place] [address] Xr Imaging Referral ID Status Reason Start Date Expiration Date V isits Requested Visits Authorized [id number] Closed Auto-Generate d Referral 02/01/2022 03/03/2023 1 1 [facility] [place] for referral (narrative)* Diagnostic Procedure Only (Routine) - Closed Specialty Diagnoses / Procedures Referred By Contac t Referred To Contact XR IMAGING Diagnoses Chronic low back pain with left-sided sciatica, unspecified back pain laterality Procedures XR LUMBAR GENERAL 3V AP/LAT/L5-S1 RADEX SPINE LUMBOSACRAL 2/3 VIEWS Arsaln Siddiqui MD [address] [facility] [place] [address] [place] [address] Referral ID Status Reason Start Date Expiration Date V isits Requested Visits Authorized [id number] Closed Auto-Generate d Referral 02/22/2022 03/24/2023 1 1 * Diagnostic Procedure Only (Routine) - Closed Specialty Diagnoses / Procedures Referred By Contac t Referred To Contact XR IMAGING Diagnoses History of fusion of cervical spine Procedures XR CERV GENERAL 2V AP/LAT RADEX SPINE CERVICAL 2 OR 3 VIEWS Arslan Siddiqui MD [address] [facility] [place] [address] [place] [address] Referral ID Status Reason Start Date Expiration Date V isits Requested Visits Authorized [id number] Closed Auto-Generate d Referral 02/22/2022 03/24/2023 1 1 [facility] [place] for referral (narrative)* Diagnostic Procedure Only (Urgent) - Closed Specialty Diagnoses / Procedures Referred By Contac t Referred To Contact XR IMAGING Diagnoses Acute pain of right shoulder Procedures XR SHOULDER GENERAL 3V OR MORE AP/TRUE AP/OTHER RIGHT RADEX SHOULDER COMPLETE MINIMUM 2 VIEWS Jaimee Gerardo, MECHANICAL ENGINEERING PROFESSOR [address] [place] [address] [place] [address] Referral ID Status Reason Start Date Expiration Date V isits Requested Visits Authorized [id number] Closed Auto-Generate d Referral 02/01/2022 03/03/2023 1 1 [facility] [place] for referral (narrative)No reason for referral information availableWSheltering Arms Hospital Work Phone: Reason for visit Narrative* Diagnostic Procedure Only (Routine) - Closed Specialty Diagnoses / Procedures Referred By Contac t Referred To Contact XR IMAGING Diagnoses Chronic low back pain with left-sided sciatica, unspecified back pain laterality Procedures XR LUMBAR GENERAL 3V AP/LAT/L5-S1 RADEX SPINE LUMBOSACRAL 2/3 VIEWS Arslan Siddiqui MD [address] [facility] [place] [address] [place] [address] Referral ID Status Reason Start Date Expiration Date V isits Requested Visits Authorized [id number] Closed Auto-Generate d Referral 02/22/2022 03/24/2023 1 1 [facility] [place] for visit Narrative* Diagnostic Procedure Only (Urgent) - Closed Specialty Diagnoses / Procedures Referred By Contac t Referred To Contact XR IMAGING Diagnoses Acute pain of right shoulder Procedures XR SHOULDER GENERAL 3V OR MORE AP/TRUE AP/OTHER RIGHT RADEX SHOULDER COMPLETE MINIMUM 2 VIEWS Jaimee Gerardo, NEWS VIDEOTAPE EDITOR.MECHANICAL ENGINEERING PROFESSOR [address] [place] [address] [place] [address] Referral ID Status Reason Start Date Expiration Date V isits Requested Visits Authorized [id number] Closed Auto-Generate d Referral 02/01/2022 03/03/2023 1 1 [facility] Summary Purpose Family History No Family History Records FoundNo Family History Records FoundNo Family History Records FoundNo Family History Records FoundNo Family History Records FoundNo Family History Records Found No data available for this section No Family History Records Found Advance Directives Advance Directive Response Recorded Date/ Time Do you have a Healthcare Power of Corporate Law Assistant? Yes September 26, 2024 9:14am Name of Medical Power of Corporate Law Assistant Aline meade September 26, 2024 9:14am Reason for Referral Specialty Diagnoses / Procedures Referred By Contac t Referred To Contact Orthopedics Diagnoses Acute pain of right shoulder Procedures CONSULT PANEL TO ORTHOPAEDICS OFFICE/OUTPATIENT [facility] 60-74 MINUTES Arslan Siddiqui MD [address] [facility] [place] [address] Referral ID Status Reason Start Date Expiration Date Visits Requested Visits Authorized [id number] Authorized PCP Requested Referral 2 02/22/2023 1 1 Specialty Diagnoses / Procedures Referred By Contac t Referred To Contact XR IMAGING Diagnoses Chronic low back pain with left-sided sciatica, unspecified back pain laterality Procedures XR LUMBAR GENERAL 3V AP/LAT/L5-S1 RADEX SPINE LUMBOSACRAL 2/3 VIEWS Arslan Siddiqui MD [address] [facility] [place] [address] Xr Imaging Referral ID Status Reason Start Date Expiration Date V isits Requested Visits Authorized [id number] Closed Auto-Generate d Referral 02/22/2022 03/24/2023 1 1 Specialty Diagnoses / Procedures Referred By Contac t Referred To Contact XR IMAGING Diagnoses History of fusion of cervical spine Procedures XR CERV GENERAL 2V AP/LAT RADEX SPINE CERVICAL 2 OR 3 VIEWS Arslan Siddiqui MD [address] [facility] [place] [address] Xr Imaging Referral ID Status Reason Start Date Expiration Date V isits Requested Visits Authorized [id number] Closed Auto-Generate d Referral 02/22/2022 03/24/2023 1 1 Medications Administered Section Inactive Administered Medications - up to 3 most recent administrations Medication Order MAR Action Action Date Dose Rate Site betamethasone acetate-betamethasone sodium phosphate 6 mg injection (CELESTONE) 6 mg, Injection - FOR ORTHO USE ONLY, ONE TIME INJECTION, 1 dose, Starting on Sun04/17/22 at 0830, Until Sun04/17/22 at 0830 Given 04/17/2022 8:30 AM EST 6 mg Shoul nelia, Right lidocaine (PF) 10 mg/mL (1 %) 4 mL injection (XYLOCAINE) 4 mL, Injection - FOR ORTHO USE ONLY, ONE TIME INJECTION, 1 dose, Starting on Sun04/17/22 at 0830, Until Sun04/17/22 at 0830 Given 04/17/2022 8:30 AM EST 4 mL Shoul nelia, Right Chief Complaint and Reason for Visit Chief Complaint Admit Date hip pain September 26, 2024 9:09 am Additional Source Comments INFORMATION SOURCE (unrecogn ized section and content) DATE CREATED AUTHOR 10/02/2017 [facility] DATE CREATED AUTHOR AUTHOR'S ORGANIZ ATION 02/24/2022 [facility] DATE CREATED AUTHOR AUTHOR'S ORGANIZ ATION 10/02/2023 [facility]) DATE CREATED AUTHOR AUTHOR'S ORGANIZ ATION 01/28/2024 [facility] DATE CREATED AUTHOR AUTHOR'S ORGANIZ ATION 01/31/[address] [facility] DATE CREATED AUTHOR AUTHOR'S ORGANIZ ATION 03/22/2024 [facility] DATE CREATED AUTHOR AUTHOR'S ORGANIZ ATION 03/29/2024 [facility] Source Comments (unrecognize d section and content) In the event this informatio n is protected by the Federal Confidentiality of Alcohol and Drug Abuse Patient Records regulations: The Federal rules restrict any use of the information to criminally investigate or prosecute any alcohol or drug abuse patient.[facility] the event this information is protected by the Federal Confidentiality of Alcohol and Drug Abuse Patient Records regulations: The Federal rules restrict any use of the information to criminally investigate or prosecute any alcohol or drug abuse patient.[facility] HospitalIn the event this information is protected by the Federal Confidentiality of Alcohol and Drug Abuse Patient Records regulations: The Federal rules restrict any use of the information to criminally investigate or prosecute any alcohol or drug abuse patient.[facility] HospitalIn the event this information is protected by the Federal Confidentiality of Alcohol and Drug Abuse Patient Records regulations: The Federal rules restrict any use of the information to criminally investigate or prosecute any alcohol or drug abuse patient.[facility] HospitalIn the event this information is protected by the Federal Confidentiality of Alcohol and Drug Abuse Patient Records regulations: The Federal rules restrict any use of the information to criminally investigate or prosecute any alcohol or drug abuse patient.[facility] HospitalIn the event this information is protected by the Federal Confidentiality of Alcohol and Drug Abuse Patient Records regulations: The Federal rules restrict any use of the information to criminally investigate or prosecute any alcohol or drug abuse patient.[facility] HospitalIn the event this information is protected by the Federal Confidentiality of Alcohol and Drug Abuse Patient Records regulations: The Federal rules restrict any use of the information to criminally investigate or prosecute any alcohol or drug abuse patient.[facility] HospitalIn the event this information is protected by the Federal Confidentiality of Alcohol and Drug Abuse Patient Records regulations: The Federal rules restrict any use of the information to criminally investigate or prosecute any alcohol or drug abuse patient.[facility] HospitalIn the event this information is protected by the Federal Confidentiality of Alcohol and Drug Abuse Patient Records regulations: The Federal rules restrict any use of the information to criminally investigate or prosecute any alcohol or drug abuse patient.[facility] HospitalIn the event this information is protected by the Federal Confidentiality of Alcohol and Drug Abuse Patient Records regulations: The Federal rules restrict any use of the information to criminally investigate or prosecute any alcohol or drug abuse patient.[facility] HospitalIn the event this information is protected by the Federal Confidentiality of Alcohol and Drug Abuse Patient Records regulations: The Federal rules restrict any use of the information to criminally investigate or prosecute any alcohol or drug abuse patient.[facility] HospitalIn the event this information is protected by the Federal Confidentiality of Alcohol and Drug Abuse Patient Records regulations: The Federal rules restrict any use of the information to criminally investigate or prosecute any alcohol or drug abuse patient.[facility] HospitalIn the event this information is protected by the Federal Confidentiality of Alcohol and Drug Abuse Patient Records regulations: The Federal rules restrict any use of the information to criminally investigate or prosecute any alcohol or drug abuse patient.[facility] HospitalIn the event this information is protected by the Federal Confidentiality of Alcohol and Drug Abuse Patient Records regulations: The Federal rules restrict any use of the information to criminally investigate or prosecute any alcohol or drug abuse patient.[facility] HospitalIn the event this information is protected by the Federal Confidentiality of Alcohol and Drug Abuse Patient Records regulations: The Federal rules restrict any use of the information to criminally investigate or prosecute any alcohol or drug abuse patient.[facility] HospitalIn the event this information is protected by the Federal Confidentiality of Alcohol and Drug Abuse Patient Records regulations: The Federal rules restrict any use of the information to criminally investigate or prosecute any alcohol or drug abuse patient.[facility] HospitalIn the event this information is protected by the Federal Confidentiality of Alcohol and Drug Abuse Patient Records regulations: The Federal rules restrict any use of the information to criminally investigate or prosecute any alcohol or drug abuse patient.[facility] HospitalIn the event this information is protected by the Federal Confidentiality of Alcohol and Drug Abuse Patient Records regulations: The Federal rules restrict any use of the information to criminally investigate or prosecute any alcohol or drug abuse patient.[facility] HospitalIn the event this information is protected by the Federal Confidentiality of Alcohol and Drug Abuse Patient Records regulations: The Federal rules restrict any use of the information to criminally investigate or prosecute any alcohol or drug abuse patient.[facility] HospitalIn the event this information is protected by the Federal Confidentiality of Alcohol and Drug Abuse Patient Records regulations: The Federal rules restrict any use of the information to criminally investigate or prosecute any alcohol or drug abuse patient.[facility] HospitalIn the event this information is protected by the Federal Confidentiality of Alcohol and Drug Abuse Patient Records regulations: The Federal rules restrict any use of the information to criminally investigate or prosecute any alcohol or drug abuse patient.[facility] HospitalIn the event this information is protected by the Federal Confidentiality of Alcohol and Drug Abuse Patient Records regulations: The Federal rules restrict any use of the information to criminally investigate or prosecute any alcohol or drug abuse patient.[facility] HospitalIn the event this information is protected by the Federal Confidentiality of Alcohol and Drug Abuse Patient Records regulations: The Federal rules restrict any use of the information to criminally investigate or prosecute any alcohol or drug abuse patient.[facility] HospitalIn the event this information is protected by the Federal Confidentiality of Alcohol and Drug Abuse Patient Records regulations: The Federal rules restrict any use of the information to criminally investigate or prosecute any alcohol or drug abuse patient.[facility] HospitalIn the event this information is protected by the Federal Confidentiality of Alcohol and Drug Abuse Patient Records regulations: The Federal rules restrict any use of the information to criminally investigate or prosecute any alcohol or drug abuse patient.[facility] HospitalIn the event this information is protected by the Federal Confidentiality of Alcohol and Drug Abuse Patient Records regulations: The Federal rules restrict any use of the information to criminally investigate or prosecute any alcohol or drug abuse patient.[facility] HospitalIn the event this information is protected by the Federal Confidentiality of Alcohol and Drug Abuse Patient Records regulations: The Federal rules restrict any use of the information to criminally investigate or prosecute any alcohol or drug abuse patient.[facility] HospitalIn the event this information is protected by the Federal Confidentiality of Alcohol and Drug Abuse Patient Records regulations: The Federal rules restrict any use of the information to criminally investigate or prosecute any alcohol or drug abuse patient.[facility] HospitalIn the event this information is protected by the Federal Confidentiality of Alcohol and Drug Abuse Patient Records regulations: The Federal rules restrict any use of the information to criminally investigate or prosecute any alcohol or drug abuse patient.[facility] HospitalIn the event this information is protected by the Federal Confidentiality of Alcohol and Drug Abuse Patient Records regulations: The Federal rules restrict any use of the information to criminally investigate or prosecute any alcohol or drug abuse patient.[facility] HospitalIn the event this information is protected by the Federal Confidentiality of Alcohol and Drug Abuse Patient Records regulations: The Federal rules restrict any use of the information to criminally investigate or prosecute any alcohol or drug abuse patient.[facility] HospitalIn the event this information is protected by the Federal Confidentiality of Alcohol and Drug Abuse Patient Records regulations: The Federal rules restrict any use of the information to criminally investigate or prosecute any alcohol or drug abuse patient.[facility] HospitalIn the event this information is protected by the Federal Confidentiality of Alcohol and Drug Abuse Patient Records regulations: The Federal rules restrict any use of the information to criminally investigate or prosecute any alcohol or drug abuse patient.[facility] HospitalIn the event this information is protected by the Federal Confidentiality of Alcohol and Drug Abuse Patient Records regulations: The Federal rules restrict any use of the information to criminally investigate or prosecute any alcohol or drug abuse patient.[facility] HospitalIn the event this information is protected by the Federal Confidentiality of Alcohol and Drug Abuse Patient Records regulations: The Federal rules restrict any use of the information to criminally investigate or prosecute any alcohol or drug abuse patient.[facility] HospitalIn the event this information is protected by the Federal Confidentiality of Alcohol and Drug Abuse Patient Records regulations: The Federal rules restrict any use of the information to criminally investigate or prosecute any alcohol or drug abuse patient.[facility] Reason for Visit (unrecogniz ed section and content) Reason Comments Prescription Refills Appointment Reason Comments Appointment Reason Comments F/U 6 months Reason Comments Follow Up Reason Comments Medicare Wellness Exam Reason Comments Future Appointment Reason Comments Neck Pain Specialty Diagnoses / Procedures Referred By Contac t Referred To Contact Orthopedics Diagnoses Acute pain of right shoulder Procedures CONSULT TO ORTHOPAEDICS OFFICE/OUTPATIENT NEW HIGH MDM 60-74 MINUTES Faustino, JOSE ALBERTO Hermosillo.MECHANICAL ENGINEERING PROFESSOR [address] [place] [address] Referral ID Status Reason Start Date Expiration Date V isits Requested Visits Authorized [id number] Closed PCP Requested Referral 02/03/2022 02/03/2023 1 1 Reason Comments Results Reason Comments Follow Up Device check. Reason Comments Follow Up 4 weeks post visit impingement syndrome right shoulder with injection given Reason Comments Patient Question Device Reason Comments 9 month follow up Reason Comments Abstract Reason Comments Cardiac Clearance Reason Comments Pre-Op Exam Reason Comments Pre-Op Exam 01/03/24 Dr. Michael Richmond- Lumbar 3, Lumbar 4 Laminectomy Reason Comments Refill Request Reason Comments Medicare Wellness Exam Care Teams (unrecognized sec tion and content) Professor Of Early Childhood Education Relationship Specialty Start Date End Date Leodan Hopkins MD [address], [place] [id number] PCP - General Internal Medicine 03/14/16 Professor Of Early Childhood Education Relationship Specialty Start Date End Date Leodan Hopkins MD [address] [place] [address] PCP - General Internal Medicine 03/14/16 Professor Of Early Childhood Education Relationship Specialty Start Date End Date Leodan Hopkins MD [address] [place] [address] PCP - General Internal Medicine 03/14/16 Professor Of Early Childhood Education Relationship Specialty Start Date End Date Leodan Hopkins MD [address] [place] [address] PCP - General Internal Medicine 03/14/16 Professor Of Early Childhood Education Relationship Specialty Start Date End Date Leodan Hopkins MD [address] [place] [address] PCP - General Internal Medicine 03/14/16 Professor Of Early Childhood Education Relationship Specialty Start Date End Date Leodan Hopkins MD [address] [place] [address] PCP - General Internal Medicine 03/14/16 Professor Of Early Childhood Education Relationship Specialty Start Date End Date Leodan Hopkins MD [address] [place] [address] PCP - General Internal Medicine 03/14/16 Professor Of Early Childhood Education Relationship Specialty Start Date End Date Leodan Hopkins MD [address] [place] [address] PCP - General Internal Medicine 03/14/16 Professor Of Early Childhood Education Relationship Specialty Start Date End Date Leodan Hopkins MD [address] [place] [address] PCP - General Internal Medicine 03/14/16 Professor Of Early Childhood Education Relationship Specialty Start Date End Date Leodan Hopkins MD [address] [place] [address] PCP - General Internal Medicine 03/14/16 Professor Of Early Childhood Education Relationship Specialty Start Date End Date Leodan Hopkins MD [address] [place] [address] PCP - General Internal Medicine 03/14/16 Professor Of Early Childhood Education Relationship Specialty Start Date End Date Leodan Hopkins MD [address] [facility] [place] [address] PCP - General Internal Medicine 03/14/16 Professor Of Early Childhood Education Relationship Specialty Start Date End Date Leodan Hopkins MD [address] [place] [address] PCP - General Internal Medicine 03/14/16 Professor Of Early Childhood Education Relationship Specialty Start Date End Date Leodan Hopkins MD [address] [place] [address] PCP - General Internal Medicine 03/14/16 Professor Of Early Childhood Education Relationship Specialty Start Date End Date Leodan Hopkins MD [address] [facility] [place] [address] PCP - General Internal Medicine 03/14/16 Professor Of Early Childhood Education Relationship Specialty Start Date End Date Leodan Hopkins MD [address] [facility] [place] [address] PCP - General Internal Medicine 03/14/16 Professor Of Early Childhood Education Relationship Specialty Start Date End Date Leodan Hopkins MD [address] [place] [address] PCP - General Internal Medicine 03/14/16 Professor Of Early Childhood Education Relationship Specialty Start Date End Date Leodan Hopkins MD [address] [place] [address] PCP - General Internal Medicine 03/14/16 Professor Of Early Childhood Education Relationship Specialty Start Date End Date Leodan Hopkins MD [address] [place] [address] PCP - General Internal Medicine 03/14/16 Professor Of Early Childhood Education Relationship Specialty Start Date End Date Leodan Hopkins MD [address] [place] [address] PCP - General Internal Medicine 03/14/16 Professor Of Early Childhood Education Relationship Specialty Start Date End Date Leodan Hopkins MD [address] [place] [address] PCP - General Internal Medicine 03/14/16 Professor Of Early Childhood Education Relationship Specialty Start Date End Date Leodan Hopkins MD [address] [place] [address] PCP - General Internal Medicine 03/14/16 Professor Of Early Childhood Education Relationship Specialty Start Date End Date Leodan Hopkins MD [address] [place] [address] PCP - General Internal Medicine 03/14/16 Professor Of Early Childhood Education Relationship Specialty Start Date End Date Leodan Hopkins MD [address] [place] [address] PCP - General Internal Medicine 03/14/16 Professor Of Early Childhood Education Relationship Specialty Start Date End Date Leodan Hopkins MD [address] [place] [address] PCP - General Internal Medicine 03/14/16 Professor Of Early Childhood Education Relationship Specialty Start Date End Date Leodan Hopkins MD [address] [place] [address] PCP - General Internal Medicine 03/14/16 Jaimee Gerardo, NEWS VIDEOTAPE EDITOR.MECHANICAL ENGINEERING PROFESSOR [address] [place], [place] [id number] 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 Leodan Hopkins MD Primary Care Provider Active Team Status: Inactive Member Role Status Dates Dr. Leodan Hopkins MD Primary Care Provider Active Start: September 26, 2024 End: September 26, 2024 Edwin Juan MD Emergency Provider Active Star t: September 26, 2024 End: September 26, 2024 Goals (unrecognized section and content) Goals may be documented in a n alternate section FOR RECORDS PERTAINING TO PATIENTS WHO ARE OR HAVE BEEN ENROLLED IN A CHEMICAL DEPENDENCY/SUBSTANCEABUSE PROGRAM, SOME INFORMATION MAY BE OMITTED. This clinical summary was aggregated from multiple sources. Caution should be exercised in using it in the provision of clinical care. This summary normalizes information from multiple sources, and as a consequence, information in this document may materially change the coding, format and clinical context of patient data. In addition, data may be omitted in some cases. CLINICAL DECISIONS SHOULD BE BASED ON THE PRIMARY CLINICAL RECORDS. [employer] provides no warranty or guarantee of the accuracy or completeness of information in this document.
[2024-09-27] MEDS: Acetaminophen 325 MG Tablet 650 MG PO (02:52)
[2024-09-27 03:00] VITALS: PULSE 71
[2024-09-27 04:36] VITALS: BP 142/57; PULSE 90; RESP 16; TEMP 36.7; O2SAT 96
[2024-09-27 06:49] LABS: Absolute Lymphocyte Count 2.26 X10^3/uL (0.83-4.51); Absolute Neutrophil Count 5.9 X10^3/uL (2.0-7.7); Basophil# 0.03 X10^3/uL; Basophil% 0.3 % (0-1); Eosinophil# 0.16 X10^3/uL; Eosinophils% 1.7 % (0-5); Hematocrit 36.3 % (37-47); Hemoglobin 11.8 g/dL (12.0-15.0); Lymphocyte # 2.26 X10^3/ul (0.83-4.51); Lymphocyte % 24.6 % (19-41); Mean Corp Hgb Conc 32.5 g/dL (32-36); Mean Corpuscular Hgb 27.8 pg (27.0-32.0); Mean Corpuscular Volume 85.4 fL (81-99); Mean Platelet Vol. 10.4 fl (6.2-12.0); Monocyte# 0.84 X10^3/uL; Monocyte% 9.1 % (0-10); NRBC Flagged by Analyzer 0 % (0-5); Neutrophil # 5.86 X10^3/uL (2.7-7.7); Neutrophil % 63.9 % (47-70); Platelet Count 227 K/mm3 (150-450); RBC Distribution Width CV 14.3 % (11.6-14.6); RBC Distribution Width SD 44.3 fl (35.1-43.9); Red Blood Count 4.25 M/mm3 (4.2-5.4); White Blood Count 9.2 K/mm3 (4.4-11.0)
[2024-09-27 07:31] LABS: Anion Gap 11 (5-15); BUN 23 mg/dL (4-19); BUN/Creat Ratio 18.5 RATIO (10-20); Calcium,Total 8.7 mg/dL (7.6-11.0); Carbon Dioxide 23.2 mmol/L (21.0-32.0); Chloride 103 mmol/L (98-108); Creatinine, Serum 1.23 mg/dL (0.70-1.20); EST Glomerular Filtration Rate 43 (>60); Estimated Creatinine Clearance 40.06 ml/min (50-250); Glucose 107 mg/dL (70-99); Potassium 4.6 mmol/L (3.3-5.1); Sodium Level 138 mmol/L (133-145)
[2024-09-27 08:35] VITALS: BP 147/59; PULSE 87; RESP 18; TEMP 36.9; O2SAT 95
[2024-09-27] MEDS: Senna/Docusate Sodium 1 Tablet 2 TABLET PO (08:39)
[2024-09-27] MEDS: Losartan Potassium 50 MG Tablet PO (08:39)
[2024-09-27] MEDS: Polyethylene Glycol 3350 17 GM PACKET PO (08:39)
[2024-09-27] MEDS: hydroCHLOROthiazide 12.5mg 12.5 MG PO (08:40)
--- NOTE | 2024-09-27 09:25 | CASEMGMT ---
Addendum entered by Hilary Naylor 09/27/24 12:25: Noted 's f/u note states therapy. Placed green sheet on chart for OP therapy should pt change her mind upon dc. Original Note: AGUSTIN MADSEN Assessment: Face to Face with pt for initial transition planning/care coordination assessment. AGUSTIN MADSEN introduced self and role at [facility], pt voices understanding and consents to assessment. Pt is A&O x4 and answers all questions appropriately at this time. Pt sitting up in chair with dtr at bedside. Pt agreeable to assessment with dtr present. Care providers, pharmacy, and demographics verified/updated. Admitting Dx: R hip pain, HTN urgency PCP:Sandeep Specialists:justin Joyner; Dominique cardio Preferred Pharmacy: [facility] Insurance: [facility] Prescription Benefit: yes LNOK: [employer], dtr Living Arrangements: Pt lives alone in a split level home with no steps to enter but 8 steps between floors with a rail. 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 Pt denies concerns at home. Transportation: Pt drives self and denies concerns with transportation. DME:walk in shower, ww, cane, bench in shower HHC/SNF: Denies hx of Pt states no concerns with going home at time of dc. Currently pt is awaiting to see her again. She denies need for any therapy. Pt states her pain is much better today. Pt states no further concerns/needs. CM to follow. Advised pt to ask CM if any further questions/concerns/needs arise, voices understanding. Pt Goal: Home Plan: Home pending f/u today with Dr. Joyner. Jen VELEZ CM
--- NOTE | 2024-09-27 11:21 | PN.ORTHO_ITS ---
Subjective Subjective Patient seen and examined. Up to chair this morning with therapy. She states she feels dramatically better but pain is still present. Denies any numbness or tingling in her legs or leg weakness. Objective Data Objective Data Vital Signs: Vital Signs Temp Pulse Resp BP Pulse Ox O2 Del Method 98.5 F 87 18 147/59 H 95 Room Air 09/27/24 08:35 09/27/24 08:35 09/27/24 08:35 09/27/24 08:35 09/27/24 08:35 09/27/24 08:35 Oxygen Delivery Method Room Air Weight: 214 lb 11.684 oz Body Mass Index (BMI) 34.6 Intake & Output: Intake and Output for Last 24 Hours 09/25/24 09/26/24 09/27/24 23:59 23:59 23:59 Intake Total 0 / 0 1240 / 1240 Balance 0 / 0 1240 / 1240 Lab / Micro Data 09/27/24 06:14 09/27/24 06:14 Labs: Laboratory Results - last 24 hr 09/26/24 09:45: Magnesium 2.3 H 09/27/24 06:14: WBC 9.2, RBC 4.25, Hgb 11.8 L, Hct 36.3 L, MCV 85.4, MCH 27.8, MCHC 32.5, RDW Std Deviation 44.3 H, RDW Coeff of Yo 14.3, Plt Count 227, MPV 10.4, Immature Gran % (Auto) 0.400, Neut % (Auto) 63.9, Lymph % (Auto) 24.6, [place] % (Auto) 9.1, Eos % (Auto) 1.7, Baso % (Auto) 0.3, Absolute Neuts (auto) 5.9, Absolute Lymphs (auto) 2.26, Nucleated RBC % 0, Sodium 138, Potassium 4.6, Chloride 103, Carbon Dioxide 23.2, Anion Gap 11, BUN 23 H, Creatinine 1.23 H, E stim Creat Clear Calc 40.06 L, Est GFR (MDRD) Non-Af 43 L, BUN/Creatinine Ratio 18.5, Glucose 107 H, Calcium 8.7 Radiography Diagnostic Testing: Radiology Impression Lumbar Spine CT 09/26/24 16:25 IMPRESSION: 1. No acute fracture. 2. Degenerative changes as above. 3. If symptoms persist, further evaluation with MRI is recommended. Reading Location: [facility] Physical Exam Narrative General -A&Ox3, appears comfortable. Respiratory -normal work of breathing, no intercostal retractions. CV -pulses regular, brisk capillary refill ?4 limbs. Abdomen-soft, nontender, nondistended. No guarding, rigidity, rebound tenderness. Musculoskeletal/neurologic -cranial nerves II through XII intact. Bilateral lower extremity DF, PF, EHL 5/5. Downgoing Babinski. DP 2+ was capillary fill in the toes. No saddle anesthesia. Sensation intact to light touch L3-S1 dermatomes bilaterally. She has focal tenderness in the upper sacrum region as well as the right quadratus lumborum. No palpable step-offs or deformities of the lumbar spine. Negative logroll right lower extremity. Assessment & Plan Assessment/Plan (1) Intractable low back pain: PLAN: CT scan reviewed. No obvious acute process is identified. I suspect pain is likely muscular. Occult vertebral compression fracture versus sacral insufficiency fracture is certainly still a possibility. I would recommend continued analgesia and physical therapy. Consideration of a bone scan is noted due to pacemaker incompatibility for MRI. With her improvements with therapy and analgesia, this may be unnecessary but considered if she worsens clinically. Will follow.
[2024-09-27] MEDS: 0.9% Saline Lock 10 ML Syringe IV (13:01)
[2024-09-27] MEDS: Ketorolac 30 MG/ML Syringe IV ×2 (13:01→21:39)
--- NOTE | 2024-09-27 14:06 | PN.HOSP_ITS ---
Reason for Visit Reason for Visit: Diagnoses Other low back pain (09/26/24) Other malaise (09/26/24) Objective Data Objective Data Vital Signs: Vital Signs Temp Pulse Resp BP Pulse Ox O2 Del Method 98.5 F 87 18 147/59 H 95 Room Air 09/27/24 08:35 09/27/24 08:35 09/27/24 08:35 09/27/24 08:35 09/27/24 08:35 09/27/24 08:35 Oxygen Delivery Method Room Air Weight: 214 lb 11.684 oz Body Mass Index (BMI) 34.6 Intake & Output: Intake and Output for Last 24 Hours 09/25/24 09/26/24 09/27/24 23:59 23:59 23:59 Intake Total 0 / 0 1240 / 1240 Balance 0 / 0 1240 / 1240 Lab / Micro Data 09/27/24 06:14 09/27/24 06:14 Labs: Laboratory Results - last 24 hr 09/27/24 06:14: WBC 9.2, RBC 4.25, Hgb 11.8 L, Hct 36.3 L, MCV 85.4, MCH 27.8, MCHC 32.5, RDW Std Deviation 44.3 H, RDW Coeff of Yo 14.3, Plt Count 227, MPV 10.4, Immature Gran % (Auto) 0.400, Neut % (Auto) 63.9, Lymph % (Auto) 24.6, [place] % (Auto) 9.1, Eos % (Auto) 1.7, Baso % (Auto) 0.3, Absolute Neuts (auto) 5.9, Absolute Lymphs (auto) 2.26, Nucleated RBC % 0, Sodium 138, Potassium 4.6, Chloride 103, Carbon Dioxide 23.2, Anion Gap 11, BUN 23 H, Creatinine 1.23 H, Estim Creat Clear Calc 40.06 L, Est GFR (MDRD) Non-Af 43 L, BUN/Creatinine Ratio 18.5, Glucose 107 H, Calcium 8.7 Radiography Diagnostic Testing: Radiology Impression Lumbar Spine CT 09/26/24 16:25 IMPRESSION: 1. No acute fracture. 2. Degenerative changes as above. 3. If symptoms persist, further evaluation with MRI is recommended. Reading Location: [facility] Physical Exam Narrative Seen and examined Lower back pain and spasm is better. She is out of bed to chair. Complain of pain about 5-6/10 intensity. General: Alert, Oriented x3, Cooperative. BMI 34.7 kg/m?, obesity grade 1 HEENT: Atraumatic, PERRLA, EOMI, Normocephalic. Oral: Deep oropharyngeal could not be visualized. Neck: Supple, No JVD, Negative Carotid Bruits Chest wall/Lungs: Air entry equal in bilateral lung bases. No crepitation/rhonchi Cardiovascular: Regular rate and rhythm, Normal S1,S2, No M/G/R Abdomen: Bowel Sounds Present, Soft, Non Tender, Non-Distended : No dysuria. No renal angle tenderness. No suprapubic tenderness. Extremities: No edema, Capillary Refill Less than 3 Seconds Skin: No rashes, No breakdown Musculoskeletal: No acute tenderness in anterior bilateral groin or greater trochanter. ROM of right hip severely limited with pain and spasm Spine: Right-sided, paraspinal and parasacral muscles mild tenderness. Still spasm present. Neurological: Cranial nerves II-XII grossly intact, DTR 2+/4. No acute focal neurological deficit. Psych/Mental Status: Flat affect Assessment & Plan Assessment/Plan (1) Debility: (2) Intractable low back pain: PLAN: Plan This 83-year-old female is being admitted for acute intractable right-sided lower back pain/posterior hip 1. Intractable right-sided/posterior hip lower back pain consistent with sciatica pain: Lumbar spine x-ray shows multilevel spondylosis, multilevel disc space narrowing fusion at L4-5 and L5-S1. No evidence of listhesis. Fecal material throughout the colon. Hips/pelvis x-ray shows mild arthritis of both hips with mild arthritis of left hip. Pain medication, muscle relaxant baclofen. Posterior orthopedic manager surgery to consider for local injection. PT and OT ordered 09/27: Orthopedic consult reviewed. CT lumbar spine reviewed. It shows no acute fracture but severe endplate degenerative changes and disc disease L5-S1 and L4- 5. I discussed the findings with the patient's daughter near the bedside. Anti-inflammatory agent/NSAID Toradol added. 2. Chronic constipation: X-ray shows fecal material therefore aggressive treatment with senna S, MiraLAX, psyllium Dulcolax. 09/27 she moved her bowel. 3. Chronic lumbar spinal stenosis: She had L3 and L4 bilateral laminectomy, foraminotomies and decompression of bilateral nerve root in December 2023. She was following Dr. Paiz. 4. Hypertensive urgency with essential hypertension: Patient blood pressure in systolic 194. IV hydralazine and IV labetalol as needed ordered. Continue home medication HCTZ and losartan first dose now. 09/27: Blood pressure is normal. 147/59. Discontinue telemetry. 5. Dyslipidemia: On atorvastatin continue 6. CKD stage IIIb: Estimated creatinine clearance 44.66, BUN/creatinine 23/1.08 on baseline 09/27: BUN/creatinine 23/1.23. Creatinine slightly increased but does not meet criteria for MARY 7. DVT prophylaxis, high risk: Lovenox 40 Mg subcu daily ordered. Living will/advanced directive/end of life care: Patient does have living will or advanced directive. After discussion of benefits/risks procedures involved with full code, DNR CC arrest and DNR CC, the patient opted for full code. Patient does want artificial life support including intubation, tube feed, ventilator and/chest compression, central venous catheter, vasopressor and DC shock if needed Total time spent in [id number] encounter in discussion of advanced directive 17 minutes. Laboratory Results 09/27/24 06:14: WBC 9.2, RBC 4.25, Hgb 11.8 L, Hct 36.3 L, MCV 85.4, MCH 27.8, MCHC 32.5, RDW Std Deviation 44.3 H, RDW Coeff of Yo 14.3, Plt Count 227, MPV 10.4, Immature Gran % (Auto) 0.400, Neut % (Auto) 63.9, Lymph % (Auto) 24.6, [place] % (Auto) 9.1, Eos % (Auto) 1.7, Baso % (Auto) 0.3, Absolute Neuts (auto) 5.9, Absolute Lymphs (auto) 2.26, Nucleated RBC % 0, Sodium 138, Potassium 4.6, Chloride 103, Carbon Dioxide 23.2, Anion Gap 11, BUN 23 H, Creatinine 1.23 H, E stim Creat Clear Calc 40.06 L, Est GFR (MDRD) Non-Af 43 L, BUN/Creatinine Ratio 18.5, Glucose 107 H, Calcium 8.7 Clinical Impression(s) from Imaging Studies Hip/Pelvis X-Ray 09/26/24 09:50 IMPRESSION: Mild arthritis of both hips with attention to the right hip. Reading Location: [facility] Lumbar Spine X-Ray 09/26/24 09:50 IMPRESSION: ADVANCED DEGENERATIVE CHANGES OF THE LUMBAR SPINE. Lumbar Spine CT 09/26/24 16:25 IMPRESSION: 1. No acute fracture. 2. Degenerative changes as above. 3. If symptoms persist, further evaluation with MRI is recommended. Reading Location: [id number] Laboratory Results 09/26/24 09:45: WBC 11.6 H, RBC 4.95, Hgb 13.8, Hct 41.2, MCV 83.2, MCH 27.9, MCHC 33.5, RDW Std Deviation 42.0, RDW Coeff of Yo 13.8, Plt Count 238, MPV 10.3, Immature Gran % (Auto) 0.700, Neut % (Auto) 72.4 H, Lymph % (Auto) 17.6 L, [place] % (Auto) 8.4, Eos % (Auto) 0.5, Baso % (Auto) 0.4, Absolute Neuts (auto) 8.4 H, Absolute Lymphs (auto) 2.04, Nucleated RBC % 0, Sodium 139, Potassium 4.2, Chloride 103, Carbon Dioxide 21.4, Anion Gap 15, BUN 23 H, Creatinine 1.08, Estim Creat Clear Calc 44.66 L, Est GFR (MDRD) Non-Af 51 L, BUN/Creatinine Ratio 21.7 H, Glucose 112 H, Calcium 9.7, Magnesium 2.3 H Charges/Coding Visit Charges Inpatient E&M: 34471 Subs Hosp L2
[2024-09-27 15:15] VITALS: BP 158/77; PULSE 78; RESP 18; TEMP 36.6; O2SAT 98
[2024-09-27 21:37] VITALS: BP 152/66; PULSE 76; RESP 16; TEMP 36.6; O2SAT 98
[2024-09-28] MEDS: Acetaminophen 325 MG Tablet 650 MG PO (04:51)
[2024-09-28 04:55] VITALS: BP 154/71; PULSE 88; RESP 17; TEMP 36.6; O2SAT 98
[2024-09-28 05:23] LABS: Absolute Lymphocyte Count 2.19 X10^3/uL (0.83-4.51); Absolute Neutrophil Count 5.5 X10^3/uL (2.0-7.7); Basophil# 0.03 X10^3/uL; Basophil% 0.3 % (0-1); Eosinophil# 0.24 X10^3/uL; Eosinophils% 2.7 % (0-5); Hematocrit 37.4 % (37-47); Hemoglobin 12.3 g/dL (12.0-15.0); Lymphocyte # 2.19 X10^3/ul (0.83-4.51); Lymphocyte % 24.7 % (19-41); Mean Corp Hgb Conc 32.9 g/dL (32-36); Mean Corpuscular Volume 85.2 fL (81-99); Mean Platelet Vol. 10.4 fl (6.2-12.0); Monocyte# 0.86 X10^3/uL; Monocyte% 9.7 % (0-10); NRBC Flagged by Analyzer 0 % (0-5); Platelet Count 217 K/mm3 (150-450); RBC Distribution Width SD 43.5 fl (35.1-43.9); Red Blood Count 4.39 M/mm3 (4.2-5.4); White Blood Count 8.9 K/mm3 (4.4-11.0)
[2024-09-28 05:59] LABS: Anion Gap 11 (5-15); BUN 25 mg/dL (4-19); BUN/Creat Ratio 20.7 RATIO (10-20); Carbon Dioxide 22.7 mmol/L (21.0-32.0); Chloride 102 mmol/L (98-108); Creatinine, Serum 1.21 mg/dL (0.70-1.20); EST Glomerular Filtration Rate 44 (>60); Estimated Creatinine Clearance 40.73 ml/min (50-250); Glucose 114 mg/dL (70-99); Potassium 4.7 mmol/L (3.3-5.1); Sodium Level 136 mmol/L (133-145)
[2024-09-28] MEDS: Baclofen 10 MG Tablet PO (08:33)
[2024-09-28 08:50] VITALS: BP 171/75; PULSE 88; RESP 16; TEMP 36.1; O2SAT 96
[2024-09-28] MEDS: hydroCHLOROthiazide 12.5mg 12.5 MG PO (08:54)
[2024-09-28] MEDS: Losartan Potassium 50 MG Tablet PO (08:54)
[2024-09-28] MEDS: 0.9% Saline Lock 10 ML Syringe IV (08:56)
[2024-09-28 10:06] VITALS: BP 155/45; PULSE 70; RESP 16; TEMP 36.1; O2SAT 96
--- NOTE | 2024-09-28 10:59 | DCINST_ITS ---
Discharge Instructions Diet Discharge Diet: No restrictions and 2000 mg Sodium Diet DC O2, CPAP, BIPAP needs Home O2 Discharge instructions: No Dressing / Incision Discharge Activity: Return to Normal Activity Weight Bearing Status: Weight bearing as tolerated Dressing / Incision Call your doctor if you observe: Fever of 101 or Higher, Coldness, Increased Pain, Numbness or Tingling, Change in Color, Inability to urinate, Inability to have a bowel movement, Shortness of breath, Dizziness, Fainting spells, Swelling in the ankles, Chest pain, Prolonged hiccupping, Increased palpitations (irregular heartbeat) and Calf discomfort Follow Up Care When: IN 2 WEEKS Test Results: Test results from this visit will be discussed in further detail at your follow- up appointment, if applicable. Discharge Plan Admission Admit Date/Time: 09/26/24 10:59 Attending Provider: Dileep Ohara Primary Care Provider: Leodan Hopkins Consulting Providers: Artie Joyner Instructions Additional Instructions / Restrictions: Patient can take [id number] acetaminophen 1 g Q8 hourly for pain relief. Patient is at high risk for developing complications of answered but can take for 3-4 days of NSAIDs under medical supervision. Discharge Orders/Prescriptions Prescriptions: New sennosides-docusate sodium [Stimulant Laxative Plus] 8.6-50 mg Tablet 2 tab PO BID PRN (Reason: constipation) Qty: 0 0RF oxycodone 5 mg tablet 2.5 - 5 mg PO Q4H PRN PRN (Reason: Pain Score 4-10) 3 Days Qty: 7 0RF Rx Instructions: 2.5 mg for moderate pain 5 mg for severe pain respectively tizanidine [Zanaflex] 4 mg tablet 4 mg PO Q8H PRN (Reason: muscle spasticity) 7 Days Qty: 21 0RF Continued hydrochlorothiazide 12.5 mg capsule 12.5 mg PO DAILY acetaminophen [Aminofen] 325 mg tablet 650 mg PO DAILY PRN (Reason: pain) 30 Days Qty: 0 0RF Rx Instructions: Acetaminophen 1 g every 8 hourly for 7 days and then as needed under supervision of physician Referrals / Follow Up: Artie Joyner DO [Med Staff - Active Staff] - Within 1 Week Leodan Hopkins MD [Primary Care Provider] - Disposition Disposition (needs filled in before D/C Order can be placed): Home, Self Care
--- NOTE | 2024-09-28 12:05 | DS.PCM_ITS ---
Providers Date of Admission: 09/26/24 Date of Discharge: 09/28/24 Primary Care Physician: Dr. Leodan Hopkins MD Consultations 09/26/24 12:04 Consult: Orthopedics Routine Consulting Provider: Artie Joyner Reason for Consult: right hip arthritis, sciatica, need local injection EMERGENT Consult: No MD Notified: Yes Date Notified: 09/26/24 Time Notified: 11:01 Method of Notification: ED Physician Initiated Reason For Visit: RIGHT HIP PAIN, HTN URGENCY Diagnosis Discharge Diagnosis (1) Debility: Status: Acute Code(s): R53.81 - Other malaise (2) Intractable low back pain: Status: Acute Code(s): M54.59 - Other low back pain Plan This 83-year-old female is being admitted for acute intractable right-sided lower back pain/posterior hip 1. Intractable right-sided/posterior hip lower back pain consistent with sciatica pain: Lumbar spine x-ray shows multilevel spondylosis, multilevel disc space narrowing fusion at L4-5 and L5-S1. No evidence of listhesis. Fecal material throughout the colon. Hips/pelvis x-ray shows mild arthritis of both hips with mild arthritis of left hip. Pain medication, muscle relaxant baclofen. Posterior orthopedic rn outpatient surgery to consider for local injection. PT and OT ordered 09/27: Orthopedic consult reviewed. CT lumbar spine reviewed. It shows no acute fracture but severe endplate degenerative changes and disc disease L5-S1 and L4- 5. I discussed the findings with the patient's daughter near the bedside. Anti-inflammatory agent/NSAID Toradol added. 09/28: Patient right lumbar pain and spasm is better. She can walk little bit. Patient agreeable for discharge on oxycodone and Zanaflex. Advised follow-up with orthopedic surgeon. Patient was treated with Toradol which might have improved her pain. She is high risk for NSAID for monitoring but cannot take for short time under supervision of physician because of history of hypertension and CKD stage IIIb 2. Chronic constipation: X-ray shows fecal material therefore aggressive treatment with senna S, MiraLAX, psyllium Dulcolax. 09/27 she moved her bowel. 09/28: Patient is moving bowel. 3. Chronic lumbar spinal stenosis: She had L3 and L4 bilateral laminectomy, foraminotomies and decompression of bilateral nerve root in December 2023. She was following Dr. Paiz. 4. Hypertensive urgency with essential hypertension: Patient blood pressure in systolic 194. IV hydralazine and IV labetalol as needed ordered. Continue home medication HCTZ and losartan first dose now. 09/27: Blood pressure is normal. 147/59. Discontinue telemetry. 09/28: Blood pressure was high in the morning 171/75 but now controlled 155/45. Follow with PCP to titrate up antihypertensive medications. Home/ambulatory BP monitoring advised 5. Dyslipidemia: On atorvastatin continue 6. CKD stage IIIb: Estimated creatinine clearance 44.66, BUN/creatinine 23/1.08 on baseline 09/27: BUN/creatinine 23/1.23. Creatinine slightly increased but does not meet criteria for MARY 09/28: Kidney function at baseline. Creatinine 1.21. 7. DVT prophylaxis, high risk: Lovenox 40 Mg subcu daily ordered. Living will/advanced directive/end of life care: Patient does have living will or advanced directive. After discussion of benefits/risks procedures involved with full code, DNR CC arrest and DNR CC, the patient opted for full code. Patient does want artificial life support including intubation, tube feed, ventilator and/chest compression, central venous catheter, vasopressor and DC shock if needed Total time spent in [id number] encounter in discussion of advanced directive 17 minutes. Discharge medication reconciliation done. Discharge follow-up instructions completed. Discharge process discussed with the patient and all questions were answered to patient's satisfaction. Follow with PCP in 1 to 2 weeks Total time spent, exact 35 minutes on discharge meds reconciliation, examination, coordination of care with nurses and ancillary staff, review of imaging and blood test and discussion with the patient on follow-up instructions. Laboratory Results 09/27/24 06:14: WBC 9.2, RBC 4.25, Hgb 11.8 L, Hct 36.3 L, MCV 85.4, MCH 27.8, MCHC 32.5, RDW Std Deviation 44.3 H, RDW Coeff of Yo 14.3, Plt Count 227, MPV 10.4, Immature Gran % (Auto) 0.400, Neut % (Auto) 63.9, Lymph % (Auto) 24.6, [place] % (Auto) 9.1, Eos % (Auto) 1.7, Baso % (Auto) 0.3, Absolute Neuts (auto) 5.9, Absolute Lymphs (auto) 2.26, Nucleated RBC % 0, Sodium 138, Potassium 4.6, Chloride 103, Carbon Dioxide 23.2, Anion Gap 11, BUN 23 H, Creatinine 1.23 H, E stim Creat Clear Calc 40.06 L, Est GFR (MDRD) Non-Af 43 L, BUN/Creatinine Ratio 18.5, Glucose 107 H, Calcium 8.7 Clinical Impression(s) from Imaging Studies Hip/Pelvis X-Ray 09/26/24 09:50 IMPRESSION: Mild arthritis of both hips with attention to the right hip. Reading Location: [id number] Lumbar Spine X-Ray 09/26/24 09:50 IMPRESSION: ADVANCED DEGENERATIVE CHANGES OF THE LUMBAR SPINE. Lumbar Spine CT 09/26/24 16:25 IMPRESSION: 1. No acute fracture. 2. Degenerative changes as above. 3. If symptoms persist, further evaluation with MRI is recommended. Reading Location: [id number] Laboratory Results 09/26/24 09:45: WBC 11.6 H, RBC 4.95, Hgb 13.8, Hct 41.2, MCV 83.2, MCH 27.9, MCHC 33.5, RDW Std Deviation 42.0, RDW Coeff of Yo 13.8, Plt Count 238, MPV 10.3, Immature Gran % (Auto) 0.700, Neut % (Auto) 72.4 H, Lymph % (Auto) 17.6 L, [place] % (Auto) 8.4, Eos % (Auto) 0.5, Baso % (Auto) 0.4, Absolute Neuts (auto) 8.4 H, Absolute Lymphs (auto) 2.04, Nucleated RBC % 0, Sodium 139, Potassium 4.2, Chloride 103, Carbon Dioxide 21.4, Anion Gap 15, BUN 23 H, Creatinine 1.08, Estim Creat Clear Calc 44.66 L, Est GFR (MDRD) Non-Af 51 L, BUN/Creatinine Ratio 21.7 H, Glucose 112 H, Calcium 9.7, Magnesium 2.3 H Medications at Discharge Home Medications hydrochlorothiazide 12.5 mg capsule 12.5 mg PO DAILY blood pressure 09/26/24 acetaminophen 325 mg tablet (Aminofen) 650 mg (2 x 325 mg) PO DAILY PRN pain 30 days #0 tabs 09/28/24 oxycodone 5 mg tablet 2.5 - 5 mg (0.5 - 1 x 5 mg) PO Q4H PRN PRN Pain Score 4-10 3 days #7 tabs 09/28/24 sennosides 8.6 mg-docusate sodium 50 mg tablet (Stimulant Laxative Plus) 2 tab PO BID PRN constipation #0 tabs 09/28/24 tizanidine 4 mg tablet (Zanaflex) 4 mg PO Q8H PRN muscle spasticity 1 week #21 tabs 09/28/24 Physical Exam Narrative Seen and examined Lower back pain and spasm is better. She can walk, to the bathroom. She is out of bed to chair. Complain of pain about 3-5/10 intensity. General: Alert, Oriented x3, Cooperative. BMI 34.7 kg/m?, obesity grade 1 HEENT: Atraumatic, PERRLA, EOMI, Normocephalic. Oral: Deep oropharyngeal could not be visualized. Neck: Supple, No JVD, Negative Carotid Bruits Chest wall/Lungs: Air entry equal in bilateral lung bases. No crepitation/rhonchi Cardiovascular: Regular rate and rhythm, Normal S1,S2, No M/G/R Abdomen: Bowel Sounds Present, Soft, Non Tender, Non-Distended : No dysuria. No renal angle tenderness. No suprapubic tenderness. Extremities: No edema, Capillary Refill Less than 3 Seconds Skin: No rashes, No breakdown Musculoskeletal: No acute tenderness in anterior bilateral groin or greater trochanter. ROM of right hip has improved. Spine: Right-sided, paraspinal and parasacral muscles tenderness and spasm is resolved. Neurological: Cranial nerves II-XII grossly intact, DTR 2+/4. No acute focal neurological deficit. Psych/Mental Status: Flat affect Weight / BMI Weight Weight: 214 lb 11.684 oz Body Mass Index (BMI) 34.6 ABG / Lab / Microbiology Data 09/28/24 04:42 09/28/24 04:42 Laboratory: Laboratory Results - last 24 hr 09/28/24 04:42: WBC 8.9, RBC 4.39, Hgb 12.3, Hct 37.4, MCV 85.2, MCH 28.0, MCHC 32.9, RDW Std Deviation 43.5, RDW Coeff of Yo 14.0, Plt Count 217, MPV 10.4, Immature Gran % (Auto) 0.600, Neut % (Auto) 62.0, Lymph % (Auto) 24.7, [place] % (Auto) 9.7, Eos % (Auto) 2.7, Baso % (Auto) 0.3, Absolute Neuts (auto) 5.5, Absolute Lymphs (auto) 2.19, Nucleated RBC % 0, Sodium 136, Potassium 4.7, Chloride 102, Carbon Dioxide 22.7, Anion Gap 11, BUN 25 H, Creatinine 1.21 H, E stim Creat Clear Calc 40.73 L, Est GFR (MDRD) Non-Af 44 L, BUN/Creatinine Ratio 20.7 H, Glucose 114 H, Calcium 9.0 D/C Instructions Discharge Diet: No restrictions and 2000 mg Sodium Diet Weight Bearing Status: Weight bearing as tolerated Call your doctor if you observe: Fever of 101 or Higher, Coldness, Increased Pain, Numbness or Tingling, Change in Color, Inability to urinate, Inability to have a bowel movement, Shortness of breath, Dizziness, Fainting spells, Swelling in the ankles, Chest pain, Prolonged hiccupping, Increased palpitations (irregular heartbeat) and Calf discomfort DC O2, CPAP, BIPAP Needs Home O2 Discharge instructions: No When: IN 2 WEEKS Meaningful Use Info Meaningful Use Meaningful Use Diagnoses (Choose all that apply): None applicable Ischemic Stroke Statin Dosing Therapy Reference: STATIN DOSE THERAPY REFERENCE: * Patients > 75 years receive moderate or high dose statin therapy. * Patients 75 years or YOUNGER should receive HIGH intensity statin dose unless contraindicated. You will be required to document reason for non-treatment if statin daily dose does not meet guidelines. HIGH DOSE STATIN THERAPY DAILY Atorvastatin > than or = to 40 mg Rosuvastatin > than or = to 20 mg Amlodipine + Atorvastatin > than or = to 2.5/40 mg Ezetimibe + Simvastatin 10/80 mg Simvastatin 80mg Discharge Plan Admission Admit Date/Time: 09/26/24 10:59 Attending Provider: Dileep hOara Primary Care Provider: Leodan Hopkins Consulting Providers: Artie Joyner Instructions Additional Instructions / Restrictions: Patient can take [id number] acetaminophen 1 g Q8 hourly for pain relief. Patient is at high risk for developing complications of answered but can take for 3-4 days of NSAIDs under medical supervision. Discharge Orders/Prescriptions Prescriptions: New sennosides-docusate sodium [Stimulant Laxative Plus] 8.6-50 mg Tablet 2 tab PO BID PRN (Reason: constipation) Qty: 0 0RF oxycodone 5 mg tablet 2.5 - 5 mg PO Q4H PRN PRN (Reason: Pain Score 4-10) 3 Days Qty: 7 0RF Rx Instructions: 2.5 mg for moderate pain 5 mg for severe pain respectively tizanidine [Zanaflex] 4 mg tablet 4 mg PO Q8H PRN (Reason: muscle spasticity) 7 Days Qty: 21 0RF Continued hydrochlorothiazide 12.5 mg capsule 12.5 mg PO DAILY acetaminophen [Aminofen] 325 mg tablet 650 mg PO DAILY PRN (Reason: pain) 30 Days Qty: 0 0RF Rx Instructions: Acetaminophen 1 g every 8 hourly for 7 days and then as needed under supervision of physician Referrals / Follow Up: Artie Joyner DO [Med Staff - Active Staff] - Within 1 Week Leodan Hopkins MD [Primary Care Provider] - Disposition Disposition (needs filled in before D/C Order can be placed): Home, Self Care Charges/Coding Visit Charges Inpatient E&M: 96572 Disch Hosp >30min
--- NOTE | 2024-09-28 12:11 | PN.ORTHO_ITS ---
Subjective Subjective Patient seen and examined. Pain continues to improve. She states the baclofen helped her considerably. Denies any numbness, tingling, fevers, chills, nausea vomiting, chest pain or shortness of breath. Objective Data Objective Data Vital Signs: Vital Signs Temp Pulse Resp BP Pulse Ox O2 Del Method 97.0 F L 70 16 155/45 H 96 Room Air 09/28/24 10:06 09/28/24 10:06 09/28/24 10:06 09/28/24 10:06 09/28/24 10:06 09/28/24 10:06 Oxygen Delivery Method Room Air Weight: 214 lb 11.684 oz Body Mass Index (BMI) 34.6 Intake & Output: Intake and Output for Last 24 Hours 09/26/24 09/27/24 09/28/24 23:59 23:59 23:59 Intake Total 0 / 0 1480 / 1480 500 / 500 Balance 0 / 0 1480 / 1480 500 / 500 Lab / Micro Data 09/28/24 04:42 09/28/24 04:42 Labs: Laboratory Results - last 24 hr 09/28/24 04:42: WBC 8.9, RBC 4.39, Hgb 12.3, Hct 37.4, MCV 85.2, MCH 28.0, MCHC 32.9, RDW Std Deviation 43.5, RDW Coeff of Yo 14.0, Plt Count 217, MPV 10.4, Immature Gran % (Auto) 0.600, Neut % (Auto) 62.0, Lymph % (Auto) 24.7, [place] % (Auto) 9.7, Eos % (Auto) 2.7, Baso % (Auto) 0.3, Absolute Neuts (auto) 5.5, Absolute Lymphs (auto) 2.19, Nucleated RBC % 0, Sodium 136, Potassium 4.7, Chloride 102, Carbon Dioxide 22.7, Anion Gap 11, BUN 25 H, Creatinine 1.21 H, E stim Creat Clear Calc 40.73 L, Est GFR (MDRD) Non-Af 44 L, BUN/Creatinine Ratio 20.7 H, Glucose 114 H, Calcium 9.0 Physical Exam Narrative General -A&Ox3, appears comfortable. Respiratory -normal work of breathing, no intercostal retractions. CV -pulses regular, brisk capillary refill ?4 limbs. Abdomen-soft, nontender, nondistended. No guarding, rigidity, rebound tenderness. Musculoskeletal/neurologic -cranial nerves II through XII intact. Bilateral lower extremity DF, PF, EHL 5/5. Downgoing Babinski. DP 2+ was capillary fill in the toes. No saddle anesthesia. Sensation intact to light touch L3-S1 dermatomes bilaterally. She has focal tenderness in the upper sacrum region as well as the right quadratus lumborum. No palpable step-offs or deformities of the lumbar spine. Negative logroll right lower extremity. Assessment & Plan Assessment/Plan (1) Intractable low back pain: PLAN: Pain appears to be improving. Recommend continued baclofen upon discharge as well as NSAIDs and Tylenol. Judicious use of opioids. I would recommend a referral to pain management as an outpatient for medication management as well as possible injections. Outpatient physical therapy is also recommended. I will sign off. Please nested to call if any questions or concerns arise.
== END 2024-09-28 13:42 | disposition home or self-care (01) | DRG 552 ==
LOC: ED 11:08 → PCU 11:57
PROVIDERS: Admitting Provider Internal Medicine; Emergency Provider Emergency Medicine; PCP Internal Medicine; Visit Provider Internal Medicine
DX: M47.816 Spondylosis without myelopathy or radiculopathy, lumbar region (principal); I16.0 Hypertensive urgency; N18.32 Chronic kidney disease, stage 3b; I12.9 Hypertensive chronic kidney disease with stage 1 through stage 4 chronic kidney disease, or unspecified chronic kidney disease; E66.811 Obesity, class 1; M48.061 Spinal stenosis, lumbar region without neurogenic claudication; K59.09 Other constipation; M16.0 Bilateral primary osteoarthritis of hip; G89.29 Other chronic pain; Z95.0 Presence of cardiac pacemaker; Z98.1 Arthrodesis status; Z68.34 Body mass index [BMI] 34.0-34.9, adult; Z79.899 Other long term (current) drug therapy
CPT/HCPCS: 36415; 72100; 72132; 73502; 80048; 83735; 85025; 97116; 97162; 97165; 97530; 97535; 99285; Q9967; A4216